=== PATIENT | female | born 1970 | race Caucasian/White ===

== ENCOUNTER 2020-01-02 16:35 | Emergency (ER) | payer BC, SELFPAY ==
--- NOTE | ~2020-01-02 | XR_ITS ---
EXAMINATION: XR chest 2V DATE: 01/02/2020 17:24 INDICATION: Chest pain, history of right breast cancer TECHNIQUE: AP and lateral views of the chest are obtained. COMPARISON: 10/02/2006 FINDINGS: The lungs are free of acute opacities. There is no pleural effusion or pneumothorax. The ca rdiomediastinal silhouette is normal. There is mild thoracic spondylosis. There are surgical clips in the right axilla. IMPRESSION: 1. No acute cardiopulmonary abnormality. Reviewed, dictated and finalized at location A.
[2020-01-02 16:48] VITALS: PULSE 83
--- NOTE | 2020-01-02 16:48 | ECG_ITS ---
Measurements Intervals [place] Rate: 81 P: -7 VA: 151 QRS: 79 QRSD: 100 T: 25 QT: 370 QTc: 430 Interpretive Statements SINUS RHYTHM DELAYED PRECORDIAL R/S TRANSITION BASELINE WANDER- III BORDERLINE ECG Electronically Signed On 01-03-2020 8:44:52 CDT by Jonnathan Casper D.O.
[2020-01-02 16:49] VITALS: BP 140/77; PULSE 83; RESP 29; TEMP 36.6; O2SAT 97
[2020-01-02 16:58] LABS: Basophils Absolute Auto 0.1 K/mm3 (0.0-0.1); Basophils Percent Auto 0.5 % (0.2-1.2); Eosinophils Absolute Auto 0.2 K/mm3 (0-0.3); Eosinophils Percent Auto 1.5 % (0-4.4); Hematocrit 38.7 % (37.0-47.0); Hemoglobin 12.6 g/dL (12.0-15.0); Immature Granulocyte Absolute 0.07 K/mm3 (0.00-0.031); Immature Granulocyte Percent A 0.6 % (0-0.5); Lymphocytes Absolute Auto 2.27 K/mm3 (0.9-3.2); Lymphocytes Percent Auto 19.6 % (18.3-44.2); Mean Corpuscular HGB Conc 32.6 g/dl (32-36); Mean Corpuscular Hemoglobin 29.1 pg (26-34); Mean Corpuscular Volume 89.4 fl (80-100); Mean Platelet Volume 10.3 fl (7.4-10.4); Monocytes Absolute Auto 0.7 K/mm3 (0.1-0.6); Monocytes Percent Auto 6.4 % (2.6-8.5); Neutrophils Absolute Auto 8.3 K/mm3 (1.3-6.7); Neutrophils Percent Auto 71.4 % (45.5-73.1); Platelet Count Result 184 k/mm3 (150-375); Red Blood Count 4.33 M/mm3 (4.2-5.4); Red Cell Distribution Width 13.2 % (11.5-14.5); White Blood Count 11.6 K/mm3 (4.5-10.0)
[2020-01-02] MEDS: ASPIRIN 81 MG CHEWABLE TABLET 324 MG PO (16:58)
--- NOTE | 2020-01-02 17:22 | ED.GENADULT ---
HPI - General Adult General Chief complaint: Chest Pain <ETTA Moore Last Filed: 01/02/20 19:37> Stated complaint: chest pain <ETTA Moore Last Filed: 01/02/20 19:37> Time Seen by Provider: 01/02/20 16:48 <ETTA Moore Last Filed: 01/02/20 19:37> Source: patient and family <ETTA Moore Last Filed: 01/02/20 19:37> Mode of arrival: ambulatory <ETTA Moore Last Filed: 01/02/20 19:37> Limitations: no limitations <ETTA Moore Last Filed: 01/02/20 19:37> History of Present Illness HPI narrative: Patient is a 49-year-old female who presents to emergency department for evaluation of dyspnea and chest comfort over the midsternum and left chest wall patient notes burning pain worse with deep breathing patient notes she recently just got over an upper respiratory infection and has history of COPD on arrival to emergency department patient has mild discomfort of the chest as noted worse with deep breathing denies cough has not taken anything for her symptoms <ETTA Moore Last Filed: 01/02/20 19:37> Related Data Home medications: Home Medications Medication Instructions Recorded Confirmed anastrozole [Arimidex] 1 mg PO DAILY 12/18/19 12/18/19 albuterol sulfate 2 puff INHALATION 01/02/20 amitriptyline 50 mg PO DAILY 01/02/20 anastrozole 1 mg PO DAILY 01/02/20 budesonide-formoterol INHALATION 01/02/20 cyclobenzaprine 10 mg 01/02/20 escitalopram oxalate mg 01/02/20 fluticasone propionate INTRANASAL 01/02/20 gabapentin 01/02/20 lisinopril-hydrochlorothiazide tablet 01/02/20 meloxicam 01/02/20 prazosin 01/02/20 tramadol mg 01/02/20 trazodone 01/02/20 umeclidinium [Incruse Ellipta] INHALATION 01/02/20 <ETTA Moore Last Filed: 01/02/20 19:37> Allergies/adverse reactions: Allergies Allergy/AdvReac Type Severity Reaction Status Date / Time atorvastatin [From Lipitor] Allergy Unknown Verified 01/02/20 16:53 ciprofloxacin [From Cipro] Allergy Unknown Verified 01/02/20 16:53 doxycycline Allergy Unknown Verified 01/02/20 16:53 Influenza Virus Vaccines Allergy Unknown Verified 01/02/20 19:03 morphine Allergy Hyperactive Verified 01/02/20 19:03 pneumococcal vaccine Allergy Unknown Verified 01/02/20 19:03 Kfyxjxd-Ylu-Wdz Reductase Allergy Unknown Verified 01/02/20 16:54 Inhibitor verapamil Allergy Unknown Verified 01/02/20 16:53 <Oswaldo Bennett PA-C - Last Filed: 01/02/20 19:37> Review of Systems Review of Systems: All systems reviewed & are unremarkable except as noted in HPI and below <Oswaldo Bennett PA-C - Last Filed: 01/02/20 19:37> PMFSH Past Medical History Medical History: Medical History Asthma Bipolar 1 disorder Bursitis Chronic back pain COPD (chronic obstructive pulmonary disease) CVA (cerebral vascular accident) Migraine Neuropathy Normal colonoscopy Obesity LUISA (obstructive sleep apnea) RLS (restless legs syndrome) <Oswaldo Bennett PA-C - Last Filed: 01/02/20 19:37> Surgical History Surgical History: Surgical History H/O elbow surgery Hx of cholecystectomy <Oswaldo Bennett PA-C - Last Filed: 01/02/20 19:37> Family History Family History: Family History (Updated 07/17/19 @ 13:45 by Trini Rockwell MD) Other No history of cancer <Oswaldo Bennett PA-C - Last Filed: 01/02/20 19:37> Social History Social History: Social History Smoking packs per day: 1 Smoking cigarettes per day: 20.0 Years smoked: 10 Smoking pack-years: 10.00 Smoking status: Former smoker Tobacco type: cigarettes Second hand tobacco smoke exposure: No Gender identity (if verbalized by the patient): Female Spiritual care concerns: No
[2020-01-02] MEDS: KETOROLAC 30 MG/ML VIAL (*BKC) IV PUSH (17:25)
[2020-01-02 17:26] LABS: INR 0.9; Partial Thromboplastin Time 25.6 SECONDS (22.3-36.8); Prothrombin Time 12.3 Seconds (11.1-14.7)
[2020-01-02 17:27] VITALS: BP 117/67; PULSE 78; RESP 19; O2SAT 97
[2020-01-02 17:27] LABS: Blood Urea Nitrogen 16 mg/dL (7-17); Calcium 9.5 mg/dL (8.4-10.2); Carbon Dioxide 27 mmol/L (22-30); Chloride 100 mmol/L (98-107); Estimated CRCL calculation 127 ml/min; Estimated Glomerular Filt Rate > 60; Glucose 100 mg/dL (65-105); Potassium 4.2 mmol/L (3.4-5.0); Sodium 137 mmol/L (137-145)
[2020-01-02 17:38] LABS: Troponin I < 0.012 ng/mL (0.000-0.034)
[2020-01-02 17:40] LABS: D Dimer 0.27 ug/mL (<0.48)
[2020-01-02 17:55] VITALS: TEMP 36.6
[2020-01-02 18:24] VITALS: BP 129/66; PULSE 79; RESP 19; O2SAT 96
[2020-01-02 20:23] LABS: Troponin I < 0.012 ng/mL (0.000-0.034)
== END 2020-01-02 20:59 | disposition home or self-care (01) ==
PROVIDERS: Emergency Medicine Emergency Medical Services; Emergency Provider Emergency Medicine; PCP Family Medicine
DX: R07.89 Other chest pain (principal); J44.9 Chronic obstructive pulmonary disease, unspecified; Z86.73 Personal history of transient ischemic attack (TIA), and cerebral infarction without residual deficits; G62.9 Polyneuropathy, unspecified; E66.9 Obesity, unspecified; Z68.43 Body mass index [BMI] 50.0-59.9, adult; G47.33 Obstructive sleep apnea (adult) (pediatric); G25.81 Restless legs syndrome; F31.9 Bipolar disorder, unspecified; Z87.891 Personal history of nicotine dependence; R94.31 Abnormal electrocardiogram [ECG] [EKG]
CPT/HCPCS: 36415; 71046; 80048; 84484; 85025; 85055; 85380; 85610; 85730; 93005; 96374; 99284; A9270; J1885

== ENCOUNTER 2020-06-26 08:04 | Outpatient (CLI) | payer BC, SELFPAY ==
--- NOTE | ~2020-06-26 | MR_ITS ---
EXAMINATION: MR knee RT wo con DATE: 06/26/2020 09:01 INDICATION: Right knee pain. TECHNIQUE: Magnetic resonance imaging (MRI) of the right knee was performed without intravenous contr ast. Sequences included axial PD-weighted FS FSE, coronal PD-weighted FSE and PD-weighted FS FSE, sag ittal PD-weighted FSE, and sagittal T2-weighted FS FSE. COMPARISON: None. FINDINGS: Medial compartment: Medial meniscus is intact. There is deep partial thickness cartilage loss of femoral condyle involvin g the central and medial articular surface. There is deep partial thickness cartilage loss of tibial condyle involving the central and medial articular surface. Marginal osteophytes are noted. Lateral compartment: There is an upper surface horizontal tear of anterior horn of lateral meniscus with 11 mm paramenisca l cyst. There is shallow partial-thickness cartilage loss of tibial condyle anteromedially with mild subchondral edema-like marrow signal intensity. The femoral cartilage is normal. Marginal osteophytes are noted. Patellofemoral compartment: There is deep partial thickness cartilage loss of patellar lateral facet and shallow partial-thicknes s cartilage loss of patellar median ridge and medial facet with mild subchondral edema-like marrow si gnal intensity. There is shallow partial-thickness cartilage loss of trochlea. Marginal osteophytes a re noted. Ligaments and tendons: The anterior and posterior cruciate ligaments are normal. Medial collateral ligament and lateral kosta ateral ligament complex are intact. There is mild patellar tendinopathy. Fluid: There is a small knee joint effusion. There is mild prepatellar and superficial infrapatellar bursiti s. IMPRESSION: 1. 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 2. Tear of lateral meniscus. 3. Small knee joint effusion. Reviewed, dictated and finalized at location A. IMPRESSION: 1. Moderate chondrosis of patellofemoral and medial compartments and mild chond rosis of lateral compartment. 2. Tear of lateral meniscus. 3. Small knee joint effusion.
== END 2020-06-26 08:05 | disposition home or self-care (01) ==
PROVIDERS: PCP Family Medicine; Visit Provider Orthopaedic Surgery
DX: M25.461 Effusion, right knee (principal); S83.281A Other tear of lateral meniscus, current injury, right knee, initial encounter; X58.XXXA Exposure to other specified factors, initial encounter
CPT/HCPCS: 73721

== ENCOUNTER 2020-09-16 06:54 | Outpatient (NON) | payer BC, SELFPAY ==
[2020-09-16 23:32] LABS: SARS-CoV-2 RNA PCR Negative
== END 2020-09-16 06:55 ==
LOC: ANHCOVIDDT 07:09
PROVIDERS: PCP Family Medicine; Visit Provider Nurse Practitioner Family
DX: R06.00 Dyspnea, unspecified (principal); Z20.822 Contact with and (suspected) exposure to COVID-19
CPT/HCPCS: C9803; U0003

== ENCOUNTER 2021-05-28 08:15 | Outpatient (CLI) | payer BC, SELFPAY ==
--- NOTE | ~2021-05-28 | MM_ITS ---
EXAMINATION: MM screening tho BI w héctor HISTORY: Screening mammogram TECHNIQUE: Craniocaudal and mediolateral oblique 3-D tomosynthesis images were obtained and synthetic 2-D images were generated. CAD analysis was submitted and interpreted. COMPARISON: 05/30/2019 post biopsy mammogram 05/30/2019 right ultrasound-guided breast biopsy 05/26/2019 diagnostic right mammogram and limited right breast ultrasound 05/19/2019 bilateral digital screening mammogram BREAST PARENCHYMAL COMPOSITION: There are scattered areas of fibroglandular density. FINDINGS: Asymmetric outer mid right breast asymmetric density, spiculation and overlying retraction, possibly postoperative change from right partial mastectomy and right axillary node dissection for b reast malignancy. Recurrent malignancy is considered less likely. Continued mammographic short term follow up is recommended, with MRI as clinically appropriate Scattered bilateral benign calcifications. There is no evidence of suspicious mass, calcification, or architectural distortion to suggest malignancy in either breast. There has been no suspicious interv al change. IMPRESSION: 1. Probable postoperative scarring in the outer mid right breast following partial mastectomy for markel ast malignancy 2. 6 month diagnostic right mammogram follow-up is recommended, with MR breast examination as clinica lly appropriate BI-RADS Category 0: Incomplete: Needs additional imaging evaluation. Reviewed, dictated and finalized at location A. IMPRESSION: 1. Probable postoperative scarring in the outer mid right breast following part ial mastectomy for breast malignancy 2. 6 month diagnostic right mammogram follow-up is recommended, with MR breast examination as clinically appropriate BI-RADS Category 0: Incomplete: Needs additional imaging evaluation.
== END 2021-05-28 08:16 | disposition home or self-care (01) ==
LOC: ANHIMG 08:17
PROVIDERS: PCP Family Medicine; Visit Provider Internal Medicine
DX: Z12.31 Encounter for screening mammogram for malignant neoplasm of breast (principal); R92.8 Other abnormal and inconclusive findings on diagnostic imaging of breast
CPT/HCPCS: 77063; 77067

== ENCOUNTER 2022-01-13 10:43 | Outpatient (CLI) | payer BC, SELFPAY ==
--- NOTE | ~2022-01-13 | MMUS_ITS ---
EXAMINATION: MM diagnostic tho RT w héctor, US breast RT limited HISTORY: History of right breast cancer and seminal status post right partial mastectomy TECHNIQUE: Full field and spot ML, MLO and CC 3-D tomosynthesis images of the right breast were perfo rmed and synthetic 2-D images were generated. CAD analysis was submitted and interpreted. High resolu tion subareolar and mid to upper outer right breast ultrasound was performed. COMPARISON: 05/19/2019 bilateral screening mammogram 05/26/2019 diagnostic right mammogram and limited right breast ultrasound BREAST PARENCHYMAL COMPOSITION: There are scattered areas of fibroglandular density. FINDINGS: MAMMOGRAPHIC FINDINGS: Stable scarring and retraction is noted in the outer mid right breast consistent with history of part ial mastectomy for right breast cancer; status post right axillary node dissection.. No interval mass or new architectural distortion or significant new or developing density of the righ t breast is evident. Occasional benign calcifications. ULTRASOUND: There is shadowing from scarring at the right o'clock area. There is some focal shadowing from a prom inent calcified microhematomas. No suspicious new mass or shadowing is detected. IMPRESSION: 1. Status post right partial mastectomy and axillary node dissection for breast cancer 2. No significant change since 05/28/2021 3. At a minimum, routine annual mammographic screening is recommended. BI-RADS Category 2: Benign finding(s). Reviewed, dictated and finalized at location A. IMPRESSION: 1. Status post right partial mastectomy and axillary node dissection for breast cancer 2. No significant change since 05/28/2021 3. At a minimum, routine annual mammographic screening is recommended. BI-RADS Category 2: Benign finding(s).
== END 2022-01-13 10:44 | disposition home or self-care (01) ==
PROVIDERS: PCP Family Medicine; Visit Provider Internal Medicine
DX: C50.011 Malignant neoplasm of nipple and areola, right female breast (principal); Z17.0 Estrogen receptor positive status [ER+]
CPT/HCPCS: 76642; 77061; 77065; G0279

== ENCOUNTER 2024-06-04 08:12 | Outpatient (CLI) | payer OTHER, SELFPAY ==
--- NOTE | ~2024-06-04 | CT_ITS ---
CT scan of the Neck Technique: 2.5 mm axial scans were obtained through the neck after intravenous administration of 75 c c Omnipaque 350. Coronal and sagittal reconstructions of the neck were obtained. Dose reduction techn ique was used on this scan by utilizing automated exposure control and iterative reconstruction techn ique. The dose-length product (DLP) was 726.38 mGy-cm. Clinical History: Dizziness Findings: There is no evidence of any significant cervical lymphadenopathy. Several small, nonenlarged jugulo- digastric and posterior cervical lymph nodes are noted bilaterally. Parapharyngeal spaces appear norm al bilaterally. The parotid and submandibular glands appear normal. The pharyngeal mucosal spaces appear normal. No soft tissue masses are seen in the neck. Vascular str uctures enhance normally. The thyroid gland appears normal. Images of the lung apices reveal no abnormalities. Impression: No significant abnormalities noted. Reviewed, dictated and finalized at [facility]. Impression: No significant abnormalities noted.
[2024-06-04 09:10] LABS: Estimated Glomerular Filt Rate > 60
== END 2024-06-04 08:13 | disposition home or self-care (01) ==
PROVIDERS: PCP Nurse Practitioner Family; Visit Provider Otolaryngology
DX: R42 Dizziness and giddiness (principal)
CPT/HCPCS: 70491; Q9967

== ENCOUNTER 2024-11-06 09:46 | Outpatient (CLI) | payer OTHER, SELFPAY ==
[2024-11-06 11:59] LABS: Basophils Absolute Auto 0.1 K/mm3 (0.0-0.1); Eosinophils Absolute Auto 0.2 K/mm3 (0-0.3); Eosinophils Percent Auto 1.6 % (0-4.4); Hematocrit 36.2 % (37.0-47.0); Hemoglobin 11.9 g/dL (12.0-15.0); Immature Granulocyte Absolute 0.03 K/mm3 (0.00-0.031); Immature Granulocyte Percent A 0.3 % (0-0.5); Lymphocytes Absolute Auto 3.85 K/mm3 (0.9-3.2); Lymphocytes Percent Auto 36.7 % (18.3-44.2); Mean Corpuscular HGB Conc 32.9 g/dl (32-36); Mean Corpuscular Hemoglobin 31.2 pg (26-34); Mean Corpuscular Volume 94.8 fl (80-100); Mean Platelet Volume 9.3 fl (7.4-10.4); Monocytes Absolute Auto 0.9 K/mm3 (0.1-0.6); Neutrophils Absolute Auto 5.4 K/mm3 (1.3-6.7); Neutrophils Percent Auto 51.4 % (45.5-73.1); Platelet Count Result 390 k/mm3 (150-375); Red Blood Count 3.82 M/mm3 (4.2-5.4); Red Cell Distribution Width 13.6 % (11.5-14.5); White Blood Count 10.5 K/mm3 (4.5-10.0)
[2024-11-06 12:26] LABS: Albumin Level 4.1 g/dL (3.5-5.1); Anion Gap 11 mmol/L (4-12); Blood Urea Nitrogen 25 mg/dL (7-17); Calcium 9.8 mg/dL (8.4-10.2); Carbon Dioxide 25 mmol/L (22-30); Chloride 103 mmol/L (98-107); Estimated Glomerular Filt Rate > 60; Glucose 82 mg/dL (65-110); Potassium 3.8 mmol/L (3.4-5.0); Sodium 139 mmol/L (137-145)
[2024-11-06 12:28] LABS: Urine Cotinine NEGATIVE
[2024-11-06 12:45] LABS: Digoxin 2.8 ng/mL (0.8-2.0)
[2024-11-06 15:49] LABS: Hemoglobin A1C 4.6 % (<5.7)
[2024-11-06 19:16] LABS: Prealbumin 29.5 mg/dL (17.6-36.0)
== END 2024-11-06 09:47 | disposition home or self-care (01) ==
LOC: ANHSURGERY 09:53
PROVIDERS: Anesthesiology; PCP Family Medicine; Visit Provider Orthopaedic Surgery
DX: Z01.818 Encounter for other preprocedural examination (principal); M17.0 Bilateral primary osteoarthritis of knee; I49.9 Cardiac arrhythmia, unspecified; R63.4 Abnormal weight loss
CPT/HCPCS: 36415; 80048; 80162; 80307; 82040; 83036; 84134; 85025; 87081

== ENCOUNTER 2024-11-06 15:58 | Emergency (ER) | payer OTHER, SELFPAY ==
[2024-11-06 16:15] VITALS: BP 140/87; PULSE 77; RESP 18; TEMP 36.6; O2SAT 100
--- NOTE | 2024-11-06 17:29 | ED.RECABL ---
HPI - Recheck/Abnormal Lab/Rx General Chief Complaint: Recheck/Abnormal Lab/Rx Stated Complaint: abnormal pre-op labs Time Seen by Provider: 11/06/24 17:29 Focused HPI: This is a 54 year old female that presents to the ER for elevated digoxin levels. Reports she was called and told to come to the ER. Does report losing weight recently after gastric bypass surgery. She was getting pre-op tests for her knee replacement which showed elevated digoxin levels. She does not have any symptoms currently. GENERAL: Well-appearing, well-nourished, and in no acute distress. HEAD: Normocephalic, atraumatic. CHEST: Clear to auscultation. ?No respiratory distress. HEART: Regular rate and rhythm.? NEURO: ?Alert and oriented x3. Patient screened in triage and initial orders placed.? ?Additional care and disposition to be based upon?diagnostic testing and treatment. Related Data Home Medications ?Medication ?Instructions ?Recorded ?Confirmed ?Last Taken ?Type albuterol sulfate 90 mcg/actuation 2 puff inhalation PRN SOB 01/02/20 11/06/24 Unknown History aerosol inhaler amitriptyline 50 mg tablet 50 mg PO TID 01/02/20 11/06/24 Unknown History anastrozole 1 mg tablet 1 mg PO DAILY 01/02/20 11/06/24 Unknown History cyclobenzaprine 10 mg tablet 10 mg PO PRN MUSCLE SPASM 01/02/20 11/06/24 Unknown History escitalopram oxalate 20 mg tablet 30 mg PO HS 01/02/20 11/06/24 Unknown History fluticasone propionate 50 2 spray intranasal DAILY 01/02/20 11/06/24 Unknown History mcg/actuation nasal spray,suspension gabapentin 400 mg capsule 800 mg PO TID 01/02/20 11/06/24 Unknown History lisinopril 20 tablet 01/02/20 01/23/24 Unknown History mg-hydrochlorothiazide 25 mg tablet meloxicam 15 mg tablet 15 mg PO HS 01/02/20 11/06/24 Unknown History trazodone 150 mg tablet 150 mg PO HS 01/02/20 11/06/24 Unknown History albuterol sulfate 0.63 mg/3 mL 0.63 mg inhalation Q6H 01/23/24 11/06/24 Unknown History solution for nebulization azelastine 137 mcg (0.1 %) nasal 1 spray intranasal Q12H 01/23/24 11/06/24 Unknown History spray budesonide-formoterol HFA 160 2 puff inhalation Q12H 01/23/24 11/06/24 Unknown History mcg-4.5 mcg/actuation aerosol inhaler (Symbicort) calcium 600mg plus vitamin d3 600 mg PO 1XD 01/23/24 11/06/24 Unknown History diphenhydramine HCl 25 mg tablet 50 mg PO BID PRN allergy symptoms 01/23/24 11/06/24 Unknown History (Benadryl Allergy) montelukast 10 mg tablet 10 mg PO DAILY 01/23/24 11/06/24 Unknown History sumatriptan succinate 100 mg tablet See Rx Instructions PO .COMPLEX 01/23/24 11/06/24 Unknown History umeclidinium 62.5 mcg/actuation 1 inh inhalation DAILY 01/23/24 11/06/24 Unknown History blister powder for inhalation (Incruse Ellipta) vitamin b 12 2500mg PO 01/23/24 07/23/24 Unknown History vitamin c PO 2XD 01/23/24 10/01/24 Unknown History linaclotide 72 mcg capsule 72 mcg PO DAILY 04/23/24 11/06/24 Unknown History (Linzess) meclizine 25 mg tablet 25 mg PO TID 04/23/24 11/06/24 Unknown History famotidine 20 mg tablet 20 mg PO BID 07/23/24 11/06/24 Unknown History hyoscyamine sulfate 0.125 mg 0.125 mg sublingual QID PRN 07/23/24 11/06/24 Unknown History sublingual tablet (Oscimin SL) dyspepsia linaclotide 145 mcg capsule 145 mcg PO DAILY 07/23/24 11/06/24 Unknown History (Linzess) ondansetron 4 mg disintegrating 4 mg PO Q6H 07/23/24 11/06/24 Unknown History tablet atogepant 60 mg tablet (Qulipta) 60 mg PO DAILY 10/01/24 11/06/24 Unknown History budesonide-formoterol HFA 160 2 puff inhalation Q12H 10/01/24 11/06/24 Unknown History mcg-4.5 mcg/actuation aerosol inhaler (Symbicort) buspirone 30 mg tablet 30 mg PO BID 10/01/24 11/06/24 Unknown History cetirizine 10 mg tablet (Zyrtec) 10 mg PO DAILY PRN ALLERGIE 10/01/24 11/06/24 Unknown History SYMPTOMS digoxin 125 mcg (0.125 mg) tablet 125 mcg PO .5XWK 10/01/24 11/06/24 Unknown History doxepin 25 mg capsule 25 mg PO QHS 10/01/24 11/06/24 Unknown History fenofibrate nanocrystallized 48 mg 48 mg PO DAILY 10/01/24 11/06/24 Unknown History tablet hydroxyzine HCl 25 mg tablet 50 mg PO TID PRN anxiety 10/01/24 11/06/24 Unknown History omega-3 acid ethyl esters 1 gram 1 cap PO DAILY 10/01/24 11/06/24 Unknown History capsule (Lovaza) prazosin 2 mg capsule 2 mg PO QHS 10/01/24 11/06/24 Unknown History propranolol 20 mg tablet 20 mg PO Q12H 10/01/24 11/06/24 Unknown History ascorbic acid (vitamin C) 1,000 mg 1,000 mg PO DAILY 11/06/24 11/06/24 Unknown History tablet,extended release (C Complex) biotin 10,000 mcg capsule 10,000 mcg PO DAILY 11/06/24 11/06/24 Unknown History cholecalciferol (vitamin D3) 50 50 mcg PO DAILY 11/06/24 11/06/24 Unknown History mcg (2,000 unit) capsule cyanocobalamin (vitamin B-12) 1,000 mcg PO DAILY 11/06/24 11/06/24 Unknown History 1,000 mcg capsule lorazepam 0.5 mg tablet 0.5 mg PO PRN 11/06/24 11/06/24 Unknown History Allergies Allergy/AdvReac Type Severity Reaction Status Date / Time atorvastatin (From Lipitor) Allergy Severe PAIN Verified 11/06/24 15:59 ciprofloxacin (From Cipro) Allergy SOB AND Verified 11/06/24 15:59 RASH doxycycline Allergy SOB AND Verified 11/06/24 15:59 RASH Influenza Virus Vaccines Allergy Unknown Verified 11/06/24 15:59 morphine Allergy Fatigued/LE Verified 11/06/24 15:59 THARGIC pneumococcal vaccine Allergy Unknown Verified 11/06/24 15:59 Doygibw-STQ-VlH Reductase Allergy Rash Verified 11/06/24 15:59 Inhibitor (Cxvzsdw-Noi-Awk Reductase Inhibitor) verapamil Allergy Unknown Verified 11/06/24 15:59 [facility] Past Medical History Medical History (Updated 11/07/24 @ 09:31 by Reva Villegas PA-C) Breast cancer 2020 Anxiety PTSD (post-traumatic stress disorder) Tachycardia High cholesterol Normal colonoscopy LUISA (obstructive sleep apnea) RLS (restless legs syndrome) Obesity Neuropathy Migraine COPD (chronic obstructive pulmonary disease) Chronic back pain Bursitis Bipolar 1 disorder Asthma CVA (cerebral vascular accident) Surgical History Surgical History History of back surgery History of lumpectomy of right breast H/O elbow surgery Hx of cholecystectomy Family History Family History (Updated 10/01/24 @ 07:29 by Codie Marie CMA) Father Brain bleed Other Heart disease No history of cancer Social History Social History Smoking packs per day: 1 Smoking cigarettes per day: 20.0 Years smoked: 10 Smoking pack-years: 10.00 Smoking status: Former smoker Tobacco type: cigarettes Second hand tobacco smoke exposure: No Smoking end date: 09/10/04 Additional smoking assessment comments: DENIES ANY FORM OF TOBACCO USE Alcohol intake: never Substance use type: does not use Do You Feel Safe in your Home?: Yes Lack of Transportation: No Lack of Food: Never True Current Housing: I Have Housing Concerned About Future Housing: No Difficulty Paying Gas/Electric Bills: No Difficulty Paying for Meds: No Currently Unemployed: No Education: High School Diploma/GED Difficulty w/ Childcare or Family Care: No Living arrangements: alone Occupation/Education: unemployed Gender identity (if verbalized by the patient): Female Spiritual care concerns: No Course Vital Signs Vital signs: Vital Signs Temperature 97.9 F 11/06/24 16:15 Pulse Rate 77 11/06/24 16:15 Respiratory Rate 18 11/06/24 16:15 Blood Pressure 140/87 11/06/24 16:15 Pulse Oximetry 100 11/06/24 16:15 Oxygen Delivery Room Air 11/06/24 16:15 Temperature 98.0 F 11/06/24 18:19 Pulse Rate 78 11/06/24 18:19 Respiratory Rate 18 11/06/24 18:19 Blood Pressure 127/77 11/06/24 18:19 Pulse Oximetry 97 11/06/24 18:19 Oxygen Delivery Room Air 11/06/24 16:15 MDM - Recheck/Abnormal Lab/Rx MDM Narrative Medical decision making narrative: Patient left after medical screening exam and initial workup and before any further evaluation or management Lab Data Labs: Lab Results 11/06/24 Range/Units 18:30 Magnesium 1.9 (1.6-2.3) mg/dL Total Bilirubin 0.4 (0.2-1.3) mg/dL Direct Bilirubin 0.0 (0-0.3) mg/dL AST 18 (14-36) U/L ALT 19 (6-35) U/L Alkaline Phosphatase 69 (38-126) U/L Total Protein 7.0 (6.3-8.2) g/dL Albumin 4.3 (3.5-5.1) g/dL Discharge Plan Discharge Clinical Impression: Elevated digoxin level Patient Disposition: Elopement After Seen by Prov Condition: Guarded Prognosis Patient Language: Finnish Prescriptions: No Action vitamin c PO 2XD montelukast 10 mg tablet 10 mg PO DAILY Incruse Ellipta 62.5 mcg/actuation blister with device 1 inh inhalation DAILY budesonide-formoterol [Symbicort] 160-4.5 mcg/actuation HFA aerosol inhaler 2 puff inhalation Q12H vitamin b 12 2500mg PO diphenhydramine HCl [Benadryl Allergy] 25 mg tablet 50 mg PO BID PRN (Reason: allergy symptoms) calcium 600mg plus vitamin d3 tablet 600 mg PO 1XD azelastine 137 mcg (0.1 %) aerosol,spray 1 spray intranasal Q12H Rx Instructions: administer into each nostril albuterol sulfate 0.63 mg/3 mL solution for nebulization 0.63 mg inhalation Q6H sumatriptan succinate 100 mg tablet See Rx Instructions PO .COMPLEX Rx Instructions: take 1 tab at onset of headache; if no relief, may repeat 1 tab after at least 2 hrs; max = 2 tabs/24 hrs PO meclizine 25 mg tablet 25 mg PO TID Linzess 72 mcg capsule 72 mcg PO DAILY buspirone 30 mg tablet 30 mg PO BID hydroxyzine HCl 25 mg tablet 50 mg PO TID PRN (Reason: anxiety) prazosin 2 mg capsule 2 mg PO QHS budesonide-formoterol [Symbicort] 160-4.5 mcg/actuation HFA aerosol inhaler 2 puff inhalation Q12H omega-3 acid ethyl esters [Lovaza] 1 gram capsule 1 cap PO DAILY digoxin 125 mcg (0.125 mg) tablet 125 mcg PO .5XWK Patient Comments: TAKES SUN-SUNDAY fenofibrate nanocrystallized 48 mg tablet 48 mg PO DAILY cetirizine [Zyrtec] 10 mg tablet 10 mg PO DAILY PRN (Reason: ALLERGIE SYMPTOMS) Qulipta 60 mg tablet 60 mg PO DAILY doxepin 25 mg capsule 25 mg PO QHS propranolol 20 mg tablet 20 mg PO Q12H famotidine 20 mg tablet 20 mg PO BID Linzess 145 mcg capsule 145 mcg PO DAILY ondansetron 4 mg tablet,disintegrating 4 mg PO Q6H hyoscyamine sulfate [Oscimin SL] 0.125 mg tablet, sublingual 0.125 mg sublingual QID PRN (Reason: dyspepsia) cyclobenzaprine 10 mg tablet 10 mg PO PRN anastrozole 1 mg tablet 1 mg PO DAILY meloxicam 15 mg tablet 15 mg PO HS gabapentin 400 mg capsule 800 mg PO TID amitriptyline 50 mg tablet 50 mg PO TID trazodone 150 mg tablet 150 mg PO HS lisinopril-hydrochlorothiazide 20-25 mg tablet albuterol sulfate 90 mcg/actuation HFA aerosol inhaler 2 puff INHALATION PRN fluticasone propionate 50 mcg/actuation spray,suspension 2 spray INTRANASAL DAILY escitalopram oxalate 20 mg tablet 30 mg PO HS C Complex 1,000 mg tablet extended release 1,000 mg PO DAILY cyanocobalamin (vitamin B-12) 1,000 mcg capsule 1,000 mcg PO DAILY biotin 10,000 mcg capsule 10,000 mcg PO DAILY cholecalciferol (vitamin D3) 50 mcg (2,000 unit) capsule 50 mcg PO DAILY lorazepam 0.5 mg tablet 0.5 mg PO PRN Follow-up/Referrals: Donal,MD Kris [Primary Care Provider] -
[2024-11-06 18:19] VITALS: BP 127/77; PULSE 78; RESP 18; TEMP 36.7; O2SAT 97
[2024-11-06 18:49] LABS: Alanine Aminotransferase 19 U/L (6-35); Albumin Level 4.3 g/dL (3.5-5.1); Alkaline Phosphatase 69 U/L (38-126); Aspartate Amino Transferase 18 U/L (14-36); Bilirubin,Total 0.4 mg/dL (0.2-1.3); Magnesium 1.9 mg/dL (1.6-2.3)
--- NOTE | 2024-11-06 20:37 | PC.NURSE ---
no answer at triage for vital signs
== END 2024-11-06 20:37 | disposition left against medical advice (07) ==
LOC: ANHED 21:53
PROVIDERS: Emergency Provider Physician Assistant; PCP Family Medicine
DX: R89.2 Abnormal level of other drugs, medicaments and biological substances in specimens from other organs, systems and tissues (principal); J44.9 Chronic obstructive pulmonary disease, unspecified; E78.00 Pure hypercholesterolemia, unspecified; E66.9 Obesity, unspecified; G47.33 Obstructive sleep apnea (adult) (pediatric); G25.81 Restless legs syndrome; G62.9 Polyneuropathy, unspecified; F41.9 Anxiety disorder, unspecified; F31.9 Bipolar disorder, unspecified; F43.10 Post-traumatic stress disorder, unspecified; Z90.49 Acquired absence of other specified parts of digestive tract; Z85.3 Personal history of malignant neoplasm of breast; Z86.73 Personal history of transient ischemic attack (TIA), and cerebral infarction without residual deficits; Z87.891 Personal history of nicotine dependence; Z79.899 Other long term (current) drug therapy; R94.31 Abnormal electrocardiogram [ECG] [EKG]
CPT/HCPCS: 36415; 80076; 83735; 93005; 99199; 99284

== ENCOUNTER 2024-11-25 00:23 | Day surgery (SDC) | payer OTHER, SELFPAY ==
--- NOTE | 2024-11-06 09:52 | PC.NURSE ---
Report to the Outpatient Waiting Room, entrance under the green pavilion located off [facility], at time __6 AM on date __11/25/24 . Planned Procedure Time: __7:30 AM .? Time changes happen often and if your time is changed the preop area will call you the afternoon before. - You and your visitor will be asked to self-screen and do not enter if you have any COVID symptoms. Please call surgeon if you need to reschedule. - A mask is optional within the hospital at this time. Patients may have clear liquids (water, carbonated beverages, clear teas, apple juice) until 3 hours prior to surgery ( 4:30 AM) with a maximum of 20 ounces. - No food from midnight until time of surgery and no smoking, or chewing tobacco (or any form of nicotine). No chewing gum, candy or mints. - Take only the following medications with a SIP of water on the morning of surgery: __INHALERS,AMITRIPTYLINE,BUSPIRONE,DIGOXIN,GABAPENTIN,LORAZEPAM DO NOT STOP ANY OF YOUR OTHER PRESCRIPTION MEDICATIONS PRIOR TO SURGERY EXCEPT THE FOLLOWING Hold all vitamins and supplements for 3 days per anesthesiologist.LAST DOSE 11/21/24 Medications to discontinue per physician _PT STATES LAST DOSE MELOXICAM 11/01/24 Date to take last dose Please no make-up, nail south korean, hairspray, perfume, deodorant, or body powder the day of surgery.? No jewelry (including any body piercings) or valuables the day of surgery, leave them at home.? Please take a shower or bath the night before, or the morning of, surgery with an antibacterial soap.? Wear comfortable, loose fitting clothing.? Children are encouraged to wear pajamas. - Jewelry must be removed prior to entering the operating room.? Rings and piercings that are not removed may be cut off. - The hospital will not accept responsibility for valuables.? - Please leave all valuables, including medications, at home the day of surgery. If you are going home after surgery, a licensed water taxi driver must drive you home.? - NO public transportation without another adult if you receive anesthesia. - We recommend that an adult stay with you for 24 hours following discharge. - We also recommend that you do not drive, make important decision, drink alcoholic beverages, or take any drugs that were not prescribed by your health care provider for at least 24 hours after your discharge time. Follow any additional instructions given to you from your surgeon. VERBAL AND WRITTEN instructions given to _PATIENT_AND SISTER ANGELINETY and asked if any additional questions and then verbalized understanding. Patient advised to call surgeon office or pre surgery nurse liaison [phone] if any additional questions.
[2024-11-06 09:59] VITALS: BMI 28.8
[2024-11-06 11:08] VITALS: BP 140/82; PULSE 70; RESP 18; TEMP 36.7; O2SAT 98
--- NOTE | 2024-11-24 16:21 | P.HP_ITS ---
H&P: HPI History of Present Illness Date/Time: 11/24/24 16:21 Chief Complaint: Bilateral knee DJD Narrative: 54-year-old female who presents today for a left total knee arthroplasty with cortisone injection into the right knee. Patient has been having symptoms in both of her knees for years. She has been treating this nonsurgically with cortisone injections every 3 months. Patient has had extreme super obesity in the past. She underwent gastric sleeve procedure in June of last year. At this point patient has lost almost 300 lb from her highest weight of 465 lb. Patient has also been taking meloxicam 15 mg daily. She has severe medial compartment osteoarthritis in both knees. Her left bothers her more than the right. Patient feels this point she would like to proceed with total knee arthroplasty rather than continue nonsurgical treatment. Review of Systems Review of Systems: All systems reviewed & are unremarkable except as noted in HPI and below PMFSH Past Medical History Medical History (Updated 11/08/24 @ 00:00 by Chava Valenzuela) Breast cancer 2020 Anxiety PTSD (post-traumatic stress disorder) Tachycardia High cholesterol Normal colonoscopy LUISA (obstructive sleep apnea) RLS (restless legs syndrome) Obesity Neuropathy Migraine COPD (chronic obstructive pulmonary disease) Chronic back pain Bursitis Bipolar 1 disorder Asthma CVA (cerebral vascular accident) Surgical History Surgical History History of back surgery History of lumpectomy of right breast H/O elbow surgery Hx of cholecystectomy Family History Family History (Updated 10/01/24 @ 07:29 by Codie Marie CMA) Father Brain bleed Other Heart disease No history of cancer Social History Social History Smoking packs per day: 1 Smoking cigarettes per day: 20.0 Years smoked: 10 Smoking pack-years: 10.00 Smoking status: Former smoker Tobacco type: cigarettes Second hand tobacco smoke exposure: No Smoking end date: 09/10/04 Additional smoking assessment comments: DENIES ANY FORM OF TOBACCO USE Alcohol intake: never Substance use type: does not use Do You Feel Safe in your Home?: Yes Lack of Transportation: No Lack of Food: Never True Current Housing: I Have Housing Concerned About Future Housing: No Difficulty Paying Gas/Electric Bills: No Difficulty Paying for Meds: No Currently Unemployed: No Education: High School Diploma/GED Difficulty w/ Childcare or Family Care: No Living arrangements: alone Occupation/Education: unemployed Gender identity (if verbalized by the patient): Female Spiritual care concerns: No Meds Home Medications and Allergies Home Medications ?Medication ?Instructions ?Recorded ?Confirmed ?Type albuterol sulfate 90 mcg/actuation 2 puff inhalation PRN SOB 01/02/20 11/06/24 History aerosol inhaler amitriptyline 50 mg tablet 50 mg PO TID 01/02/20 11/06/24 History anastrozole 1 mg tablet 1 mg PO DAILY 01/02/20 11/06/24 History cyclobenzaprine 10 mg tablet 10 mg PO PRN MUSCLE SPASM 01/02/20 11/06/24 History escitalopram oxalate 20 mg tablet 30 mg PO HS 01/02/20 11/06/24 History fluticasone propionate 50 2 spray intranasal DAILY 01/02/20 11/06/24 History mcg/actuation nasal spray,suspension gabapentin 400 mg capsule 800 mg PO TID 01/02/20 11/06/24 History lisinopril 20 tablet 01/02/20 01/23/24 History mg-hydrochlorothiazide 25 mg tablet meloxicam 15 mg tablet 15 mg PO HS 01/02/20 11/06/24 History trazodone 150 mg tablet 150 mg PO HS 01/02/20 11/06/24 History albuterol sulfate 0.63 mg/3 mL 0.63 mg inhalation Q6H 01/23/24 11/06/24 History solution for nebulization azelastine 137 mcg (0.1 %) nasal 1 spray intranasal Q12H 01/23/24 11/06/24 History spray budesonide-formoterol HFA 160 2 puff inhalation Q12H 01/23/24 11/06/24 History mcg-4.5 mcg/actuation aerosol inhaler (Symbicort) calcium 600mg plus vitamin d3 600 mg PO 1XD 01/23/24 11/06/24 History diphenhydramine HCl 25 mg tablet 50 mg PO BID PRN allergy symptoms 01/23/24 11/06/24 History (Benadryl Allergy) montelukast 10 mg tablet 10 mg PO DAILY 01/23/24 11/06/24 History sumatriptan succinate 100 mg tablet See Rx Instructions PO .COMPLEX 01/23/24 11/06/24 History umeclidinium 62.5 mcg/actuation 1 inh inhalation DAILY 01/23/24 11/06/24 History blister powder for inhalation (Incruse Ellipta) vitamin b 12 2500mg PO 01/23/24 07/23/24 History vitamin c PO 2XD 01/23/24 10/01/24 History linaclotide 72 mcg capsule 72 mcg PO DAILY 04/23/24 11/06/24 History (Chavez) meclizine 25 mg tablet 25 mg PO TID 04/23/24 11/06/24 History famotidine 20 mg tablet 20 mg PO BID 07/23/24 11/06/24 History hyoscyamine sulfate 0.125 mg 0.125 mg sublingual QID PRN 07/23/24 11/06/24 History sublingual tablet (Oscimin SL) dyspepsia linaclotide 145 mcg capsule 145 mcg PO DAILY 07/23/24 11/06/24 History (Chavez) ondansetron 4 mg disintegrating 4 mg PO Q6H 07/23/24 11/06/24 History tablet atogepant 60 mg tablet (Qulipta) 60 mg PO DAILY 10/01/24 11/06/24 History budesonide-formoterol HFA 160 2 puff inhalation Q12H 10/01/24 11/06/24 History mcg-4.5 mcg/actuation aerosol inhaler (Symbicort) buspirone 30 mg tablet 30 mg PO BID 10/01/24 11/06/24 History cetirizine 10 mg tablet (Zyrtec) 10 mg PO DAILY PRN ALLERGIE 10/01/24 11/06/24 History SYMPTOMS digoxin 125 mcg (0.125 mg) tablet 125 mcg PO .5XWK 10/01/24 11/06/24 History doxepin 25 mg capsule 25 mg PO QHS 10/01/24 11/06/24 History fenofibrate nanocrystallized 48 mg 48 mg PO DAILY 10/01/24 11/06/24 History tablet hydroxyzine HCl 25 mg tablet 50 mg PO TID PRN anxiety 10/01/24 11/06/24 History omega-3 acid ethyl esters 1 gram 1 cap PO DAILY 10/01/24 11/06/24 History capsule (Lovaza) prazosin 2 mg capsule 2 mg PO QHS 10/01/24 11/06/24 History propranolol 20 mg tablet 20 mg PO Q12H 10/01/24 11/06/24 History ascorbic acid (vitamin C) 1,000 mg 1,000 mg PO DAILY 11/06/24 11/06/24 History tablet,extended release (C Complex) biotin 10,000 mcg capsule 10,000 mcg PO DAILY 11/06/24 11/06/24 History cholecalciferol (vitamin D3) 50 50 mcg PO DAILY 11/06/24 11/06/24 History mcg (2,000 unit) capsule cyanocobalamin (vitamin B-12) 1,000 mcg PO DAILY 11/06/24 11/06/24 History 1,000 mcg capsule lorazepam 0.5 mg tablet 0.5 mg PO PRN 11/06/24 11/06/24 History Allergies Allergy/AdvReac Type Severity Reaction Status Date / Time atorvastatin (From Lipitor) Allergy Severe PAIN Verified 11/06/24 15:59 ciprofloxacin (From Cipro) Allergy SOB AND Verified 11/06/24 15:59 RASH doxycycline Allergy SOB AND Verified 11/06/24 15:59 RASH Influenza Virus Vaccines Allergy Unknown Verified 11/06/24 15:59 morphine Allergy Fatigued/LE Verified 11/06/24 15:59 THARGIC pneumococcal vaccine Allergy Unknown Verified 11/06/24 15:59 Sqgsaje-LMC-BvS Reductase Allergy Rash Verified 11/06/24 15:59 Inhibitor (Lwxqsrm-Ogj-Gny Reductase Inhibitor) verapamil Allergy Unknown Verified 11/06/24 15:59 Exam Narrative: 54-year-old female alert pleasant. She is 5 ft tall and 165 lb BMI is 28.9. She walks with a bilateral Trendelenburg lurch. She has positive Trendelenburg test bilaterally. 2+ dorsalis pedis and posterior tibial artery pulse palpable on the left. Left knee range of motion is from 5-140 degrees. She has no edema in lower extremities. Skin is all normal in both lower extremities. She has normal quad strength. Left hip range of motion is full without discomfort. She is severe tenderness over the medial joint line as well as the pes bursa. Normal stability in the knee. Trace effusion. Normal sensation left lower extremity Resp: Auscultation: clear to auscultation bilaterally Cardio: Rate: regular rate Rhythm: regular rhythm Assessment and Plan Assessment and plan (1) Primary localized osteoarthritis of both knees: Code(s): M17.0 - Bilateral primary osteoarthritis of knee Status: Acute Plan 54-year-old female who has severe medial compartment osteoarthritis in both knees. At this point she feels she is ready proceed with total knee arthroplasty. Surgical procedures well as the risks and complications were discussed in detail all questions were answered and we will proceed. Patient will see her primary care doctor for pre-surgical clearance. She has seen Dr. Resendez the robotic machine operator, and has been cleared without additional testing. Patient will stop her meloxicam 1 week prior to surgery. Her nasal swab was negative. Hemoglobin 11.9 and platelets were 390. Creatinine 0.51. Albumin and pre-albumin were both within normal range as well as her protein.
[2024-11-25] VITALS (22 sets, daily range): BP systolic 112–152; BP diastolic 61–98; PULSE 67–104; RESP 16–26; TEMP 36.2–38; O2SAT 90–100; BMI 29.8
--- NOTE | ~2024-11-25 | XR_ITS ---
Left Knee Technique: Portable AP and crosstable lateral views Clinical History: Status post TKR Findings: Patient is status post total knee replacement. Orthopedic hardware alignment appears anatom ic. No hardware complication is evident. Subcutaneous emphysema and swelling is likely postoperative in nature. No acute osseous fracture is seen. Impression: Status post total knee replacement, without evidence of hardware complication. Reviewed, dictated and finalized at location . Impression: Status post total knee replacement, without evidence of hardware complication.
--- OUTSIDE RECORDS SUMMARY | 2024-11-25 00:27 | XMS_ITS | Referral Summary ---
Author Organization [facility] Address [address] [place] [address] Care Team Providers Care Board Design Engineer Name Role Phone Latesha Lewis MD Primary Care Provider [phone] Source Comments [facility],non-owned Affiliates and Associated Physician Practices is amultiple site organization consisting of ambulatory clinics and hospital sitesin [place], [place], [place] and [place]. This disclosure is being madepursuant to the Care Everywhere program and may not contain all information available regarding this patient. Last updated 18.[facility] Allergies Active Allergy Reactions Criticality Noted Date Comments Ciprofloxacin Rash Medium 06/16/2019 SOB Doxycycline Urticaria,Shortness of Breath High 06/16/2019 Flu Virus Vaccine Unknown 06/16/2019 Morphine SOCIAL MEDIA EDITOR Dysfunction 06/16/2019 Pneumococcal Polysaccharides Unknown 019 Quinolones Rash Medium 06/16/2019 Hmg-Coa-R Inhibitors Other 06/16/2019 Verapamil Rash Medium 06/16/2019 Medications * Be aware that medications may not be up to date on this document. Alwaysverify current medications with the patient. Medication Sig Dispensed Refills Start Date End Date Status Budesonide-Formote rol Fumarate (SYMBICORT IN) Symbicort 160 mcg-4.5 mcg/actuation HFA aerosol inhaler Active albuterol HFA (PROAIR HFA) 108 (90 Base) MCG/ACT inhaler every 4 hours Active amitriptyline (ELAVIL) 50 MG tablet amitriptyline 50 mg tablet 1 po tid Active cyclobenzaprine (FLEXERIL) 10 MG tablet Take 10 mg by mouth nightly as needed Active escitalopram (LEXAPRO) 20 MG tablet escitalopram 20 mg tablet Active gabapentin (NEURONTIN) 400 MG capsule gabapentin 400 mg capsule Take 2 capsules 3 times a day by oral route for 90 days. Active lisinopril-hydroCH LOROthiazide (PRINZIDE; ZESTORETIC) 20-25 MG tablet lisinopril 20 mg-hydrochlorothiazi de 25 mg tablet TAKE 1 TABLET BY MOUTH ONCE DAILY FOR HIGH BLOOD PRESSURE EDEMA Active meloxicam (MOBIC) 15 MG tablet meloxicam 15 mg tablet TAKE 1 TABLET BY MOUTH ONCE DAILY FOR KNEE PAIN LEG PAIN Active traZODone (DESYREL) 150 MG tablet TAKE 1 TABLET BY MOUTH EVERY DAY AT BEDTIME NEEDED FOR INSOMNIA 4 06/10/2019 Active Acetaminophen (TYLENOL PO) Take 650 mg by mouth 3 times daily Active Ergocalciferol (VITAMIN D2) 2000 units Take 1 tablet by mouth once daily Active fluticasone propionate (FLONASE) 50 MCG/ACT nasal spray [place] 2 sprays into each nostril once daily Active diphenhydrAMINE (BENADRYL) 25 MG tablet Take 25 mg by mouth 2 times daily Active fluticasone-vilant josé luis (BREO ELLIPTA) 100-25 MCG/INH inhaler every 24 hours Activ e prochlorperazine (COMPAZINE) 10 MG tabletIndications: Nausea and Vomiting Take 1 tablet by mouth every 6 hours as needed for Nausea/Vomiting Reasons: Nausea and Vomiting 50 tablet 07/10/2019 Active anastrozole (ARIMIDEX) 1 MG tablet Take 1 mg by mouth once daily 01/26/2020 Active hydrOXYzine hcl (ATARAX) 25 MG tablet TAKE 1 TO 2 TABLETS BY MOUTH AT BEDTIME NEEDED 04/26/2020 Active prazosin (MINIPRESS) 2 MG capsule prazosin 2 mg capsule TAKE 1 CAPSULE BY MOUTH AT BEDTIME Active traMADol (ULTRAM) 50 MG tablet Take 50 mg by mouth every 8 hours as needed 03/24/2020 Active INCRUSE ELLIPTA 62.5 MCG/INH inhaler INHALE 1 PUFF BY MOUTH ONCE DAILY 04/25/2020 Active Calcium Carbonate-Vit D-Min (CALTRATE 600+D PLUS MINERALS) 600-800 MG-UNIT TABS Take 1 tablet by mouth once daily 04/14/2020 Active Active Problems Problem Noted Date Diagnosed Date [employer] current use of aromatase inhibitor 10/2019 Malignant neoplasm of upper- outer quadrant of right breast in female, estrogen receptor positive 06/03/2019 Cancer Staging:Clinical stage from 05/12/2020:Stage IA(cT1b, cN0, cM0, G1, ER+, WV+, HER2-) - Signed by Natalya Borden MD on 08/15/2020 Pathologic stage from 05/12/2020:Stage IA(pT1b, pN0(sn), cM0, G1, ER+, WV+, HER2-) - Signed by Natalya Borden MD on 08/15/2020 Overview (08/15/2020): Right, 10:00. Grade 1/3 IDC. T1bN0(i-)M0, stage IA. ER pos 90% (strong), WV pos 30% (weak), Her-2 neg (1+ on IHC), ki-67 20% Core bx talat luo [place] S/p 06/24/2019 partial mastectomy/SLN bx (JANNY mackey): 7 mm grade 1/3 IDC (2,2,1). No LVI. Margin neg. 8 neg nodes. Social History Tobacco Use Types Packs/Day Years Used Date Smoking Tobacco: Former Smokeless Tobacco: Never Alcohol Use Standard Drinks/Week Comments Not Currently 0 (1 standard drink = 0.6 oz pur e alcohol) Sex and Gender Information Value Date Recorded Sex Assigned at Not on file Gender Identity Not on file Sexual Orientation Not on file Last Filed Vital Signs Vital Sign Reading Time Taken Comments Blood Pressure 121/69 05/13/2020 10:46 AM CDT Pulse 82 05/13/2020 10:46 AM CDT Temperature 36.3 C (97.4 F) 05/13/2020 10:46 AM CDT Respiratory Rate 21 06/24/2019 3:50 PM CDT Oxygen Saturation 98% 05/13/2020 10:46 AM CDT Inhaled Oxygen Concentration - - Weight 136.1 kg (300 lb) 05/13/2020 10:46 AM CDT Height 154.9 cm (5' 1 ) 05/13/2020 10:46 AM CDT Body Mass Index 56.68 05/13/2020 10:46 AM CDT Functional Status Functional Status Response Date of Assess ment Is person deaf or have serious hearing difficult y? No 06/24/2019 Is person blind or have serious difficulty seein g? No 06/24/2019 Does person have serious dif ficulty walking/climbing stairs? Yes 06/24/2019 Does person have difficulty dressing/bathing? Ye s 06/24/2019 Does person have difficulty doing errands alone? No 06/24/2019 Cognitive Status Response Date of Assessm ent Does person have difficulty concentrating/remembering/making decisions? No 06/24/2019 Plan of Treatment Not on file Procedures Procedure Name Priority Date/Time Associated Diagnosis Comments MAMMO BILAT DIAGNOSTIC Routine 05/13/2020 10:38 AM CDT Malignant neoplasm of upper-outer quadrant of right breast in female, estrogen receptor positive (HCC) from Last 3 Months or Most Recently Relevant to Health Maintenance Results * MAMMO BILAT DIAGNOSTIC (05/13/2020 10:38 AM CDT) Anatomical Region Laterality Modality Breast Bilateral Mammography 05/13/2020 10:2 6 AM CDT Impressions 05/13/2020 10:32 AM CDT IMPRESSION: No evidence of malignancy in either breast. ASSESSMENT: BI-RADS Category 2: Benign finding(s). RECOMMENDATION: Annual bilateral diagnostic mammography. Findings discussed with the patient by Dr. Ramirez. Result letter not given to the patient due to COVID contact precautions. This report was electronically signed by AMANDA RAMIREZ M.D. on 05/13/2020 10:32 AM . Narrative 05/13/2020 10:32 AM CDT BILATERAL DIAGNOSTIC MAMMOGRAM TECHNIQUE: Images were performed using 3D tomosynthesis images with reconstructed/synthetic 2D images. CAD analysis was performed. DATE: 05/13/2020. HISTORY: 50-year-old with a history of right breast invasive ductal carcinoma status post breast conservation therapy in 2019 referred for annual mammography. She has no new breast complaints. She had a right axilla posttreatment seroma. It was aspirated 07/10/2019. COMPARISON: 06/24/2019 and priors dating back to 05/19/2019. BREAST COMPOSITION: There are scattered areas of fibroglandular density. FINDINGS: There are now posttreatment changes in the right breast. No suspicious mass, architectural distortion, or calcifications in either breast. Khushbu Mackey MD MAMMO ORDERABLES from Last 3 Months or Most Recently Relevant to Health Maintenance Care Teams Board Design Engineer Relationship Specialty Start Date End Date Latesha Lewis MD [address] [place] [id number] PCP - General 06/16/19
--- OUTSIDE RECORDS SUMMARY | 2024-11-25 00:27 | XMS_ITS | CONTINUITY OF CARE DOCUMENT ---
Author Name riya ritter Address Unknown Organization [facility] Address [address] [place] [address] Phone [phone] Care Team Providers Care Embedded Linux Developer Name Role Phone Vicente Resendez MD Unavailable [phone] GIACOMO GRIGGS MD Unavailable SENAIT GOMES Unavailable PROBLEMS Condition Status Date Provider Notes Hypertriglyceridemia active Patria García PA Specialist MIGRAINE HEADACHE active Em Stahlschmid t HTN-11/16 ECHO EF 65 LVH active ? Mya Madison MD HYPERCHOLESTEROLEMIA-LABS PE R DR. 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 Mya Madison MD ANEMIA NEEDS FE TRANSFUSIONS active Mya Madison MD CHEST PAIN-11/16 CATH NORMAL active ? Mya farr MD Shortness of breath active Eileen Ventimigl ia GOVERNMENT GAUGER COPD active Eileen Ventimiglia GOVERNMENT GAUGER Palpitations active Eileen Ventimiglia GOVERNMENT GAUGER LUISA, adult active Eileen Ventimiglia GOVERNMENT GAUGER SVT, paroxysmal active Vicente Resendez MD Syncope active Vicente Resendez MD ENCOUNTERS Date Type Provider Location Encounter Diag nosis - In-person encounter Office Visit Vicente Resendez MD [place] [facility] HYPERCHOLESTEROLEMIA -LABS PER DR. TITUS s/p gastric sleeve surgery 06/2024Syncope - In-person encounter Office Visit Vicente Resendez MD [place] [facility] - In-person encounter Office Visit Vicente Resendez MD [place] [facility] SVT, paroxysmal - In-person encounter Office Visit Vicente Resendez MD [place] [facility] - In-person encounter Office Visit Vicente Resendez MD [place] [facility] Shortness of breathCOPDPalpitatio nsOSA, adult - In-person encounter Office Visit Mya Madison MD [place] [facility] HTN-11/16 ECHO EF 65 LVHCVA-11/16 CAROTID NEGCHEST PAIN-11/16 CATH NORMAL - In-person encounter Office Visit Mya Madison MD [place] [facility] ANEMIA NEEDS FE TRANSFUSIONS VITAL SIGNS Date Observation Value Provider Body Mass Index (Ratio) 36.13 kg/m2 Christian Resendez MD blood pressure, diastolic 74 mm[Hg] Benedict clemente [place] blood pressure, systolic 122 mm[Hg] Natalie cosby [place] oxygen saturation, oximetry 97 % [facility] pulse rate 87 /min [facility] blood pressure, cuff size regular Benedict clemente [place] weight E&M 185.0 [lb_av] [facility] height E&M 60 [in_i] [facility] Body Mass Index (Ratio) 49.99 kg/m2 Grah am Juan Jose blood pressure, diastolic 81 mm[Hg] Li nkLogic blood pressure, systolic 117 mm[Hg] Carolynn kLogic pulse rate 99 /min [facility] blood pressure, cuff size regular [facility] blood pressure, diastolic 81 mm[Hg] Fa [facility] blood pressure, systolic 117 mm[Hg] [facility] oxygen saturation, oximetry 96 % [facility] respiratory rate E&M 16 /min Brigette Dez [facility] weight E&M 256 [lb_av] [facility] height E&M 60 [in_i] [facility] Body Mass Index (Ratio) 52.73 kg/m2 Christian Resendez MD blood pressure, diastolic 76 mm[Hg] Saloni Log blood pressure, systolic 134 mm[Hg] Carolynn pulse rate 90 /min Terrell y blood pressure, cuff size large Ja et blood pressure, diastolic 76 mm[Hg] Ja rret blood pressure, systolic 134 mm[Hg] [facility] ret oxygen saturation, oximetry 97 % [place] respiratory rate E&M 16 /min [place] weight E&M 270 [lb_av] Terrell y height E&M 60 [in_i] Terrell y Body Mass Index (Ratio) 51.75 kg/m2 Christian Resendez MD blood pressure, diastolic 77 mm[Hg] Saloni nkLogic blood pressure, systolic 158 mm[Hg] Carolynn blood pressure, cuff size regular Ja rret blood pressure, diastolic 77 mm[Hg] Ja rret blood pressure, systolic 158 mm[Hg] Jar ret pulse rate 81 /min Terrell y oxygen saturation, oximetry 96 % [place] respiratory rate E&M 16 /min weight E&M 265 [lb_av] [place]rell height E&M 60 [in_i] [place] Body Mass Index (Ratio) 50.97 kg/m2 Christian Resendez MD blood pressure, diastolic 83 mm[Hg] Saloni nkLogic blood pressure, systolic 152 mm[Hg] Carolynn kLogic blood pressure, cuff size large Damian blood pressure, diastolic 83 mm[Hg] Damian blood pressure, systolic 152 mm[Hg] Joanna crane pulse rate 83 /min Terrell respiratory rate E&M 12 /min [place] oxygen saturation, oximetry 95 % [place] height E&M 60 [in_i] [place] weight E&M 261 [lb_av] Terrell y blood pressure, diastolic 74 mm[Hg] Damian Ying RN blood pressure, systolic 118 mm[Hg] Mayur Ying RN pulse rate 84 /min Mayur Ying RN oxygen saturation, oximetry 98 % Mayur Ying RN respiratory rate E&M 20 /min Mayur dorantes RN weight E&M 329 [lb_av] Mayur Ying RN blood pressure, diastolic 82 mm[Hg] Damian Ying RN blood pressure, systolic 132 mm[Hg] Mayur Ying RN pulse rate 86 /min Mayur Ying RN oxygen saturation, oximetry 97 % Mayur Ying RN respiratory rate E&M 24 /min Mayur dorantes RN weight E&M 330 [lb_av] Mayur Ying RN ALLERGIES Allergy Name Onset Date Reaction Criticality Status DOXACYCLINE High Criticality active RESULTS Date Observation Value Provider Reference Range Interpretation Location platelet count 384 THOUSAND/UL [facility] 140-400 Normal red blood cell distribution width 14.5 % [facility] 11.0-15.0 Normal mean corpuscular hemoglobin concentration, RBC 33.0 G/DL [facility] 32.0-36.0 Normal mean corpuscular hemoglobin, RBC 28.5 pg [facility] 27.0-33.0 Normal mean corpuscular volume, RBC 86.5 fL [facility] 80.0-100.0 Normal hematocrit, blood 44.0 % [facility] 35.0-45.0 Normal hemoglobin electrophoresis, blood 14.5 [facility] 11.7-15.5 Normal erythrocyte (RBC) count 5.08 MILLION/UL [facility] 3.80-5.10 Normal leukocyte (white blood cells) count, blood 13.5 THOUSAND/UL [facility] 3.8-10.8 High alanine aminotransferase (SGPT), serum 31 1/L [facility] 6-40 Normal aspartate aminotransferase (SGOT), serum 24 1/L [facility] 10-30 Normal alkaline phosphatase, serum 80 1/L [facility] 33-115 Normal bilirubin, serum, total 0.2 mg/dL [facility] 0.2-1.2 Normal albumin/globulin ratio, serum 1.4 (calc) [facility] 1.0-2.1 Normal globulins, serum, total 2.9 G/DL (CALC) [facility] 2.2-3.9 Normal albumin, serum 4.2 g/dL [facility] 3.6-5.1 Normal protein, total, serum 7.1 g/dL [facility] 6.2-8.3 Normal calcium, serum 9.5 mg/dL [facility] 8.6-10.2 Normal carbon dioxide, venous blood 27 mmol/L [facility] 21-33 Normal chloride, serum 102 mmol/L [facility] 98-110 Normal potassium, serum 4.4 mmol/L [facility] 3.5-5.3 Normal sodium, serum 139 mmol/L [facility] 135-146 Normal urea nitrogen/creatinine ratio, serum NOT APPLICABLE (calc) [facility] 6-22 Estimated Glomerular Filtration Rate (calc) >60 mL/min/1.73m2 [facility] > OR = 60 Normal creatinine, serum 0.75 mg/dL [facility] 0.50-1.20 Normal urea nitrogen, blood 14 mg/dL [facility] 7-25 Normal blood glucose, random 49 mg/dL [facility] 65-99 Low thyroid stimulating hormone, serum 2.62 u[IU]/mL [facility] Normal free thyroxine index 2.5 [facility] 1.4-3.8 Normal thyroxine, serum, total 9.3 ug/dL [facility] 4.5-12.5 Normal triiodothyronine resin uptake 27 % [facility] 22-35 Normal cholesterol/HDL ratio, serum, percent 6.4 (calc) [facility] < OR = 5.0 High LDL cholesterol, serum 87 MG/DL (CALC) [facility] <130 Normal HDL cholesterol, serum 23 mg/dL [facility] > OR = 46 Low cholesterol, serum 148 mg/dL [facility] 125-200 Normal triglyceride, serum, fasting 189 mg/dL [facility] <150 High international normalized ratio (INR) 0.9 Candelario Hess prothrombin time (patient) 8.8 s Candelario Hess HISTORY OF MEDICATION USE Medication Status Instructions Dates Provider Indications Com ments Qulipta 60 mg tablet active Alicja Rocha meclizine 25 mg tablet active TAKE ONE TABLET BY MOUTH ONCE A DAY Alicja Rocha famotidine 20 mg tablet active TAKE ONE TABLET BY MOUTH TWICE A DAY Alicja Rocha Linzess 145 mcg capsule active TAKE ONE TABLET BY MOUTH ONCE A DAY Alicja Rocha Calcium 600 + D active lAicja Rocha cetirizine 10 mg tablet active TAKE ONE TABLET BY MOUTH ONCE A DAY Alicja Rocha fenofibrate nanocrystallized 48 mg tablet active Take 1 tablet by mouth once daily [facility] Specialist Tricor 48 mg tablet completed Take 1 table t by mouth once a day - [facility] Specialist PER VERBAL MT TO [place] fenofibrate 40 mg tablet completed TAKE 1 TABLET BY MOUTH ONCE A DAY - [facility] Special[facility] digoxin 125 mcg (0.125 mg) tablet active Take 1 tablet by mouth as directed take 1 tablet by mouth sunday-sunday Vicente Resendez MD Lovaza 1 gram capsule active Take 1 capsule by mouth twice a day Vicente Resendez MD Vascepa 1 gram capsule completed 2 capsule by mouth twice a day - Vicente Resendez MD Incruse Ellipta 62.5 mcg/actuation blister with device active Eileen Ventimiglia GOVERNMENT GAUGER Symbicort 160-4.5 mcg/actuation HFA aerosol inhaler active Eileen Ventimiglia GOVERNMENT GAUGER escitalopram oxalate 20 mg tablet active Eileen Ventimiglia GOVERNMENT GAUGER lisinopril-hydrochl orothiazide 20-25 mg tablet completed - Vicente Resendez MD amitriptyline 50 mg tablet active Eileen Ventimiglia GOVERNMENT GAUGER gabapentin 400 mg capsule active Eileen Ventimiglia GOVERNMENT GAUGER meloxicam 15 mg tablet active Eileen Ventimiglia GOVERNMENT GAUGER anastrozole 1 mg tablet active Eileen Ventimiglia GOVERNMENT GAUGER cyclobenzaprine 10 mg tablet active Eileen Ventimiglia GOVERNMENT GAUGER prazosin 2 mg capsule active Eileen Ventimiglia GOVERNMENT GAUGER hydroxyzine HCl 25 mg tablet active Eileen Ventimiglia GOVERNMENT GAUGER buspirone 30 mg tablet active Eileen Ventimiglia GOVERNMENT GAUGER anastrozole 1 mg tablet completed - Eileen Ventimiglia GOVERNMENT GAUGER cyclobenzaprine 10 mg tablet completed - Eileen Ventimiglia GOVERNMENT GAUGER fluticasone propionate 50 mcg/actuation spray,suspension active prazosin 2 mg capsule completed - Eileen Ventimiglia GOVERNMENT GAUGER albuterol sulfate 90 mcg/actuation HFA aerosol inhaler active azelastine 137 mcg (0.1 %) aerosol,spray completed - Eileen Ventimiglia GOVERNMENT GAUGER buspirone 30 mg tablet completed - Eileen Ventimiglia GOVERNMENT GAUGER hydroxyzine HCl 25 mg tablet completed - [place] Ventimiglia GOVERNMENT GAUGER VERAMYST 27.5 MCG/SPRAY NASAL SUSPENSION completed - [place] Ventimiglia GOVERNMENT GAUGER PROVENTIL HFA AEROSOL SOLUTION active as needed Mayur Ying RN LOFIBRA 134 MG ORAL CAPSULE completed - [facility]ERN[facility]AU[facility] Abilify 30 mg tablet completed - [facility] GOVERNMENT GAUGER metoclopramide HCl 5 mg tablet completed - [place] Ventimiglia GOVERNMENT GAUGER RANITIDINE HCL 150 MG ORAL TABLET completed 1 tablet twice a day - [place] Ventimiglia GOVERNMENT GAUGER BUDEPRION SR 150 MG ORAL TABLET EXTENDED RELEASE 12 HOUR completed - [facility] GOVERNMENT GAUGER Phenergan 25 mg/mL solution completed as needed - [facility] Maxalt 10 mg tablet completed - [place] Ventimiglia GOVERNMENT GAUGER TRAZODONE HCL TABLET active 300 mg as directed TAKE ONE TABLET BY MOUTH ONCE A DAY Alicja Rocha PROPOXYPHENE-APAP 65-650 MG TABS completed as needed - [facility] clonazepam 2 mg tablet completed - [place] Ventimiglia GOVERNMENT GAUGER ZETIA TABS (EZETIMIBE) completed - Mayur Ying RN NORVASC TABS (AMLODIPINE BESYLATE) completed - Mayur Ying RN SOCIAL HISTORY Date Observation Value Provider drug use no Vicente Resendez MD alcohol use no Vicente Reesndez MD smoking status Former smoker Vicente moran MD number of grandchildren Vicente Resendez MD drug use no Vicente Resendez MD alcohol use no Vicente Resendez MD smoking status Former smoker Vicente moran MD drug use no Vicente Resendez MD alcohol use no Vicente Resendez MD smoking status Former smoker Vicente moran MD social history reviewed E&M revi ewed - no changes required Vicente Resendez MD social history E&M Marital Statu s: L jordana with family/friends E thnicity: Smoking History: Judith mishra is a former smoker. Vicente Resendez MD drug use no Eileen Ventimig emily [facility] alcohol use no Eileen Ventimig emily [facility] smoking status Former smoker Eileen Venti miglia [facility] social history reviewed E&M revi ewed - no changes required Vicente Resendez MD drug use no Eileen Ventimig emily [facility] alcohol use no Eileen Ventimig emily [facility] smoking status Former smoker Eileen Venti miglia [facility] social history reviewed E&M reviewed Mayur Ying RN drug use none Mya Madison MD social history E&M Marital Statu s: L jordana with family/friends E thnicity: Mayur Ying RN social history reviewed E&M reviewed Mayur Ying RN physical exercise, frequency, days per week no [facility] caffeine use, averag e drinks per day no [facility] alcohol use, average drinks per day none [facility] number of years as a smoker less than 10 years [facility] smoking status Quit [facility] MENTAL STATUS Date Observation Value Provider assessment of judgme nt and insight E&M Flat affect- depressed affect. Mayur Ying RN assessment of judgme nt and insight E&M Alert and oriented to time, place and person. Mood and affect are normal. Flat affect- depressed? Mayur Ying RN INSURANCE PROVIDERS Payer name Policy type / Coverage type Heidi red democrat [place] [employer] MEDICAID (2) Medicaid [id number] ADVANCE DIRECTIVES Name Date DISCUSSED - NO DECISION MADE TREATMENT PLAN Date Name Performer [id number],C, H er updated medication list for this problem includes: Incruse Ellipta 62.5 Mcg/actuation Blister With Device (Umeclidinium) Symbicort 160-4.5 Mcg/actuation Hfa Aerosol Inhaler (Budesonide-formoterol) Montelukast 10 Mg Tablet (Montelukast) Albuterol Sulfate 90 Mcg/actuation Hfa Aerosol Inhaler (Albuterol sulfate) [facility] [id number],C,c hronic in setting of COPD, obesity and LUISA e cho done showed EF of 60% with diastolic dysfunction n o significant valvular abnormaliteis e ncouraged weight loss and continued use of inhalers H er updated medication list for this problem includes: Lisinopril-hydrochlorothiazide 20-25 Mg Tablet (Lisinopril-hydrochlorothiazide) [facility] [id number],C,p atient is preparing for gastric sleeve w ould be considered an acceptable risk for planned procedure [facility] [id number],C,T he patient is using CPAP on a regular basis. The patient has been benefiting from therapy and should continue use. [facility] [id number],C,B P 158/77 in office B rought in home log and BP 120-130 systolic and 60-70 diastolic w ill continue to monitor at home c ontinue present medication regimen H er updated medication list for this problem includes: Lisinopril-hydrochlorothiazide 20-25 Mg Tablet (Lisinopril-hydrochlorothiazide) Prazosin 2 Mg Capsule (Prazosin) Eileennelson Carlsonmiglia [facility] [id number],C,L abs showed Triglycerides of 490 H er HgbA1C was 5.5% S he will be started on vascepa W ill have f/u lipid panel in 8 weeks and return post Eileennelson Carlsonmiglia [facility] [id number],C,T he patient is using CPAP on a regular basis. The patient has been benefiting from therapy and should continue use. Vicente Resendez MD [id number],C,B lood pressure 152/83 in office today W ell controlled per home log W ill continue to trend at home Vicente Resendez MD [id number],C,will update l ipid panel Vicente Resendez MD [id number],C,e pisodes can come daily or go months without occuring h ave been more frequently c an get updated labs w ill plan tele monitor Vicente Resendez MD [id number],C,M ost likely multifactorial in nature in setting COPD, asthma, and obesity W ill do echo to r/o any LV dysfunction or WMA Vicente Resendez MD [id number],C,plannd for ga stric bypass [place] Aldomiglia [facility] [id number],C,n o residual effects n ot on statin therapy d/t intolerance [facility] Cardiology Vicente Ortez Cardiology: N o recurrence. Vicente Resendez MD Cardiology: O ff lisinopril-HCTZ due to hypotensive episodes. Home BPs very well controlled. Vicente Resendez MD Cardiology: s /p gastric sleeve surgery. Vicente Resendez MD Cardiology: Jenelle woodward related to hypotensive episodes after gastric sleeve surgery. Lisinopril-HCTZ was held, and she hasn't had further syncopal spells. Home BPs remain very well controlled per home log. Vicente Resendez MD Cardiology:She has c ontinued to lose weight. Down to 256 B eing evaluated for gastric sleeve surgery Eric Rogelinari Cardiology: O n Digoxin N o further symptoms Vicente Resendez MD Cardiology:Continues medication and diet modification H er updated medication list for this problem includes: Tricor 48 Mg Tablet (Fenofibrate nanocrystallized) ..... Take 1 tablet by mouth once a day Lovaza 1 Gram Capsule (Monroe-3 acid ethyl esters) ..... Take 1 capsule by mouth twice a day Vicente Resendez MD Cardiology: T he patient is using CPAP on a regular basis. The patient has been benefiting from therapy and should continue use. Vicente Resendez MD Cardiology:BP well c ontrolled B P today: 117/81 P rior BP: 134/76 (09/06/2023) Labs Reviewed: C reat: 0.75 (11/03/2008) C hol: 148 (11/03/2008) HDL: 23 (11/03/2008) LDL: 87 MG/DL (CALC) (11/03/2008) T (11/03/2008) Her updated medication list for this problem includes: Lisinopril-hydrochlorothiazide 20-25 Mg Tablet (Lisinopril-hydrochlorothiazide) Prazosin 2 Mg Capsule (Prazosin) Vicente Resendez MD Cardiology:No recurrence Annabella Resendez MD Cardiology: T he patient is using CPAP on a regular basis. The patient has been benefiting from therapy and should continue use. Vicente Resendez MD Cardiology:Weight loss advised M carlyle Resendez MD Cardiology:Last labs showed TRIG 490. The insurance denied Lovasa. Will start her on Fenofibrate. Vicente Resendez MD Cardiology:On Digoxin Vicente rivera MD Cardiology:She has b een monitoring at home and has been in range. Advised to continue monitoring BP today: 134/76 P rior BP: 158/77 (07/25/2023) Her updated medication list for this problem includes: Lisinopril-hydrochlorothiazide 20-25 Mg Tablet (Lisinopril-hydrochlorothiazide) Prazosin 2 Mg Capsule (Prazosin) Vicente Resendez MD Cardiology: H er updated medication list for this problem includes: Incruse Ellipta 62.5 Mcg/actuation Blister With Device (Umeclidinium) Symbicort 160-4.5 Mcg/actuation Hfa Aerosol Inhaler (Budesonide-formoterol) Montelukast 10 Mg Tablet (Montelukast) Albuterol Sulfate 90 Mcg/actuation Hfa Aerosol Inhaler (Albuterol sulfate) [place] Ludivina [facility] Cardiology:chronic i n setting of COPD, obesity and LUISA e cho done showed EF of 60% with diastolic dysfunction n o significant valvular abnormaliteis e ncouraged weight loss and continued use of inhalers H er updated medication list for this problem includes: Lisinopril-hydrochlorothiazide 20-25 Mg Tablet (Lisinopril-hydrochlorothiazide) [place] Ludivina [facility] Cardiology:patient i s preparing for gastric sleeve w ould be considered an acceptable risk for planned [facility] Cardiology:The patie nt is using CPAP on a regular basis. The patient has been benefiting from therapy and should continue use. [facility] Cardiology:BP 158/77 in office B rought in home log and BP 120-130 systolic and 60-70 diastolic w ill continue to monitor at home c ontinue present medication regimen H er updated medication list for this problem includes: Lisinopril-hydrochlorothiazide 20-25 Mg Tablet (Lisinopril-hydrochlorothiazide) Prazosin 2 Mg Capsule (Prazosin) [facility] Cardiology:Labs show ed Triglycerides of 490 H er HgbA1C was 5.5% S he will be started on vascepa W ill have f/u lipid panel in 8 weeks and return post Eileen Ventimiglia [facility] Cardiology:The patie nt is using CPAP on a regular basis. The patient has been benefiting from therapy and should continue use. Vicente Resendez MD Cardiology:Blood pre ssure 152/83 in office today W ell controlled per home log W ill continue to trend at home Vicente Resendez MD Cardiology:will update lipid spann el Vicente Resendez MD Cardiology:episodes can come daily or go months without occuring h ave been more frequently c an get updated labs w ill plan tele monitor Vicente Resendez MD Cardiology:Most like ly multifactorial in nature in setting COPD, asthma, and obesity W ill do echo to r/o any LV dysfunction or WMA Vicente Resendez MD Cardiology:plannd for gastric by pass [place] Ventimiglia [facility] Cardiology:no residu al effects n ot on statin therapy d/t intolerance [place] Ventimiglia [facility] chest pain: O rders: C ardiac Cath - GC (*) Mya Madison MD chest pain: B P today: 132/82 Prior BP: / () N uclear Stress Findings: No EKG changes diagnostic for ischemia. Normal myocardial perfusion without infarct or ischemia. EF 45% on gated study. S LHV (10/08/2006) E chocardiogram: Normal LV systolic function with an EF of 60-65%. Borderline LVH. SL (10/08/2006) Orders: E KG ([id number]) C ardiac Cath - GC (*) Mya Madison MD chest pain: B P today: 132/82 Orders: C ardiac Cath - GC (*) Mya Madison MD chest pain: H er updated medication list for this problem includes: Lofibra 134 Mg Caps (Fenofibrate micronized) BP today: 132/82 Prior BP: / () Orders: C ardiac Cath - GC (*) Mya Madison MD chest pain: E chocardiogram: N ormal LV systolic function with an EF of 60-65%. Borderline LVH. SLHV (10/08/2006) Orders: C ardiac Cath - GC (*) Mya Madison MD chest pain: H er updated medication list for this problem includes: Propoxyphene-apap 65-650 Mg Tabs (Propoxyphene-apap) ..... As needed Maxalt 10 Mg Tabs (Rizatriptan benzoate) H eadache diary reviewed. Mya Madison MD Date Name LIPID PANEL BASIC METABOLIC PANE L W/EGFR CBC (INCLUDES DIFF/P LT) HEMOGLOBIN A1c TSH, free T4, total T3 LIPID PANEL B TYPE NATRIURETIC P EPTIDE (BNP) Complete Echo Sleep Study COMPREHENSIVE METABO LIC PANEL W/EGFR CBC (H/H, RBC, INDIC ES, WBC, PLT) THYROID PANEL WITH T SH, 3RD GENERATION LIPID PANEL Cardiac Cath - GC HISTORY OF PROCEDURES Procedure Date Procedure Name Provider Procedure Notes S tatus Complex e/m visit add on Vicente Resendez MD completed EKG Vicente Resendez MD complet ed EKG Vicente Resendez MD complet ed EKG Vicente Resendez MD complet ed EKG Mya Madison MD completed
--- OUTSIDE RECORDS SUMMARY | 2024-11-25 00:27 | XMS_ITS | Encounter Summary ---
Author Organization [facility] Address [address] [place] [address] Phone Care Team Providers Care Construction Scheduler Name Role Phone Trini Rockwell MD Unavailable [phone] Latesha Lewis MD Primary Care Provider + Michael Benz MD Unavailable [phone] Reason for Visit * Reason Comments Medication Refill Encounter Details Date Type Department Care Team (Late st Contact Info) Description 11/22/2024 Refill [facility] [address] [place] [address] Priya Shukla, [place], TRAINING DESIGNER [address] [place] [phone] Medication Refill Social History Tobacco Use Types Packs/Day Years Used Date Smoking Tobacco: Former Cigarettes Q uit: 2005 Smokeless Tobacco: Never Alcohol Use Standard Drinks/Week Comments Never 0 (1 standard drink = 0.6 oz pur e alcohol) AUDIT-C Answer Date Recorded Q1: How often do you have a drink containing alc ohol? Never 11/05/2019 Average Number of Drinks Not on file 020 Frequency of Binge Drinking Not on file 10/12 PHQ-2 Answer Date Recorded Total Score - Questions 1-9 0 06/0 09/2021 Education Answer Date Recorded What is the highest level of school you have completed or the highest degree you have received? 9th grade 11/05/2019 Comments No Sex and Gender Information Value Date Recorded Sex Assigned at Not on file Legal Sex Female 10:08 PM CDT Gender Identity Not on file Sexual Orientation Not on file Occupation Industry Job Start Date Job End Date disabled Not on file Not on file Not on file documented as of this encounter Miscellaneous Notes * Telephone Encounter - Gerda Husain RN - 11/24/2024 8:27 AM CDT Refill request from pharmacy Please fill if appropriate documented in this encounter Plan of Treatment Upcoming Encounters Date Type Department Care Team (Late st Contact Info) Description 01/26/2025 9:30 AM CDT Lab [facility] [address] [phone] Lab, [facility] 01/26/2025 9:45 AM CDT Office Visit [facility] [address] [phone] Michael Benz MD [address] [place] [phone] documented as of this encounter Visit Diagnoses Diagnosis Malignant neoplasm of nipple of right breast in female, estrogen receptor positive (HCC) Anemia, unspecified type documented in this encounter Additional Health Concerns Assessment Noted Time PHQ-9 Depression Total Score: 1 04/04/20 21 2:23 PM CDT documented as of this encounter Care Teams Construction Scheduler Relationship Specialty Start Date End Date Latesha Lewis MD [address] [place] [phone] PCP - General Family Medicine 11/05/19 Trini Rockwell MD [address] [place] [phone] Radiation Oncologist Radiology 10/16/19 Michael Benz MD [address] [place] [phone] Consulting Physician Oncology 01/17/23 documented as of this encounter
--- OUTSIDE RECORDS SUMMARY | 2024-11-25 00:27 | XMS_ITS | Encounter Summary ---
Author Organization [facility] Address [address] [place] [address] Phone Care Team Providers Care Barrel Cutter Name Role Phone Trini Rockwell MD Unavailable [phone] Latesha Lewis MD Primary Care Provider + Michael Benz MD Unavailable [phone] Encounter Details Date Type Department Care Team (Late st Contact Info) Description 06/13/2021 Telephone [facility] [address] [place] [address] Michael Benz MD [address] [place] [address] Social History Tobacco Use Types Packs/Day Years [...] Date Recorded Total Score - Questions 1-9 1 03/11 Education Answer Date Recorded What is the [...] encounter Miscellaneous Notes * Telephone Encounter - Eloy Evelin C - 06/13/2021 8:04 AM CDT Patient called about the mammogram she had done at [place], report is in media and if you wanted her to come in or what you recommend for her to do. Please advise. documented in this encounter Plan of Treatment Upcoming Encounters Date Type Department Care Team (Late st Contact Info) Description 01/26/2025 9:30 AM CDT Lab [facility] [address] [phone] Lab, [facility] 01/26/2025 9:45 AM CDT Office Visit [facility] [address] [phone] Michael Benz MD [address] [place] [phone] documented as of this encounter Visit Diagnoses Not on filedocumented in this encounter Additional Health Concerns Assessment Noted Time PHQ-9 Depression Total Score: 1 04/04/20 21 2:23 PM CDT documented as of this encounter Care Teams Barrel Cutter Relationship Specialty Start Date End Date Latesha Lewis MD [address] [place] [phone] PCP - General Family Medicine 11/05/19 Trini Rockwell MD [address] [place] [phone] Radiation Oncologist Radiology 10/16/19 Michael Benz MD [address] [place] [phone] Consulting Physician Oncology 01/17/23 documented as of this encounter
--- OUTSIDE RECORDS SUMMARY | 2024-11-25 00:27 | XMS_ITS | Referral Summary ---
Author Organization [facility] Medical Office Building B Address [address] [place] [address] Care Team Providers Care Service Advisor Name Role Phone Ke Frederick NP Primary Care Provider [phone] Encounters Date Type Department Care Team Description 11/19/2024 Orders Only [address] [phone] Cailin Obrien NP 11/19/[address] [place] [phone] Jeanie Velasco 11/19/2024 9:45 AM CDT Office Visit [facility] Medical Group Pulmonary at [address] [place] [address] Salvatore Walker DO Moderate persistent asthma without complication (Primary Dx); Chronic rhinosinusitis; Preoperative clearance; LUISA (obstructive sleep apnea) 11/07/2024 12:09 PM CHEMISTRY LABORATORY TECHNICIAN - 11/07/2024 5:31 PM [facility] Emergency [facility] Emergency Department [address] [place] [address] Dov Prasad MD Encounter for monitoring digoxin therapy (Primary Dx) Discharge Disposition: Discharge to home or self care 10/29/[address] [place] [phone] Vicenta Seth RN 10/29/[address] [place] [address] Mary Silva MA 10/29/[address] [place] [address] Cailin Obrien NP bedside commode 10/28/2024 8:50 AM CHEMISTRY LABORATORY TECHNICIAN Office Visit [address] [place] [address] Cailin Obrien NP S/P gastric sleeve procedure (Primary Dx); Abdominal pannus 10/16/2024 8:27 AM CHEMISTRY LABORATORY TECHNICIAN - 10/16/2024 11:59 PM CHEMISTRY LABORATORY TECHNICIAN Hospital Encounter [facility] Nutrition and Diabetic Education 1 [facility] [address] [place] [address] Rene, Zoie Johnson, CHARLES Discharge Disposition: Discharge to home or self care 10/10/2024 Telephone [facility] Neurology [address] [place] [phone] Ann Matthews NP Med Management (MEDICATION MANAGEMENT ) 10/01/[address] [place] [address] Jennifer Roca MA 09/26/2024 Telephone [facility] Neurology [address] [place] [phone] Ann Matthews NP MRI Denial 09/08/2024 Telephone [facility] Neurology [address] [place] [phone] Ann Matthews NP Prior Auth (Ubrelvy 100mg) 09/04/2024 1:00 PM CHEMISTRY LABORATORY TECHNICIAN Office Visit [facility] Neurology [address] [place] [phone] Ann Matthews NP Neck pain (Primary Dx); Gait disorder from Last 3 Months Allergies Active Allergy Reactions Criticality Noted Date Comments Ciprofloxacin Shortness of breath High 03/03/2024 With a rash Clindamycin Itching Low 10/04/2020 Doxycycline Hives,Rash,Shortness of breath,Urticaria High 06/16/2019 Haemophilus Influenzae Type B Anaphylaxis High 06/16/2019 Influenza Virus Vaccines Anaphylaxis High 06/14/2005 Morphine Other (See comments),Hives,Unknow n High 06/16/2019 Pneumococcal 23-Valent Polysaccharide Vaccine Anaphylaxis High 06/16/2019 Quinolones Other (See comments),Rash Medium 06/16/2019 SOB Ajucbcf-Xbo-Ynv Reductase Inhibitors Other (See comments),Muscle pain,Shortness of breath High 06/16/2019 Tetracycline Other (See comments) Low 03/03/2024 Verapamil Rash Medium 06/16/2019 Medications calcium carb/vit D3/minerals (CALTRATE 600+D PLUS MINERALS ORAL) Take 1 tablet by mouth daily 2019 Active busPIRone (BUSPAR) 30 mg tablet Take 1 tablet (30 mg total) by mouth 2 (two) times a day 2022 Active albuterol 2.5 mg /3 mL (0.083 %) nebulizer solution USE 1 VIAL IN NEBULIZER EVERY 4 TO 6 HOURS NEEDED 2022 Active multivitamin tablet Take by mouth Active amitriptyline (ELAVIL) 50 mg tablet Take 1 tablet (50 mg total) by mouth 3 (three) times a day Active anastrozole (ARIMIDEX) 1 mg tablet Take 1 tablet (1 mg total) by mouth daily 2019 Active ascorbic acid (VITAMIN C) 1,000 mg tablet Take by mouth Active cyclobenzaprine (FLEXERIL) 10 mg tablet cyclobenzaprine 10 mg tablet TAKE 1 TABLET BY MOUTH AT BEDTIME NEEDED FOR MUSCLE SPASM Active cyanocobalamin (Vitamin B-12) 100 mcg tablet Take 1 tablet (100 mcg total) by mouth daily Active digoxin (LANOXIN) 125 mcg (0.125 mg) tablet TAKE 1 TABLET BY MOUTH DIRECTED SUNDAY - SUNDAY Active diphenhydrAMINE 25 mg capsule every 4 (four) hours as needed 2022 Active ergocalciferol, vitamin D2, 50 mcg (2,000 unit) tablet Take 1 tablet by mouth daily Active escitalopram (LEXAPRO) 20 mg tablet Take 1 tablet (20 mg total) by mouth daily Active fenofibrate nanocrystallized (TRICOR) 48 mg tablet Take 1 tablet (48 mg total) by mouth daily Active gabapentin (NEURONTIN) 400 mg capsule Take 2 capsules (800 mg total) by mouth 3 (three) times a day Active hydrOXYzine (ATARAX) 25 mg tablet TAKE 1 TABLET BY MOUTH NEEDED AND AT BEDTIME FOR ANXIETY 2019 Active prazosin (MINIPRESS) 2 mg capsule Take 2 capsules (4 mg total) by mouth nightly Active ROPivacaine (NAROPIN) 5 mg/mL (0.5 %) injection every 3 (three) months 2023 Active meclizine (ANTIVERT) 25 mg tablet Take 1 tablet (25 mg total) by mouth 3 (three) times a day as needed for dizziness Active Qulipta 60 mg tablet Take 60 mg by mouth daily 2023 Active budesonide-formote roL (SYMBICORT) 160-4.5 mcg/actuation inhaler Inhale 2 puffs 2 (two) times a day Rinse mouth with water after use. Do not swallow. 1 each 2023 Active azelastine (ASTELIN) 137 mcg (0.1 %) nasal spray Administer 1 spray into each nostril 2 (two) times a day Use in each nostril as directed 30 mL 2023 Active albuterol HFA (PROVENTIL HFA,VENTOLIN HFA,PROAIR HFA) 90 mcg/actuation inhaler Inhale 2 puffs every 6 (six) hours as needed for wheezing 1 each 2023 Active cetirizine 10 mg capsule Take 1 tablet by mouth daily 30 capsule 06/02 Active fluticasone propionate (FLONASE) 50 mcg/actuation nasal spray Administer 2 sprays into each nostril daily 15.8 mL 2023 Active famotidine (PEPCID) 20 mg tablet Take 1 tablet (20 mg total) by mouth 2 (two) times a day 60 tablet 06/26 Active ondansetron (ZOFRAN) 4 mg tablet 2023 Active meloxicam (MOBIC) 15 mg tablet 2023 Active ubrogepant (Ubrelvy) 100 mg tablet Take 1 tablet (100 mg total) by mouth once as needed for migraine May repeat dose once in 2 hours if no relief. Do not exceed 2 doses in 24 hours. 10 tablet 11 09/04 Active LORazepam (ATIVAN) 0.5 mg tablet Take 1 tablet (0.5 mg total) by mouth 2 (two) times a day Active doxepin (SINEquan) 25 mg capsule Take 1 capsule (25 mg total) by mouth nightly Active Linzess 145 mcg capsuleIndications :Chronic idiopathic constipation Take 1 capsule by mouth once daily 30 capsule 2024 Active miconazole 2 % cream Apply topically 2 (two) times a day 28.35 g 2024 Active lisinopril-hydroCH LOROthiazide (ZESTORETIC) 20-25 mg per tablet TAKE 1 TABLET BY MOUTH ONCE DAILY FOR HIGH BLOOD PRESSURE 10/28 Discontinued( Therapy completed) traZODone (DESYREL) 150 mg tablet TAKE 1 TABLET BY MOUTH EVERY DAY AT BEDTIME NEEDED FOR INSOMNIA 10/28 Discontinued( Therapy completed) umeclidinium (INCRUSE ELLIPTA) 62.5 mcg/actuation blister with device Inhale 1 puff (62.5 mcg total) daily 30 each 11 11/19 Discontinued( Therapy completed) docusate sodium (COLACE) 100 mg capsuleIndications :constipation Take 1 capsule (100 mg total) by mouth 2 (two) times a day for 14 days 28 capsule 10/28 Discontinued( Therapy completed) hyoscyamine (OSCIMIN) 0.125 mgIndications:Urin raina Incontinence Take 1 tablet (125 mcg total) by mouth every 4 (four) hours as needed (hiccups. stomach spasm) for up to 7 days 42 tablet 10/28 Discontinued( Therapy completed) nystatin powder Apply topically 4 (four) times a day 15 g 10/28 Discontinued( Therapy completed) Linzess 145 mcg capsuleIndications :Chronic idiopathic constipation Take 1 capsule by mouth once daily 30 capsule 11/17 Discontinued Active Problems Problem Noted Date Diagnosed Date Chronic rhinosinusitis 11/20/2024 Preoperative clearance 11/20/2024 S/P gastric sleeve procedure 07/30/2024 Morbid obesity 06/16/2024 Moderate persistent asthma without complication 05/22/2024 Chronic idiopathic constipation 02/26/2024 Abdominal pannus 01/31/2024 Morbid obesity with BMI of 45.0-49.9, adult /11/2023 Assessment & Plan (07/01/2024 11:27 AM CDT): Continue to advance diet as laid out in post bariatric handout. Continue light duty. No submerging incisions for another week. Multivitamin, calcium and vitamin-D. Encourage protein intake. We will see her back in 1 month. She will call sooner if anything changes Assessment & Plan (06/03/2024 8:30 AM CDT): The patient has done excellent in her preparation leading up to surgery. She has shown nice consistent weight loss along this entire time. We will now get ready to submit everything for insurance pre-approval. She was recently seen pulmonology who was happy with her progress. She will continue to attend the monthly support group meetings as well as work with the dietitian. Continue small frequent meals. She was even now seeing physical therapy to start working with exercises. We have discussed hospital length of stay as well as the preoperative 2 week diet she will need to help shrink down the size of the liver. All questions have been answered. We will call her with the date once we have everything returned from insurance approval. Assessment & Plan (01/01/2024 9:44 AM CDT): Given their past success the patient would be a good candidate for weight loss surgery. We have gone over options such as the bypass and sleeve gastrectomy. We have also discussed risks and benefits such as blood clots, staple line leak as well as new or worsening reflux symptoms. They are in understanding. We have cautioned the patient with reflux disease a bypass would be a better option potentially however she does not want to pursue this at this time. During this time will have them seen by the dietitian and psych. As we get closer to the time of surgery we will set them up for an EGD to look for hiatal hernia, H pylori or other gastric pathology. We will see them back in 4 weeks. They are in understanding of the plan. Social History Tobacco Use Types Packs/Day Years Used Date Smoking Tobacco: Former Cigarettes 0.5 20.2 2 - 1985 Smokeless Tobacco: Never Tobacco Cessation:Counseling Given: Not Answered Comments:06/02/2024 Stress smoker, patient says that she would smoke between a couple to a whole pack per day. [employer]IPPING/RECEIVING MANAGER AUDIT-C Answer Date Recorded Q1: How often do you have a drink containing alcohol? Never 10/28/2024 Q2: How many drinks containi ng alcohol do you have on a typical day when you are drinking? Patient does not drink Q3: How often do you have si x or more drinks on one occasion? Never 10/28/2024 PHQ-2 Answer Date Recorded PHQ-2 Total Score (If total score is 3 or more points, staff should administer the PHQ-9) 0 06/25/2024 Personal Safety Answer Date Recorded Have you ever been in or are you currently in a harmful physical or emotional relationship or is someone making you feel afraid or unsafe? Denies 11/07/2024 Comments No Sex and Gender Information Value Date Recorded Sex Assigned at Not on file Legal Sex Female 12:43 AM CHEMISTRY LABORATORY TECHNICIAN Gender Identity Not on file Sexual Orientation Not on file Last Filed Vital Signs Vital Sign Reading Time Taken Comments Blood Pressure 114/68 11/19/2024 9:17 AM CDT Pulse 75 11/19/2024 9:17 AM CDT Temperature 36.4 C (97.5 F) 11/19/2024 9:17 AM CDT Respiratory Rate 27 11/07/2024 4:50 PM CHEMISTRY LABORATORY TECHNICIAN Oxygen Saturation 99% 11/19/2024 9:17 AM CDT Inhaled Oxygen Concentration - - Weight 72.5 kg (159 lb 14.4 oz) 11/19/2024 9:17 AM CDT Height 157.5 cm (5' 2 ) 11/19/2024 9:17 AM CDT Body Mass Index 29.25 11/19/2024 9:17 AM CDT Plan of Treatment Not on file Procedures Procedure Name Priority Date/Time Associated Diagnosis Comments EGFR STAT 11/07/2024 12:24 PM CHEMISTRY LABORATORY TECHNICIAN DIFFERENTIAL AUTO STAT 11/07/2024 12: 24 PM CHEMISTRY LABORATORY TECHNICIAN DIGOXIN LEVEL STAT 11/07/2024 12:24 PM CHEMISTRY LABORATORY TECHNICIAN MAGNESIUM Routine 11/07/2024 12:24 PM CHEMISTRY LABORATORY TECHNICIAN COMPREHENSIVE METABOLIC PANEL STAT 11/07/2024 12:24 PM CHEMISTRY LABORATORY TECHNICIAN CBC WITH AUTO DIFFERENTIAL STAT 11/07/2024 12:24 PM CHEMISTRY LABORATORY TECHNICIAN ECG 12-LEAD STAT 11/07/2024 12:17 PM CHEMISTRY LABORATORY TECHNICIAN from Last 3 Months Results * eGFR (11/07/2024 12:24 PM CHEMISTRY LABORATORY TECHNICIAN) eGFR >90 >=60 mL/min/1. 73 m2 Comment: Interpretive Data Reference Interval Normal >/= 90 mL/min/1.73m2 Mildly decreased* 60 - 89 mL/min/1.73m2 Mildly to moderately decreased 45 - 59 mL/min/1.73m2 Moderately to severely decreased 30 - 44 mL/min/1.73m2 Severely decreased 15 - 29 mL/min/1.73m2 Kidney Failure < 15 mL/min/1.73m2 *Relative to young adult level Estimated glomerular filtration rate is determined by the 2020 CKD-EPI equation recommended by the National Kidney Foundation (A Unifying Approach to GFR Estimation: Recommendations of the NKF-ASK Task Force on Reassessing the Inclusion of Race in Diagnosing Kidney Disease, JASN 2020). The CKD-EPI equation should not be used for patients with unstable renal function and has not been validated in children and those over 70. Current interpretive data was last reviewed 2021. Blood 11/07/2024 12:2 4 PM CHEMISTRY LABORATORY TECHNICIAN 11/07/2024 12:42 PM CHEMISTRY LABORATORY TECHNICIAN us Dov Prasad MD LAB BLOOD ORDERABLES Final Resul t [facility] [address] [place] [address] * (ABNORMAL) Differential, auto (11/07/2024 12:24 PM CHEMISTRY LABORATORY TECHNICIAN) Neutrophil abs 6.8(H) 1.5 - 6.5 K/cumm Imm gran abs 0.1 0.0 - 0.1 K/cumm [facility] Lymphocyte abs 3.4(H) 0.8 - 3.3 K/cumm [facility] Monocyte abs 1.0(H) 0.2 - 0.8 K/cumm [facility] Eosinophil abs 0.2 0.0 - 0.5 K/cumm [facility] Basophil abs 0.1 0.0 - 0.1 K/cumm [facility] Neutrophil pct 58.7 % [facility] Comment: Interpretive Data Percent cell count reference ranges are not reported, since discordance with absolute values may lead to misinterpretation of CBC data. Current Interpretive Data was last revised on 2017. Imm gran pct 0.5 % [facility] Comment: Interpretive Data Percent cell count reference ranges are not reported, since discordance with absolute values may lead to misinterpretation of CBC data. Current Interpretive Data was last revised on 2017. Lymphocyte pct 29.4 % [facility] Comment: Interpretive Data Percent cell count reference ranges are not reported, since discordance with absolute values may lead to misinterpretation of CBC data. Current Interpretive Data was last revised on 2017. Monocyte pct 8.8 % [facility] Comment: Interpretive Data Percent cell count reference ranges are not reported, since discordance with absolute values may lead to misinterpretation of CBC data. Current Interpretive Data was last revised on 2017. Eosinophil pct 1.6 % [facility] Comment: Interpretive Data Percent cell count reference ranges are not reported, since discordance with absolute values may lead to misinterpretation of CBC data. Current Interpretive Data was last revised on 2017. Basophil pct 1.0 % [facility] Comment: Interpretive Data Percent cell count reference ranges are not reported, since discordance with absolute values may lead to misinterpretation of CBC data. Current Interpretive Data was last revised on 2017. Blood 11/07/2024 12:2 4 PM CHEMISTRY LABORATORY TECHNICIAN 11/07/2024 12:42 PM CHEMISTRY LABORATORY TECHNICIAN Dov Prasad MD LAB BLOOD ORDERABLES Final Resul t Performing Organization Address City/[facility]/ZIP Co de Phone Number [facility] [place] [address] [place] [address] * (ABNORMAL) CBC with auto differential (11/07/2024 12:24 PM CHEMISTRY LABORATORY TECHNICIAN) WBC 11.5(H) 3.8 - 9.9 K/cumm Hgb 12.6 11.9 - 15.5 g/dL [facility] Hct 37.4 35.6 - 45.5 % [facility] Plt 430(H) 150 - 400 K/cumm [facility] MPV 9.4 9.1 - 12.3 fL [facility] RBC 3.96 3.90 - 5.20 M/cumm [facility] MCV 94.4 81.3 - 96.4 fL [facility] MCH 31.8 27.1 - 33.3 pg [facility] MCHC 33.7 32.3 - 35.7 g/dL [facility] RDW CV 13.6 11.1 - 14.9 % [facility] CH RDW SD 47.2 35.7 - 48.[address] [facility] NRBC abs 0.00 0.00 - 0.01 K/cumm [facility] Blood 11/07/2024 12:2 4 PM CHEMISTRY LABORATORY TECHNICIAN 11/07/2024 12:42 PM CHEMISTRY LABORATORY TECHNICIAN Dov Prasad MD LAB BLOOD ORDERABLES Final Resul t [place] [address] [place] [address] * Magnesium (11/07/2024 12:24 PM CHEMISTRY LABORATORY TECHNICIAN) Magnesium 1.9 1.4 - 2.5 mg/dL Blood 11/07/2024 12:2 4 PM CHEMISTRY LABORATORY TECHNICIAN 11/07/2024 12:42 PM CHEMISTRY LABORATORY TECHNICIAN Dov Prasad MD LAB BLOOD ORDERABLES Final Resul t Performing Organization Address [facility] de Phone Number [facility] [place] [employer] [place] [address] * Digoxin level (11/07/2024 12:24 PM CHEMISTRY LABORATORY TECHNICIAN) Digoxin 0.7 0.5 - 1.2 ng/mL Comment: Interpretive data The therapeutic range for digoxin varies by indication: Heart failure: 0.5 to 0.8 ng/mL Atrial fibrillation: less than 1.2 ng/mL Toxicity: >2.4. Normal or low digoxin does not rule out toxicity. Current interpretive data was last revised on 2024. Blood 11/07/2024 12:2 4 PM CHEMISTRY LABORATORY TECHNICIAN 11/07/2024 12:42 PM CHEMISTRY LABORATORY TECHNICIAN Dov Prasad MD LAB BLOOD ORDERABLES Final Resul t Performing Organization Address [facility] de Phone Number [facility] [place] [address] [employer] [place] [place] [address] * (ABNORMAL) Comprehensive metabolic panel (11/07/2024 12:24 PM CHEMISTRY LABORATORY TECHNICIAN) Sodium 141 135 - 145 mmol/L Potassium, pl 3.5 3.3 - 4.9 mmol/L [facility] Chloride 105 97 - 110 mmol/L [facility] CO2 23 22 - 32 mmol/L [facility] Anion gap 13 2 - 15 mmol/L [facility] BUN 25 6 - 25 mg/dL [facility] Creatinine 0.59(L) 0.60 - 1.10 mg/dL [facility] Glucose 98 70 - 199 mg/dL [facility] Comment: Interpretive Data Fasting glucose >/= 126 mg/dl is diagnostic for diabetes. Fasting is defined as no caloric intake for at least 8 hours. Fasting glucose between 100 mg/dl to 125 mg/dl is diagnostic of prediabetes. In a patient with classic symptoms of hyperglycemia or hyperglycemic crisis, a random glucose >/= 200 mg/dl is diagnostic for diabetes. In the absence of unequivocal hyperglycemia, results should be confirmed by repeat testing. The classification and Diagnosis of Diabetes Diabetes Care 2022; 46: S19-S40. Current interpretive data was last revised 2022. Calcium 9.9 8.5 - 10.3 mg/dL [facility] Bilirubin, total 0.2 0.1 - 1.2 mg/dL [facility] Protein, pl 6.6 6.5 - 8.5 g/dL [facility] Albumin 4.3 3.5 - 5.0 g/dL [facility] Alk phos 73 40 - 130 Units/L [facility] ALT 15 7 - 45 Units/L [facility] AST 9(L) 10 - 45 Units/L [facility] Blood 11/07/2024 12:2 4 PM CHEMISTRY LABORATORY TECHNICIAN 11/07/2024 12:42 PM CHEMISTRY LABORATORY TECHNICIAN Result [facility] Dov Prasad MD LAB BLOOD ORDERABLES Final Resul t [facility] [address] Department [place] [address] * ECG 12 lead (11/07/2024 12:17 PM CHEMISTRY LABORATORY TECHNICIAN) 11/07/2024 12:1 7 PM CHEMISTRY LABORATORY TECHNICIAN Narrative [facility] - 11/07/2024 1:07 PM CHEMISTRY LABORATORY TECHNICIAN Vent Rate: 63 bpm RR Interval: 945 msec VA Interval: 177 msec QRS Duration: 105 msec QT Interval: 408 msec QTC Interval: 415 msec P-R-T [place]: 33 - 46 - 6 degrees IMPRESSION: SINUS RHYTHM NORMAL ECG INTERPRETATION BASED ON A DEFAULT AGE OF 40 YEARS Electronically Signed By: Dr. Jason Garcia [facility] Dov Prasad MD ECG ORDERABLES Final Result [facility] [employer] from Last 3 Months Insurance [facility] Advance Directives For more information, please contact: [phone] * Full Code (Latest Code Status on File) Date Activated Date Inactivated Comments 06/25/2024 4:01 PM 06/26/2024 7:29 PM Care Teams Service Advisor Relationship Specialty Start Date End Date Ke Frederick NP [address] [place] [address] PCP - General Family Medicine 01/31/24
--- OUTSIDE RECORDS SUMMARY | 2024-11-25 00:27 | XMS_ITS | Patient Health Summary ---
Author Organization [facility] Address [address] [place] [address] Care Team Providers Care Diabetes Clinical Manager Name Role Phone Latesha Lewis MD Primary Care Provider [phone] Note [address] [facility],non-owned Affiliates and Associated Physician Practices is amultiple site organization consisting of ambulatory clinics and hospital sitesin [place], [place], [place] and [place]. This disclosure is being madepursuant to the Care Everywhere program and may not contain all information available regarding this patient. Last updated 18.[facility] Allergies * Ciprofloxacin(Rash) -Medium Criticality * Doxycycline(Urticaria,Shortness of Breath) -High Criticality * Flu Virus Vaccine(Unknown) * Morphine(SILVERSMITH APPRENTICE Dysfunction) * Pneumococcal Polysaccharides(Unknown) * Quinolones(Rash) -Medium Criticality * Hmg-Coa-R Inhibitors(Other) * Verapamil(Rash) -Medium Criticality Medications * Be aware that medications may not be up to date on this document. Alwaysverify current medications with the patient. * Budesonide-Formoterol Fumarate (SYMBICORT IN) Symbicort 160 mcg-4.5 mcg/actuation HFA aerosol inhaler * albuterol HFA (PROAIR HFA) 108 (90 Base) MCG/ACT inhaler every 4 hours * amitriptyline (ELAVIL) 50 MG tablet amitriptyline 50 mg tablet 1 po tid * cyclobenzaprine (FLEXERIL) 10 MG tablet Take 10 mg by mouth nightly as needed * escitalopram (LEXAPRO) 20 MG tablet escitalopram 20 mg tablet * gabapentin (NEURONTIN) 400 MG capsule gabapentin 400 mg capsule Take 2 capsules 3 times a day by oral route for 90 days. * lisinopril-hydroCHLOROthiazide (PRINZIDE; ZESTORETIC) 20-25 MG tablet lisinopril 20 mg-hydrochlorothiazide 25 mg tablet TAKE 1 TABLET BY MOUTH ONCE DAILY FOR HIGH BLOOD PRESSURE EDEMA * meloxicam (MOBIC) 15 MG tablet meloxicam 15 mg tablet TAKE 1 TABLET BY MOUTH ONCE DAILY FOR KNEE PAIN LEG PAIN * traZODone (DESYREL) 150 MG tablet(Started 06/10/2019) TAKE 1 TABLET BY MOUTH EVERY DAY AT BEDTIME NEEDED FOR INSOMNIA 4 refills left * Acetaminophen (TYLENOL PO) Take 650 mg by mouth 3 times daily * Ergocalciferol (VITAMIN D2) 2000 units Take 1 tablet by mouth once daily * fluticasone propionate (FLONASE) 50 MCG/ACT nasal spray [place] 2 sprays into each nostril once daily * diphenhydrAMINE (BENADRYL) 25 MG tablet Take 25 mg by mouth 2 times daily * fluticasone-vilanterol (BREO ELLIPTA) 100-25 MCG/INH inhaler every 24 hours * prochlorperazine (COMPAZINE) 10 MG tablet(Started 07/10/2019) Take 1 tablet by mouth every 6 hours as needed for Nausea/Vomiting Reasons: Nausea and Vomiting * anastrozole (ARIMIDEX) 1 MG tablet(Started 01/26/2020) Take 1 mg by mouth once daily * hydrOXYzine hcl (ATARAX) 25 MG tablet(Started 04/26/2020) TAKE 1 TO 2 TABLETS BY MOUTH AT BEDTIME NEEDED * prazosin (MINIPRESS) 2 MG capsule prazosin 2 mg capsule TAKE 1 CAPSULE BY MOUTH AT BEDTIME * traMADol (ULTRAM) 50 MG tablet(Started 03/24/2020) Take 50 mg by mouth every 8 hours as needed * INCRUSE ELLIPTA 62.5 MCG/INH inhaler(Started 04/25/2020) INHALE 1 PUFF BY MOUTH ONCE DAILY * Calcium Carbonate-Vit D-Min (CALTRATE 600+D PLUS MINERALS) 600-800 MG-UNIT TABS(Started 04/14/2020) Take 1 tablet by mouth once daily Active 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 10/2019 Malignant neoplasm of upper- outer quadrant of right breast in female, estrogen receptor positive 06/03/2019 Cancer Staging:Clinical stage from 05/12/2020:Stage IA(cT1b, cN0, cM0, G1, ER+, VT+, HER2-) - Signed by Natalya Borden MD on 08/15/2020 Pathologic stage from 05/12/2020:Stage IA(pT1b, pN0(sn), cM0, G1, ER+, VT+, HER2-) - Signed by Natalya Broden MD on 08/15/2020 Social History Tobacco Use Types Packs/Day Years [...] Mass Index 56.68 05/13/2020 10:46 AM CDT Procedures * MAMMO BILAT DIAGNOSTIC(Performed 05/13/2020) Performed for Malignant neoplasm of upper-outer quadrant of right breast in female, estrogen receptor positive (HCC) * CARDIAC EKG ORDER(Performed 08/04/2019) * PATHOLOGY TISSUE(Performed 06/24/2019) Performed for Malignant neoplasm of upper-outer quadrant of right breast in female, estrogen receptor positive (HCC) * LARYNGEAL MASK AIRWAY(Performed 06/24/2019) * VT SENTINEL LYMPH NODE BX PROC PERFORM(Performed 06/24/2019) Performed for Malignant neoplasm of upper-outer quadrant of right breast in female, estrogen receptor positive (HCC) * BIOPSY BREAST(Performed 06/24/2019) Performed for Malignant neoplasm of upper-outer quadrant of right breast in female, estrogen receptor positive (HCC) * NM SENTINEL NODE INJECTION(Performed 06/24/2019) Performed for Malignant neoplasm of upper-outer quadrant of right breast in female, estrogen receptor positive (HCC) * MAMMO BREAST RIGHT SPECIMEN(Performed 06/24/2019) Performed for Malignant neoplasm of upper-outer quadrant of right breast in female, estrogen receptor positive (HCC) * MAMMO RIGHT NEEDLE LOCALIZATION(Performed 06/16/2019) Performed for Malignant neoplasm of upper-outer quadrant of right breast in female, estrogen receptor positive (HCC) * XR CHEST 2VW(Performed 06/16/2019) Performed for Malignant neoplasm of upper-outer quadrant of right breast in female, estrogen receptor positive (HCC) * EKG 12-LEAD(Performed 06/16/2019) Performed for Malignant neoplasm of upper-outer quadrant of right breast in female, estrogen receptor positive (HCC) * MM OUTSIDE MAMMOGRAM(Performed 06/12/2019) Performed for Malignant neoplasm of right breast in female, estrogen receptor positive, unspecifiedsite of breast (HCC) * PATHOLOGY TISSUE(Performed 06/03/2019) Performed for Malignant neoplasm of upper-outer quadrant of right breast in female, estrogen receptor positive (HCC) Results * MAMMO BILAT DIAGNOSTIC (05/13/2020 10:38 [...] distortion, or calcifications in either breast. Khushbu Gómez MD MAMMO ORDERABLES * CARDIAC EKG ORDER (08/04/2019 12:07 PM GLOBAL CLIMATE CHANGE ANALYST) Narrative 08/04/2019 12:07 PM GLOBAL CLIMATE CHANGE ANALYST Ordered by an unspecified provider. Scanned Document CARDIAC SERVICES ORD ERABLES * PATHOLOGY TISSUE (06/24/2019 2:05 PM CDT) Only the most recent of2 resultswithin the time period is included. Case Report Surgical Pathology Report Case: [id number] Authorizing Provider: Khushbu Gómez MD Collected: 06/24/2019 02:05 PM Ordering Location: [facility] OR SURAJ/AMB SURGERY Received: 06/24/2019 02:56 PM Pathologist: Anders Johnson MD Specimens: A) - Breast, Right, right breast lumpectomy, short stitch superior, long stitch lateral, double stitch deep B) - [place] Lymph Node, right axillary sentinel lymph node 06/27/2019 10:25 AM CDT [facility] Final Diagnosis Breast, right, lumpectomy (A): - Invasive ductal carcinoma (in block A12), histologic grade 1 (tub 2, nuc 2, [place] 1) - Sclerosing adenosis - Intraductal papilloma - Usual ductal hyperplasia, microscopic cysts with apocrine metaplasia, focal columnar cell change and fibrosis - Microcalcifications in benign breast parenchyma - See synoptic report for further details [place] lymph nodes, right axillary, excision (B): - Lymph nodes negative for metastasis (0/8) 06/27/2019 10:25 AM CDT [facility] Microscopic Description and Comment Microscopic examination substantiates the final diagnosis. The greatest diameter of invasive ductal carcinoma in block A12 is 6 mm. In this same block a prominent biopsy site is found. The greatest diameter of the tumor is listed in the synoptic is 7 mm because there was the dimension described in the original biopsy (see [id number]; OSC: AS19-01/12/08). Given available tissue this cancer is best assigned an AJCC stage group I (pT1b/pN0). 06/27/2019 10:25 AM [facility] Clinical History The patient is a 49-year-old woman with malignant neoplasm of upper outer quadrant of right breast, who underwent right breast lumpectomy and sentinel lymph node biopsy. Per chart review, right breast diagnostic mammogram and ultrasound on 05/26/2019 showed at 10 o'clock position, 11 cm from nipple areolar complex is a 0.6 irregular and hypoechoic mass suspicious for malignancy with calcification shadowing at the 11 o'clock position 10 cm from nipple areolar complex. 06/27/2019 10:25 AM [facility] Gross Description The requisition and specimen label(s) are identified with the patient name, Socorro Ibarra Received fresh, specimen A, right breast lumpectomy, is a 92.7 g lumpectomy measuring 6.5 cm superior to inferior, 6.4 cm medial to lateral and 5.0 cm anterior to deep. The specimen is oriented short stitch superior, long stitch lateral and double stitch deep. The specimen is inked as follows: blue - superior; green - inferior; yellow - anterior; black - deep; red - medial; orange - lateral. The specimen is serially sectioned from medial to lateral. There is a 2.1 x 1.1 x 1.4 cm lesion with poorly defined borders that is 0.4 cm from medial, 0.3 cm from superior, 0.7 from anterior, 0.8 cm from inferior, 1.2 cm from deep and >2 cm from lateral margin. There is a 0.3 x 0.1 x 0.1 cm metallic clip approximately 0.8 cm deep to the aforementioned lesion (corresponding with previous imaging notes). There is an area of hemorrhage and fibrosis in the central portion of the lesion corresponding to biopsy site. The uninvolved portion of the breast contains yellow-conley adipose tissue and white-conley fibrotic tissue. Gas Scrubber Operator sections are submitted as follows: A1 - lateral margin; shave; A2-A3 - medial margin shave bisected; A4-A7 - medial portion of lesion quadrisected (A4 - deep inferior; A5 - anterior inferior; A6 - deep superior; A7 - anterior superior); A8-A11 - subsequent section with lesion quadrisected as previously; A12-A15 - subsequent section with tumor and biopsy site quadrisected as previously; A16-A17 - uninvolved portion of lumpectomy. Received fresh, specimen B, right axillary sentinel lymph node, is a 5.6 x 5.4 x 2.7 cm soft, yellow-conley tissue fragment. The specimen is bluntly dissected. Gas Scrubber Operator sections are submitted as follows: B1 - one potential lymph node; B2 - one potential lymph node; B3 - three potential lymph nodes; B4-B5 - random sections of fat. Specimen processing times on 06/24/2019 are as follows: Time of excision: 14:05 Time received by pathology: unknown Time specimen is cut and placed in formalin: 15:00 Total formalin fixation time: 28 hours, 20 minutes Total cold ischemia time: 55 minutes LAURA/alex 06/27/2019 10:25 AM [facility] Disclaimer The performance characteristics of all immunohistochemical and indirect immunofluorescence stains (if any) cited in this report were determined by the Histopathology Laboratory of [facility]. Some of these tests were developed by our own laboratory and have not been cleared or approved by the US Food and Drug Administration. The FDA does not require this test to go through premarket FDA review. These tests are used for clinical purposes. They should not be regarded as investigational or for research. This laboratory is certified under the Clinical Laboratory Improvement Amendments (CLIA) as qualified to perform high complexity clinical laboratory testing. This case has been personally reviewed and interpreted by the attending (teaching) pathologist. 06/27/2019 10:25 AM [facility] Synoptic Report INVASIVE CARCINOMA OF THE BREAST (Breast Invasive - A) CLINICAL Radiologic Finding: Mass or architectural distortion SPECIMEN Procedure: Excision (less than total mastectomy) Specimen Laterality: Right TUMOR Tumor Site: Invasive Carcinoma: Upper outer quadrant Clock Position of Tumor Site: 10 o'clock Histologic Type: Invasive carcinoma of no special type (ductal, not otherwise specified) Glandular (Acinar) / Tubular Differentiation: Score 2 Nuclear Pleomorphism: Score 2 Mitotic Rate: Score 1 (<=3 mitoses per mm2) Overall Grade: Grade 1 (scores of 3, 4 or 5) Tumor Size: Greatest dimension of largest invasive focus in Millimeters (mm): 7 Millimeters (mm) Tumor Focality: Single focus of invasive carcinoma Ductal Carcinoma In Situ (DCIS): Not identified Tumor Extent: Accessory Findings: Lymphovascular Invasion: Not identified Dermal Lymphovascular Invasion: No skin present Microcalcifications: Present in non-neoplastic tissue Treatment Effect: No known presurgical therapy MARGINS Invasive Carcinoma Margins: Uninvolved by invasive carcinoma Distance from Posterior Margin in Millimeters (mm): 7.5 Millimeters (mm) Distance from Closest Margin in Millimeters (mm): 7.5 Millimeters (mm) Closest Margin: Posterior LYMPH NODES Regional Lymph Nodes: Uninvolved by tumor cells Number of Lymph Nodes Examined: 8 Number of [place] Nodes Examined: 8 PATHOLOGIC STAGE CLASSIFICATION (pTNM, AJCC 8th Edition) TNM Descriptors: Not applicable Primary Tumor (Invasive Carcinoma) (pT): pT1b Regional Lymph Nodes (pN): Category (pN): pN0 ADDITIONAL FINDINGS Additional Pathologic Findings: Sclerosing adenosis, intraductal papilloma, usual ductal hyperplasia, microscopic cysts with apocrine metaplasia, focal columnar cell change and fibrosis. 06/27/2019 10:25 AM CDT [facility] Embedded Images 06/27/2019 10:25 AM CDT [facility] Biopsy, Needle (Breast, Right) 06/24/2019 2:05 PM CDT 06/24/2019 2:56 PM CDT Comment:Pre-op diagnosis: Malignant neoplasm of upper outer quadrant of right breast in female, estrogen receptor positive Lymph Node Dissection SPECIMEN FROM SENTINEL LYMPH NODE / Unknown 06/24/2019 2:32 PM CDT 06/24/2019 2:56 PM CDT Comment:Pre-op diagnosis: Malignant neoplasm of upper outer quadrant of right breast in female, estrogen receptor positive Khushbu Gómez MD LAB - PATHOLOGY/CATHY DUNCAN ORDERABLES [facility] [address] [phone] * LARYNGEAL MASK AIRWAY (06/24/2019 1:32 PM CDT) Narrative Marianela Schneider APRN-STUDIO MUSICIAN - 06/24/2019 1:32 PM CDT Marianela Schneider APRN-CRNA 06/24/2019 3:20 PM LMA Placement Procedure/LDA Note: Patient Location: OR. LMA Insertion Date/Time: 06/24/2019 1:13 PM Procedure: LMA. Pretreatment: 100% O2 Induction: standard IV Patient position: sniffing. Mask Ventilation: easy Type: LMA Size: 3 Number of Attempts: 1. Cuff volume (mL): 8 Placement verified by: direct visualization, bilateral breath sounds and CO2 monitor Procedure Start Time: 06/24/2019 1:13 PM. Procedure End Time: 06/24/2019 2:58 PM. Procedure Total Time: 105 minutes. Staff Section Anesthesia Provider: Marianela Schneider APRN-CRNA, Performed the procedure Provider #1: Gina Gamez MD, Performed the procedure. Gina Gamez MD GENERAL ANESTHESIA ORDERABLES * NM SENTINEL NODE INJECTION (06/24/2019 9:23 AM CDT) Anatomical Region Laterality Modality Nuclear Medicine 06/24/2019 9:27 AM CDT Impressions 06/24/2019 4:45 PM CDT IMPRESSION: Successful placement of 4 periareolar injections in the right breast. Dictated by Lavelle Wong MD (Nuclear Medicine resident). This report was approved by Lavelle Wong on 06/24/2019 12:05 PM . I, Dr. RASHMI SANTOS M.D. have personally reviewed and interpreted this examination/study. This report was electronically signed by RASHMI SANTOS M.D. on 06/24/2019 4:45 PM . Narrative 06/24/2019 4:45 PM CDT PROCEDURE: Lymphoscintigraphy - [place] lymph node detection HISTORY: 49 year-old female with newly-diagnosed right breast cancer proven by biopsy dated 06/03/19. She is opting for a lumpectomy and sentinel node dissection. Patient's height 160 cm; weight 297 lb. TECHNIQUE: 518 uCi of Tc-99m Tilmanocept (Lymphoseek) injected intradermally in the right breast. FINDINGS: The right breast was cleaned and a total dose of 518 uCi Tc 99-m Tilmanocept (Lymphoseek) was given by 4 separate intradermal injections in the periareolar region of the right breast by Dr. Wong. The patient tolerated the procedure well without complication. Procedure Note Rashmi Santos MD - 06/24/2019 PROCEDURE: Lymphoscintigraphy - [place] lymph node detection HISTORY: 49 year-old female with newly-diagnosed right breast cancer proven by biopsy dated 06/03/19. She is opting for a lumpectomy and sentinel node dissection. Patient's height 160 cm; weight 297 lb. TECHNIQUE: 518 uCi of Tc-99m Tilmanocept (Lymphoseek) injected intradermally in the right breast. FINDINGS: The right breast was cleaned and a total dose of 518 uCi Tc 99-m Tilmanocept (Lymphoseek) was given by 4 separate intradermal injectionsin the periareolar region of the right breast by Dr. Wnog. The patient tolerated the procedure well without complication. IMPRESSION: Successful placement of 4 periareolar injections in the right breast. Dictated by Lavelle Wong MD (Nuclear Medicine resident). This report was approved by Lavelle Wong on 06/24/2019 12:[address] RASHMI Ku M.D. have personally reviewed and interpreted this examination/study. This report was electronically signed by RASHMI SANTOS M.D. on06/24/2019 4:45 PM . Khushbu Gómez MD NM ORDERABLES * MAMMO BREAST RIGHT SPECIMEN (06/24/2019 9:10 AM CDT) Anatomical Region Laterality Modality Right Mammography 06/26/2019 1:24 PM CDT Impressions 06/24/2019 9:10 AM CDT IMPRESSION: Successful surgical resection of right breast mass. Dr. KATELYNN Ku M.D. have personally reviewed and interpreted this examination/study. This report was electronically signed by KATELYNN KONG M.D. on 06/26/2019 2:14 PM . Narrative 06/24/2019 9:10 AM CDT SPECIMEN RADIOGRAPH - RIGHT DATE: 06/26/2019 COMPARISON: Comparison is made with multiple prior mammograms, most recently 06/16/2019 and dating back to 05/19/2019. HISTORY / INDICATION: 49-year-old female with biopsy-proven invasive ductal carcinoma of the right breast status post surgical resection FINDINGS: Specimen radiography confirms the presence of the mass , clip and magseed within the specimen. Procedure Note Maricel Kong MD - 06/26/2019 SPECIMEN RADIOGRAPH - RIGHT DATE: 06/26/2019 COMPARISON: Comparison is made with multiple prior mammograms, most recently 06/16/2019 and dating back to 05/19/2019. HISTORY / INDICATION: 49-year-old female with biopsy-proven invasive ductal carcinoma of the right breast status post surgical resection FINDINGS: Specimen radiography confirms the presence of the mass , clip andmagseed within the specimen. IMPRESSION: Successful surgical resection of right breast mass. Dr. KATELYNN uK M.D. have personally reviewed and interpretedthis examination/study. This report was electronically signed by KATELYNN KONG M.D. on 06/26/2019 2:14 PM . Khushbu Gómez MD MAMMO ORDERABLES * MAMMO RIGHT NEEDLE LOCALIZATION (06/16/2019 2:02 PM CDT) Anatomical Region Laterality Modality Right Mammography 06/16/2019 2:05 PM CDT Impressions 06/16/2019 2:24 PM CDT IMPRESSION: Successful Magseed placement of right breast for surgical localization. Dictated by Marlin Clark M.D.( residential property consultant) Dr. MARY Ku M.D. have personally reviewed and interpreted this examination/study. This report was electronically signed by MARY CORBETT M.D. on 06/16/2019 2:24 PM . Narrative 06/16/2019 2:24 PM CDT BREAST NEEDLE LOCALIZATION WITH MAGSEED PLACEMENT DATE: 06/16/2019 COMPARISON: Comparison is made with prior diagnostic right mammogram from 06/03/2019. HISTORY / INDICATION: 49-year-old female with biopsy-proven invasive ductal carcinoma of the right breast. TECHNIQUE AND FINDINGS: Preprocedure images were reviewed. The procedure and its risks and benefits, including, but not limited to, bleeding and infection were discussed with the patient. Informed consent was obtained. Time out was performed. Using mammographic imaging guidance, the spiculated mass in the outer quadrant of the right breast was targeted for localization. The skin was prepped in sterile fashion. 5 cc of 1% lidocaine buffered with bicarbonate was given for local anesthesia of the skin surface. 5 cc of 1% lidocaine buffered with bicarbonate was given for deeper anesthesia. An 18G needle was used to place the magnetic seed adjacent to the biopsy-proven invasive ductal carcinoma in the lower outer quadrant of the right breast. Note the seed lies approximately 8 mm posterior to the clip/mass. The patient tolerated the procedure well and was discharged in stable condition for her surgical operation planned a later date. Procedure was performed by Dr. Corbett. Procedure Note Mary Corbett MD - 06/16/2019 BREAST NEEDLE LOCALIZATION WITH MAGSEED PLACEMENT DATE: 06/16/2019 COMPARISON: Comparison is made with prior diagnostic right mammogramfrom 06/03/2019. HISTORY / INDICATION: 49-year-old female with biopsy-proven invasive ductal carcinoma of the right breast. TECHNIQUE AND FINDINGS: Preprocedure images were reviewed. The procedure and its risks and benefits, including, but not limited to, bleeding and infection were discussed with the patient. Informed consent was obtained. Time out was performed. Using mammographic imaging guidance, the spiculated mass in the outer quadrant of the right breast was targeted for localization. The skin was prepped in sterile fashion. 5 cc of 1% lidocaine buffered withbicarbonate was given for local anesthesia of the skin surface. 5 cc of 1%lidocaine buffered with bicarbonate was given for deeper anesthesia. An 18Gneedle was used to place the magnetic seed adjacent to the biopsy-proveninvasive ductal carcinoma in the lower outer quadrant of the right breast. Note the seed lies approximately 8 mm posterior to the clip/mass. The patient tolerated the procedure well and was discharged in stable condition for her surgical operation planned a later date. Procedure was performed by Dr. Corbett. IMPRESSION: Successful Magseed placement of right breast for surgical localization. Dictated by Marlin Clark M.D.( residential property consultant) I, Dr. MARY CORBETT M.D. have personally reviewed and interpreted this examination/study. This report was electronically signed by MARY CORBETT M.D. on 06/16/2019 2:24 PM . Khushbu Gómez MD MAMMO ORDERABLES * XR CHEST 2VW (06/16/2019 12:37 PM CDT) Anatomical Region Laterality Modality Chest Radiographic Em ging 06/16/2019 1:42 PM CDT Impressions 06/17/2019 7:40 AM CDT Impression: No acute pulmonary process. Minimal left basilar atelectasis. Dictated by Em Hart M.D. (residential property consultant). Dr. FRANNY Ku have personally reviewed and interpreted this examination/study. This report was electronically signed by FRANNY VILLALTA on 06/17/2019 7:40 AM . Narrative 06/17/2019 7:40 AM CDT Exam: XR CHEST 2VW Date: 06/16/2019 12:37 PM History: h/o SOB, COPD Findings: Minimal left basilar atelectasis. There is no consolidation, pleural effusion, or pneumothorax. The cardiomediastinal silhouette is normal. The visible bony thorax is intact. Procedure Note Franny Villalta DO - 06/17/2019 Exam: XR CHEST 2VW Date: 06/16/2019 12:37 PM History: h/o SOB, COPD Findings: Minimal left basilar atelectasis. There is no consolidation, pleural effusion, or pneumothorax. The cardiomediastinal silhouette is normal. The visible bony thorax is intact. Impression: No acute pulmonary process. Minimal left basilar atelectasis. Dictated by Em Hart M.D. (residential property consultant). Dr. FRANNY Ku have personally reviewed and interpreted this examination/study. This report was electronically signed by FRANNY VILLALTA on 06/17/2019 7:40 AM . Bethany Gaston DO DIAGNOSTIC IMAGIN G ORDERABLES * EKG 12-LEAD (06/16/2019 12:03 PM CDT) Ventricular Rate 88 BPM [facility] MUSE Atrial Rate 88 BPM [facility] MUSE P-R Interval 158 ms [facility] MUSE QRS Duration ms 86 ms [facility]USE Q-T Interval ms 376 ms [facility]USE QTC Calculation (Bezet) 454 ms [facility] MUSE Calculated P [place] -3 degrees [facility] MUSE Calculated R [place] 81 degrees [facility] MUSE Calculated T [place] 51 degrees [facility] MUSE Interpretation EKG NORMAL SINUS RHYTHM NORMAL ECG NO PREVIOUS ECGS AVAILABLE Confirmed by Walter Morales ([id number]), content editor TORSTEN GALLARDO ([id number]) on 07/08/2019 7:32:10 AM [facility] MUSE 06/16/2019 12:0 3 PM CDT 07/08/2019 7:32 AM CDT Bethany Gaston DO ECG ORDERABLES [facility] MUSE * MM OUTSIDE MAMMO FILM READ (06/12/2019 8:35 AM CDT) Anatomical Region Laterality Modality Other 06/16/2019 12:3 5 PM CDT Impressions 06/16/2019 12:43 PM CDT IMPRESSION: Clip at site of biopsy-proven malignancy in the right breast is amenable to magseed placement under mammographic guidance BIRADS Category 6: Known biopsy - proven malignancy - appropriate action should be taken This report was electronically signed by MARY CORBETT M.D. on 06/16/2019 12:43 PM . Narrative 06/16/2019 12:43 PM CDT OUTSIDE INTERPRETATION STUDIES PROVIDED FOR INTERPRETATION: 05/19/2019 screening baseline mammogram, 05/26/2019 right breast diagnostic mammogram and and ultrasound and postclip placement right breast mammogram 06/03/2019 [facility] The above studies were provided for interpretation on 06/16/2019. HISTORY: 49-year-old female presents for magseed placement at site of biopsy proven invasive ductal carcinoma the right breast FINDINGS: There are scattered fibroglandular densities. Tissue marker is identified in the outer slightly right breast mid depth corresponding to the biopsy-proven malignancy. No additional suspicious masses, areas of distortion or calcifications are identified in either breast. Procedure Note Mary Corbett MD - 06/16/2019 OUTSIDE INTERPRETATION STUDIES PROVIDED FOR INTERPRETATION: 05/19/2019 screening baseline mammogram, 05/26/2019 right breast diagnostic mammogram and and ultrasound and postclip placement right breastmammogram 06/03/2019 [facility] The above studies were provided for interpretation on 06/16/2019. HISTORY: 49-year-old female presents for magseed placement at site of biopsyproven invasive ductal carcinoma the right breast FINDINGS: There are scattered fibroglandular densities. Tissue marker isidentified in the outer slightly right breast mid depth corresponding to the biopsy-proven malignancy. No additional suspicious masses, areas of distortion or calcifications are identified in either breast. IMPRESSION: Clip at site of biopsy-proven malignancy in the right breast is amenable to magseed placement under mammographic guidance BIRADS Category 6: Known biopsy - proven malignancy - appropriate action should be taken This report was electronically signed by MARY CORBETT M.D. on 06/16/2019 12:43 PM . Khushbu Gómez MD IMAGING Care Teams Diabetes Clinical Manager Relationship Specialty Start Date End Date Latesha Lewis MD [address] [place] [address] [place] [address] PCP - General 06/16/19
--- OUTSIDE RECORDS SUMMARY | 2024-11-25 00:27 | XMS_ITS | Data Portability ---
Author Organization [facility] IP Address [address] [place] [address] Assessment No assessment recorded. Plan of Treatment Reminders Order Date Submit Date Provider Last Modified By Organization Details Last Modified Time Details Appointments None recorded. Lab None recorded. Referral None recorded. Procedures colonoscopy procedure (PROC) - Is patient on blood thinners?: NPacemaker or defibrillat or?: NPrep (Colonoscop y Procedure): PEG 3350, Go Lytely, Colyte or Gavalyte G, depending on insurance coverageIf patient has had coronary / vascular stent, provide date: NoIf patient has had heart attack or stroke, provide date: NoHas patient ever had problems with anesthesia or sedation?: NoHas patient had problems with opening mouth or breathing tubes?: NoDoes patient use a wheelchair? : N 20[address] [facility] (Surgery Sched), [address] [place] [address], [address], 4 11:23:12 Surgeries None recorded. Imaging None recorded. Medication Orders Dulcolax (bisacodyl) 5 mg tablet,daniella yed release [address] [facility] [place], [address], 3 09:49:22 Miralax 17 gram/dose oral powder [address] [facility] [place], [address], 3 09:49:23 Patient TargetsNo targets recorded. Patient Instructions Encounter Date Encounter Id Patient Instructions Last Modified By Organization Details Last Modified Time 07/09/2023 [id number] RL About Your Colonoscopy 1 Day Prep [id number] Not available 07/09/2023 09:49:15 Reason for Referral None Reported. Results Created Date Observation Date Name Description Value Unit Range Abnormal Flag Note LastModifiedBy Organization Detail LastModifiedTime Result Notes None recorded. Medical Equipment None Reported. Allergies Allergen ID Allergen Name Allergen Category Reaction Reaction Severity Criticality Documentation Date Start Date Code Code System Note Provider Name and Address Organization Details Recorded Time 878824 doxycycli ne Not available respirato ry distress severe Not available 07/09/2023 3640 RxNorm Not Available Not Available Not Available 470754 Cipro medicatio n rash Not available Not available 07/09/2023 22251 3 RxNorm Not Available Not Available Not Available 150302 Product containin g 3-hydroxy -3-methyl glutaryl- coenzyme A reductase inhibitor (product) medicatio n myalgias (muscle pain) Not available Not available 07/09/2023 26428 009 SNOMED Not Available Not Available Not Available 655349 verapamil medicatio n respirato ry distress Not available Not available 07/09/2023 02374 RxNorm Not Available Not Available Not Available 863426 Lipitor medicatio n respirato ry distress Not available Not available 07/09/2023 85020 5 RxNorm Not Available Not Available Not Available 711657 morphine medicatio n respirato ry distress Not available Not available 07/09/2023 7052 RxNorm Not Available Not Available Not Available 191609 tetracycl ine medicatio n respirato ry distress Not available Not available 07/09/2023 63992 RxNorm Not Available Not Available Not Available Medications Name Sig Start Date Stop Date Status Note LastModified by Organization Details LastModified Time binaxnow cov kit home jesus manuel 07/09 completed Not Available Not Available Not Available cyclobenzap rine 10 mg tablet TAKE 1 TABLET BY MOUTH THREE TIMES DAILY NEEDED active Not Available Not Available No t Available amoxicillin 500 mg capsule TAKE 1 CAPSULE BY MOUTH THREE TIMES DAILY FOR 10 DAYS 07/09 completed Not Available Not Available Not Available Miralax 17 gram/dose oral powder In a pitcher, mix entire bottle of Miralax in one 64 ounce bottle of yellow or green Gatorade. Beginning at 5:00 PM the evening before the colonosco py, drink 1 8-ounce glass every 15 minutes until completed . Drink 4 glasses of water after finishing this mixture 2022 active Not Available Not Available Not Avai lable anastrozole 1 mg tablet TAKE 1 TABLET BY MOUTH ONCE DAILY active Not Available Not Available No t Available nystatin 100,000 unit/mL oral suspension 07/09 completed Not Available Not Available Not Available albuterol sulfate 2.5 mg/3 mL (0.083 %) solution for nebulizatio n USE 1 VIAL IN NEBULIZER EVERY 4 TO 6 HOURS NEEDED active Not Available Not Available No t Available azithromyci n 250 mg tablet TAKE 2 TABLETS BY MOUTH ON DAY 1, AND THEN TAKE 1 TABLET BY MOUTH ONCE A DAY ON DAY 2 THROUGH DAY 5 07/09 completed Not Available Not Available Not Available ibuprofen 800 mg tablet TAKE 1 TABLET BY MOUTH TWICE DAILY FOR 10 DAYS active Not Available Not Available No t Available benzonatate 200 mg capsule TAKE 1 CAPSULE BY MOUTH THREE TIMES DAILY NEEDED 07/09 completed Not Available Not Available Not Available meloxicam 15 mg tablet TAKE 1 TABLET BY MOUTH ONCE DAILY NEEDED FOR PAIN active Not Available Not Available No t Available prednisone 20 mg tablet TAKE 3 TABLETS BY MOUTH EVERYDAY FOR 3 DAYS, THEN 2 TABLETS BY MOUTH EVERYDAY FOR 3 DAYS, THEN 1 TABLET BY MOUTH EVERYDAY FOR 3 DAYS AND THEN 1/2 TABLET BY MOUTH EVERYDAY FOR 3 DAYS THEN STOP. active Not Available Not Available No t Available gabapentin 400 mg capsule TAKE 2 CAPSULES BY MOUTH THREE TIMES DAILY active Not Available Not Available No t Available amitriptyli ne 50 mg tablet TAKE 1 TABLET BY MOUTH THREE TIMES DAILY active Not Available Not Available No t Available amoxicillin 875 mg tablet TAKE 1 TABLET BY MOUTH EVERY 12 HOURS FOR 7 DAYS active Not Available Not Available No t Available benzonatate 100 mg capsule TAKE 1 CAPSULE BY MOUTH EVERY 8 HOURS NEEDED FOR COUGH AND CONGESTIO N 07/09 completed Not Available Not Available Not Available hydrocodone 7.5 mg-acetamin ophen 325 mg tablet TAKE 1 TABLET BY MOUTH EVERY 4 HOURS NEEDED FOR PAIN active Not Available Not Available No t Available trazodone 150 mg tablet TAKE 1 TABLET BY MOUTH EVERY DAY AT BEDTIME NEEDED FOR INSOMNIA active Not Available Not Available No t Available oseltamivir 75 mg capsule TAKE 1 CAPSULE BY MOUTH EVERY 12 HOURS FOR 5 DAYS active Not Available Not Available No t Available buspirone 30 mg tablet TAKE 1 TABLET BY MOUTH TWICE DAILY active Not Available Not Available No t Available buspirone 10 mg tablet TAKE 2 TABLETS BY MOUTH TWICE DAILY active Not Available Not Available No t Available lisinopril 20 mg-hydrochl orothiazide 25 mg tablet TAKE 1 TABLET BY MOUTH ONCE DAILY FOR HIGH BLOOD PRESSURE active Not Available Not Available No t Available montelukast 10 mg tablet TAKE 1 TABLET BY MOUTH ONCE DAILY active Not Available Not Available No t Available hydroxyzine HCl 25 mg tablet TAKE 1 TO 2 TABLETS BY MOUTH AT BEDTIME NEEDED active Not Available Not Available No t Available digoxin 125 mcg (0.125 mg) tablet TAKE 1 TABLET BY MOUTH DIRECTED SUNDAY - SUNDAY active Not Available Not Available No t Available azelastine 137 mcg (0.1 %) nasal spray USE 2 SPRAY(S) IN EACH NOSTRIL TWICE DAILY active Not Available Not Available No t Available albuterol sulfate HFA 90 mcg/actuati on aerosol inhaler INHALE 2 PUFFS BY MOUTH EVERY 4 HOURS active Not Available Not Available No t Available fluticasone propionate 50 mcg/actuati on nasal spray,suspe nsion USE 2 SPRAY(S) IN EACH NOSTRIL ONCE DAILY active Not Available Not Available No t Available prazosin 2 mg capsule TAKE 2 CAPSULES BY MOUTH AT BEDTIME active Not Available Not Available No t Available amoxicillin 875 mg-potassiu m clavulanate 125 mg tablet TAKE 1 TABLET BY MOUTH TWICE DAILY active Not Available Not Available No t Available Dulcolax (bisacodyl) 5 mg tablet,daniella yed release At 2:00 PM the day before the colonosco py, take all 4 tablets of Dulcolax by mouth at one time with 8 ounces of water 2022 active Not Available Not Available Not Avai lable neomycin-po lymyxin-hyd rocort 3.5 mg-10,000 unit/mL-1 % ear drops,susp INSTILL 2 DROPS INTO EACH EAR 4 TIMES DAILY active Not Available Not Available No t Available escitalopra m 20 mg tablet TAKE 1 TABLET BY MOUTH ONCE DAILY active Not Available Not Available No t Available fenofibrate nanocrystal lized 48 mg tablet TAKE 1 TABLET BY MOUTH ONCE DAILY active Not Available Not Available No t Available Symbicort 160 mcg-4.5 mcg/actuati on HFA aerosol inhaler INHALE 2 PUFFS BY MOUTH TWICE DAILY active Not Available Not Available No t Available Incruse Ellipta 62.5 mcg/actuati on powder for inhalation INHALE 1 PUFF BY MOUTH ONCE DAILY active Not Available Not Available No t Available Ubrelvy 100 mg tablet TAKE 1 TABLET BY MOUTH ONCE NEEDED FOR MIGRAINE A SINGLE DOSE. MAY REPEAT 1 TABLET ONCE IN 2 OR MORE HOURS AFTER FIRST DOSE IF NEEDED. active Not Available Not Available No t Available BinaxNOW COVID-19 Ag Self Test kit Use as Directed on the Package 07/09 completed Not Available Not Available Not Available Paxlovid 300 mg (150 mg x 2)-100 mg tablets in a dose pack 07/09 completed Not Available Not Available Not Available Vitals Date Recorded Body weight Body mass index (BMI) Body height Heart rate Body temperature Pain severity - 0-10 verbal numeric rating [Score] - Reported Oxygen saturation Oxygen saturation in Arterial blood by Pulse oximetry Systolic blood pressure Diastolic blood pressure Provider Name and Address Organization Details Last Updated DateTime 3 026804. 76 g 52.3 kg/m2 152.4 cm 97 /min 97.8 [degF] 1 98 % 98 % 137 mm[Hg] 67 mm[Hg] Mary Barker LPN [place] - [facility] 09:39:58 Social History Question Answer Notes LastModified by Organizat ion Details LastModified Time Tobacco Smoking Status Former Smoker stopped in 2004 Mary Barker LPN [place], [place] - [facility] 07/09/2023 09:47:39 What Was The Date Of Your Most Recent Tobacco Screening? 07/09/2023 Information not available 07/09/2023 Do You Use Any Illicit Or Recreational Drugs? No Information not available 07/09/2023 Has Tobacco Cessation Counseling Been Provided? No Information not available 07/09/2023 Sex: Unknown Functional Status None recorded. Mental Status None recorded. Family History Nothing Reported. Medical History No medical history recorded. Gynecological HistoryNo gynecological history recorded. Obstetrics History GPAL:G 0 P 0 0 0 0 Past Encounters Encounter ID Performer Location Encounter Start Date Encounter Closed Date Diagnosis/Indication Diagnosis SNOMED-CT Code Diagnosis ICD10 Code Diagnosis Note [id number] KRISTIN DESAI [facility] [address] [place] [address] 07/09/2023 09:25:43 07/09/2023 14:15:10 Screening for malignant neoplasm of colon 274548131 Z12.11 Previous colonoscop y > 10 years ago. FH of polyps and anal cancer.CBC and CMP via oncology MD 01/18/23. Health Concerns Section Related Observation LastModified by Organization Detai ls LastModified Time None Recorded Concern Status LastModified by Organization Details LastModified Time None Recorded Advance Directives Directive None Recorded Payers Encounter Date Sequence Insurance Name Policy Number Policy Main Covered Member ID Main Member ID Guarantor Name 07/09/2023 1 [facility] (MEDICAID REPLACEMENT - HMO) [id number] Socorro Ibarra [id number] Socorro Ibarra Notes Date Note Type Note Provider Name and Address Organization Details Recorded Time 07/09/2023 text/html Patient with PMHx of breast cancer presents today for screening colonoscopy. Prior colonoscopy> 10 years ago at OSH. FH of anal cancer (sister) diagnosed at age 57, in remission x 3 years. FH of leukemia. Patient does not smoke; stopped in 2004. Patient does not drink alcohol. Past surgical history includes cholecystectomy, left elbow fixation, back surgery, right breast lumpectomy. Of note, patient is planning to proceed with gastric sleeve. KRISTIN DESAI [address] [place], [address], [facility] - [facility] 07/09/2023 10:05:44 OBGyn Episode No OBEpisode recorded.
--- OUTSIDE RECORDS SUMMARY | 2024-11-25 00:27 | XMS_ITS | Clinical Summary ---
Author Organization [facility] Julien guan [facility] Address [address] [place] [address] Care Team Providers Care Die Assembler Name Role Phone Latesha Lewis MD Primary Care Provider + Allergies Active Allergy Reactions Criticality Noted Date Comments Doxycycline Hives,Shortness of Breath/Wheezing High 06/16/2019 Haemophilus Influenzae Type B Unknown 2018 Morphine Hives High 06/16/2019 Pneumococcal 23-Valent Polysaccharide Vaccine Unknown 06/16/2019 Quinolones Rash Medium 06/16/2019 SOB Twnkdwz-Vrk-Pue Reductase Inhibitors Other (See Comments) 06/16/2019 Verapamil Rash Medium 06/16/2019 Medications acetaminophen (OFIRMEV) 10 mg/mL Solution Take 650 mg by mouth. Active cyclobenzaprin e (FLEXERIL) 10 mg tablet cyclobenzaprine 10 mg tablet Active meloxicam (MOBIC) 15 mg tablet meloxicam 15 mg tablet Active albuterol HFA 90 mcg inhaler albuterol sulfate HFA 90 mcg/actuation aerosol inhaler INHALE 2 PUFFS BY MOUTH EVERY 4 HOURS Activ e amitriptyline (ELAVIL) 50 mg tablet amitriptyline 50 mg tablet Active diphenhydrAMIN E (BENADRYL) 25 mg tablet Take 25 mg by mouth. Active ergocalciferol (VITAMIN D2) 2,000 unit Tablet tablet Take 1 Tablet by mouth. Active escitalopram oxalate (LEXAPRO) 10 mg tablet TAKE 1 TABLET BY MOUTH ONCE DAILY 0 04/17/20 19 Active gabapentin (NEURONTIN) 400 mg capsule gabapentin 400 mg capsule Active prochlorperazi ne maleate (COMPAZINE) 10 mg tablet prochlorperazine maleate 10 mg tablet 07/10/20 19 Active traZODone (DESYREL) 100 mg tablet TAKE 1 TABLET BY MOUTH EVERY DAY AT BEDTIME NEEDED FOR INSOMNIA 0 04/16/20 19 Active umeclidinium (INCRUSE ELLIPTA) 62.5 mcg/actuation Disk with Device Incruse Ellipta 62.5 mcg/actuation powder for inhalation Active Active Problems Problem Noted Date Diagnosed Date Malignant neoplasm of upper- outer quadrant of right breast in female, estrogen receptor positive 07/22/2019 Family History Medical History Relation Name Comments Breast Cancer Other SELF Relation Name Status Comments Other SELF Alive Social History Tobacco Use Types Packs/Day Years Used Date Smoking Tobacco: Former Cigarettes Q uit: 07/22/2005 Smokeless Tobacco: Never Comments No Sex and Gender Information Value Date Recorded Sex Assigned at Not on file Legal Sex Female 4:23 PM COMPLIANCE VICE PRESIDENT Gender Identity Not on file Sexual Orientation Not on file Last Filed Vital Signs Vital Sign Reading Time Taken Comments Blood Pressure 131/77 08/13/2019 2:26 PM COMPLIANCE VICE PRESIDENT Pulse 82 08/13/2019 2:26 PM COMPLIANCE VICE PRESIDENT Temperature 36.9 C (98.5 F) 08/13/2019 2:26 PM COMPLIANCE VICE PRESIDENT Respiratory Rate - - Oxygen Saturation 95% 08/13/2019 2:26 PM COMPLIANCE VICE PRESIDENT Inhaled Oxygen Concentration - - Weight 137.3 kg (302 lb 9.6 oz) 08/13/2019 2:26 PM COMPLIANCE VICE PRESIDENT Height 154.9 cm (5' 1 ) 08/13/2019 2:26 PM COMPLIANCE VICE PRESIDENT Body Mass Index 57.18 08/13/2019 2:26 PM COMPLIANCE VICE PRESIDENT Plan of Treatment Health Maintenance Due Date Last Done Comments DIABETES ANNUAL FOOT EXAM 1988 DIABETES ANNUAL RETINAL EXAM 1988 DIABETES MICROALBUMIN ANNUAL SCREEN 1988 LDL CHOLESTEROL ANNUAL 1988 DTAP/TDAP/TD VACCINES (1 - Tdap) 1989 HEPATITIS B VACCINES (1 of 3 - 19+ 3-dose series) 02/09 CERVICAL CANCER SCREENING 2000 COLORECTAL SCREENING 2015 Colorectal Cancer Screening 2015 FIT-DNA Q 3 years 2015 FIT/FOBT Q 1 year 2015 Flex Sig/CT Colonography Q 5 years 2015 DIABETES HBA1C Q 6 MONTHS 11/28/2019 05/30/2019 ZOSTER VACCINE (1 of 2) 2020 BREAST CANCER SCREENING 05/13/2021 05/13/2020 INFLUENZA VACCINE (#1) 2024 Care Teams Die Assembler Relationship Specialty Start Date End Date Latesha Lewis MD [address] [place] [address] [place] [id number] PCP - General Family Practice 07/22/19
--- OUTSIDE RECORDS SUMMARY | 2024-11-25 00:27 | XMS_ITS | Clinical Summary ---
Author Organization [facility] Address [address] [place] [address] Care Team Providers Care Freight Receiver Name Role Phone Ke Frederick NP Primary Care Provider [phone] Allergies Active Allergy Reactions Criticality Noted Date Comments Ciprofloxacin Shortness of breath High 03/03/2024 With a rash Clindamycin Itching Low 10/04/2020 Doxycycline Hives,Rash,Shortness of breath,Urticaria High 06/16/2019 Haemophilus Influenzae Type B Anaphylaxis High 06/16/2019 Influenza Virus Vaccines Anaphylaxis High 06/14/2005 Morphine Other (See comments),Hives,Unknow n High 06/16/2019 Pneumococcal 23-Valent Polysaccharide Vaccine Anaphylaxis High 06/16/2019 Quinolones Other (See comments),Rash Medium 06/16/2019 SOB Yqoihsq-Key-Bnj Reductase Inhibitors Other (See comments),Muscle pain,Shortness of [...] after use. Do not swallow. 1 each 11 2023 Active azelastine (ASTELIN) 137 mcg (0.1 %) nasal spray Administer 1 spray into each nostril 2 (two) times a day Use in each nostril as directed 30 mL 11 2023 Active albuterol HFA (PROVENTIL HFA,VENTOLIN HFA,PROAIR HFA) 90 mcg/actuation inhaler Inhale 2 puffs every 6 (six) hours as needed for wheezing 1 each 11 2023 Active cetirizine 10 mg capsule Take 1 tablet by mouth daily 30 capsule 11 06/02 Active fluticasone propionate (FLONASE) 50 mcg/actuation nasal spray Administer 2 sprays into each nostril daily 15.8 mL 11 2023 Active famotidine (PEPCID) 20 mg tablet Take 1 tablet (20 mg total) by mouth 2 (two) times a day 60 tablet 11 06/26 Active ondansetron (ZOFRAN) 4 mg tablet [...] Morbid obesity with BMI of 45.0-49.9, adult 12/10 Assessment & Plan (07/01/2024 11:27 AM CDT): [...] They are in understanding of the plan. Encounters Date Type Department Care Team Description 11/19/2024 9:45 AM CDT Office Visit [facility] Pulmonary at [address] [place] [address] Salvatore Walker DO Moderate persistent asthma without complication (Primary Dx); Chronic rhinosinusitis; Preoperative clearance; LUISA (obstructive sleep apnea) 11/19/2024 Orders Only [address] [place] [address] Cailin Obrien NP 11/19/[address] [place] [address] Jeanie Velasco 11/07/2024 12:09 PM CASE MANAGEMENT ASSISTANT - 11/07/2024 5:31 PM [facility] Emergency [facility] [address] [place] [address] Dov Prasad MD Encounter for monitoring digoxin therapy (Primary Dx) Discharge Disposition: Discharge to home or self care 10/29/2024 Telephone [facility] [address] [facility] [address] [place] [address] Vicenta Seth RN 10/29/2024 Telephone [facility] [address] [facility] [address] [place] [address] Mary Silva MA 10/29/[address] [place] [address] Cailin Obrien NP bedside commode 10/28/2024 8:50 AM CASE MANAGEMENT ASSISTANT Office Visit [address] [place] [phone] Cailin Obrien NP S/P gastric sleeve procedure (Primary Dx); Abdominal pannus 10/16/2024 8:27 AM CASE MANAGEMENT ASSISTANT - 10/16/2024 11:59 PM CASE MANAGEMENT ASSISTANT Hospital Encounter [facility] Nutrition and Diabetic Education [address] [facility] [place] [address] [place] [address] Rene, Zoie Johnson, CHARLES Discharge Disposition: Discharge to home or self care 10/10/2024 Telephone [facility] Neurology [address] [place] [phone] Ann Matthews NP Med Management (MEDICATION MANAGEMENT ) 10/01/[address] [place] [phone] Jennifer Roca MA 09/26/2024 Telephone [facility] Neurology [address] [place] [phone] Ann Matthews NP MRI Denial 09/08/2024 Telephone [facility] Neurology [address] [place] [phone] Ann Matthews NP Prior Auth (Ubrelvy 100mg) 09/04/2024 1:00 PM CASE MANAGEMENT ASSISTANT Office Visit [facility] Neurology [address] [place] [phone] Ann Matthews NP Neck pain (Primary Dx); Gait disorder from Last 3 Months Surgical History Surgery Date Site/Laterality Comments CHOLECYSTECTOMY 09/10/1994 - 09/09/1995 ELBOW SURGERY 09/10/1992 - 09/09/1993 Left Pin placed BREAST LUMPECTOMY 09/10/2018 - 09/09/2019 Right HAND SURGERY Left carpal tunnel NOSE SURGERY SLEEVE GASTROPLASTY 06/25/2024 Medical History Medical History Date Comments Anxiety PTSD (post-traumatic stress disorder) Breast cancer (HCC) right breast cancer Stroke (HCC) 2000 slight left side 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 High cholesterol Diabetes mellitus (HCC) Hypertension Arthritis Asthma Sleep apnea Palpitation Family History Medical History Relation Name Comments Heart defect Brother Brain Aneurysm Father Alcohol abuse Mother Heart failure Mother Atrial fibrillation Sister Relation Name Status Comments Brother Father Mother Alive Sister Alive Social History Tobacco Use Types Packs/Day Years Used Date Smoking Tobacco: Former Cigarettes 0.5 20.2 2 005 - 1985 Smokeless Tobacco: Never Tobacco Cessation:Counseling Given: Not Answered Comments:06/02/2024 Stress smoker, patient says that she would smoke between a couple to a whole pack per day. 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 Answer Date Recorded Q1: How often [...] on file Legal Sex Female 12:43 AM CASE MANAGEMENT ASSISTANT Gender Identity Not on file Sexual Orientation Not on file Obstetrics History Last Filed Vital Signs Vital Sign Reading Time Taken Comments Blood Pressure 114/68 11/19/2024 9:17 AM CDT Pulse 75 11/19/2024 9:17 AM CDT Temperature 36.4 C (97.5 F) 11/19/2024 9:17 AM CDT Respiratory Rate 27 11/07/2024 4:50 PM CASE MANAGEMENT ASSISTANT Oxygen Saturation 99% 11/19/2024 9:17 AM CDT Inhaled Oxygen Concentration - - Weight 72.5 kg (159 lb 14.4 oz) 11/19/2024 9:17 AM CDT Height 157.5 cm (5' 2 ) 11/19/2024 9:17 AM CDT Body Mass Index 29.25 11/19/2024 9:17 AM CDT Plan of Treatment Health Maintenance Due Date Last Done Comments Cervical Cancer Screening 1970 Colon Cancer Screening-Colonoscopy 1970 Hepatitis C Screening 1970 DTaP/Tdap/Td Vaccine (1 - Tdap) 1981 Hepatitis B Screening 1988 Regular Well Visit/Exam 18-64 1988 Pneumococcal vaccine <65 (1 of 2 - PCV) 1989 Covid-19 Vaccine (4 - 2023-2 5 season) 2024 11/15/2022, 01/13/2022, 07/07/2021, Additional history exists Influenza Vaccine (#1) 2024 Breast Cancer Screening-Mammogram 09/27/2024 09/27/2023, 09/27/2023, 09/06/2022, Additional history exists Depression Screening 06/16/2025 06/16/2024 Zoster Vaccine Completed 05/05/2023, 11/29/2022 Procedures Procedure Name Priority Date/Time Associated Diagnosis Comments EGFR STAT 11/07/2024 12:24 PM CASE MANAGEMENT ASSISTANT DIFFERENTIAL AUTO STAT 11/07/2024 12: 24 PM CASE MANAGEMENT ASSISTANT DIGOXIN LEVEL STAT 11/07/2024 12:24 PM CASE MANAGEMENT ASSISTANT MAGNESIUM Routine 11/07/2024 12:24 PM CASE MANAGEMENT ASSISTANT COMPREHENSIVE METABOLIC PANEL STAT 11/07/2024 12:24 PM CASE MANAGEMENT ASSISTANT CBC WITH AUTO DIFFERENTIAL STAT 11/07/2024 12:24 PM CASE MANAGEMENT ASSISTANT ECG 12-LEAD STAT 11/07/2024 12:17 PM CASE MANAGEMENT ASSISTANT from Last 3 Months Results * eGFR (11/07/2024 12:24 PM CASE MANAGEMENT ASSISTANT) eGFR >90 >=60 mL/min/1. 73 m2 Comment: [...] reviewed 2021. Blood 11/07/2024 12:2 4 PM CASE MANAGEMENT ASSISTANT 11/07/2024 12:42 PM CASE MANAGEMENT ASSISTANT us Dov Prasad MD LAB BLOOD ORDERABLES Final Resul t [facility] [address] Department [place] [address] * (ABNORMAL) Differential, auto (11/07/2024 12:24 PM CASE MANAGEMENT ASSISTANT) Neutrophil abs 6.8(H) 1.5 - 6.5 K/cumm Imm gran abs 0.1 0.0 - 0.1 K/cumm [facility] Lymphocyte abs 3.4(H) 0.8 - 3.3 K/cumm [facility] Monocyte abs 1.0(H) 0.2 - 0.8 K/cumm [facility] Eosinophil abs 0.2 0.0 - 0.5 K/cumm [facility] Basophil abs 0.1 0.0 - 0.1 K/cumm [facility] Neutrophil pct 58.7 % [facility] Comment: Interpretive Data Percent cell count reference ranges are not reported, since discordance with absolute values may lead to misinterpretation of CBC data. Current Interpretive Data was last revised on 2017. Imm gran pct 0.5 % [facility] Comment: Interpretive Data Percent cell count reference ranges are not reported, since discordance with absolute values may lead to misinterpretation of CBC data. Current Interpretive Data was last revised on 2017. Lymphocyte pct 29.4 % [facility] Comment: Interpretive Data Percent cell count reference ranges are not reported, since discordance with absolute values may lead to misinterpretation of CBC data. Current Interpretive Data was last revised on 2017. Monocyte pct 8.8 % [facility] Comment: Interpretive Data Percent cell count reference ranges are not reported, since discordance with absolute values may lead to misinterpretation of CBC data. Current Interpretive Data was last revised on 2017. Eosinophil pct 1.6 % [facility] Comment: Interpretive Data Percent cell count reference ranges are not reported, since discordance with absolute values may lead to misinterpretation of CBC data. Current Interpretive Data was last revised on 2017. Basophil pct 1.0 % [facility] Comment: Interpretive Data Percent cell count reference ranges are not reported, since discordance with absolute values may lead to misinterpretation of CBC data. Current Interpretive Data was last revised on 2017. Blood 11/07/2024 12:2 4 PM CASE MANAGEMENT ASSISTANT 11/07/2024 12:42 PM CASE MANAGEMENT ASSISTANT us Dov Prasad MD LAB BLOOD ORDERABLES Final Resul t [facility] [address] Department [place] [address] * (ABNORMAL) CBC with auto differential (11/07/2024 12:24 PM CASE MANAGEMENT ASSISTANT) WBC 11.5(H) 3.8 - 9.9 K/cumm Hgb 12.6 11.9 - 15.5 g/dL [facility] Hct 37.4 35.6 - 45.5 % [facility] Plt 430(H) 150 - 400 K/cumm [facility] MPV 9.4 9.1 - 12.3 fL [facility] RBC 3.96 3.90 - 5.20 M/cumm [facility] MCV 94.4 81.3 - 96.4 fL [facility] MCH 31.8 27.1 - 33.3 pg [facility] MCHC 33.7 32.3 - 35.7 g/dL [facility] RDW CV 13.6 11.1 - 14.9 % [facility] RDW SD 47.2 35.7 - 48.1 fL [facility] NRBC abs 0.00 0.00 - 0.01 K/cumm [facility] Blood 11/07/2024 12:2 4 PM CASE MANAGEMENT ASSISTANT 11/07/2024 12:42 PM CASE MANAGEMENT ASSISTANT Dov Prasad MD LAB BLOOD ORDERABLES Final Resul t Performing Organization Address [facility] de Phone Number [facility] [address] [employer] [place], [place] [phone] * Magnesium (11/07/2024 12:24 PM CASE MANAGEMENT ASSISTANT) Pathologist [facility] Magnesium 1.9 1.4 - 2.5 mg/dL Blood 11/07/2024 12:2 4 PM CASE MANAGEMENT ASSISTANT 11/07/2024 12:42 PM CASE MANAGEMENT ASSISTANT Dov Prasad MD LAB BLOOD ORDERABLES Final Resul t Performing Organization Address [facility] de Phone Number [facility] [address] Department of [employer] [place], [place] [phone] * Digoxin level (11/07/2024 12:24 PM CASE MANAGEMENT ASSISTANT) Digoxin 0.7 0.5 - 1.2 ng/mL Comment: Interpretive data The therapeutic range for digoxin varies by indication: Heart failure: 0.5 to 0.8 ng/mL Atrial fibrillation: less than 1.2 ng/mL Toxicity: >2.4. Normal or low digoxin does not rule out toxicity. Current interpretive data was last revised on 2024. Blood 11/07/2024 12:2 4 PM CASE MANAGEMENT ASSISTANT 11/07/2024 12:42 PM CASE MANAGEMENT ASSISTANT us Dov Prasad MD LAB BLOOD ORDERABLES Final Resul t [facility] [address] Department [place] [address] * (ABNORMAL) Comprehensive metabolic panel (11/07/2024 12:24 PM CASE MANAGEMENT ASSISTANT) Sodium 141 135 - 145 mmol/L Potassium, pl 3.5 3.3 - 4.9 mmol/L [facility] Chloride 105 97 - 110 mmol/L [facility] CO2 23 22 - 32 mmol/L [facility] Anion gap 13 2 - 15 mmol/L [facility] BUN 25 6 - 25 mg/dL [facility] Creatinine 0.59(L) 0.60 - 1.10 mg/dL [facility] Glucose 98 70 - 199 mg/dL [facility] Comment: Interpretive Data Fasting glucose >/= 126 [...] classification and Diagnosis of Diabetes Diabetes Care 2021; 46: S19-S40. Current interpretive data was last [...] [facility] Blood 11/07/2024 12:2 4 PM CASE MANAGEMENT ASSISTANT 11/07/2024 12:42 PM CASE MANAGEMENT ASSISTANT Dov Prasad MD LAB BLOOD ORDERABLES Final Resul t [facility] [address] Department [place] [address] * ECG 12 lead (11/07/2024 12:17 PM CASE MANAGEMENT ASSISTANT) 11/07/2024 12:1 7 PM CASE MANAGEMENT ASSISTANT Narrative [facility] - 11/07/2024 1:07 PM CASE MANAGEMENT ASSISTANT Vent Rate: 63 bpm RR Interval: 945 msec SC Interval: 177 msec QRS Duration: 105 msec QT Interval: 408 msec QTC Interval: 415 msec P-R-T [place]: 33 - 46 - 6 degrees IMPRESSION: SINUS RHYTHM NORMAL ECG INTERPRETATION BASED ON A DEFAULT AGE OF 40 YEARS Electronically Signed By: Dr. Jason Garcia [facility] Dov Prasad MD ECG ORDERABLES Final Result [facility] [employer] [facility] from Last 3 Months Insurance [facility] Advance Directives For more information, please contact: [phone] * Full Code (Latest Code Status on File) Date Activated Date Inactivated Comments 06/25/2024 4:01 PM 06/26/2024 7:29 PM Care Teams Freight Receiver Relationship Specialty Start Date End Date Ke Frederick, FINAL EXPENSE AGENT [address] [place] [address] PCP - General Family Medicine 01/31/24
--- OUTSIDE RECORDS SUMMARY | 2024-11-25 00:27 | XMS_ITS | Clinical Summary ---
Author Organization [facility] Address [address] [place] [address] Care Team Providers Care Nuclear Physics Teacher Name Role Phone Latesha Lewis MD Primary Care Provider [phone] Source Comments [facility],non-owned Affiliates and Associated Physician Practices is amultiple site organization consisting of ambulatory clinics and hospital sitesin [place], [place], [place] and [place]. This disclosure is being madepursuant to the Care Everywhere program and may not contain all information available regarding this patient. 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 Grade 1/3 IDC. T1bN0(i-)M0, stage IA. ER pos 90% (strong), MI pos 30% (weak), Her-2 neg (1+ on IHC), ki-67 20% Core bx talat [place] S/p 06/24/2019 partial mastectomy/SLN bx (JANNY mackey): 7 mm grade 1/3 IDC (2,2,1). No LVI. Margin neg. 8 neg nodes. Family History Medical History Relation Name Comments Hyperlipidemia Brother Hypertension Brother Alcohol abuse Father Hypertension Father Leukemia Maternal Aunt Hypertension Maternal Grandfather Hypertension Maternal Grandmother Alcohol abuse Mother Asthma Mother CAD (Coronary Artery Disease) Mother Drug Abuse Mother Hypertension Mother Hypertension Paternal Grandfather Hypertension Paternal Grandmother Asthma Sister CAD (Coronary Artery Disease) Sister Diabetes - Type 2 Sister Hyperlipidemia Sister Hypertension Sister Relation Name Status Comments Brother Father Maternal Aunt Maternal Grandfather Maternal Grandmother Mother Paternal Grandfather Paternal Grandmother Sister Social History Tobacco Use Types Packs/Day Years [...] Mass Index 56.68 05/13/2020 10:46 AM CDT Plan of Treatment Health Maintenance Due Date Last Done Comments COLOGUARD (AGES 45-75) - COLON CA SCREENING 1970 COLON MONITORING 1970 COLONOSCOPY - COLON CA SCREENING 1970 CT COLONOGRAPHY - COLON CA SCREENING 1970 Colorectal Cancer Screening 1970 FIT - COLON CA SCREENING 1970 FLEX SIG - COLON CA SCREENING 1970 LIPID TESTING 1970 PAP SMEAR 1970 HIV SCREENING 1985 HEPATITIS C SCREENING 03/02/1988 DTAP/TDAP/TD VACCINES (1 - Tdap) 1989 HEPATITIS B VACCINE (1 of 3 - 19+ 3-dose series) 1989 SCREENING FOR DIABETES 06/16/2019 ZOSTER VACCINE (1 of 2) 2020 COVID-19 VACCINE ( season) 2024 11/15/2022, 01/13/2022, 07/07/2021, Additional history exists DEPRESSION SCREENING 09/10/2024 MAMMOGRAM 09/27/2025 09/27/2023, 1204/2022, 05/28/2021, Additional history exists HIB VACCINE Aged Out No longer eligi ble based on patient's age to complete this topic HPV VACCINE Aged Out No longer eligi ble based on patient's age to complete this topic MENINGOCOCCAL (Group B) VACCINE SHARED DECISION-MAKING Aged Out No longer eligible based on patient's age to complete this topic MENINGOCOCCAL GROUPS A/C/Y/W VACCINE Aged Out No longer eligible based on patient's age to complete this topic Procedures Procedure Name Priority Date/Time Associated Diagnosis [...] Recently Relevant to Health Maintenance Care Teams Nuclear Physics Teacher Relationship Specialty Start Date End Date Latesha Lewis MD [address] [phone] PCP - General 06/16/19
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
--- OUTSIDE RECORDS SUMMARY | 2024-11-25 00:28 | XMS_ITS | Encounter Summary ---
Author Organization [facility] Address [address] [place] [address] Phone Care Team Providers Care Gas Generator Operator Name Role Phone Trini Rockwell MD Unavailable [phone] Latesha Lewis MD Primary Care Provider + Michael Benz MD Unavailable [phone] Reason for Visit * Reason Comments Medication Refill Encounter Details Date Type Department Care Team (Late st Contact Info) Description 09/24/2022 Refill [facility] [address] [address] Michael Benz MD [address] [place] [phone] Medication Refill Social History Tobacco Use Types [...] encounter Miscellaneous Notes * Telephone Encounter - Natalia Mata, RN - 09/25/2022 8:07 AM PROTEOMICS SCIENTIST Refill request from pharmacy. Please fill if appropriate. EOMICS SCIENTIST documented in this encounter Plan of Treatment Upcoming Encounters Date Type Department Care Team (Late st Contact Info) Description 01/26/2025 9:30 AM CDT Lab [facility] [address] [phone] Lab, [facility] 01/26/2025 9:45 AM CDT Office Visit [facility] [address] [phone] Michael Benz MD [address] [place] [phone] documented as of this encounter Visit Diagnoses Diagnosis Malignant neoplasm of nipple of right breast in female, estrogen receptor positive (HCC) documented in this encounter Additional Health Concerns Assessment Noted Time PHQ-9 Depression Total Score: 1 04/04/20 21 2:23 PM CDT documented as of this encounter Care Teams Gas Generator Operator Relationship Specialty Start Date End Date Latesha Lewis MD [address] [place] [phone] PCP - General Family Medicine 11/05/19 Trini Rockwell MD [address] [place] [phone] Radiation Oncologist Radiology 10/16/19 Michael Benz MD [address] [place] [phone] Consulting Physician Oncology 01/17/23 documented as of this encounter
--- OUTSIDE RECORDS SUMMARY | 2024-11-25 00:28 | XMS_ITS | Continuity of Care Document ---
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 Name Role Phone Roosevelt Mary HERNANDEZ Unavailable Unavailable Allergies, Adverse Reactions, Alerts Substance Reaction Status Criticality ATORVASTATIN CALCIUM Active No Info rmation verapamil Active No Information doxycycline Active No Information CIPROFLOXACIN HCL Active No Informa tion ciprofloxacin Active No Information Medications Medication Instructions Dosage Effective Dates (start - stop) Status Comments amitriptyline 50 mg tablet take 1 tablet by oral route 3 times every day for diabetic nerve pain 50 MG - Active cyclobenzaprine 10 mg tablet take 1 tablet by oral route every bedtime as needed for Muscle spasms 10 MG - Active lisinopril 20 mg-hydrochlorothiazid e 25 mg tablet take 1 tablet by oral route every day for high blood pressure, edema 1.00 tablet - Active meloxicam 15 mg tablet take 1 tablet by oral route every day for knee pain/leg pain 15 MG - Active gabapentin 400 mg capsule take 2 capsule by oral route 3 times every day for neuropathic pain 800 MG - Active Hand written script provided ProAir HFA 90 mcg/actuation aerosol inhaler inhale 2 puff by inhalation route every 4 - 6 hours as needed for shortness of breath - Active Symbicort 160 mcg-4.5 mcg/actuation HFA aerosol inhaler inhale 2 puff by inhalation route 2 times every day in the morning and evening 2.00 puff - Active Procedures Procedure Date LIPID PANEL Inhouse A1C COMPREHEN METABOLIC PANEL ROUTINE VENIPUNCTURE OFFICE/OUTPATIENT VISIT, EST LIPID PANEL COMPREHEN METABOLIC PANEL ROUTINE VENIPUNCTURE Inhouse A1C OFFICE/OUTPATIENT VISIT, EST LIPID PANEL Inhouse A1C COMPREHEN METABOLIC PANEL ROUTINE VENIPUNCTURE OFFICE/OUTPATIENT VISIT, EST COMPREHEN METABOLIC PANEL ROUTINE VENIPUNCTURE LIPID PANEL Inhouse A1C OFFICE/OUTPATIENT VISIT, EST OFFICE/OUTPATIENT VISIT, EST CYTOPATH C/V AUTO FLUID REDO URINALYSIS, AUTO, W/O SCOPE LIPID PANEL Inhouse A1C COMPREHEN METABOLIC PANEL ROUTINE VENIPUNCTURE MICROALBUMIN, SEMIQUANT OFFICE/OUTPATIENT VISIT, EST Inhouse A1C COMPREHEN METABOLIC PANEL ROUTINE VENIPUNCTURE OFFICE/OUTPATIENT VISIT, EST Inhouse A1C URINALYSIS, AUTO, W/O SCOPE LIPID PANEL ROUTINE VENIPUNCTURE COMPREHEN METABOLIC PANEL MICROALBUMIN, SEMIQUANT OFFICE/OUTPATIENT VISIT, EST OFFICE/OUTPATIENT VISIT, EST ELECTROCARDIOGRAM, COMPLETE Inhouse A1C MICROALBUMIN, SEMIQUANT ASSAY THYROID STIM HORMONE COMPREHEN METABOLIC PANEL URINALYSIS, AUTO, W/O SCOPE LIPID PANEL OFFICE/OUTPATIENT VISIT, EST ROUTINE VENIPUNCTURE OFFICE/OUTPATIENT VISIT, EST Inhouse A1C LIPID PANEL ROUTINE VENIPUNCTURE OFFICE/OUTPATIENT VISIT, EST Inhouse A1C COMPREHEN METABOLIC PANEL ROUTINE VENIPUNCTURE OFFICE/OUTPATIENT VISIT, EST OFFICE/OUTPATIENT VISIT, EST COMPREHEN METABOLIC PANEL LIPID PANEL ROUTINE VENIPUNCTURE OFFICE/OUTPATIENT VISIT, EST COMPLETE CBC W/AUTO DIFF WBC ROUTINE VENIPUNCTURE COMPREHEN METABOLIC PANEL ASSAY THYROID STIM HORMONE LIPID PANEL Inhouse A1C OFFICE/OUTPATIENT VISIT, NEW Advance Directives Directive Yes / No Effective Date File Name No Information Encounters Encounter Description Practice Location Reason(s) For Visit Diagnoses Date Provider Providers Copied on Encounter [facility], [address] [place] [address], [id number] , tel:[phone] [facility] No Information 9 Roosevelt Mary. [address] [place] [address], [id number] [place] [address], [id number]. OFFICE/OUTPA TIENT VISIT, EST [facility] [employer] [facility] on, [address] [place] [address], [id number] , tel: [phone] [facility] Follow Up of Diabetes (chief complaint)Foll ow Up of Hypertension (chief complaint)Foll ow Up of back pain (chief complaint)Foll ow Up of COPD (chief complaint) Benign HTNMixed hyperlipidemia Type 2 diabetes mellitus with diabetic polyneuropathy COPDLow back painBody mass index (BMI) 50-59.9 , adult 9 Roosevelt Mary. [address] [place] [address], [id number] [place] [address], [address]. Referring Provider: Camacho Wiley, [address] [place] [id number] [place] [address], [address] . tel:[phone] [facility] on, [address] [place] [address], [id number] , tel: [phone] [facility] No Information 9 Roosevelt Mary. [address] [facility], [id number] [place], [place], [address]. [facility] on, [address] [place] [address], [id number] , tel:+ [phone] [facility] No Information 9 Roosevelt Mary. [address], [id number] [place], [place], [address]. OFFICE/OUTPA TIENT VISIT, EST [facility] on, [address] [place] [address], [id number] , tel:[phone] [facility] Follow Up of Hypertension (chief complaint)Foll ow Up of Diabetes (chief complaint)Foll ow Up of Hyperlipidemia (chief complaint)Foll ow Up of back pain (chief complaint)Foll ow Up of COPD (chief complaint) Benign HTNMixed hyperlipidemia Type 2 diabetes mellitus with diabetic polyneuropathy Low back painCOPDBody mass index (BMI) 50-59.9 , adult 8 Roosevelt Mary. [address] [place] [address], [id number] [place], [address]. Referring Provider: Camacho Wiley[address], [address] . tel:[phone] OFFICE/OUTPA TIENT VISIT, EST [facility] on, [address] [place] [address], [id number] , tel: [phone] [facility] Follow Up of Hypertension (chief complaint)labs (chief complaint)Foll ow Up of Hyperlipidemia (chief complaint)Foll ow Up of diabetes (chief complaint)back pain (chief complaint)COPD (chief complaint) Benign HTNMixed hyperlipidemia Type 2 diabetes mellitus with diabetic neuropathy, unspBody mass index (BMI) 60.0-69.9, adultLow back painCOPD 8 Roosevelt Mary. [address] [facility], [id number] [place], [place], [address]. Referring Provider: Camacho Wiley, [address] [place], [place] [address], [address] . tel:[phone] OFFICE/OUTPA TIENT VISIT, [facility], [address] [place] [address], [id number] , tel:[phone] [facility] ER Follow Up: Cough (chief complaint)Coug h (chief complaint)Foll ow Up of hypertension (chief complaint)Foll ow Up of hyperlipidemia (chief complaint)Foll ow Up of diabetes (chief complaint)low back pain (chief complaint) CoughAcute maxillary sinusitisType 2 diabetes mellitus with diabetic neuropathy, unspMuscle spasm of backMixed hyperlipidemia Benign HTNPain in leg 8 [facility] [address] [place] [address], [address] [place] [address], [place], [address]. Referring Provider: Camacho Wiley, [address] [place] [address], [address] . tel:[phone] OFFICE/OUTPA TIENT VISIT, [facility] on, [address] [place] [address], [id number] , [phone] [facility] PAP test (chief complaint) Screening for cervical cancerEncounte r for screening mammogram for cancer of breastEncntr for sales order processor exam (general) (routine) w/o abn findings 7 Roosevelt Mary. [address] [place] [address], [address] [place] [address], [place], [address]. Referring Provider: Camacho Wiley, [address] [place], [place] [address] [id number], [address] . tel:[phone] OFFICE/OUTPA TIENT VISIT, [facility] on, [address] [place] [address], [id number] , tel:[phone] [facility] Follow Up of Hypertension (chief complaint)bloo d work (chief complaint)sick (chief complaint)Foll ow Up of hyperlipidemia (chief complaint)Foll ow Up of diabetes (chief complaint)natalie rgies (chief complaint) Body mass index (BMI) 50-59.9 , adultEssential (primary) hypertensionMi xed hyperlipidemia Type 2 diabetes mellitus with diabetic neuropathy, unspPain in legMuscle spasm of backAllergic rhinitis due to pollen 7 Roosevelt Mary. [address] [facility], [id number], [address]. Ref[facility]: [facility] , [address] [place], [place] [address] [id number], [address] . tel:[phone] OFFICE/OUTPA TIENT VISIT, [facility] on, [address] [place] [address], [id number] , [place] tel:[phone] [facility] Follow Up of Diabetes (chief complaint)Foll ow Up of hyperlipidemia (chief complaint)Foll ow Up of hypertension (chief complaint) Essential (primary) hypertensionTy pe 2 diabetes mellitus with diabetic neuropathy, unspMixed hyperlipidemia Body mass index (BMI) 50-59.9 , adult 7 Roosevelt Mary. [address] [facility], [id number], [address]. Referring Provider: [facility] , [address] [place], [place] [address] [id number], [address] . tel:[phone] [facility] on, [address] [place] [address], [id number] , [place] tel:[phone] [facility] Benign HTNMixed hyperlipidemia Type II diabetes w/ diabetic neuropathy 7 Roosevelt Mary. [address] [facility], [address] [place] [address], [address]. Referring Provider: [facility] , [facility] [place] [id number], [address] . tel:[phone] OFFICE/OUTPA TIENT VISIT, [facility] on, [address] [place] [address], [id number] , [place] tel:[phone] [facility] Follow Up of Hypertension (chief complaint)ER Follow Up: Sinus Infection (chief complaint)Foll ow Up of diabetes (chief complaint)Foll ow Up of hyperlipidemia (chief complaint)Sinu s symptoms (acute) (chief complaint) Benign HTNType II diabetes w/ diabetic neuropathyMixe d hyperlipidemia Body mass index (BMI) 50-59.9 , adultAcute maxillary sinusitis 7 Roosevelt Hernandez. [address] [place] [address], [id number] [place], [address]. Referring Provider: Camacho Wiley, [address] [place], [place] [address] [id number], [address] . tel:[phone] OFFICE/OUTPA TIENT VISIT, [facility] [employer] on, [address] [place] [address], [id number] , tel:[phone] [facility] Earache (chief complaint)Nasa l congestion (chief complaint) Acute pansinusitisBe nign HTN 6 No Information Referring Provider: Camacho Wiley, [address] [place] [address] [id number], [address] . tel:[phone] OFFICE/OUTPA TIENT VISIT, [facility], [address] [place] [address], [id number] , tel:[phone] [facility] Follow Up of Hypertension (chief complaint)Foll ow Up of diabetes (chief complaint)Foll ow Up of hyperlipidemia (chief complaint) Benign hypertensionTy pe II diabetes w/ diabetic neuropathyMixe d hyperlipidemia Body mass index (BMI) 50-59.9 , adult 6 No Information Referring Provider: Bewes Wiley, [address] [place], [place] [address] [id number], [address] . tel:[phone] OFFICE/OUTPA TIENT VISIT, [facility] [employer] on, [address] [place] [address], [id number] , tel:[phone] [facility] Cold symptoms (chief complaint) Acute pansinusitisOt her acute nonsuppurative otitis media, left ear 5 No Information Referring Provider: Manyoni Wiley, [address] [place] [address], [address] . tel:[phone] OFFICE/OUTPA TIENT VISIT, [facility] on, [address] [place] [address], [id number] , tel:[phone] [facility] Cough (chief complaint)Sore throat (chief complaint)foll owup er (chief complaint)Foll ow Up of Diabetes (chief complaint)Foll ow Up of Hypertension (chief complaint) Acute bronchitisAcut e pansinusitisBe nign hypertensionTy pe II diabetes w/ diabetic neuropathy 5 No Information Referring Provider: Holbrookyoni Wiley, [address] [place] [address], [id number] . tel:[phone] OFFICE/OUTPA TIENT VISIT, [facility] on, [address] [place] [address], [id number] , tel:[phone] [facility] Cough (chief complaint)Sore throat (chief complaint)Foll ow Up of Hypertension (chief complaint)Foll ow Up of Diabetes (chief complaint)Foll ow Up of Hyperlipidemia (chief complaint) Hypertension, BenignAcute bronchitisDiab etesHypertrigl yceridemiaLumb agoObesity, Morbid 5 No Information Referring Provider: [facility], [address] [place] [address], [address] . tel:[phone] [facility] on, [address] [place] [address], [id number] , tel:[phone] [facility] Breast Ca screening 5 No Information OFFICE/OUTPA TIENT VISIT, [facility] on, [address] [place] [address], [id number] , tel:[phone] [facility] Med Refill (chief complaint)Sinu s symptoms (acute) (chief complaint) Hypertension, BenignEdemaLeg painAcute maxillary sinusitis 5 No Information Referring Provider: [facility], [address] [place] [id number], [address] . tel:[phone] OFFICE/OUTPA TIENT VISIT, [facility] on, [address] [place] [address], [id number] , tel:[phone] [facility] Sinus symptoms (acute) (chief complaint)diab etes (chief complaint) Hypertension, BenignUncontro lled DM w/ neurological complicationsM igraineAcute, but ill-defined, cerebrovascula r diseaseLumbago Obesity, Morbid 3- 4 No Information Referring Provider: [facility], [address] [place] [address], [address] . tel:[phone] OFFICE/OUTPA TIENT VISIT, [facility] on, [address] [place] [address], [id number] , tel:[phone] [facility] hypertension (chief complaint) Hypertension, BenignObesity, MorbidArthropa thyMigraineAcu te, but ill-defined, cerebrovascula r disease 4 No Information Referring Provider: [facility], [address] [place] [id number], [address] . tel:[phone] Family History Family Member Type Diagnosis Age At Onset Sister Problem (finding) Obesity Brother Problem (finding) Maternal history of han betes mellitus Sister Problem (finding) raised blood lipids Brother Problem (finding) alcoholism Sister Problem (finding) hypertension Brother Problem (finding) raised blood lipids Sister Problem (finding) malignant neoplasm of u terus Sister Problem (finding) osteoarthritis Brother Problem (finding) osteoarthritis Brother Problem (finding) asthma Brother Problem (finding) Allergies Sister Problem (finding) migraine Brother Problem (finding) hypertension Payers Payer name Insurance type Covered alliance party ID Authoriza tion(s) No Information Social History Type Description Quantity Date Captured Comments Sex Female Smoking Status No Information Sexual Orientation Straight or heterosexual Gender Identity Female Chief Complaint And Reason For Visit No Information Reason For Referral Reason For Referral No Information Plan Of Treatment Date Type Action Status Goal Foot exam. Due on 9 due Goal Hemoglobin A1C. Due on due Goal ECG due Goal Depression screening. Due on due Goal Pap/HPV testing. Due on due Goal Lipid panel. Due on due Goal CMP. Due on due Goal Urinalysis due Goal Lifestyle education regardin g diet completed Goal Foot exam. Due on 9 due Goal Hemoglobin A1C. Due on due Goal ECG due Goal Depression screening. Due on due Goal Pap/HPV testing. Due on due Goal Lipid panel. Due on due Goal Urinalysis due Goal CMP. Due on due Goal Lifestyle education regardin g diet completed Goal Depression screening. Due on due Goal MICROALBUMIN, SEMIQUANT. Due on due Goal Pap/HPV testing. Due on due Goal Lipid panel. Due on due Goal ECG due Goal CMP. Due on due Goal Urinalysis due Goal Urine microalbumin. Due on due Goal Foot exam. Due on 9 due Goal Dilated eye exam. Due on Mar due Goal Hemoglobin A1C. Due on due Goal Lifestyle education regardin g diet completed Goal Hemoglobin A1C. Due on due Goal Foot exam. Due on 8 due Goal Urine microalbumin. Due on due Goal GFR. Due on due Goal Hgb A1c. Due on due Goal Pap/HPV testing. Due on due Goal MICROALBUMIN, SEMIQUANT. Due on due Goal Depression screening. Due on due Goal Lipid panel. Due on 016 due Goal CMP. Due on due Goal Pap/HPV testing. Due on due Goal Lifestyle education regardin g diet completed Goal ECG due Goal Diabetes screening due Goal Urinalysis due Goal Lipid panel. Due on 015 due Goal Urine microalbumin. Due on due Goal GFR. Due on due Goal Pap/HPV testing. Due on due Goal Lifestyle education regardin g diet completed Goal Tdap. Due on due Goal Td vaccine. Due on 17 due Goal Pap/HPV testing. Due on due Goal Td vaccine. Due on 17 due Goal Pap/HPV testing. Due on due Goal Tdap. Due on due Goal MICROALBUMIN, SEMIQUANT. Due on due Goal Dietary management education , guidance, and counseling completed Goal Tdap. Due on due Goal Pap/HPV testing. Due on due Goal MICROALBUMIN, SEMIQUANT. Due on due Goal Td vaccine. Due on 16 due Goal Td vaccine. Due on due Goal Pap/HPV testing. Due on due Goal Tdap. Due on due Goal Dietary management education , guidance, and counseling completed Goal Td vaccine. Due on 15 due Goal Tdap. Due on due Goal Pap/HPV testing. Due on due Goal MICROALBUMIN, SEMIQUANT. Due on due Goal MICROALBUMIN, SEMIQUANT. Due on due Goal Td vaccine. Due on due Goal Pap/HPV testing. Due on due Goal Tdap. Due on due Goal Tdap. Due on due Goal Pap/HPV testing. Due on due Goal Td vaccine. Due on due Goal MICROALBUMIN, SEMIQUANT. Due on due Goal Dietary management education , guidance, and counseling completed History Of Present Illness Encounter Date Complaint History Of Prese nt Illness Follow Up of COPD She states the symptoms are chronic and are stable. States COPD is stable. Denies any signs of exacerbation. denies any side effects from inhalers. Follow Up of back pain The probl em is stable. Location of pain is lower back. Pain is radiated to the left thigh and right thigh.The patient describes the pain as an ache, burning, shooting and throbbing. Context: no injury. Symptoms are aggravated by lifting and twisting. Symptoms are relieved by meloxicam and muscle relaxer. Associated symptoms include numbness in the foot and tingling in the legs. Pertinent negatives include abdominal pain, bladder dysfunction not spinal related, bladder incontinence, bladder retention, bowel dysfunction not spinal related, bowel incontinence, bowel retention, decreased mobility, diarrhea, joint pain, limping, loss of balance, rash, spasms, tenderness, tingling in the arms, weakness and weight loss. Additional information: Denies any side effects from medication. States low back pain is well controlled with current medication. Follow Up of Hypertension Comorb id conditions include diabetes mellitus. It is currently stable. Risk factors include family history HTN, gout or CAD, inactive lifestyle and obesity. Pertinent negatives include chest pain, confusion, diaphoresis, dyspnea, fatigue, headache, hematuria, irregular heartbeat/palpitations, nausea, transient weakness, tremor, visual disturbances and vomiting. Additional information: Denies any side effects from medication. Follow Up of Diabetes The proble m is stable. Risk factors include: family history diabetes mellitus, obesity, over age 4545 years old and sedentary lifestyle. She Has been managed with diet. Comorbidity: Hypertension. Associated symptoms include: burning of extremities. Pertinent negatives include blurred vision, chest pain, constant hunger, diarrhea, dyspnea, foot ulcers, frequent infections, urinary frequency, heartburn, hypoglycemic episodes, increased fatigue, nocturia, polydipsia, slow healing wounds / sores, weight gain and weight loss. Additional information: States diabetic neuropathy is well controlled with amitriptyline and gabapentin. denies any side effects. Diabetes currently controlled without medication. Has not been checking blood sugar at home.. Follow Up of Diabetes The proble m is stable. Risk factors include: family history diabetes mellitus, obesity, over age [age] years old and sedentary lifestyle. She Has been managed with diet. Comorbidity: Hypertension. Associated symptoms include: burning of extremities. Pertinent negatives include blurred vision, chest pain, constant hunger, dental disease, diarrhea, dysesthesias, dyspnea, foot ulcers, frequent infections, urinary frequency, heartburn, hypoglycemic episodes, increased fatigue, nocturia, polydipsia, slow healing wounds / sores, weight gain and weight loss. Additional information: On gabapentin & amitriptyline for diabetic neuropathy. Denies any side effects from medication. Diabetes currently controlled with diet and exercise. Does not check blood sugar at home. . Follow Up of Hyperlipidemia Risk factors include obesity, poor diet and sedentary life style. Hyperlipidemia management includes improved diet and increased exercise. Pertinent negatives include chest pain, diaphoresis, diarrhea, dizziness, dysesthesias, dyspnea, foot ulcer, frequent infections, heartburn, hematuria, hypoglycemic episodes, increased fatigue, joint pain, myalgia, nausea, nocturia, polydipsia, rash, slow healing, transient weakness, vision loss, vomiting, weight gain and weight loss. Follow Up of back pain The probl em is stable. It occurs intermittently. Location of pain is lower back. Pain is radiated to the left thigh and right thigh.The patient describes the pain as an ache, dull and sharp. Context: no injury. Symptoms are aggravated by lifting, twisting and walking. Symptoms are relieved by rest, meloxicam and cyclobenzaprine. Associated symptoms include numbness in the foot and tingling in the legs. Pertinent negatives include abdominal pain, bladder dysfunction not spinal related, bladder incontinence, bladder retention, bowel dysfunction not spinal related, bowel incontinence, bowel retention, decreased mobility, diarrhea, joint pain, limping, rash, spasms, tenderness, tingling in the arms, weakness and weight loss. Additional information: Denies any side effects from muscle relaxer or meloxicam. States it works well on back pain. Follow Up of Hypertension Comorb id conditions include diabetes mellitus. It is currently stable. Risk factors include family history HTN, gout or CAD, inactive lifestyle and obesity. The hypertension is exacerbated by nothing. Pertinent negatives include chest pain, diaphoresis, dyspnea, fatigue, headache, hematuria, irregular heartbeat/palpitations, nausea, tinnitus, transient weakness, tremor, visual disturbances and vomiting. Additional information: Controlled with diet and exercise. Follow Up of COPD She states the symptoms are chronic and are stable. States COPD is stable on inhalers. Denies any current symptoms of exacerbation. States symptoms are well controlled. Denies needing anything completed for patient assistance today. back pain The problem is w orsening. It occurs intermittently. Location of pain is lower back. Additional information: States she fell backwards while getting stuff out of the fridge on Sunday night. States she feels overall pain. Follow Up of diabetes Risk facto rs include: family history diabetes mellitus, obesity, over age [age] years old and sedentary lifestyle. She Has been managed with diet. Comorbidity: Hypertension. Associated symptoms include: burning of extremities and dyspnea. Pertinent negatives include blurred vision, chest pain, constant hunger, dental disease, diarrhea, dysesthesias, foot ulcers, frequent infections, urinary frequency, heartburn, hypoglycemic episodes, increased fatigue, nocturia, polydipsia, slow healing wounds / sores, weight gain and weight loss. Additional information: Does not check blood sugar at home. Denies any side effects from gabapentin.. labs The patient need s fasting labs today. Follow Up of Hypertension Comorb id conditions include diabetes mellitus. It is currently stable. Risk factors include family history HTN, gout or CAD, inactive lifestyle and obesity. The hypertension is exacerbated by nothing. Associated symptoms include dyspnea. Pertinent negatives include chest pain, claudication, confusion, diaphoresis, epistaxis, fatigue, headache, hematuria, irregular heartbeat/palpitations, nausea, tinnitus, transient weakness, tremor, visual disturbances and vomiting. Additional information: Denies any side effects from lisinopril/HCTZ Follow Up of Hyperlipidemia Risk factors include obesity, poor diet and sedentary life style. Hyperlipidemia management includes improved diet and increased exercise. Associated symptoms include dyspnea. Pertinent negatives include chest pain, claudication, constipation, diaphoresis, diarrhea, dizziness, dysesthesias, foot ulcer, frequent infections, heartburn, hematuria, hypoglycemic episodes, increased fatigue, joint pain, myalgia, nausea, nocturia, palpitations, polydipsia, rash, slow healing, transient weakness and vomiting. COPD She states the s ymptoms are chronic. States she was diagnosed with COPD in 2004. She has not used inhalers as often as she should have to. She also has sleep apnea that she uses CPAP machine. She was on rescue inhaler and Symbicort. She states she has still been using Symbicort inhaler daily. She still has albuterol inhaler to use as needed for shortness of breath. States shortness of breath mainly occurs with exertion. She needs to see about patient assistance for Symbicort so she can use it twice daily as directed. Follow Up of hypertension Comorb id conditions include diabetes mellitus. It is currently stable. Risk factors include family history HTN, gout or CAD, inactive lifestyle and obesity. The hypertension is exacerbated by nothing. Pertinent negatives include chest pain, claudication, confusion, diaphoresis, dyspnea, epistaxis, fatigue, headache, hematuria, irregular heartbeat/palpitations, nausea, tinnitus, transient weakness, tremor, visual disturbances and vomiting. Follow Up of hyperlipidemia Risk factors include obesity, poor diet and sedentary life style. Hyperlipidemia management includes improved diet and increased exercise. Pertinent negatives include chest pain, claudication, diaphoresis, dyspnea, heartburn, hematuria, nausea, palpitations, transient weakness and vomiting. Follow Up of diabetes The andrey m is stable. Risk factors include: family history diabetes mellitus, obesity, over age [age] years old and sedentary lifestyle. She Has been managed with diet. Comorbidity: Hypertension. Associated symptoms include: burning of extremities. Pertinent negatives include blurred vision, chest pain, constant hunger, dental disease, diarrhea, dysesthesias, dyspnea, foot ulcers, frequent infections, urinary frequency, heartburn, hypoglycemic episodes, increased fatigue, nocturia, polydipsia, slow healing wounds / sores, weight gain and weight loss. Additional information: States neuropathy is well controlled with gabapentin.. low back pain Location of pain is lower back. Pain is radiated to the left thigh and right thigh. Context: no injury. Symptoms are aggravated by lifting and twisting. Symptoms are relieved by pain meds/drugs. Associated symptoms include spasms. Pertinent negatives include abdominal pain, bladder dysfunction not spinal related, bladder incontinence, bladder retention, bowel dysfunction not spinal related, bowel incontinence, bowel retention, decreased mobility, diarrhea, joint pain, limping, loss of balance, numbness, rash, tenderness, tingling in the arms, tingling in the legs, weakness and weight loss. ER Follow Up: Cough The symptoms began 1 month ago. The patient was seen in the ER at [facility] and diagnosed with acute bronchitis. She was given azithromycin in the ER on 08-19-18 with improvement for about 1 week then symptoms returned. See HPI below. Cough Onset: 1 month a go. Severity: mild. The patient describes the cough as productive (of yellow sputum). It occurs occasionally. The problem has become gradually worse. Symptoms are aggravated by lying down. Relieving factors include OTC cough syrup. Associated symptoms include chills, cough, dyspnea on exertion, fever, nasal congestion, post-nasal drainage, rhinorrhea, sinus pressure and wheezing. Pertinent negatives include dyspnea, epistaxis, fatigue, heartburn, hemoptysis, hoarseness, night sweats, pleuritic pain, rhinitis, sore throat and weight loss. Additional information: States fever improved then came back. PAP test Negative for: br east discharge, breast lump(s) and breast pain.Postmenopausal: Age: 46, Type: natural.The patient states her exercise level is moderate and frequency is daily. She has not been exposed to passive smoke. She does not drink alcohol. Additional information: The patient presents for promotional PAP test and for referral for mammogram. She declines breast exam today. Last period was over a year ago. Last PAP test was from [id number]. She has not had a mammogram in a long time. She denies any current issues. Follow Up of hyperlipidemia Risk factors include obesity, poor diet and sedentary life style. Hyperlipidemia management includes improved diet and increased exercise. Associated symptoms include diarrhea and joint pain. Pertinent negatives include chest pain, claudication, constant hunger, constipation, diaphoresis, dizziness, dysesthesias, dyspnea, excessive thirst, foot ulcer, frequent infections, heartburn, hematuria, hypoglycemic episodes, increased fatigue, myalgia, nausea, nocturia, palpitations, polydipsia, polyuria, rash, slow healing, transient weakness, vision loss,'+ vomiting, weight gain and weight loss. Follow Up of diabetes The proble m is stable. Risk factors include: family history diabetes mellitus, obesity, over age [age] years old and sedentary lifestyle. She Has been managed with diet. Comorbidity: Hypertension. Associated symptoms include: burning of extremities and diarrhea. Pertinent negatives include blurred vision, chest pain, constant hunger, dental disease, dysesthesias, dyspnea, foot ulcers, frequent infections, frequent urination, heartburn, hypoglycemic episodes, increased fatigue, nocturia, polydipsia, slow healing wounds / sores, weight gain and weight loss. Additional information: Gapabentin keeps neuropathy well controlled.. sick She is having is sues with nasal congestion and allergies. She states she forgot to take OTC antihistamine for about 1 week and symptoms got worse. See HPI below for allergies. Follow Up of Hypertension Comorb id conditions include diabetes mellitus. It is currently stable. Risk factors include family history HTN, gout or CAD, inactive lifestyle and obesity. The hypertension is exacerbated by nothing. Pertinent negatives include chest pain, claudication, confusion, diaphoresis, dyspnea, epistaxis, fatigue, headache, hematuria, irregular heartbeat/palpitations, nausea, tinnitus, transient weakness, tremor, visual disturbances and vomiting. Additional information: She denies any side effects from medication. allergies The patient pres ents with itchy eyes, post nasal drainage, sneezing and watery eyes that began 2 weeks ago. Symptoms are intermittent, mild and unchanged. The allergic symptoms are worsened by allergens, season change and weather. Symptoms are improved with allergy meds. The patient is also experiencing nasal congestion, nasal drainage, post nasal drainage, sneezing and tearing. The patient denies chest tightness, coryza, cough, dizziness, ear pain, globus sensation, headache, hoarseness, nausea, pharyngitis, reddened eyes, reflux, sinus infections, sinus pain and urticaria. Additional information: She takes OTC antihistamine. She is unsure which one it is. blood work The patient need s to have fasting labs done this morning. She also needs refills of muscle relaxer and meloxicam. She states she takes musle relaxer for back spasms that have occurred since she had a epidural during labor. She states muscle relaxer Follow Up of hyperlipidemia Risk factors include obesity, poor diet and sedentary life style. Hyperlipidemia management includes improved diet and increased exercise. Associated symptoms include joint pain. Pertinent negatives include chest pain, claudication, constipation, diaphoresis, diarrhea, dizziness, dysesthesias, dyspnea, foot ulcer, frequent infections, heartburn, hematuria, hypoglycemic episodes, increased fatigue, myalgia, nausea, nocturia, palpitations, polydipsia, polyuria, rash, slow healing, transient weakness, vision loss,'+ vomiting, weight gain and weight loss. Additional information: She states she can not tolerate cholestserol medication. Follow Up of Diabetes The proble m is stable. Risk factors include: family history diabetes mellitus, obesity, over age [age] years old and sedentary lifestyle. She Has been managed with diet. Comorbidity: Hypertension. Associated symptoms include: burning of extremities. Pertinent negatives include blurred vision, chest pain, constant hunger, dental disease, diarrhea, dysesthesias, dyspnea, foot ulcers, frequent infections, frequent urination, heartburn, hypoglycemic episodes, increased fatigue, nocturia, polydipsia, slow healing wounds / sores, weight gain and weight loss. Additional information: She denies any side effects from her medications for neuropathy.. Follow Up of hypertension Comorb id conditions include diabetes mellitus. It is currently stable. Risk factors include family history HTN, gout or CAD, inactive lifestyle and obesity. Pertinent negatives include chest pain, claudication, confusion, diaphoresis, dyspnea, epistaxis, fatigue, headache, hematuria, irregular heartbeat/palpitations, nausea, tinnitus, transient weakness, tremor, visual disturbances and vomiting. Additional information: She denies any side effects from HTN medication: lisinopril/HCTZ Sinus symptoms (acute) Onset: 10 Days. The severity of the problem is mild. Pain Scale: 0/10. The problem has worsened. The symptoms are constant. Both sides are affected. Pertinent/initial symptoms include facial pain, facial pressure, purulent sinus drainage, sinus congestion, sinus pain, sinus pressure and throbbing pain. Symptoms are associated with environmental allergies and recurrent sinus infections. Symptoms are not associated with asthma, dental infection, recent air travel, recent URI, smoke exposure or trauma. Aggravating factors include leaning forward. Denies relieving factors. Associated symptoms include cough, nasal drainage, postnasal drainage, rhinorrhea and sinus pressure. Pertinent negatives include anosmia, dental disease, deviated septum, fever, halitosis, headache, immunosuppression, nasal obstruction, orbital swelling, otalgia, sore throat, tooth pain or tooth sensitivity. Follow Up of Hypertension Comorb id conditions include diabetes mellitus. It is currently stable. Risk factors include family history HTN, gout or CAD, inactive lifestyle and obesity. The hypertension is exacerbated by nothing. Pertinent negatives include chest pain, claudication, confusion, diaphoresis, dyspnea, epistaxis, fatigue, headache, hematuria, irregular heartbeat/palpitations, nausea, tinnitus, transient weakness, tremor, visual disturbances and vomiting. Additional information: Well controlled with medication. She denies any side effects from the medication. Follow Up of diabetes The proble m is stable. Risk factors include: family history diabetes mellitus, obesity, over age [age] years old and sedentary lifestyle. She Has been managed with diet. Comorbidity: Hypertension. Pertinent negatives include blurred vision, burning of extremities, chest pain, constant hunger, dental disease, diarrhea, dysesthesias, dyspnea, foot ulcers, frequent infections, frequent urination, heartburn, hypoglycemic episodes, increased fatigue, nocturia, polydipsia, slow healing wounds / sores, weight gain and weight loss. Additional information: States neuropathy is well controlled with Gabapentin. She denies any side effects from the medication.. Follow Up of hyperlipidemia Risk factors include obesity, poor diet and sedentary life style. Hyperlipidemia management includes improved diet and increased exercise. Pertinent negatives include chest pain, claudication, constant hunger, constipation, diaphoresis, diarrhea, dizziness, dysesthesias, dyspnea, excessive thirst, foot ulcer, frequent infections, heartburn, hematuria, hypoglycemic episodes, impotence/erectile dysfunction, increased fatigue, joint pain, myalgia, nausea, nocturia, palpitations, polydipsia, polyuria, rash, slow healing, transient weakness, vision loss,'+ vomiting, weight gain and weight loss. ER Follow Up: Sinus Infection Th e symptoms began 7 days ago. She states the symptoms are acute. The patient went to the ER on 09-12-15 ER for sinus infection. She states she was given a Rocephin shot and steroid shot and prescription for amoxicllin. She states she does not feel any better. See sinus symptom HPI. ER records were reviewed. Nasal congestion The obstruction occurs in both nostrils.The patient describes thick nasal drainage. It occurs continuously. The problem is worsening. Context: seasonal, with allergies, with colds and history of sinus infections. Relieving factors include antihistamines and nasal decongestants. Associated symptoms include facial pain, headache, nasal drainage (purulent), seasonal allergies and sinus pressure/congestion. Pertinent negatives include deviated septum, food allergies, foreign body, nasal drainage (anterior), nasal drainage (clear), nasal drainage (posterior), snoring (mild), snoring (severe) and tearing. Earache Onset: 2 weeks a go. The states the earache is in both ears. It occurs constantly. The problem is worse. Context: recent airplane trip, recent antibiotic eardrops use and recent outdoor camping. Associated symptoms include congestion (nasal), cough, dizziness, ear popping, ear pressure and chest pain upper chest. Pertinent negatives include bleeding from ear(s), decreased appetite, drainage (clear), drainage (purulent), fever, fullness in ears, hearing deficit, irritability, loss of balance, mastoid bone tenderness, nausea, redness/swelling outer ear, ringing in ears, tooth pain and vomiting. Follow Up of Hypertension Comorb id conditions include diabetes mellitus. It is currently improving. Risk factors include family history HTN, gout or CAD, inactive lifestyle and obesity. The hypertension is exacerbated by stress and weight gain. Pertinent negatives include chest pain, claudication, confusion, diaphoresis, dyspnea, epistaxis, fatigue, headache, hematuria, irregular heartbeat/palpitations, nausea, tinnitus, transient weakness, tremor, visual disturbances and vomiting. Follow Up of diabetes The proble m is stable. Risk factors include: family history diabetes mellitus, obesity, over age [age] years old and sedentary lifestyle. Patient is compliant with follow-up. Patient did not use education materials. Other compliance information: Gaining weight. Pt encouraged to lose weight through diabetic diet and exercise. She Has been managed with diet. Comorbidity: Hypertension. Associated symptoms include: burning of extremities, dysesthesias, frequent infections and weight gain. Pertinent negatives include blurred vision, chest pain, constant hunger, dental disease, diarrhea, dyspnea, foot ulcers, frequent urination, heartburn, hypoglycemic episodes, increased fatigue, nocturia, polydipsia, slow healing wounds / sores and weight loss. Additional information: Leg pain/paresthesias controlled with amitriptyline and gabapentin. Follow Up of Hypertension Follow Up of hyperlipidemia The hyperlipidemia is stable. Risk factors include obesity, poor diet and sedentary life style. The patient is adhering to follow-up for their hyperlipidemia. The patient is not adhering to diet and exercise for their hyperlipidemia. Hyperlipidemia management includes improved diet. Associated symptoms include dysesthesias and frequent infections. Pertinent negatives include chest pain, claudication, constant hunger, constipation, diaphoresis, diarrhea, dizziness, dyspnea, foot ulcer, heartburn, hematuria, hypoglycemic episodes, increased fatigue, joint pain, myalgia, nausea, nocturia, palpitations, polydipsia, slow healing, transient weakness and'+ vomiting. Cold symptoms Onset: 1 week ag o. The patient describes the cough as dry and non-productive. It occurs persistently. The problem has become gradually worse. Context: allergies. There are no relieving factors. Associated symptoms include chills, cough, dyspnea on exertion, fever, nasal congestion, pleuritic pain, rhinitis, rhinorrhea, sinus pressure, sore throat and back pain; otalgia. Pertinent negatives include dyspnea, post-nasal drainage and weight loss. The patient has a history of allergies. Additional information: T Max 100. Follow Up of Diabetes The proble m is stable. Risk factors include: family history diabetes mellitus, obesity, over age [age] years old and sedentary lifestyle. Patient is compliant with follow-up, and using education materials. She Has been managed with diet. Comorbidity: Hypertension. Associated symptoms include: burning of extremities, dysesthesias - burning and weight loss. Pertinent negatives include blurred vision, chest pain, constant hunger, dental disease, diarrhea, dyspnea, foot ulcers, frequent infections, frequent urination, heartburn, hypoglycemic episodes, increased fatigue, nocturia, polydipsia, slow healing wounds / sores and weight gain. Sore throat Follow Up of Hypertension Comorb id conditions include diabetes mellitus. It is currently stable. Risk factors include family history HTN, gout or CAD, inactive lifestyle and obesity. Associated symptoms include fatigue and headache. Pertinent negatives include chest pain, claudication, confusion, diaphoresis, dyspnea, epistaxis, hematuria, irregular heartbeat/palpitations, nausea, tinnitus, transient weakness, tremor, visual disturbances and vomiting. followup er Cough Onset: 1 month a go. The patient describes the cough as hacking, moist and productive (of green sputum). It occurs persistently. The problem has not changed. There are no relieving factors. Associated symptoms include cough, fatigue, hoarseness, nasal congestion, post-nasal drainage, rhinitis, rhinorrhea, sinus pressure, sore throat and weight loss. Pertinent negatives include chills, dyspnea, dyspnea on exertion, epistaxis, fever, heartburn, hemoptysis, night sweats, pleuritic pain and wheezing. The patient has a history of allergies. The patient does not have a history of asthma. Additional information: Went to the ER 07/02/15 and was given Keflex and Robitussin AC. She states she is not any better. The cough medicine does help. Follow Up of Hypertension Comorb id conditions include diabetes mellitus. Risk factors include family history HTN, gout or CAD, inactive lifestyle and obesity. Associated symptoms include dyspnea, fatigue and nausea. Pertinent negatives include chest pain, claudication, confusion, diaphoresis, epistaxis, headache, hematuria, irregular heartbeat/palpitations, tinnitus, transient weakness, tremor, visual disturbances and vomiting. Sore throat Cough Onset: 1 week ag o. The patient describes the cough as moist and productive. It occurs persistently. The problem has become gradually worse. Context: allergies, known asthmatic and Recent sinusitis the past 2 weeks. Symptoms are aggravated by allergens and lying down. There are no relieving factors. Associated symptoms include chills, cough, dyspnea, fatigue, nasal congestion, pleuritic pain, rhinitis, rhinorrhea, sinus pressure and sore throat. Pertinent negatives include dyspnea on exertion, epistaxis, fever, heartburn, hemoptysis, hoarseness, night sweats, post-nasal drainage, weight loss and wheezing. The patient has a history of allergies and asthma. Follow Up of Diabetes The proble m is stable. Risk factors include: family history diabetes mellitus, obesity and sedentary lifestyle. Patient is compliant with using medication, follow-up, and using education materials. Other compliance information: Continues to use Coconut Oil for diabetes control. She Has been managed with diet. Comorbidity: Hypertension. Associated symptoms include: burning of extremities, dyspnea, frequent infections and weight gain. Pertinent negatives include blurred vision, chest pain, constant hunger, dental disease, diarrhea, dysesthesias, foot ulcers, frequent urination, heartburn, hypoglycemic episodes, increased fatigue, nocturia, polydipsia, slow healing wounds / sores and weight loss. Follow Up of Hyperlipidemia Risk factors include obesity, poor diet and sedentary life style. The patient is adhering to follow-up and diet for their hyperlipidemia. The patient is not adhering to exercise for their hyperlipidemia. Hyperlipidemia management includes fibrates. Associated symptoms include dyspnea, frequent infections, joint pain, nausea and weight gain. Pertinent negatives include chest pain, claudication, constant hunger, constipation, diaphoresis, diarrhea, dizziness, dysesthesias, excessive thirst, foot ulcer, heartburn, hematuria, hypoglycemic episodes, increased fatigue, myalgia, nocturia, palpitations, polydipsia, polyuria, rash, slow healing, transient weakness, vision loss,'+ vomiting and weight loss. Sinus symptoms (acute) Onset: 2 Weeks. The severity of the problem is moderate. The problem has worsened. The symptoms are intermittent. Both sides are affected. Pertinent/initial symptoms include facial pain, facial pressure, sinus pain and sinus pressure. Associated symptoms include headache, otalgia, rhinorrhea, sinus pressure and sore throat. Pertinent negatives include anosmia, cough, dental disease, deviated septum, fever, immunosuppression, nasal drainage, nasal obstruction, postnasal drainage, tooth pain or tooth sensitivity. Med Refill diabetes The problem is i mproving. Risk factors include: family history diabetes mellitus, obesity and sedentary lifestyle. Patient is compliant with using medication, and follow-up. Other compliance information: Taking coconut oil. She Has been managed with diet. Comorbidity: Hypertension. Associated symptoms include: burning of extremities, frequent infections, nocturia and weight loss. Pertinent negatives include blurred vision, chest pain, constant hunger, dental disease, diarrhea, dyspnea, foot ulcers, frequent urination, heartburn, hypoglycemic episodes, polydipsia and slow healing wounds / sores. Additional information: Last mammo 2008. Last pap 2004 or 2005.. Sinus symptoms (acute) Onset: 2 Weeks. The severity of the problem is moderate. The problem has worsened. The right side is affected. Pertinent/initial symptoms include facial pain, facial pressure, sinus pain and sinus pressure. Symptoms are associated with recurrent sinus infections. Symptoms are not associated with recent URI. Aggravating factors include allergens. Associated symptoms include cough, headache, immunosuppression, otalgia, postnasal drainage, rhinorrhea, sinus pressure, sore throat, tooth pain and tooth sensitivity. Pertinent negatives include anosmia, dental disease, deviated septum, fever, halitosis, nasal drainage, nasal obstruction or orbital swelling. Additional information: Hot flashes. LMP 2 months ago. Migraines secondary to stroke. Functional Status Date Functional Assessmen t No Information Instructions Date Instruction Additional Infor conner The patient presents with chronic hypertension that is currently well controlled. BP is at goal. Will continue medications. Educated on DASH diet, exercise as tolerated, and checking BP daily with goal of less than 130/80. Encouraged yearly dilated eye exam. The patient will follow up in 5 months or sooner if needed. Related to Benign HTN The patient presents with chronic Type 2 diabetes mellitus that is currently well controlled with diet. Educated on ADA diet, exercise as tolerated, daily foot care, and annual dilated eye exam. Hand written script provided for gabapentin. CSMD is as expected. Instructed that gabapentin is a controlled substance, Schedule V, and to not share or sell medication and to take as prescribed. Instructed to get prescription at one pharmacy and only use one provider for prescription. Instructed if CSMD is not as expected or gabapentin is not taken as prescribed then we reserve the right to discontinue gabapentin script. Patient states understanding. 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 We will check fasting lipid panel today. Encouraged low fat, low cholesterol diet and exercise as tolerated. Patient will follow up in 5 months or sooner if needed. Related to Mixed hyperlipidemia Stable. Will continu e inhalers. She is on patient assistance for inhalers. She will f/u in 5 months or sooner if any signs of exacerbation occurs. Related to COPD Stable. Well control led with meloxicam and as needed muscle relaxer. Instructed to continue medication. Encouraged weight loss and daily back stretches. Instructed to f/u in 5 months. Related to Low back pain BMI discussed. Encou raged healthy diet and exercise. Encouraged weight loss to a healthy weight. Patient will follow up within 6 months for recheck of weight and BMI. Related to Body mass index (BMI) 50-59.9 , adult Giving encouragement to exercise Related to Body mass index (BMI) 50-59.9 , adult Lifestyle education regarding di et Related to Body mass index (BMI) 50-59.9 , adult The patient presents with chronic Type 2 diabetes mellitus that is currently well controlled with diet and exercise. She has chronic neuropathy. Will continue amitriptyline and gabapentin. Discussed gabapentin is now a controlled substance, schedule V. Instructed to not share/sell medication and take as prescribed. CSMD as expected. Hand written script provided of gabapentin. Educated on ADA diet, exercise as tolerated, daily foot care, and annual dilated eye exam. They will follow up in 4 months or sooner if needed. 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 We will check fasting lipid panel today. Will start statin if indicated. Encouraged low fat, low cholesterol diet and exercise as tolerated. Patient will follow up in 4 months or sooner if needed. Related to Mixed hyperlipidemia The patient presents with chronic hypertension that is currently well controlled. BP is at goal. Will continue lisinopril/HCTZ. Educated on DASH diet, exercise as tolerated, and checking BP daily with goal of less than 130/80. Encouraged yearly dilated eye exam. The patient will follow up in 4 months or sooner if needed. Related to Benign HTN Stable. Well control led with cyclobenzaprine and meloxicam. Will continue. She will f/u in 6 months or sooner if needed. Related to Low back pain Stable. Well control led on current inhalers. Will continue. She will f/u in 4 months or sooner if needed. Related to COPD Patient has lost 5 l bs. BMI discussed. Encouraged healthy diet and exercise. Encouraged weight loss to a healthy weight. Patient will follow up within 6 months for recheck of weight and BMI. Related to Body mass index (BMI) 50-59.9 , adult Lifestyle education regarding di et Related to Body mass index (BMI) 50-59.9 , adult Giving encouragement to exercise Related to Body mass index (BMI) 50-59.9 , adult The patient presents with chronic hypertension that is currently well controlled. BP is at goal. Will continue current medications. Educated on DASH diet, exercise as tolerated, and checking BP daily with goal of less than 130/80. Encouraged yearly dilated eye exam. The patient will follow up in 5 months or sooner if needed. 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 Controlled with diet and exercise. We will check fasting lipid panel today. Encouraged low fat, low cholesterol diet and exercise as tolerated. Patient will follow up in 5 months or sooner if needed. Related to Mixed hyperlipidemia The patient presents with chronic Type 2 diabetes mellitus that is currently well controlled with diet and exercise. She does not check blood sugar at home despite recommendations. Will continue gabapentin for neuropathy. Educated on proper fitting shoes. Educated on ADA diet, exercise as tolerated, daily foot care, and annual dilated eye exam. They will follow up in 5 months or sooner if needed. 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 She denies any injuries from fall and declines any x-rays. She is already on muscle relaxer and meloxicam. Instructed to continue those medications, use Tylenol for breakthrough pain, heat max of 15 minutes, daily stretching, and rest. Instructed to follow up if not improved within 1 week. Related to Low back pain The patient reports having COPD for several years and being on Symbicort and Pro-air inhaler. She needs to complete patient assistance for Symbicort inhaler. She is unsure of strength but will call us with strength so we can update medication list. Instructed to complete patient assistance and return to office for us to complete and fax. No signs of COPD exacerbation today. Instructed to follow up in 5 months or sooner if needed. Related to COPD BMI discussed. Encou raged healthy diet and exercise. Encouraged weight loss to a healthy weight. Patient will follow up as needed. Related to Body mass index (BMI) 60.0-69.9, adult Lifestyle education regarding di et Related to Body mass index (BMI) 60.0-69.9, adult Giving encouragement to exercise Related to Body mass index (BMI) 60.0-69.9, adult The patient was seen in ER for cough and diagnosed with acute bronchitis over a month ago. She was treated with azithromycin which helped for about 1 week then cough returned. She refuses chest x-ray due to cost. We will treat for sinus infection and encouraged to increase fluid intake. Will also treat with steroid dose pack. Coupon provided. Instructed to continue OTC cough medication as needed. Instructed if not improved within 1 week to return for chest x-ray. Related to Cough Will continue meloxi cam per medication module. She will follow up in 4 months. Related to Pain in leg Will treat with Augm entin BID for 7 days. Will also treat with steroid dose pack. She has taken in the past with no issues. Encouraged to use sinus rinse if needed. Instructed to follow up if not improved within 3 days. Related to Acute maxillary sinusitis The patient presents with chronic Type 2 diabetes mellitus that is currently well controlled with diet and exercise. Educated on ADA diet, exercise as tolerated, daily foot care, and annual dilated eye exam. Will start medication if indicated based on labs. Will continue gabapentin for neuropathy. They will follow up in 4 months or sooner if needed. Related to Type 2 diabetes mellitus with diabetic neuropathy, unsp Stable. Will continu e muscle relaxer per module. She will follow up in 4 months. 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 Controlled with diet and exercise. We will check fasting lipid panel today. Encouraged low fat, low cholesterol diet and exercise as tolerated. Patient will follow up in 4 months or sooner if needed. Related to Mixed hyperlipidemia The patient presents with chronic hypertension that is currently well controlled. BP is at goal. Will continue medication per module. Educated on DASH diet, exercise as tolerated, and checking BP daily with goal of less than 130/80. Encouraged yearly dilated eye exam. They will follow up in 4 months or sooner if needed. Related to Benign HTN The patient would li ke to have screening mammogram done. We will refer for screening mammogram. Related to Encounter for screening mammogram for cancer of breast We will send PAP jesus manuel t to outside lab for further testing. She will follow up as directed by lab results. Related to Screening for cervical cancer The patient presents for promotional PAP tests today. She is menopausal. No abnormal findings on exam. Cervix does point posteriorly and she is obese. It was hard to get a good sample from cervix. She will follow up as directed based on results. 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 She has issu es with lower back spasm. Well controlled with muscle relaxer. Will continue per medication module. Patient denies any side effects. She will follow up in 4 months. Related to Muscle spasm of back Encouraged healthy d iet and exercise as tolerated. She will follow up in 4 months. Related to Body mass index (BMI) 50-59.9 , adult Stable. Joint pain a nd leg pains well controlled with meloxicam. Will continue per medication module. Encouraged weight loss. She will follow up in 4 months. Related to Pain in leg Stable. Will check H gbA1C today. Will start treatment back if indicated. Right now she is well controlled with diet and exercise. Encouraged ADA diet, annual eye exam, daily foot care, and exercise as tolerated. Will continue gabapentin for neurpoathy. Instructed to follow up in 4 months. Related to Type 2 diabetes mellitus with diabetic neuropathy, unsp Will check fasting l ipid panel today. She is currently controlled with diet and exercise. We will start treatment if indicated. Encouraged low fat, low cholesterol diet. She will follow up in 4 months. Related to Mixed hyperlipidemia Stable. BP is at goa l. We will check labs today. We will continue lisinopril/HCTZ per medication module. Encouraged DASH diet, exercise as tolerated, and to continue checking BP daily. Instructed to return in 4 months. Related to Essential (primary) hypertension The patient states s he has chronic seasonal allergies. She forgot her OTC antihistamine for 1 week and allergies worsened. She has restarted OTC antihistamine. Will add Rhinocort nasal spray to use daily. Sample provided. Educated on how to use. Coupon provided to use if it helps. Encouraged increased water intake. Instructed to return if not improved within 1 week. Related to Allergic rhinitis due to pollen Giving encouragement to exercise Related to Body mass index (BMI) 50-59.9 , adult Lifestyle education regarding di et Related to Body mass index (BMI) 50-59.9 , adult Stable. BP is at goa l today. EKG is up to date. Continue lisinopril/HCTZ per medication module. She denies any side effects from medication. Educated on DASH diet, exercise, and checking BP at home. She will follow up in 4 months or sooner if needed. Related to Essential (primary) hypertension Stable. Last HgbA1C was 6.0 in . Patient is managed on diet and exercise. Will check HgbA1C today. Will start treatment if indicated. She declines dilated eye exam and dental exams due to financial reasons. Educated on daily foot care, ADA diet, exercise, weight loss, and proper footwear. Foot exam performed today. She denies any side effects from amitriptyline or gabapentin that she takes for diabetic neuropathy. She will continue those medications per medication module. She will follow up in 4 months or sooner if needed. Related to Type 2 diabetes mellitus with diabetic neuropathy, unsp Stable. Lipids done in . Pateint states she can not afford to have lipids rechecked today. Will plan on checking lipids at next office visit. Encouraged to exercise and eat a low fat, low cholestserol diet. She will follow up in 4 months or sooner if needed. Related to Mixed hyperlipidemia Encouraged healthy d iet and exercise. Encouraged weight loss to a healthy weight. Patient will follow up in 6 months for recheck of BMI. Related to Body mass index (BMI) 50-59.9 , adult Giving encouragement to exercise Related to Body mass index (BMI) 50-59.9 , adult Lifestyle education regarding di et Related to Body mass index (BMI) 50-59.9 , adult Encouraged weight loss. Related to Body mass index (BMI) 50-59.9 , adult Stable. Patient has refused statin in the past. She states she takes coconut oil for her cholesterol and diabetes. Educated on low fat, low cholesterol diet. She can not afford labs today. She will follow up within 2 weeks for fasting lipid panel and then in 3 months. Related to Mixed hyperlipidemia Stable. Controlled w ith diet and exercise. She can not afford labs today. She will return within 2 weeks for Hgb A1C. Instructed to continue to do ADA diet and exercise. Educated on daily foot care and annual eye exams. She will follow up in 3 months after she has fasting lab. Related to Type II diabetes w/ diabetic neuropathy Stable. BP is at goa l. Continue current medication per medication module. Patient can not afford labs or EKG today. Will plan on EKG at next office visit. Patient will return for fasting labs within 2 weeks. She was given pricing of labs. 30 day supply of medication given. Instructed she had to have labs before refill. Educated on DASH diet, exercise, annual eye exam, and checking BP daily. She will follow up within 2 weeks for fasting labs and then 3 months. Related to Benign HTN Was seen at [facility] on 09-12-16 for sinus infection and given Rocephin 1 gram IM, prednisone 20mg IM, and oral prescription for Amoxicillin 500mg TID for 7 days. Patient continues to have sinus pressure and symptoms. Can not afford labs today. She can not afford Augmentin prescriptions. Due to allergies she can not take doxcycline. She states she has taken Bactrim in the past with no issues. Educated that Bactrim is not the best antibiotic to treat sinus infections. She verbalizes understanding but states she can only afford what is on the $4 list. Treat with Bactrim BID for 7 days. Will check CMP within 2 weeks to monitor K. Educated on warning signs and to go to ER if they occur. Instructed to return to the clinic if not improved within 1 week. Related to Acute maxillary sinusitis Giving encouragement to exercise Related to Body mass index (BMI) 50-59.9 , adult Dietary management e ducation, guidance, and counseling Related to Body mass index (BMI) 50-59.9 , adult Giving encouragement to exercise Related to Body mass index (BMI) 50-59.9 , adult Dietary management e ducation, guidance, and counseling Related to Body mass index (BMI) 50-59.9 , adult Giving encouragement to exercise Related to Morbid obesity Dietary management e ducation, guidance, and counseling Related to Morbid obesity Decrease caloric intake Related to Morbid obesity, BMI 40 or more Assessments Type Assessment Date No Information Patient Care Teams Name Effective Dates (start - stop) Status Members No Information
--- OUTSIDE RECORDS SUMMARY | 2024-11-25 00:28 | XMS_ITS | Clinical Summary ---
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 Name Role Phone Trini Rockwell MD Unavailable [phone] Latesha Lewis MD Primary Care Provider + Michael Benz MD Unavailable [phone] Allergies Active Allergy Reactions Criticality Noted Date Comments Ciprofloxacin Rash 11/05/2019 Clindamycin Itching 10/04/2020 Doxycycline Hives,Shortness of Breath,Rash High 06/16/2019 Influenza Virus Vaccine Unknown 06/16/2019 Lisinopril Other (see Comments) High 04/04/2021 Morphine Other (see Comments),Hives 06/16/2019 Pneumococcal Polysaccharide Vaccine Unknown 06/16/2019 Statins Other (see Comments) 06/16/2019 Verapamil Rash Medium 06/16/2019 Medications amitriptyline (ELAVIL) 50 MG Tablet amitriptyline 50 mg tablet TAKE 1 TABLET BY MOUTH THREE TIMES DAILY Active traZODone (DESYREL) 150 MG Tablet TAKE 1 TABLET BY MOUTH EVERY DAY AT BEDTIME NEEDED FOR INSOMNIA Active lisinopril-hyd roCHLOROthiazi de (PRINZIDE, ZESTORETIC) 20-25 MG Tablet TAKE 1 TABLET BY MOUTH ONCE DAILY FOR HIGH BLOOD PRESSURE EDEMA Active gabapentin (NEURONTIN) 400 MG Capsule gabapentin 400 mg capsule TAKE 2 CAPSULES BY MOUTH THREE TIMES DAILY FOR 90 DAYS Active escitalopram (LEXAPRO) 20 MG Tablet escitalopram 20 mg tablet TAKE 1 TABLET BY MOUTH ONCE DAILY Active albuterol 108 (90 Base) MCG/ACT Aerosol Solution albuterol sulfate HFA 90 mcg/actuation aerosol inhaler INHALE 2 PUFFS BY MOUTH EVERY 4 HOURS Activ e budesonide-for moterol fumarate (SYMBICORT) 160-4.5 MCG/ACT Aerosol budesonide-formoter ol HFA 160 mcg-4.5 mcg/actuation aerosol inhaler INHALE 2 PUFFS BY MOUTH TWICE DAILY Active cyclobenzaprin e (FLEXERIL) 10 MG Tablet cyclobenzaprine 10 mg tablet TAKE 1 TABLET BY MOUTH AT BEDTIME NEEDED FOR MUSCLE SPASM Active fluticasone (FLONASE) 50 MCG/ACT Suspension fluticasone propionate 50 mcg/actuation nasal spray,suspension USE 1 SPRAY(S) IN EACH NOSTRIL ONCE DAILY Active prazosin (MINIPRESS) 2 MG Capsule prazosin 2 mg capsule TAKE 1 CAPSULE BY MOUTH AT BEDTIME Active meloxicam (MOBIC) 15 MG Tablet meloxicam 15 mg tablet TAKE 1 TABLET BY MOUTH ONCE DAILY NEEDED FOR PAIN Active umeclidinium (INCRUSE ELLIPTA) 62.5 MCG/INH AEROSOL POWDER, BREATH ACTIVATED Incruse Ellipta 62.5 mcg/actuation powder for inhalation INHALE 1 PUFF BY MOUTH ONCE DAILY Active Calcium Carbonate-Vit D-Min (CALTRATE 600+D PLUS MINERALS) 600-800 MG-UNIT Tablet Take 1 Tab by mouth daily. 90 Tab 3 020 Active Cetirizine HCl 10 MG Capsule Take by mouth. A ctive Multiple Vitamin (MULTIVITAMIN PO) Take by mouth. Activ e Ascorbic Acid (Vitamin C) 1000 MG Tablet Take by mouth. Active hydrOXYzine (ATARAX) 25 MG Tablet TAKE 1 TO 2 TABLETS BY MOUTH AT BEDTIME NEEDED 021 Active busPIRone HCl (BUSPAR) 30 MG Tablet Take 30 mg by mouth 2 times daily. 023 Active albuterol (PROVENTIL, VENTOLIN) (2.5 MG/3ML) 0.083% Nebulizer Soln USE 1 VIAL IN NEBULIZER EVERY 4 TO 6 HOURS NEEDED 023 Active vitamin b-12 (CYANOCOBALAMI N) 100 MCG Tablet Take 100 mcg by mouth daily. Active Atogepant (Qulipta) 30 MG Tablet Take 60 mg by mouth daily. Active meclizine (ANTIVERT) 25 MG Tablet Take 25 mg by mouth. Active famotidine (PEPCID) 20 MG Tablet Take 20 mg by mouth. 2024 Active Linzess 145 MCG Capsule Take 1 Capsule by mouth daily. Active ondansetron (ZOFRAN) 4 MG Tablet Active Oscimin 0.125 MG SL Tablet Active digoxin (LANOXIN) 125 MCG Tablet Active fenofibrate (TRICOR) 48 MG Tablet fenofibrate nanocrystallized 48 mg tablet Active VITAMIN D PO Take by mouth. Ac tive magnesium oxide (MAG-OX) 400 MG TabletIndicati ons:Hypomagnes emia Take 1 Tablet by mouth daily. 7 Tablet 024 Active anastrozole (ARIMIDEX) 1 MG TabletIndicati ons:Malignant neoplasm of nipple of right breast in female, estrogen receptor positive (HCC),Anemia, unspecified type Take 1 tablet by mouth once daily 90 Tablet 025 Active anastrozole (ARIMIDEX) 1 MG TabletIndicati ons:Malignant neoplasm of nipple of right breast in female, estrogen receptor positive (HCC),Anemia, unspecified type Take 1 Tablet by mouth daily 90 Tablet 2 024 2024 Discontinued Active Problems Problem Noted Date Diagnosed Date HTN (hypertension) 07/28/2024 Malignant neoplasm of nipple of right breast in female, estrogen receptor positive 01/17/2023 Osteopenia 01/17/2023 Vitamin D deficiency 01/17/2023 Anemia 01/17/2023 Encounter for screening colonoscopy 01/17/2023 Encounters Date Type Department Care Team Description 11/22/2024 Refill [facility] [address] [address] Priya Shukla, PLUCK SEPARATOR, FELT WASHING MACHINE TENDER Medication Refill 11/12/2024 Telephone [facility] [address] [phone] Michael Benz MD Canopy call / GERMÁN results from Last 3 Months Immunizations Immunization Administration Dates Next Due COVID-19, MRNA, LNP-S, BIVAL ENT , PFIZER, 30 MCG/0.3 ML (12+ Y/O) 11/15/2022 Covid-19, Mrna, Lnp-s, Pf, 1 00 Mcg Or 50 Mcg Dose (MODERNA) 07/07/2021,06/13/2021 Covid-19, Mrna, Lnp-s, Pf, 30 Mcg/0.3 Ml Dose (P fizer) 01/13/2022,07/07/2021 Zoster Vaccine Recombinant 11/29/2022 Family History Medical History Relation Name Comments Hypertension Brother Aneurysm Father Relation Name Status Comments Brother Alive Father Mother Alive Sister Alive Social History Tobacco Use Types Packs/Day Years Used Date Smoking Tobacco: Former Cigarettes Q uit: 2004 Smokeless Tobacco: Never Tobacco Cessation:Counseling Given: No Alcohol Use Standard Drinks/Week Comments Never 0 (1 standard drink = 0.6 oz pur e alcohol) AUDIT-C Answer Date Recorded Q1: How often do you have a drink containing alc ohol? Never 11/05/2019 Average Number of Drinks Not on file 020 Frequency of Binge Drinking Not on file 10/12 PHQ-2 Answer Date Recorded Total Score - Questions 1-9 0 09/2021 Education Answer Date Recorded What is [...] file Not on file Not on file Last Filed Vital Signs Vital Sign Reading Time Taken Comments Blood Pressure 134/82 07/28/2024 12:41 PM GOGGLES ASSEMBLER Pulse 96 07/28/2024 12:41 PM GOGGLES ASSEMBLER Temperature 36.6 C (97.8 F) 07/28/2024 12:41 PM GOGGLES ASSEMBLER Respiratory Rate 18 07/28/2024 12:41 PM GOGGLES ASSEMBLER Oxygen Saturation 97% 07/28/2024 12:41 PM GOGGLES ASSEMBLER Inhaled Oxygen Concentration - - Weight 83.7 kg (184 lb 8 oz) 07/28/2024 12:41 PM GOGGLES ASSEMBLER Height 157.5 cm (5' 2 ) 07/28/2024 12:41 PM GOGGLES ASSEMBLER Body Mass Index 33.75 07/28/2024 12:41 PM GOGGLES ASSEMBLER Plan of Treatment Upcoming Encounters Date Type Department Care Team (Late st Contact Info) Description 01/26/2025 9:30 AM CDT Lab [facility] [address] [phone] Lab, [facility] 01/26/2025 9:45 AM CDT Office Visit [facility] [address] [phone] Michael Benz MD [address] [place] [phone] Health Maintenance Due Date Last Done Comments Hepatitis C Virus (HCV) Screening 1970 TdaP Immunization 1970 Hepatitis B Immunization (1 of 3 - 19+ 3-dose series) 1989 Pneumococcal Immunization (50+ years) (1 of 2 - PCV) 1989 Pap Smear 1991 Cervical Cancer Screening (CCS) 2000 HPV/Cotest 2000 Colonoscopy 2015 Colorectal Cancer Screening 2015 Cologuard 2020 Immunochemical Fecal Occult Blood 2020 Influenza Immunization (#1) 2024 SARS-COV-2 Immunization ( season) 2024 11/15/2022, 01/13/2022, 07/07/2021, Additional history exists Mammogram 09/27/2024 09/27/2023, 09/10, 09/06/2022, Additional history exists Respiratory Syncytial Virus (RSV) Immunization (Adult) (1 - 1-dose 75+ series) 2045 Zoster Immunization Completed 05/05/2023, 3 Meningococcal Immunization (ACWY) Aged Out No longer eligible based on patient's age to complete this topic Rotavirus Immunization Aged Out No lo nger eligible based on patient's age to complete this topic Procedures Procedure Name Priority Date/Time Associated Diagnosis Comments GERMÁN SCREENING BILATERAL DIGI CELESTE W CAD W GRACE Routine 05/28/2021 from Last 3 Months or Most Recently Relevant to Health Maintenance Results * GERMÁN SCREENING BILATERAL DIGITAL W CAD W GRACE (05/28/2021) Anatomical Region Laterality Modality breast Bilateral Mammography us Not On File Provider IMG MAMMO ORDERABLES Final Result from Last 3 Months or Most Recently Relevant to Health Maintenance Insurance [employer]ICAID [employer] Care Teams Vacuum Furnace Operator Relationship Specialty Start Date End Date Latesha Lewis MD [address] [place] [id number] PCP - General Family Medicine 11/05/19 Trini Rockwell MD [address] [address] Radiation Oncologist Radiology 10/16/19 Michael Benz MD [address] [place] [phone] Consulting Physician Oncology 01/17/23
[2024-11-25] MEDS: LACTATED RINGERS 1,000 ML 30 ML IV CONT ×2 (06:30→10:37)
[2024-11-25] MEDS: ACETAMINOPHEN 500 MG TABLET 1000 MG PO (06:30)
[2024-11-25] MEDS: TRANEXAMIC ACID 1,000MG/ISO100 1,000 MG/100 ML BAG 200 MG IVPB (06:30)
[2024-11-25] MEDS: VANCOMYCIN 1,000 MG/NS 250 ML BAG 250 MG IVPB (06:30)
--- NOTE | 2024-11-25 06:48 | WPDANESEPPF ---
Anes - Initial Pre Proc Eval Procedure: Operation Date: 11/25/24 07:30 Proposed Procedures p Left Total Knee Arthroplasty, Right Knee Cortisone Injection - Byron Rosenbaum MD Date/Time: 11/25/24 06:48 Surgeon: Byron Rosenbaum MD Pre Op Diagnosis: oa bilateral knees Patient Data Age: 54 Gender: F Height: 1.57 m Weight: 71.6 kg Last Vital Signs Temp 36.7 C 11/06/24 11:08 Pulse 70 11/06/24 11:08 Resp 18 11/06/24 11:08 BP 140/82 11/06/24 11:08 Pulse Ox 98 11/06/24 11:08 O2 Del Method Room Air 11/06/24 11:08 Allergies Allergy/AdvReac Type Severity Reaction Status Date / Time atorvastatin (From Lipitor) Allergy Severe PAIN Verified 11/06/24 15:59 ciprofloxacin (From Cipro) Allergy SOB AND Verified 11/06/24 15:59 RASH doxycycline Allergy SOB AND Verified 11/06/24 15:59 RASH Influenza Virus Vaccines Allergy Unknown Verified 11/06/24 15:59 morphine Allergy Fatigued/LE Verified 11/06/24 15:59 THARGIC pneumococcal vaccine Allergy Unknown Verified 11/06/24 15:59 Vkkgymp-STZ-VrV Reductase Allergy Rash Verified 11/06/24 15:59 Inhibitor (Rqkzyjk-Cma-Bek Reductase Inhibitor) verapamil Allergy Unknown Verified 11/06/24 15:59 Home Medications ?Medication ?Instructions ?Recorded ?Confirmed ?Type albuterol sulfate 90 mcg/actuation 2 puff inhalation PRN SOB 01/02/20 11/06/24 History aerosol inhaler amitriptyline 50 mg tablet 50 mg PO TID 01/02/20 11/06/24 History anastrozole 1 mg tablet 1 mg PO DAILY 01/02/20 11/06/24 History cyclobenzaprine 10 mg tablet 10 mg PO PRN MUSCLE SPASM 01/02/20 11/06/24 History escitalopram oxalate 20 mg tablet 30 mg PO HS 01/02/20 11/06/24 History fluticasone propionate 50 2 spray intranasal DAILY 01/02/20 11/06/24 History mcg/actuation nasal spray,suspension gabapentin 400 mg capsule 800 mg PO TID 01/02/20 11/06/24 History lisinopril 20 tablet 01/02/20 01/23/24 History mg-hydrochlorothiazide 25 mg tablet meloxicam 15 mg tablet 15 mg PO HS 01/02/20 11/06/24 History trazodone 150 mg tablet 150 mg PO HS 01/02/20 11/06/24 History albuterol sulfate 0.63 mg/3 mL 0.63 mg inhalation Q6H 01/23/24 11/06/24 History solution for nebulization azelastine 137 mcg (0.1 %) nasal 1 spray intranasal Q12H 01/23/24 11/06/24 History spray budesonide-formoterol HFA 160 2 puff inhalation Q12H 01/23/24 11/06/24 History mcg-4.5 mcg/actuation aerosol inhaler (Symbicort) calcium 600mg plus vitamin d3 600 mg PO 1XD 01/23/24 11/06/24 History diphenhydramine HCl 25 mg tablet 50 mg PO BID PRN allergy symptoms 01/23/24 11/06/24 History (Benadryl Allergy) montelukast 10 mg tablet 10 mg PO DAILY 01/23/24 11/06/24 History sumatriptan succinate 100 mg tablet See Rx Instructions PO .COMPLEX 01/23/24 11/06/24 History umeclidinium 62.5 mcg/actuation 1 inh inhalation DAILY 01/23/24 11/06/24 History blister powder for inhalation (Incruse Ellipta) vitamin b 12 2500mg PO 01/23/24 07/23/24 History vitamin c PO 2XD 01/23/24 10/01/24 History linaclotide 72 mcg capsule 72 mcg PO DAILY 04/23/24 11/06/24 History (Linzess) meclizine 25 mg tablet 25 mg PO TID 04/23/24 11/06/24 History famotidine 20 mg tablet 20 mg PO BID 07/23/24 11/06/24 History hyoscyamine sulfate 0.125 mg 0.125 mg sublingual QID PRN 07/23/24 11/06/24 History sublingual tablet (Oscimin SL) dyspepsia linaclotide 145 mcg capsule 145 mcg PO DAILY 07/23/24 11/06/24 History (Linzess) ondansetron 4 mg disintegrating 4 mg PO Q6H 07/23/24 11/06/24 History tablet atogepant 60 mg tablet (Qulipta) 60 mg PO DAILY 10/01/24 11/06/24 History budesonide-formoterol HFA 160 2 puff inhalation Q12H 10/01/24 11/06/24 History mcg-4.5 mcg/actuation aerosol inhaler (Symbicort) buspirone 30 mg tablet 30 mg PO BID 10/01/24 11/06/24 History cetirizine 10 mg tablet (Zyrtec) 10 mg PO DAILY PRN ALLERGIE 10/01/24 11/06/24 History SYMPTOMS digoxin 125 mcg (0.125 mg) tablet 125 mcg PO .5XWK 10/01/24 11/06/24 History doxepin 25 mg capsule 25 mg PO QHS 10/01/24 11/06/24 History fenofibrate nanocrystallized 48 mg 48 mg PO DAILY 10/01/24 11/06/24 History tablet hydroxyzine HCl 25 mg tablet 50 mg PO TID PRN anxiety 10/01/24 11/06/24 History omega-3 acid ethyl esters 1 gram 1 cap PO DAILY 10/01/24 11/06/24 History capsule (Lovaza) prazosin 2 mg capsule 2 mg PO QHS 10/01/24 11/06/24 History propranolol 20 mg tablet 20 mg PO Q12H 10/01/24 11/06/24 History ascorbic acid (vitamin C) 1,000 mg 1,000 mg PO DAILY 11/06/24 11/06/24 History tablet,extended release (C Complex) biotin 10,000 mcg capsule 10,000 mcg PO DAILY 11/06/24 11/06/24 History cholecalciferol (vitamin D3) 50 50 mcg PO DAILY 11/06/24 11/06/24 History mcg (2,000 unit) capsule cyanocobalamin (vitamin B-12) 1,000 mcg PO DAILY 11/06/24 11/06/24 History 1,000 mcg capsule lorazepam 0.5 mg tablet 0.5 mg PO PRN 11/06/24 11/06/24 History Patient hx anesthesia problems: none Family hx anesthesia problems: none Results Review: All pre-operative results and documents have been reviewed as part of the pre-operative evaluation. [facility] Past Medical History Medical History Breast cancer 2020 Anxiety PTSD (post-traumatic stress disorder) Tachycardia High cholesterol Normal colonoscopy LUISA (obstructive sleep apnea) RLS (restless legs syndrome) Obesity Neuropathy Migraine COPD (chronic obstructive pulmonary disease) Chronic back pain Bursitis Bipolar 1 disorder Asthma CVA (cerebral vascular accident) Surgical History Surgical History History of back surgery History of lumpectomy of right breast H/O elbow surgery Hx of cholecystectomy Family History Family History (Updated 10/01/24 @ 07:29 by Codie Marie [facility]) Father Brain bleed Other Heart disease No history of cancer Social History Social History Smoking packs per day: 1 Smoking cigarettes per day: 20.0 Years smoked: 10 Smoking pack-years: 10.00 Smoking status: Former smoker Tobacco type: cigarettes Second hand tobacco smoke exposure: No Smoking end date: 09/10/04 Additional smoking assessment comments: DENIES ANY FORM OF TOBACCO USE Alcohol intake: never Substance use type: does not use Do You Feel Safe in your Home?: Yes Lack of Transportation: No Lack of Food: Never True Current Housing: I Have Housing Concerned About Future Housing: No Difficulty Paying Gas/Electric Bills: No Difficulty Paying for Meds: No Currently Unemployed: No Education: High School Diploma/GED Difficulty w/ Childcare or Family Care: No Living arrangements: alone Occupation/Education: unemployed Gender identity (if verbalized by the patient): Female Spiritual care concerns: No Anes - Eval Final PreProcedure Day of Procedure 11/25/24 06:48 Patient weight: obese Heart: regular rate and rhythm Lungs: clear to auscultation Airway: Mallampati scale class II Neurological: alert and oriented Last oral intake: >/= 8 hours ASA classification: IV Emergent: no Anesthetic plan: proceed Anesthesia type and monitoring: general ETT and standard monitoring Results Review: All pre-operative results and documents have been reviewed as part of the pre-operative evaluation. Informed Consent: The patient's anesthetic plan and its attendant risks and benefits were discussed with the patient/family/POA. Questions were solicited and answers provided to the satisfaction of the patient/family/POA.
--- NOTE | 2024-11-25 06:58 | WPDHPUPDATE1 ---
History and Physical Update Update Date/Time: 11/25/24 06:58 History and Physical has been reviewed, including an updated exam of the patient. There are NO changes in the patient's condition. Risks, benefits, and alternatives have been discussed and questions answered. Patient agrees to proceed with procedure.
--- NOTE | 2024-11-25 07:10 | WPDHPUPDATE1 ---
History and Physical Update Update Date/Time: 11/25/24 07:10 History and Physical has been reviewed, including an updated exam of the patient. There are NO changes in the patient's condition. Risks, benefits, and alternatives have been discussed and questions answered. Patient agrees to proceed with procedure. She stopped digoxin and anastrozole 3 weeks ago. IV pepcid will be used this am as pt did not take orally this am
[2024-11-25] MEDS: FAMOTIDINE 20 MG/2 ML VIAL IV PUSH (07:15)
[2024-11-25] MEDS: ceFAZolin 2 GM/D5W 50 ML 2 GM/50 ML BAG IVPB ×3 (07:27→22:41)
[2024-11-25] MEDS: methylPREDNISolone ACETATE 80 MG/ML VIAL IM (07:42)
[2024-11-25] MEDS: LIDOCAINE 1% LOCAL INJ 10 ML VIAL 4 ML INFILTRATE (07:42)
[2024-11-25] MEDS: SODIUM CHLORIDE 0.9% IV 38.7 ML, ROPivacaine HCL 1% 200 MG, KETOROLAC INJ (*BKC) 15 MG,... INFILTRATE (08:11)
[2024-11-25] MEDS: ceFAZolin SODIUM 1 GM VIAL 3 GM (08:11)
[2024-11-25] MEDS: KETOROLAC 15 MG/ML VIAL (*BKC) IV PUSH ×3 (09:55→22:40)
[2024-11-25] MEDS: ceFAZolin SODIUM 1 GM VIAL 2 GM IV PUSH (09:55)
[2024-11-25] MEDS: TRANEXAMIC ACID 1,000 MG/10 ML AMPUL 1000 MG IV PUSH (09:55)
--- NOTE | 2024-11-25 10:38 | W.PM.PROC2 ---
Procedure Note - Detailed Date of Procedure 11/25/24 Pre-op Diagnosis oa bilateral knees Post-op Diagnosis Same Procedure Performed Cortisone injection right knee, left total knee arthroplasty Surgeon Byron Rosenbaum MD Drug Inspector Ryan Anesthesia General Description of Procedure Patient brought to the operative room and general anesthesia was administered. She received 2 g of Ancef weight based vancomycin 1 g of TXA preoperatively. The right knee was prepped with ChloraPrep and 80 mg of Depo-Medrol and 4 cc 1% lidocaine were injected into the right knee without difficulty. The left knee was prepped draped usual fashion. Under anesthesia as she seemed to come out to full extension with a negative bounce. She had moderate medial pseudolaxity. Limb was exsanguinated tourniquet elevated to 250 mmHg. A 7 in longitudinal midline incision was used and a vastus medialis splitting approach utilized splitting the vastus medialis at the level of the superior pole patella. Quadriceps synovectomy and partial excision of infrapatellar fat pad was performed. Suprapatellar fat pad excised. The patella had diffuse chondromalacia but no eburnation or deformity. Tiny osteophytes were trimmed. A limited lateral facetectomy was performed. I felt it was most appropriate for non resurfacing as her bone appeared to be quite soft. The a guide latoya was inserted on femoral canal after aspiration of canal contents using the 5 degree valgus cutting bushing 8 mm of bone removed the distal femur. Next the tibial plateau was cut making a skim cut about 1 mm under the low point of the where area of the medial tibial plateau. Meniscal remnants were excised PCL recessed from the femur. Flexion gap measured 8 mm medially and 11 mm laterally. It was notable that she had significant osteoporosis Boeing the central lateral tibial plateau and the medial aspect of medial femoral condyle. The femoral sizing guide was applied the distal femur set at 4? of external rotation which matched Whitesides line. Posterior referencing pinholes were placed. The size vanguard 60 cutting block was applied AP and chamfer cuts were made. This gave a flush cut with the anterior cortex with no notching. This overhung about a mm laterally which I felt was acceptable rather than downsizing and potentially notching. The tibia was sized to a 63. The 67 fit line to line but would not allow proper rotation without overhang. A 63 was placed at proper rotation and punched we trialed. There was a mm of medial opening with the 10 insert medially and laterally at 90?. There was a positive bounce with no play medially or laterally in extension. An additional mm of bone was removed the distal femur chamfer cuts revisited. Residual posterior femoral bone was removed medially where there was osteophyte. On read trialing the knee came out to full extension with no bounce but no play medially or laterally and with the arthrotomy towel clipped there was a positive bounce. Therefore an additional mm bone was removed the distal femur and on read trialing the knee came out to full extension with a mm of medial opening and 1/2 mm of lateral opening. With the arthrotomy towel clip there was negative bounce. There is central patellar tracking throughout range of motion appropriate 2-3 mm anterior drawer at 90? and gravity flexion was to 140. There is central patellar tracking throughout range of motion. Lug holes were drilled for the femoral component and the bony surfaces thoroughly irrigated and dried. Step drill was used to make perforations in the sclerotic portion of the medial tibial plateau. We had removed anteromedial osteophyte during the exposure. There was remaining medial osteophyte posteromedially but I did not feel that this should be resected given the excellent balance we had at this time and given the fact that she did not have a varus deformity preoperatively. Two batches of methylmethacrylate were mixed 1 the gentamicin powder. Cement applied the 63 vanguard tibial tray than the size 60 femoral component cement applied to the tibia and pressurized tibial component fully seated and the cement applied the femur the femoral component fully see the knee brought into extension with 11 mm 5 in 1 insert for cement pressurization the tourniquet was least 101 minutes. After cement hardening excess cement was sought for and removed. We trialed with the 10 insert and had the same range of motion stability findings as mentioned above. The 10 was placed without difficulty locked with a locking pin range of motion stability patellar tracking reconfirmed. Local anesthetic cocktail injected in the periarticular soft tissues. Arthrotomy was closed with 2. Vicryl and 1. Unidirectional barbed Stratafix suture in the split with 1. Vicryl. Skin was closed with 2 subcutaneous Vicryl 3-0 subcuticular Monocryl and glue. EBL was 150 cc. There were no complications he was transferred postop recovery room in stable condition. [facility] Billing Surgery - Charge Forward: Surgery Billing (Cortisone shot right knee, left total knee arthroplasty)
--- NOTE | 2024-11-25 10:49 | PM.OP ---
Procedure Note - Brief Procedure Note - Brief Date of procedure: 11/25/24 oa bilateral knees Procedure performed: Left total knee arthroplasty with cortisone injection in the right knee. Surgeon: LLOYD Caraballo Findings: 54-year-old female underwent left total knee arthroplasty on 11/25. I was involved in the procedure including positioning the patient on the OR table and 1st assisting through the time surgery. Total time spent was 3 hours
[2024-11-25] MEDS: fentaNYL CITRATE INJ (*CRX) 100 MCG/2 ML VIAL 25 MCG IV PUSH ×4 (11:06→12:56)
--- NOTE | 2024-11-25 14:04 | P.CONIM_ITS ---
Assessment and Plan Assessment and plan (1) S/P total knee arthroplasty: Code(s): Z96.659 - Presence of unspecified artificial knee joint Status: Acute Assessment and Plan: * postop day 0 from left total knee arthroplasty with * continue pain control * continue incentive spirometry while awake * continue to ice and elevate * PT and OT ordered * full weight-bearing status (2) Bipolar 1 disorder: Code(s): F31.9 - Bipolar disorder, unspecified Status: Acute Assessment and Plan: * Continue Doxepin, Buspar, and Lexapro (3) Anxiety: Code(s): F41.9 - Anxiety disorder, unspecified Status: Acute Assessment and Plan: see above plan of care (4) COPD (chronic obstructive pulmonary disease): Code(s): J44.9 - Chronic obstructive pulmonary disease, unspecified Status: Acute Assessment and Plan: * continue Incruse Ellipta, Advair, and Albuterol inhaler * Duoneb PRN * Continue flonase, claritin, and singular (5) High cholesterol: Code(s): E78.00 - Pure hypercholesterolemia, unspecified Status: Acute Assessment and Plan: * continue Tricor HPI Date of Consult Consult date: 11/25/24 Requesting Physician: Byron Rosenbaum MD Primary Care Provider: Kris Mansfield, Consult Narrative Narrative: Socorro Ibarra is a 54 year old female with a significant past medical history of breast cancer status post lumpectomy, anxiety, posttraumatic stress disorder, hyperlipidemia, LUISA, restless leg syndrome, neuropathy, migraine, COPD, bipolar 1 disorder, asthma, CVA, obesity, chronic back pain status post back surgery, former smoker who presented to the hospital for elective left total knee replacement with . We were consulted for medical management while inpatient. Patient denies any fever, chills, nausea, vomiting, diarrhea, abdomin al pain, chest pain, or shortness of breath. She reports her pain 10/10 however she is in the middle of working with physical therapy. Review of Systems Review of Systems: All systems reviewed & are unremarkable except as noted in HPI and below PMFSH Past Medical History Medical History (Updated 11/25/24 @ 14:11 by Brissa Macias, [place]) Breast cancer 2020 Anxiety PTSD (post-traumatic stress disorder) Tachycardia High cholesterol Normal colonoscopy LUISA (obstructive sleep apnea) RLS (restless legs syndrome) Obesity Neuropathy Migraine COPD (chronic obstructive pulmonary disease) Chronic back pain Bursitis Bipolar 1 disorder Asthma CVA (cerebral vascular accident) Surgical History Surgical History (Updated 11/25/24 @ 14:11 by Brissa Macias APRN) S/P total knee arthroplasty History of back surgery History of lumpectomy of right breast H/O elbow surgery Hx of cholecystectomy Family History Family History Father Brain bleed Other Heart disease No history of cancer Social History Social History Smoking packs per day: 1 Smoking cigarettes per day: 20.0 Years smoked: 10 Smoking pack-years: 10.00 Smoking status: Former smoker Tobacco type: cigarettes Second hand tobacco smoke exposure: No Smoking end date: 09/10/04 Additional smoking assessment comments: DENIES ANY FORM OF TOBACCO USE Alcohol intake: never Substance use type: does not use Do You Feel Safe in your Home?: Yes Lack of Transportation: No Lack of Food: Never True Current Housing: I Have Housing Concerned About Future Housing: No Difficulty Paying Gas/Electric Bills: No Difficulty Paying for Meds: No Currently Unemployed: No Education: High School Diploma/GED Difficulty w/ Childcare or Family Care: No Living arrangements: alone Occupation/Education: unemployed Gender identity (if verbalized by the patient): Female Spiritual care concerns: No Meds Home Medications and Allergies Home Medications ?Medication ?Instructions ?Recorded ?Confirmed ?Type albuterol sulfate 90 mcg/actuation 2 puff inhalation PRN SOB 01/02/20 11/06/24 History aerosol inhaler amitriptyline 50 mg tablet 50 mg PO TID 01/02/20 11/25/24 History anastrozole 1 mg tablet 1 mg PO DAILY 01/02/20 11/06/24 History cyclobenzaprine 10 mg tablet 10 mg PO PRN MUSCLE SPASM 01/02/20 11/06/24 History escitalopram oxalate 20 mg tablet 30 mg PO HS 01/02/20 11/25/24 History fluticasone propionate 50 2 spray intranasal DAILY 01/02/20 11/06/24 History mcg/actuation nasal spray,suspension gabapentin 400 mg capsule 800 mg PO TID 01/02/20 11/25/24 History lisinopril 20 tablet 01/02/20 01/23/24 History mg-hydrochlorothiazide 25 mg tablet meloxicam 15 mg tablet 15 mg PO HS 01/02/20 11/25/24 History trazodone 150 mg tablet 150 mg PO HS 01/02/20 11/06/24 History albuterol sulfate 0.63 mg/3 mL 0.63 mg inhalation Q6H 01/23/24 11/06/24 History solution for nebulization azelastine 137 mcg (0.1 %) nasal 1 spray intranasal Q12H 01/23/24 11/06/24 History spray budesonide-formoterol HFA 160 2 puff inhalation Q12H 01/23/24 11/06/24 History mcg-4.5 mcg/actuation aerosol inhaler (Symbicort) calcium 600mg plus vitamin d3 600 mg PO 1XD 01/23/24 11/06/24 History diphenhydramine HCl 25 mg tablet 50 mg PO BID PRN allergy symptoms 01/23/24 11/06/24 History (Benadryl Allergy) montelukast 10 mg tablet 10 mg PO DAILY 01/23/24 11/06/24 History sumatriptan succinate 100 mg tablet See Rx Instructions PO .COMPLEX 01/23/24 11/06/24 History umeclidinium 62.5 mcg/actuation 1 inh inhalation DAILY 01/23/24 11/06/24 History blister powder for inhalation (Incruse Ellipta) vitamin b 12 2500mg PO 01/23/24 07/23/24 History vitamin c PO 2XD 01/23/24 10/01/24 History linaclotide 72 mcg capsule 72 mcg PO DAILY 04/23/24 11/06/24 History (Linzess) meclizine 25 mg tablet 25 mg PO TID 04/23/24 11/06/24 History famotidine 20 mg tablet 20 mg PO BID 07/23/24 11/06/24 History hyoscyamine sulfate 0.125 mg 0.125 mg sublingual QID PRN 07/23/24 11/06/24 History sublingual tablet (Oscimin SL) dyspepsia linaclotide 145 mcg capsule 145 mcg PO DAILY 07/23/24 11/06/24 History (Linzess) ondansetron 4 mg disintegrating 4 mg PO Q6H 07/23/24 11/06/24 History tablet atogepant 60 mg tablet (Qulipta) 60 mg PO DAILY 10/01/24 11/06/24 History budesonide-formoterol HFA 160 2 puff inhalation Q12H 10/01/24 11/06/24 History mcg-4.5 mcg/actuation aerosol inhaler (Symbicort) buspirone 30 mg tablet 30 mg PO BID 10/01/24 11/25/24 History cetirizine 10 mg tablet (Zyrtec) 10 mg PO DAILY PRN ALLERGIE 10/01/24 11/06/24 History SYMPTOMS digoxin 125 mcg (0.125 mg) tablet 125 mcg PO .5XWK 10/01/24 11/25/24 History doxepin 25 mg capsule 25 mg PO QHS 10/01/24 11/06/24 History fenofibrate nanocrystallized 48 mg 48 mg PO DAILY 10/01/24 11/06/24 History tablet hydroxyzine HCl 25 mg tablet 50 mg PO TID PRN anxiety 10/01/24 11/06/24 History omega-3 acid ethyl esters 1 gram 1 cap PO DAILY 10/01/24 11/06/24 History capsule (Lovaza) prazosin 2 mg capsule 2 mg PO QHS 10/01/24 11/06/24 History propranolol 20 mg tablet 20 mg PO Q12H 10/01/24 11/06/24 History ascorbic acid (vitamin C) 1,000 mg 1,000 mg PO DAILY 11/06/24 11/06/24 History tablet,extended release (C Complex) biotin 10,000 mcg capsule 10,000 mcg PO DAILY 11/06/24 11/06/24 History cholecalciferol (vitamin D3) 50 50 mcg PO DAILY 11/06/24 11/06/24 History mcg (2,000 unit) capsule cyanocobalamin (vitamin B-12) 1,000 mcg PO DAILY 11/06/24 11/06/24 History 1,000 mcg capsule lorazepam 0.5 mg tablet 0.5 mg PO PRN 11/06/24 11/25/24 History Allergies Allergy/AdvReac Type Severity Reaction Status Date / Time atorvastatin (From Lipitor) Allergy Severe PAIN Verified 11/06/24 15:59 ciprofloxacin (From Cipro) Allergy SOB AND Verified 11/06/24 15:59 RASH doxycycline Allergy SOB AND Verified 11/06/24 15:59 RASH Influenza Virus Vaccines Allergy Unknown Verified 11/06/24 15:59 morphine Allergy Fatigued/LE Verified 11/06/24 15:59 THARGIC pneumococcal vaccine Allergy Unknown Verified 11/06/24 15:59 Yuefcxq-CTG-XqK Reductase Allergy Rash Verified 11/06/24 15:59 Inhibitor (Ufghzzl-Jnn-Dfs Reductase Inhibitor) verapamil Allergy Unknown Verified 11/06/24 15:59 Vital Signs Vital Signs - 24 hr 11/25/24 07:08 11/25/24 10:37 11/25/24 10:42 Temperature 98.2 F 97.2 F L Pulse Rate 67 89 Respiratory Rate 18 20 Blood Pressure 135/80 150/77 H Pulse Oximetry 100 97 97 Oxygen Delivery Room Air Simple Face Mask Simple Face Mask Oxygen Flow Rate 8 8 11/25/24 10:50 11/25/24 11:05 11/25/24 11:20 Temperature Pulse Rate 90 89 90 Respiratory Rate 20 24 H 24 H Blood Pressure 148/77 H 152/76 H 148/82 H Pulse Oximetry 98 98 98 Oxygen Delivery Simple Face Mask Simple Face Mask Simple Face Mask Oxygen Flow Rate 8 8 8 11/25/24 11:35 11/25/24 11:50 11/25/24 12:05 Temperature Pulse Rate 90 94 88 Respiratory Rate 18 26 H 22 H Blood Pressure 148/79 H 149/81 H 142/75 H Pulse Oximetry 98 94 93 Oxygen Delivery Simple Face Mask Room Air Room Air Oxygen Flow Rate 8 11/25/24 12:20 11/25/24 12:35 11/25/24 12:45 Temperature Pulse Rate 90 92 94 Respiratory Rate 18 20 22 H Blood Pressure 134/79 136/79 147/82 H Pulse Oximetry 93 93 94 Oxygen Delivery Room Air Room Air Room Air Oxygen Flow Rate 11/25/24 13:00 Temperature 97.5 F L Pulse Rate 93 Respiratory Rate 20 Blood Pressure 151/82 H Pulse Oximetry 94 Oxygen Delivery Room Air Oxygen Flow Rate Exam Narrative: General: In no acute distress, well nourished Head: atraumatic, no encephalopathy Eyes: PERRLA, sclera clear ENT: moist mucous membranes, nasal passages clear Neck: supple, no JVD, no adenopathy, trachea midline Cardiac: Normal S1 and S2. No murmur, gallops or friction rubs, peripheral pulses intact. Respiratory: Lungs clear to auscultation, no adventitious lung sounds, currently on room air Gastrointestinal: soft, non-distended, non-tender, normoactive bowel sounds. : voiding without difficulty. Extremities: moves all extremities well, no edema Skin: OR dressing to left knee Neuro: Alert and oriented x4, cranial nerves intact, no neuro deficits. Psych: normal mood, normal affect, interactive Results Imaging Radiologist's impression: Left Knee Technique: Portable AP and crosstable lateral views Clinical History: Status post TKR Findings: Patient is status post total knee replacement. Orthopedic hardware alignment appears anatomic. No hardware complication is evident. Subcutaneous emphysema and swelling is likely postoperative in nature. No acute osseous fracture is seen. Impression: Status post total knee replacement, without evidence of hardware complication. Reviewed, dictated and finalized at location M. Quality VTE Prophylaxis VTE prophylaxis: mechanical ordered Hospitalist [facility] Advance Care Plan I have confirmed that the patient's Advanced Care Plan is present, code status is documented, or surrogate decision maker is listed in patient medical record.: Yes Medication Reconciliation I have utilized all available resources to obtain, update and review the patients current medications (includes all prescriptions, OTC, herbals, ca nnabis, and nutritional supplements).: Yes
[2024-11-25] MEDS: GABAPENTIN 400 MG CAPSULE 800 MG PO ×2 (14:14→17:57)
[2024-11-25] MEDS: oxyCODONE HCL (*CRX) 5 MG TAB IR PO ×3 (14:14→20:25)
[2024-11-25] MEDS: MECLIZINE HCL 25 MG TABLET PO ×2 (14:14→17:58)
[2024-11-25] MEDS: ACETAMINOPHEN 325 MG TABLET 650 MG PO ×3 (14:14→20:24)
[2024-11-25] MEDS: CALCIUM/VITAMIN D 500 MG/5 MCG (200 I.U.) TABLET PO (14:15)
[2024-11-25] MEDS: FAMOTIDINE 20 MG TABLET PO (17:56)
[2024-11-25] MEDS: SENNA/DOCUSATE SODIUM TABLET 2 TAB PO (17:56)
[2024-11-25] MEDS: busPIRone HCL 10 MG TABLET 30 MG PO (17:56)
[2024-11-25] MEDS: AMITRIPTYLINE HCL 25 MG TABLET 50 MG PO (17:57)
[2024-11-25] MEDS: VANCOMYCIN 1,000 MG/NS 250 ML 1,000 MG/250 ML BAG 250 MG IVPB (17:58)
--- NOTE | 2024-11-25 18:22 | ADMGEN ---
This patient, Socorro Ibarra, was admitted to [facility] Surg Room 317-02. Patient/family oriented to hospital policies and general routines including ID bracelet, bed and alarms, visiting hours, pain management, procedures, bathroom and other care routines, personal items, smoking policy, room service/diet, and visiting hours. Information on how to activate the Rapid Response Team has been discussed. Patient/Family are encouraged to report perceived risks to care and to ask questions if they do not understand what they are told or what they should do.
[2024-11-25] MEDS: PRAZOSIN HCL 1 MG CAPSULE 2 MG PO (20:24)
[2024-11-25] MEDS: DOXEPIN HCL 25 MG CAPSULE PO (20:24)
[2024-11-25] MEDS: ESCITALOPRAM OXALATE 10 MG TABLET 30 MG PO (20:25)
[2024-11-25] MEDS: ALBUTEROL SULFATE NEB 2.5 MG/3 ML INH 0.63 MG INHALATION (20:28)
[2024-11-25] MEDS: FLUTICASONE/SALMETEROL 115-21 MCG INHALER 1 PUFF 2 PUFF INHALATION (20:29)
[2024-11-25] MEDS: AZELASTINE HCL NASAL 0.1% 137 MCG/SPR 30 ML BTL 1 SPRAY NASAL (20:32)
[2024-11-25] MEDS: ONDANSETRON INJ 4 MG/2 ML VIAL IV PUSH (21:43)
[2024-11-26] VITALS (8 sets, daily range): BP systolic 92–164; BP diastolic 66–94; PULSE 94–111; RESP 18; TEMP 37–37.4; O2SAT 94–98
[2024-11-26] MEDS: oxyCODONE HCL (*CRX) 5 MG TAB IR PO ×3 (00:12→09:11)
[2024-11-26] MEDS: ACETAMINOPHEN 325 MG TABLET 650 MG PO ×3 (00:12→09:14)
[2024-11-26] MEDS: ALBUTEROL SULFATE NEB 2.5 MG/3 ML INH 0.63 MG INHALATION ×2 (02:18→09:06)
[2024-11-26] MEDS: LINACLOTIDE 145 MCG CAPSULE PO (05:27)
[2024-11-26] MEDS: VANCOMYCIN 1,000 MG/NS 250 ML 1,000 MG/250 ML BAG 250 MG IVPB (05:29)
[2024-11-26 06:48] LABS: Basophils Percent Auto 0.3 % (0.2-1.2); Eosinophils Percent Auto 0.1 % (0-4.4); Hematocrit 30.5 % (37.0-47.0); Immature Granulocyte Absolute 0.06 K/mm3 (0.00-0.031); Immature Granulocyte Percent A 0.4 % (0-0.5); Lymphocytes Absolute Auto 1.81 K/mm3 (0.9-3.2); Lymphocytes Percent Auto 12.4 % (18.3-44.2); Mean Corpuscular HGB Conc 32.8 g/dl (32-36); Mean Corpuscular Hemoglobin 31.4 pg (26-34); Mean Corpuscular Volume 95.9 fl (80-100); Mean Platelet Volume 9.7 fl (7.4-10.4); Monocytes Absolute Auto 1.7 K/mm3 (0.1-0.6); Monocytes Percent Auto 11.6 % (2.6-8.5); Neutrophils Percent Auto 75.2 % (45.5-73.1); Platelet Count Result 270 k/mm3 (150-375); Red Blood Count 3.18 M/mm3 (4.2-5.4); Red Cell Distribution Width 13.2 % (11.5-14.5); White Blood Count 14.6 K/mm3 (4.5-10.0)
[2024-11-26] MEDS: ceFAZolin 2 GM/D5W 50 ML 2 GM/50 ML BAG IVPB (06:54)
[2024-11-26 07:02] LABS: Anion Gap 7 mmol/L (4-12); Blood Urea Nitrogen 22 mg/dL (7-17); Calcium 9.2 mg/dL (8.4-10.2); Carbon Dioxide 23 mmol/L (22-30); Chloride 105 mmol/L (98-107); Estimated CRCL calculation 94 ml/min; Estimated Glomerular Filt Rate > 60; Glucose 123 mg/dL (65-110); Potassium 3.6 mmol/L (3.4-5.0); Sodium 135 mmol/L (137-145)
--- NOTE | 2024-11-26 07:25 | P.PNOP_ITS ---
Subjective Subjective Date/Time Seen: 11/26/24 07:25 Interval history: Postop day 1 patient is alert. She has been afebrile vital signs are stable overnight. Pain is well controlled. Dressing is dry and intact. Patient was up walking yesterday with therapy and did very well. She also did well with her range of motion exercises. Morning labs are noted. Neurovascularly she is intact. Patient is anxious to go home. We will have the patient work with monae again this morning and once IV antibiotics are done and she is continuing to do well she will be discharged home later this morning Objective Data Vital Signs Vital Signs: Vital Signs - 24 hr 11/25/24 10:37 11/25/24 10:42 11/25/24 10:50 Temperature 97.2 F L Pulse Rate 89 90 Respiratory Rate 20 20 Blood Pressure 150/77 H 148/77 H Pulse Oximetry 97 97 98 Oxygen Delivery Simple Face Mask Simple Face Mask Simple Face Mask Oxygen Flow Rate 8 8 8 11/25/24 11:05 11/25/24 11:20 11/25/24 11:35 Temperature Pulse Rate 89 90 90 Respiratory Rate 24 H 24 H 18 Blood Pressure 152/76 H 148/82 H 148/79 H Pulse Oximetry 98 98 98 Oxygen Delivery Simple Face Mask Simple Face Mask Simple Face Mask Oxygen Flow Rate 8 8 8 11/25/24 11:50 11/25/24 12:05 11/25/24 12:20 Temperature Pulse Rate 94 88 90 Respiratory Rate 26 H 22 H 18 Blood Pressure 149/81 H 142/75 H 134/79 Pulse Oximetry 94 93 93 Oxygen Delivery Room Air Room Air Room Air Oxygen Flow Rate 11/25/24 12:35 11/25/24 12:45 11/25/24 13:00 Temperature 97.5 F L Pulse Rate 92 94 93 Respiratory Rate 20 22 H 20 Blood Pressure 136/79 147/82 H 151/82 H Pulse Oximetry 93 94 94 Oxygen Delivery Room Air Room Air Room Air Oxygen Flow Rate 11/25/24 13:21 11/25/24 13:35 11/25/24 14:05 Temperature 98.2 F 97.7 F 98.2 F Pulse Rate 96 91 96 Respiratory Rate 16 16 16 Blood Pressure 137/74 135/81 143/84 H Pulse Oximetry 96 94 95 Oxygen Delivery Oxygen Flow Rate 11/25/24 15:05 11/25/24 15:19 11/25/24 17:20 Temperature 98.5 F Pulse Rate 90 Respiratory Rate 16 Blood Pressure 143/85 H Pulse Oximetry 96 96 Oxygen Delivery Room Air Room Air Oxygen Flow Rate 11/25/24 20:00 11/25/24 20:00 11/25/24 20:00 Temperature 100.4 F H Pulse Rate 98 100 Respiratory Rate 18 Blood Pressure 126/98 H Pulse Oximetry 97 Oxygen Delivery Room Air Oxygen Flow Rate 11/25/24 20:30 11/25/24 20:30 11/25/24 20:43 Temperature Pulse Rate 103 H 101 H Respiratory Rate 18 18 Blood Pressure Pulse Oximetry 97 Oxygen Delivery Room Air Oxygen Flow Rate 11/25/24 23:56 11/26/24 00:00 11/26/24 02:18 Temperature 99.3 F Pulse Rate 104 H 104 H 107 H Respiratory Rate 18 18 Blood Pressure 112/61 Pulse Oximetry 90 Oxygen Delivery Oxygen Flow Rate 11/26/24 02:24 11/26/24 04:00 11/26/24 04:00 Temperature 98.6 F Pulse Rate 111 H 94 100 Respiratory Rate 18 18 Blood Pressure 92/66 L Pulse Oximetry 98 Oxygen Delivery Oxygen Flow Rate Intake/Output Intake/Output: Intake & Output 11/23/24 11/24/24 11/25/24 11/26/24 23:59 23:59 23:59 23:59 Intake Total 1270 250 Balance 1270 250 Meds/Results Medications: Active Medications Generic Name Dose Route Start Last Admin Trade Name Freq PRN Reason Stop Dose Admin Acetaminophen 650 mg 11/25/24 13:00 11/26/24 05:27 Acetaminophen 325 Mg Tablet PO 650 mg Q4H OMAR Administration Albuterol 0.63 mg 11/25/24 13:06 11/26/24 02:18 Albuterol Sulfate Neb 2.5 Mg/3 Ml Inh INHALATION 0.63 mg Q6HRT OMAR Administration Amitriptyline HCl 50 mg 11/25/24 13:00 11/25/24 17:57 Amitriptyline Hcl 25 Mg Tablet PO 50 mg TID OMAR Administration Apixaban 2.5 mg 11/26/24 09:00 Apixaban 2.5 Mg Tablet PO 12/07/24 21:01 Q12HR OMAR Azelastine HCl 1 spray 11/25/24 13:06 11/25/24 20:32 Azelastine Hcl Nasal 0.1% 137 Mcg/Spr 30 Ml Btl NASAL 1 spray Q12HR OMAR Administration Buspirone HCl 30 mg 11/25/24 17:00 11/25/24 17:56 Buspirone Hcl 10 Mg Tablet PO 30 mg BID OMAR Administration Calcium Carbonate 500 mg 11/25/24 13:06 11/25/24 14:15 Calcium/Vitamin D 500 Mg/5 Mcg (200 I.U.) Tablet PO 500 mg QAM OMAR Administration Cefdinir 300 mg 11/26/24 09:00 Cefdinir 300 Mg Capsule PO Q12HR OMAR Cyanocobalamin 1,000 mcg 11/26/24 09:00 Cyanocobalamin 1,000 Mcg Tablet PO DAILY [facility] Diphenhydramine HCl 25 mg 11/25/24 13:06 Diphenhydramine Hcl Inj 50 Mg/Ml Vial IV PUSH Q6H PRN Itching Doxepin HCl 25 mg 11/25/24 21:00 11/25/24 20:24 Doxepin Hcl 25 Mg Capsule PO 25 mg QHS OMAR Administration Escitalopram Oxalate 30 mg 11/25/24 21:00 11/25/24 20:25 Escitalopram Oxalate 10 Mg Tablet PO 30 mg HS OMAR Administration Famotidine 20 mg 11/25/24 17:00 11/25/24 17:56 Famotidine 20 Mg Tablet PO 20 mg BID OMAR Administration Fenofibrate 48 mg 11/26/24 09:00 Fenofibrate,Micronized 48 Mg Tablet PO DAILY [facility] Fluticasone Propionate 2 spray 11/26/24 09:00 Fluticasone Propionate 0.05% Na Spr 16 Gm Btl (*Bkc) NASAL DAILY OMAR Gabapentin 800 mg 11/25/24 13:06 11/25/24 17:57 Gabapentin 400 Mg Capsule PO 800 mg TID OMAR Administration Cefazolin Sodium 2 gm in 50 mls @ 100 mls/hr 11/25/24 15:00 11/26/24 06:54 Ancef 2 Gm/D5w 50 Ml IVPB 11/26/24 07:29 100 mls/hr Q8H OMAR Administration Vancomycin HCl 1,000 mg in 250 mls @ 250 mls/hr 11/25/24 18:30 11/26/24 06:29 Vancomycin 1,000 Mg/Ns 250 Ml IVPB 11/26/24 07:29 Infused Q12H [facility] Infusion Linaclotide 145 mcg 11/26/24 06:30 11/26/24 05:27 Linaclotide 145 Mcg Capsule PO 145 mcg DAILY@0630 OMAR Administration Loratadine 10 mg 11/25/24 13:06 Loratadine 10 Mg Tablet PO DAILY PRN ALLERGIE SYMPTOMS Meclizine HCl 25 mg 11/25/24 13:06 11/25/24 17:58 Meclizine Hcl 25 Mg Tablet PO 25 mg TID OMAR Administration Miscellaneous Information 0 each 11/25/24 00:01 Atogepant [Qulipta] 60 Mg Tablet = Non Formulary, Can Patient Use Home Med? XX 12/25/24 00:00 CLARIFY OMAR Montelukast Sodium 10 mg 11/26/24 09:00 Montelukast Sodium 10 Mg Tablet PO DAILY [facility] Morphine Sulfate 2 mg 11/25/24 13:06 Morphine Sulfate (*Crx) 2 Mg/Ml Inj IV PUSH Q2H PRN Breakthrough Pain Rated 4-6 or NPO Naloxone HCl 0.1 mg 11/25/24 13:06 Naloxone Hcl 0.4 Mg/Ml Vial IV PUSH Q2M PRN Opiate Reversal Non-Formulary Medication 60 mg 11/26/24 09:00 Atogepant [Qulipta] PO 12/26/24 08:59 DAILY [facility] Non-Formulary Medication 1 each 11/25/24 13:15 Nonformulary Nutritional Supplement XX 11/26/24 13:14 PRN PRN PROTOCOL Ondansetron HCl 4 mg 11/25/24 13:06 11/25/24 21:43 Ondansetron Inj 4 Mg/2 Ml Vial IV PUSH 4 mg Q4H PRN Administration Nausea And Vomiting Oxycodone HCl 5 mg 11/25/24 13:00 11/26/24 05:27 Oxycodone Hcl (*Crx) 5 Mg Tab Ir PO 5 mg Q4H OMAR Administration Oxycodone HCl 5 mg 11/25/24 13:06 Oxycodone Hcl (*Crx) 5 Mg Tab Ir PO Q4H PRN Pain Rated 7-10 Polyethylene Glycol 17 gm 11/26/24 09:00 Polyethylene Glycol 3350 17 Gm Powd.Pack PO QAM [facility] Prazosin HCl 2 mg 11/25/24 21:00 11/25/24 20:24 Prazosin Hcl 1 Mg Capsule PO 12/25/24 20:59 2 mg QHS OMAR Administration Propranolol HCl 20 mg 11/25/24 13:06 11/25/24 14:37 Propranolol Hcl 20 Mg Tablet PO Not Given Q12HR OMAR Fluticasone/Salmeterol 2 puff 11/25/24 13:06 11/25/24 20:29 Fluticasone/Salmeterol 115-21 Mcg Inhaler 1 Puff INHALATION 2 puff Q12HRT OMAR Administration Senna/Docusate Sodium 2 tab 11/25/24 17:00 11/25/24 17:56 Senna/Docusate Sodium Tablet PO 2 tab BID OMAR Administration Umeclidinium [place] 1 puff 11/26/24 08:00 Umeclidinium [place] 62.5 Mcg Ellipta INHALATION DAILYRT [facility] Vitamin D 2,000 units 11/26/24 09:00 Cholecalciferol 1,000 Units Tablet PO DAILY [facility] Radiology Results: ITS Impressions Knee X-Ray 11/25/24 10:42 Impression: Status post total knee replacement, without evidence of hardware complication. Labs Labs: Laboratory Results - last 24 hr 11/25/24 11/26/24 06:49 06:30 WBC 14.6 H RBC 3.18 L Hgb 10.0 L Hct 30.5 L MCV 95.9 MCH 31.4 MCHC 32.8 RDW 13.2 Plt Count 270 MPV 9.7 Immature Gran % (Auto) 0.4 Neut % (Auto) 75.2 H Lymph % (Auto) 12.4 L [place] % (Auto) 11.6 H Eos % (Auto) 0.1 Baso % (Auto) 0.3 Lymph # (Auto) 1.81 [place] # (Auto) 1.7 H Eos # (Auto) 0.0 Baso # (Auto) 0.0 Abs Immat Gran (auto) 0.06 H Absolute Neuts (auto) 11.0 H Absolute Nucleated RBC 0.000 Nucleated RBC % 0.0 Sodium 135 L Potassium 3.6 Chloride 105 Carbon Dioxide 23 Anion Gap 7 BUN 22 H Creatinine 0.54 L Estim Creat Clear Calc 94 Estimated GFR > 60 Glucose 123 H Calcium 9.2 Blood Type O Positive Antibody Screen Positive Antibody Identification Anti-c Antigen Identification c Antigen - NEGATIVE MONET, IgG Interpret Not Performed MONET, Poly Interpret Negative MONET, Complement Interp Not Performed
[2024-11-26] MEDS: UMECLIDINIUM BROMIDE 62.5 MCG ELLIPTA 1 PUFF INHALATION (09:06)
[2024-11-26] MEDS: FLUTICASONE/SALMETEROL 115-21 MCG INHALER 1 PUFF 2 PUFF INHALATION (09:07)
[2024-11-26] MEDS: MECLIZINE HCL 25 MG TABLET PO (09:11)
[2024-11-26] MEDS: CEFDINIR 300 MG CAPSULE PO (09:11)
[2024-11-26] MEDS: CHOLECALCIFEROL 1,000 UNITS TABLET 2000 UNITS PO (09:11)
[2024-11-26] MEDS: CALCIUM/VITAMIN D 500 MG/5 MCG (200 I.U.) TABLET PO (09:11)
[2024-11-26] MEDS: FAMOTIDINE 20 MG TABLET PO (09:11)
[2024-11-26] MEDS: AMITRIPTYLINE HCL 25 MG TABLET 50 MG PO (09:11)
[2024-11-26] MEDS: busPIRone HCL 10 MG TABLET 30 MG PO (09:11)
[2024-11-26] MEDS: SENNA/DOCUSATE SODIUM TABLET 2 TAB PO (09:11)
[2024-11-26] MEDS: FENOFIBRATE,MICRONIZED 48 MG TABLET PO (09:11)
[2024-11-26] MEDS: CYANOCOBALAMIN 1,000 MCG TABLET 1000 MCG PO (09:12)
[2024-11-26] MEDS: MONTELUKAST SODIUM 10 MG TABLET PO (09:12)
[2024-11-26] MEDS: GABAPENTIN 400 MG CAPSULE 800 MG PO (09:12)
[2024-11-26] MEDS: polyethylene glycoL 3350 17 GM POWD.PACK PO (09:12)
[2024-11-26] MEDS: APIXABAN 2.5 MG TABLET PO (09:12)
[2024-11-26] MEDS: AZELASTINE HCL NASAL 0.1% 137 MCG/SPR 30 ML BTL 1 SPRAY NASAL (09:18)
[2024-11-26] MEDS: FLUTICASONE PROPIONATE 0.05% NA SPR 16 GM BTL (*BKC) 2 SPRAY NASAL (09:18)
== END 2024-11-26 11:20 | disposition home or self-care (01) ==
LOC: ANHSURGERY 05:53 → ANH3MEDSUR 13:27
PROVIDERS: Physician Assistant Surgical; PCP Family Medicine; Visit Provider Orthopaedic Surgery
PROC: (CPT 27447; principal; 2024-11-25 07:30)
DX: M17.0 Bilateral primary osteoarthritis of knee (principal); F31.9 Bipolar disorder, unspecified; F41.9 Anxiety disorder, unspecified; J44.9 Chronic obstructive pulmonary disease, unspecified; E78.00 Pure hypercholesterolemia, unspecified; Z87.891 Personal history of nicotine dependence; E66.9 Obesity, unspecified; Z68.29 Body mass index [BMI] 29.0-29.9, adult
CPT/HCPCS: 27447; 20610; 36415; 73560; 80048; 85025; 86850; 86880; 86900; 86901; 86902; 86922; 94640; 97110; 97116; 97161; 97165; 97530; 97535; A9270; C1713; C1776; J0171; J0690; J1010; J1596; J1885; J2003; J2250; J2405; J2704; J2710; J2795; J3010; J3370; J7120

== ENCOUNTER 2025-02-04 08:54 | Outpatient (CLI) | payer OTHER, SELFPAY ==
--- NOTE | ~2025-02-04 | CT_ITS ---
EXAMINATION: CT sinus wo con DATE: 02/04/2025 09:07 INDICATION: Chronic sinusitis TECHNIQUE: Computed tomography (CT) of the paranasal sinuses was performed without intravenous contra st. The dose-length product was 329.94 mGy-cm. Automated exposure control and iterative reconstructio n technique were employed. COMPARISON: None FINDINGS: There is no significant mucosal thickening. Ostiomeatal units are patent. Rightward nasal s eptal deviation. No air-fluid levels. No mucoperiosteal reaction. Mastoids are pneumatized. IMPRESSION: 1. No significant sinus disease. Reviewed, dictated and finalized at location A.
--- OUTSIDE RECORDS SUMMARY | 2025-02-04 08:59 | XMS_ITS | Encounter Summary ---
Author Organization [facility] Address [address] [place] [address] Phone Care Team Providers Care Oyster Cultivator Name Role Phone Trini Rockwell MD Unavailable [phone] Latesha Lewis MD Primary Care Provider + Michael Benz MD Unavailable [phone] Encounter Details Date Type Department Care Team (Late st Contact Info) Description 06/13/2021 Telephone [facility] [address] [place] [address] Michael Benz MD [address] [place] [address] Social History Tobacco Use Types [...] encounter Miscellaneous Notes * Telephone Encounter - Evelin Lyons - 06/13/2021 8:04 AM CDT Patient called about the mammogram she had done at [facility], report is in media and if you wanted her to come in or what you recommend for her to do. Please advise. documented in this encounter Plan of Treatment Upcoming Encounters Date Type Department Care Team (Late st Contact Info) Description 02/11/2025 9:45 AM CDT Lab [facility] [address] [phone] Lab, [facility] 02/11/2025 10:00 AM CDT Office Visit [facility] [address] [phone] Michael Benz MD [address] [place] [phone] documented as of this encounter Visit Diagnoses Not on filedocumented in this encounter Additional Health Concerns Assessment Noted Time PHQ-9 Depression Total Score: 1 04/04/20 21 2:23 PM CDT documented as of this encounter Care Teams Oyster Cultivator Relationship Specialty Start Date End Date Latesha Lewis MD [address] [place] [phone] PCP - General Family Medicine 11/05/19 Trini Rockwell MD [address] [place] [id number] Radiation Oncologist Radiology 10/16/19 Michael Benz MD [address] [place] [phone] Consulting Physician Oncology 01/17/23 documented as of this encounter
--- OUTSIDE RECORDS SUMMARY | 2025-02-04 08:59 | XMS_ITS | Referral Summary ---
Author Organization [facility] Building B Address [address] [place] [address] Care Team Providers Care Food Equipment Service Technician Name Role Phone Ke Frederick NP Primary Care Provider [phone] Encounters Date Type Department Care Team Description 02/03/2025 Orders Only [facility] Pulmonary at [address] [place] [phone] Es Vu LPN 01/27/2025 8:00 AM CDT - 01/27/2025 11:59 PM CDT Hospital Encounter [facility] [address] [place] [address] Obstructive sleep apnea Discharge Disposition: Discharge to home or self care 01/23/2025 7:30 AM CDT - 01/23/2025 11:59 PM CDT Hospital Encounter [facility] 1 [facility] [address] [place] [address] Discharge Disposition: Discharge to home or self care 01/22/2025 Results Follow-Up [facility] Neurology [address] [place] [address] [place] [phone] Ann Matthews NP MRI Cervical Spine W WO Contrast 01/22/2025 Results Follow-Up [facility] [address] [place] [address] [address] [place] [phone] Ann Matthews NP MRI Lumbar Spine W WO Contrast 01/19/2025 7:59 AM CDT - 01/19/2025 11:59 PM CDT Hospital Encounter [address] [address] Migraine without aura and without status migrainosus, not intractable; Neurofibromatosis, type 1 (HCC) Discharge Disposition: Discharge to home or self care 01/19/2025 7:59 AM CDT - 01/19/2025 11:59 PM CDT Hospital Encounter [address] [address] Neck pain; Neurofibromatosis, type 1 (HCC) Discharge Disposition: Discharge to home or self care 01/14/2025 8:30 AM CDT Office Visit [facility] Sleep Medicine at [address] [place] [phone] Mi Lerma MD LUISA (obstructive sleep apnea) (Primary Dx); Obstructive sleep apnea; Hypersomnia; Overweight; Insomnia, unspecified type 01/13/2025 7:40 AM CDT - 01/13/2025 11:59 PM CDT Hospital Encounter [address] [address] Gait disorder; Neurofibromatosis, type 1 (HCC) Discharge Disposition: Discharge to home or self care 12/29/2024 1:00 PM CDT Office Visit [facility] Neurology [address] [phone] Ann Matthews NP Neck pain (Primary Dx); Gait disorder; Migraine without aura and without status migrainosus, not intractable; Neurofibromatosis, type 1 (HCC) 12/12/2024 Telephone [facility] [address] [place] [address] [address] [place] [address] Jeanie Velasco 11/19/2024 Orders Only [address] [place] [address] Cailin Obrien NP 11/19/[address] [place] [address] Jeanie Velasco 11/19/2024 9:45 AM CDT Office Visit [facility] Pulmonary at [address] [place] [address] Salvatore Walker DO Moderate persistent asthma without complication (Primary Dx); Chronic rhinosinusitis; Preoperative clearance; LUISA (obstructive sleep apnea) 11/07/2024 12:09 PM PORTAINER OPERATOR - 11/07/2024 5:31 PM PORTAINER OPERATOR Emergency [facility] Emergency Department [id number] [place] [address] Dov Prasad MD Encounter for monitoring digoxin therapy (Primary Dx) Discharge Disposition: Discharge to home or self care from Last 3 Months Allergies Active Allergy [...] Quinolones Other (See comments),Rash Medium 06/16/2019 SOB Wygpwdm-Qnl-Pgw Reductase Inhibitors Other (See comments),Muscle pain,Shortness of [...] a day as needed for dizziness Active budesonide-formote roL (SYMBICORT) 160-4.5 mcg/actuation inhaler Inhale 2 puffs 2 (two) times a day Rinse mouth with water after use. Do not swallow. 1 each 2023 Active albuterol HFA (PROVENTIL HFA,VENTOLIN HFA,PROAIR [...] (25 mg total) by mouth nightly Active miconazole 2 % cream Apply topically 2 (two) times a day 28.35 g 2024 Active biotin 2,500 mcg capsule Take by mouth Active oxyCODONE 5 mg tablet, oral only Take by mouth Active magnesium oxide 400 mg magnesium capsule Take 400 mg by mouth daily 90 capsule 1 06/27 Active riboflavin, vitamin B2, 400 mg tablet Take 400 mg by mouth daily 90 tablet 1 06/27 Active Qulipta 60 mg tablet Take 60 mg by mouth daily 90 tablet 3 12/29 Active Linzess 145 mcg capsuleIndications :Chronic idiopathic constipation Take 1 capsule by mouth once daily 30 capsule 2024 Active azelastine (ASTELIN) 137 mcg (0.1 %) nasal spray Administer 1 spray into each nostril 2 (two) times a day Use in each nostril as directed 30 mL 11 2024 Active azelastine (ASTELIN) 137 mcg (0.1 %) nasal spray Administer 1 spray into each nostril 2 (two) times a day Use in each nostril as directed 30 mL 11 02/03 Discontinued( Reorder) Linzess 145 mcg capsuleIndications :Chronic idiopathic constipation Take 1 capsule by mouth once daily 30 capsule 01/19 Discontinued Active Problems Problem Noted Date Diagnosed Date Obstructive sleep apnea 01/29/2025 Chronic rhinosinusitis 11/20/2024 Preoperative clearance 11/20/2024 S/P [...] Used Date Smoking Tobacco: Former Cigarettes 0.5 20.4 2 005 - 1985 Smokeless Tobacco: Never Comments:06/02/2024 Stress roge black, patient says that she would smoke between a couple to a whole pack per day. [facility] AUDIT-C Answer Date Recorded Q1: How often [...] on file Legal Sex Female 12:43 AM PORTAINER OPERATOR Gender Identity Not on file Sexual Orientation Not on file Last Filed Vital Signs Vital Sign Reading Time Taken Comments Blood Pressure 137/85 01/14/2025 7:47 AM CDT Pulse 84 01/14/2025 7:47 AM CDT Temperature 36.4 C (97.5 F) 11/19/2024 9:17 AM CDT Respiratory Rate 24 12/29/2024 12:43 PM CDT Oxygen Saturation 100% 01/14/2025 7:47 AM CDT Inhaled Oxygen Concentration - - Weight 70.9 kg (156 lb 3.2 oz) 01/14/2025 7:47 A M CDT Height 160 cm (5' 3) 01/23/2025 12:36 PM CDT Body Mass Index 28.56 01/14/2025 7:47 AM CDT Plan of Treatment Not on file Procedures Procedure Name Priority Date/Time Associated Diagnosis Comments PORTABLE/HOME SLEEP STUDY Routine 01/29/2025 Obstructive sleep apnea MRI CERVICAL SPINE W WO CONTRAST Schedule Routine, Read Routine (OP Routine) 01/19/2025 9:29 AM CDT Neck pain Neurofibromatosis , type 1 (HCC) MRI BRAIN W WO CONTRAST Schedule Routine, Read Routine (OP Routine) 01/19/2025 9:28 AM CDT Migraine without aura and without status migrainosus, not intractable Neurofibromatosis , type 1 (HCC) MRI LUMBAR SPINE W WO CONTRAST Schedule Routine, Read Routine (OP Routine) 01/13/2025 8:24 AM CDT Gait disorder Neurofibromatosis , type 1 (HCC) EGFR STAT 11/07/2024 12:24 PM PORTAINER OPERATOR DIFFERENTIAL AUTO STAT 11/07/2024 12: 24 PM PORTAINER OPERATOR DIGOXIN LEVEL STAT 11/07/2024 12:24 PM PORTAINER OPERATOR MAGNESIUM Routine 11/07/2024 12:24 PM PORTAINER OPERATOR COMPREHENSIVE METABOLIC PANEL STAT 11/07/2024 12:24 PM PORTAINER OPERATOR CBC WITH AUTO DIFFERENTIAL STAT 11/07/2024 12:24 PM PORTAINER OPERATOR ECG 12-LEAD STAT 11/07/2024 12:17 PM PORTAINER OPERATOR from Last 3 Months Results * Portable/Home Sleep Study (01/29/2025) Impressions Mi Lerma MD - 01/29/2025 HOME SLEEP APNEA TEST HISTORY: Socorro Ibarra is a 54 y.o. female who presents for Home sleep apnea test. (HSAT). Reason for sleep study: Obstructive sleep apnea, status post weight loss Timnath Sleepiness Score: 7 Weight: 156 lbs BMI: 27.67 PROCEDURE: This is a single night diagnostic study. This Home Sleep apnea Test (HSAT) utilized an unattended FDA approved [employer]Med apnea link home air portable monitoring device investigating for obstructive sleep apnea. The patient was provided instructions of the device and application by the registered space technologist at the [facility]. This test was performed without a mechanical technologist in attendance. In this study, the following parameters were monitored: Hamlet-nasal airflow, snoring, chest respiratory effort, abdominal respiratory effort, body position, movement, oxygen saturation, and heart rate. Respiratory events are scored according to the criteria from The [place] [employer] (AASM) Manual for the scoring of sleep and associated events - version 2.6. FINDINGS: The recorded bed time starts at 8:10 pm. The total recording duration is 7:50 hours. The respiratory events (RE) included 2 apneas and 22 hypopneas. The total Respiratory event index (DEBBIE) was 3.1 per hour. Obstructive apnea index was 0.1, central apnea index was 0.0, mixed apnea index was 0.1. Lowest SpO2 was 87 % and time spent < 88% was 0:00 hours. Oxygen desaturation index was 3.1. Patient spent 7:10 hours in supine and 0:02 hours in non-supine position. Average heart rate was 82/min, minimum heart rate was 72/min, and maximum heart rate was 96/min. INTERPRETATION: This is an adequate quality Home Sleep apnea Test. (HSAT) 1. This home sleep apnea study (HSAT) is negative for obstructive sleep apnea. RECOMMENDATIONS: 1. If there is strong clinical suspicion of sleep apnea, a repeat home sleep apnea test or in-lab attended sleep study should be considered. Limitations of the study: 1. A sleep EEG was not recorded; therefore, the actual amount of time spent in sleep, stages of sleep and respiratory events associated with arousals cannot be determined by this study. 2. All indexes are computed against monitoring time, not total sleep time. For this reason, the degree of severity may be underestimated * Please note: The severity of the sleep apnea may vary from night to night depending on body position during sleep, REM sleep and sleep efficiency. These factors should be taken into consideration. Mi Lerma MD [facility] Sleep Medicine Narrative Mi Lerma MD - 01/29/2025 Ocst is ready for review us Mi Lerma MD SLEEP CENTER ORDERABLES Final Re sult * MRI Cervical Spine W WO Contrast (01/19/2025 9:29 AM CDT) Anatomical Region Laterality Modality Spine N/A Magnetic Resonan ce 01/19/2025 12:3 6 PM CDT Narrative 01/19/2025 12:51 PM CDT EXAM DESCRIPTION: MRI BRAIN WITHOUT AND WITH CONTRAST; MRI CERVICAL SPINE WITHOUT AND WITH CONTRAST REASON FOR STUDY: Basilar neck pain radiating upwards to the head with resultant migraine headaches that patient reports can last for days occurring over unspecified duration. No provided focal neurologic deficits. No provided history of trauma or inciting and/or aggravating events. History of neural fibromatosis type 1. No provided surgical history. TECHNIQUE: MRI BRAIN: Multiplanar imaging includes noncontrast T1, T2, FLAIR, diffusion with ADC map and post contrast T1 sequences. Additional sequence(s) sensitive to blood products. MRI CERVICAL SPINE: Sagittal and axial imaging of the cervical spine includes T1, T2, STIR and gradient echo sequences. Post contrast T1-weighted images. Images saved to PACS. CONTRAST TYPE/DOSE: 14 mL Dotarem injected via peripheral IV site without reported incident. COMPARISON: MRI brain without and with contrast (IAC protocol) 04/25/2024; MRI brain without and with contrast (pituitary protocol) 08/20/2009 FINDINGS: MRI BRAIN: CEREBRUM: No acute intra-axial hemorrhage. No edema, mass effect, midline shift, or herniation. No abnormal enhancement. WHITE MATTER: Within the limitations of motion artifact on axial FLAIR sequences, no new suspicious focal white matter lesions with preservation of the bach-white junction common noting stable appearance of previously discussed right subcortical white matter lesions. POSTERIOR FOSSA: Brainstem and cerebellum are unremarkable. No abnormal enhancement. DIFFUSION IMAGING: No restricted diffusion to suggest acute/subacute ischemia or infarct. EXTRAAXIAL SPACES: No extra-axial fluid collection. No extra-axial mass. No abnormal enhancement. BRAIN VOLUME: Within normal limits for age. PITUITARY: Unremarkable. VASCULATURE: No flow disturbance evident. CALVARIUM: Unremarkable. ORBITS: While evaluation of the orbital contents not optimized on MRI of the brain, no acute abnormality evident with ocular lenses and globes normal in conformation and position. PARANASAL SINUSES AND MASTOIDS: Paranasal sinuses clear. Mastoid air cells well-developed and well aerated. OTHER: No other significant finding. MRI CERVICAL SPINE: ALIGNMENT: Straightening of the cervical lordosis. VERTEBRAE: No MR evidence of acute-subacute fracture. Vertebral body heights maintained. Spondylosis. Marrow signal within normal limits. DISCS: Multilevel variable intervertebral disc desiccation and predominantly slight loss of intervertebral disc height. HARDWARE: None in the cervical spine. CORD: Normal in size and signal intensity. No abnormal enhancement. INDIVIDUAL DISC LEVELS: C1-C2: No spinal canal stenosis. C2-C3: No significant diffuse disc bulge or focal herniation. No spinal canal stenosis. No neural foraminal stenosis. C3-C4: Diffuse disc bulge or focal herniation. Yffi-iznbowf-thrv-right hypertrophic facet arthropathy. No spinal canal stenosis. No neural foraminal stenosis. C4-C5: Mild posterior disc osteophyte complex with tiny central disc protrusion indenting the ventral thecal sac. Bilateral, alpzi-crsysse-wngh-left, hypertrophic facet arthropathy. Bilateral uncovertebral joint disease. Mild spinal canal stenosis. No significant neural foraminal stenosis. C5-C6: No diffuse disc bulge or focal herniation. Bilateral hypertrophic facet arthropathy. Bilateral uncovertebral joint disease. No spinal canal stenosis. No neural foraminal stenosis. C6-C7: Minimal annular disc bulge slightly indenting the ventral thecal sac. Bilateral facet arthropathy. Bilateral uncovertebral joint disease. No spinal canal stenosis no neural foraminal stenosis. C7-T1: Diffuse disc bulge or focal herniation. No spinal canal stenosis. No neural foraminal stenosis. Tiny left perineural sleeve cyst. UPPER THORACIC: Incompletely imaged. No significant spinal stenosis or foraminal stenosis. OTHER: No other significant finding. IMPRESSION: 1. No acute intracranial process. 2. Constellation of straightening of the cervical lordosis, spondylosis, and degenerative disc disease of the cervical spine as detailed level by level above. THIS IS AN ELECTRONICALLY VERIFIED FINAL REPORT 01/19/2025 12:51 PM - Electronically signed by Benito Redidng M.D. VIVIAN: VIVIAN Report ID: [id number] Reading Location: [id number] Procedure Note Benito Redding MD - 01/19/2025 EXAM DESCRIPTION: MRI BRAIN WITHOUT AND WITH CONTRAST; MRI CERVICALSPINE WITHOUT AND WITH CONTRAST REASON FOR STUDY: Basilar neck pain radiating upwards to the head with resultant migraine headaches that patient reports can last for daysoccurring over unspecified duration. No provided focal neurologic deficits. No provided history of trauma or inciting and/or aggravating events. Historyof neural fibromatosis type 1. No provided surgical history. TECHNIQUE: MRI BRAIN: Multiplanar imaging includes noncontrast T1, T2,FLAIR, diffusion with ADC map and post contrast T1 sequences. Additionalsequence(s) sensitive to blood products. MRI CERVICAL SPINE: Sagittal and axial imaging of the cervical spineincludes T1, T2, STIR and gradient echo sequences. Post contrast T1-weightedimages. Images saved to PACS. CONTRAST TYPE/DOSE: 14 mL Dotarem injected via peripheral IV sitewithout reported incident. COMPARISON: MRI brain without and with contrast (IAC protocol)04/25/2024; MRI brain without and with contrast (pituitary protocol) 08/20/2009 FINDINGS: MRI BRAIN: CEREBRUM: No acute intra-axial hemorrhage. No edema, mass effect,midline shift, or herniation. No abnormal enhancement. WHITE MATTER: Within the limitations of motion artifact on axial FLAIR sequences, no new suspicious focal white matter lesions with preservationof the bach-white junction common noting stable appearance of previously discussed right subcortical white matter lesions. POSTERIOR FOSSA: Brainstem and cerebellum are unremarkable. No abnormal enhancement. DIFFUSION IMAGING: No restricted diffusion to suggest acute/subacute ischemia or infarct. EXTRAAXIAL SPACES: No extra-axial fluid collection. No extra-axial mass.No abnormal enhancement. BRAIN VOLUME: Within normal limits for age. PITUITARY: Unremarkable. VASCULATURE: No flow disturbance evident. CALVARIUM: Unremarkable. ORBITS: While evaluation of the orbital contents not optimized on MRI ofthe brain, no acute abnormality evident with ocular lenses and globes normalin conformation and position. PARANASAL SINUSES AND MASTOIDS: Paranasal sinuses clear. Mastoid aircells well-developed and well aerated. OTHER: No other significant finding. MRI CERVICAL SPINE: ALIGNMENT: Straightening of the cervical lordosis. VERTEBRAE: No MR evidence of acute-subacute fracture. Vertebral body heights maintained. Spondylosis. Marrow signal within normal limits. DISCS: Multilevel variable intervertebral disc desiccation andpredominantly slight loss of intervertebral disc height. HARDWARE: None in the cervical spine. CORD: Normal in size and signal intensity. No abnormal enhancement. INDIVIDUAL DISC LEVELS: C1-C2: No spinal canal stenosis. C2-C3: No significant diffuse disc bulge or focal herniation. No spinal canal stenosis. No neural foraminal stenosis. C3-C4: Diffuse disc bulge or focal herniation. Rnqs-olttcih-tlyg-right hypertrophic facet arthropathy. No spinal canal stenosis. No neural foraminal stenosis. C4-C5: Mild posterior disc osteophyte complex with tiny central disc protrusion indenting the ventral thecal sac. Bilateral, qzfmo-prtzthf-oxek-left, hypertrophic facet arthropathy. Bilateral uncovertebral joint disease. Mild spinal canal stenosis. No significant neural foraminal stenosis. C5-C6: No diffuse disc bulge or focal herniation. Bilateralhypertrophic facet arthropathy. Bilateral uncovertebral joint disease. No spinalcanal stenosis. No neural foraminal stenosis. C6-C7: Minimal annular disc bulge slightly indenting the ventral thecalsac. Bilateral facet arthropathy. Bilateral uncovertebral joint disease. No spinal canal stenosis no neural foraminal stenosis. C7-T1: Diffuse disc bulge or focal herniation. No spinal canalstenosis. No neural foraminal stenosis. Tiny left perineural sleeve cyst. UPPER THORACIC: Incompletely imaged. No significant spinal stenosis or foraminal stenosis. OTHER: No other significant finding. IMPRESSION: 1. No acute intracranial process. 2. Constellation of straightening of the cervical lordosis, spondylosis,and degenerative disc disease of the cervical spine as detailed level by level above. THIS IS AN ELECTRONICALLY VERIFIED FINAL REPORT 01/19/2025 12:51 PM - Electronically signed by Benito Redding M.D. VIVIAN: VIVIAN Report ID: [id number] Reading Location: [id number] us Ann Matthews NP IMG MRI PROCEDURES Final R esult * MRI Brain W WO Contrast (01/19/2025 9:28 AM CDT) Anatomical Region Laterality Modality Head and Neck N/A Magnetic Resonan ce 01/19/2025 12:3 6 PM CDT Narrative 01/19/2025 12:51 PM CDT EXAM DESCRIPTION: MRI BRAIN WITHOUT AND WITH CONTRAST; MRI CERVICAL SPINE WITHOUT AND WITH CONTRAST REASON FOR STUDY: Basilar neck pain radiating upwards to the head with resultant migraine headaches that patient reports can last for days occurring over unspecified duration. No provided focal neurologic deficits. No provided history of trauma or inciting and/or aggravating events. History of neural fibromatosis type 1. No provided surgical history. TECHNIQUE: MRI BRAIN: Multiplanar imaging includes noncontrast T1, T2, FLAIR, diffusion with ADC map and post contrast T1 sequences. Additional sequence(s) sensitive to blood products. MRI CERVICAL SPINE: Sagittal and axial imaging of the cervical spine includes T1, T2, STIR and gradient echo sequences. Post contrast T1-weighted images. Images saved to PACS. CONTRAST TYPE/DOSE: 14 mL Dotarem injected via peripheral IV site without reported incident. COMPARISON: MRI brain without and with contrast (IAC protocol) 04/25/2024; MRI brain without and with contrast (pituitary protocol) 08/20/2009 FINDINGS: MRI BRAIN: CEREBRUM: No acute intra-axial hemorrhage. No edema, mass effect, midline shift, or herniation. No abnormal enhancement. WHITE MATTER: Within the limitations of motion artifact on axial FLAIR sequences, no new suspicious focal white matter lesions with preservation of the bach-white junction common noting stable appearance of previously discussed right subcortical white matter lesions. POSTERIOR FOSSA: Brainstem and cerebellum are unremarkable. No abnormal enhancement. DIFFUSION IMAGING: No restricted diffusion to suggest acute/subacute ischemia or infarct. EXTRAAXIAL SPACES: No extra-axial fluid collection. No extra-axial mass. No abnormal enhancement. BRAIN VOLUME: Within normal limits for age. PITUITARY: Unremarkable. VASCULATURE: No flow disturbance evident. CALVARIUM: Unremarkable. ORBITS: While evaluation of the orbital contents not optimized on MRI of the brain, no acute abnormality evident with ocular lenses and globes normal in conformation and position. PARANASAL SINUSES AND MASTOIDS: Paranasal sinuses clear. Mastoid air cells well-developed and well aerated. OTHER: No other significant finding. MRI CERVICAL SPINE: ALIGNMENT: Straightening of the cervical lordosis. VERTEBRAE: No MR evidence of acute-subacute fracture. Vertebral body heights maintained. Spondylosis. Marrow signal within normal limits. DISCS: Multilevel variable intervertebral disc desiccation and predominantly slight loss of intervertebral disc height. HARDWARE: None in the cervical spine. CORD: Normal in size and signal intensity. No abnormal enhancement. INDIVIDUAL DISC LEVELS: C1-C2: No spinal canal stenosis. C2-C3: No significant diffuse disc bulge or focal herniation. No spinal canal stenosis. No neural foraminal stenosis. C3-C4: Diffuse disc bulge or focal herniation. Itmi-rbnokxd-vbvi-right hypertrophic facet arthropathy. No spinal canal stenosis. No neural foraminal stenosis. C4-C5: Mild posterior disc osteophyte complex with tiny central disc protrusion indenting the ventral thecal sac. Bilateral, otlsp-cqaxpdz-hffd-left, hypertrophic facet arthropathy. Bilateral uncovertebral joint disease. Mild spinal canal stenosis. No significant neural foraminal stenosis. C5-C6: No diffuse disc bulge or focal herniation. Bilateral hypertrophic facet arthropathy. Bilateral uncovertebral joint disease. No spinal canal stenosis. No neural foraminal stenosis. C6-C7: Minimal annular disc bulge slightly indenting the ventral thecal sac. Bilateral facet arthropathy. Bilateral uncovertebral joint disease. No spinal canal stenosis no neural foraminal stenosis. C7-T1: Diffuse disc bulge or focal herniation. No spinal canal stenosis. No neural foraminal stenosis. Tiny left perineural sleeve cyst. UPPER THORACIC: Incompletely imaged. No significant spinal stenosis or foraminal stenosis. OTHER: No other significant finding. IMPRESSION: 1. No acute intracranial process. 2. Constellation of straightening of the cervical lordosis, spondylosis, and degenerative disc disease of the cervical spine as detailed level by level above. THIS IS AN ELECTRONICALLY VERIFIED FINAL REPORT 01/19/2025 12:51 PM - Electronically signed by Benito Redding M.D. VIVIAN: VIVIAN Report ID: [id number] Reading Location: [id number] Procedure Note Benito Redding MD - 01/19/2025 EXAM DESCRIPTION: MRI BRAIN WITHOUT AND WITH CONTRAST; MRI CERVICALSPINE WITHOUT AND WITH CONTRAST REASON FOR STUDY: Basilar neck pain radiating upwards to the head with resultant migraine headaches that patient reports can last for daysoccurring over unspecified duration. No provided focal neurologic deficits. No provided history of trauma or inciting and/or aggravating events. Historyof neural fibromatosis type 1. No provided surgical history. TECHNIQUE: MRI BRAIN: Multiplanar imaging includes noncontrast T1, T2,FLAIR, diffusion with ADC map and post contrast T1 sequences. Additionalsequence(s) sensitive to blood products. MRI CERVICAL SPINE: Sagittal and axial imaging of the cervical spineincludes T1, T2, STIR and gradient echo sequences. Post contrast T1-weightedimages. Images saved to PACS. CONTRAST TYPE/DOSE: 14 mL Dotarem injected via peripheral IV sitewithout reported incident. COMPARISON: MRI brain without and with contrast (IAC protocol)04/25/2024; MRI brain without and with contrast (pituitary protocol) 08/20/2009 FINDINGS: MRI BRAIN: CEREBRUM: No acute intra-axial hemorrhage. No edema, mass effect,midline shift, or herniation. No abnormal enhancement. WHITE MATTER: Within the limitations of motion artifact on axial FLAIR sequences, no new suspicious focal white matter lesions with preservationof the bach-white junction common noting stable appearance of previously discussed right subcortical white matter lesions. POSTERIOR FOSSA: Brainstem and cerebellum are unremarkable. No abnormal enhancement. DIFFUSION IMAGING: No restricted diffusion to suggest acute/subacute ischemia or infarct. EXTRAAXIAL SPACES: No extra-axial fluid collection. No extra-axial mass.No abnormal enhancement. BRAIN VOLUME: Within normal limits for age. PITUITARY: Unremarkable. VASCULATURE: No flow disturbance evident. CALVARIUM: Unremarkable. ORBITS: While evaluation of the orbital contents not optimized on MRI ofthe brain, no acute abnormality evident with ocular lenses and globes normalin conformation and position. PARANASAL SINUSES AND MASTOIDS: Paranasal sinuses clear. Mastoid aircells well-developed and well aerated. OTHER: No other significant finding. MRI CERVICAL SPINE: ALIGNMENT: Straightening of the cervical lordosis. VERTEBRAE: No MR evidence of acute-subacute fracture. Vertebral body heights maintained. Spondylosis. Marrow signal within normal limits. DISCS: Multilevel variable intervertebral disc desiccation andpredominantly slight loss of intervertebral disc height. HARDWARE: None in the cervical spine. CORD: Normal in size and signal intensity. No abnormal enhancement. INDIVIDUAL DISC LEVELS: C1-C2: No spinal canal stenosis. C2-C3: No significant diffuse disc bulge or focal herniation. No spinal canal stenosis. No neural foraminal stenosis. C3-C4: Diffuse disc bulge or focal herniation. Xbim-gxowtox-zkro-right hypertrophic facet arthropathy. No spinal canal stenosis. No neural foraminal stenosis. C4-C5: Mild posterior disc osteophyte complex with tiny central disc protrusion indenting the ventral thecal sac. Bilateral, bpffr-zqyvcet-kxcj-left, hypertrophic facet arthropathy. Bilateral uncovertebral joint disease. Mild spinal canal stenosis. No significant neural foraminal stenosis. C5-C6: No diffuse disc bulge or focal herniation. Bilateralhypertrophic facet arthropathy. Bilateral uncovertebral joint disease. No spinalcanal stenosis. No neural foraminal stenosis. C6-C7: Minimal annular disc bulge slightly indenting the ventral thecalsac. Bilateral facet arthropathy. Bilateral uncovertebral joint disease. No spinal canal stenosis no neural foraminal stenosis. C7-T1: Diffuse disc bulge or focal herniation. No spinal canalstenosis. No neural foraminal stenosis. Tiny left perineural sleeve cyst. UPPER THORACIC: Incompletely imaged. No significant spinal stenosis or foraminal stenosis. OTHER: No other significant finding. IMPRESSION: 1. No acute intracranial process. 2. Constellation of straightening of the cervical lordosis, spondylosis,and degenerative disc disease of the cervical spine as detailed level by level above. THIS IS AN ELECTRONICALLY VERIFIED FINAL REPORT 01/19/2025 12:51 PM - Electronically signed by Benito Redding M.D. VIVIAN: VIVIAN Report ID: [id number] Reading Location: [place] [address] Ann Matthews EDUCATIONAL CONSULTANT IMG MRI PROCEDURES Final R esult * MRI Lumbar Spine W WO Contrast (01/13/2025 8:24 AM CDT) Anatomical Region Laterality Modality Spine N/A Magnetic Resonan ce 01/13/2025 9:04 AM CDT Narrative 01/13/2025 9:22 AM CDT EXAM DESCRIPTION: MRI LUMBAR SPINE W WO CONTRAST REASON FOR STUDY: Lumbar radiculopathy, symptoms persist with > 6 wks treatment, Neurofibromatosis type 1 Patient claims a HX of neurofibromas in her back, had surgery in 1996, following up to see what can be done to help her back, pain and numbness running down both legs, no injuries TECHNIQUE: Sagittal and Axial imaging includes T1, T1 post gadolinium, T2, and STIR sequences. CONTRAST TYPE/DOSE: 12mL of GADOTERATE MEGLUMINE 0.5 MMOL/ML INTRAVENOUS SOLUTION (SO) injected via intravenous COMPARISON: None available. FINDINGS: Multiple of the sequences are degraded by motion related artifact despite repeat attempts. SEGMENTATION: 5 vsk-vna-bzcozuo lumbar type vertebral bodies. ALIGNMENT: Anterior-posterior alignment is maintained. VERTEBRAE: No acute compression fracture in the lumbar spine. Mild endplate degenerative changes. Rounded T1 and T2 hyperintense foci including in the L2 and L5 vertebral bodies in keeping with intraosseous hemangiomas. Please note subtle marrow abnormality is not adequately assessed on this motion degraded study. DISC HEIGHT: Multilevel disc desiccation and height loss. HARDWARE: None in the spine. CORD/CAUDA: Conus medullaris terminates at L1-L2. No nodular enhancement about the cauda equina nerve roots within the confines of the motion limited study. LOWER THORACIC: Incompletely imaged. No high-grade spinal canal stenosis. INDIVIDUAL DISC LEVELS: L1-L2: No significant disc bulge, spinal canal or neural foraminal narrowing. There is bilateral facet arthropathy. L2-L3: No significant disc bulge, spinal canal or neural foraminal narrowing. There bilateral facet arthropathy. L3-L4: Disc bulge and superimposed left neural foraminal disc protrusion. Thickened ligamentum flavum and facet arthropathy. Flattening of the ventral thecal sac. Mild proximal right and tmjg-ui-bcvvgavi left neural foraminal narrowing. Disc abuts the exiting left L3 nerve root. L4-L5: Disc bulge and superimposed tiny left neural foraminal disc protrusion with annular fissure. Thickened ligamentum flavum and facet arthropathy. Proliferation of dorsal epidural fat. Mild spinal canal stenosis. Vzhn-yp-oyaehuok neural foraminal narrowing with disc and facet arthropathy approaching the exiting L4 nerve roots. L5-S1: Disc bulge with marginal spur formation. Superimposed central disc protrusion. Bilateral facet arthropathy. No significant spinal canal stenosis. Portion of the disc abuts the descending S1 nerve roots. Mild neural foraminal narrowing. VISUALIZED UPPER ABDOMEN: Partially imaged and incompletely characterized bilateral adrenal nodules. IMPRESSION: 1. Motion degraded examination. 2. Lish-wf-rkznmoje lumbar degenerative changes as described. The spinal canal narrowing is most noticeable at L4-L5. 3. Neural foraminal stenosis is most noticeable from L3-L4 through L5-S1. 4. Previous lumbar spine imaging is not available for comparison. An addendum can be made once priors are provided. 5. Adrenal nodule is incompletely characterized on this lumbar spine MRI. If this is a new finding for the patient then dedicated MRI could be obtained. THIS IS AN ELECTRONICALLY VERIFIED FINAL REPORT 01/13/2025 9:22 AM - Electronically signed by Roosevelt Mansfield D.O. 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 CONTRAST TYPE/DOSE: 12mL of GADOTERATE MEGLUMINE 0.5 MMOL/ML INTRAVENOUS SOLUTION (SO) injected via intravenous COMPARISON: None available. FINDINGS: Multiple of the sequences are degraded by motion related artifact despite repeat attempts. SEGMENTATION: 5 oub-gna-pxrlbih lumbar type vertebral bodies. ALIGNMENT: Anterior-posterior alignment is maintained. VERTEBRAE: No acute compression fracture in the lumbar spine. Mildendplate degenerative changes. Rounded T1 and T2 hyperintense foci including inthe L2 and L5 vertebral bodies in keeping with intraosseous hemangiomas. Pleasenote subtle marrow abnormality is not adequately assessed on this motiondegraded study. DISC HEIGHT: Multilevel disc desiccation and height loss. HARDWARE: None in the spine. CORD/CAUDA: Conus medullaris terminates at L1-L2. No nodularenhancement about the cauda equina nerve roots within the confines of the motionlimited study. LOWER THORACIC: Incompletely imaged. No high-grade spinal canalstenosis. INDIVIDUAL DISC LEVELS: L1-L2: No significant disc bulge, spinal canal or neural foraminalnarrowing. There is bilateral facet arthropathy. L2-L3: No significant disc bulge, spinal canal or neural foraminalnarrowing. There bilateral facet arthropathy. L3-L4: Disc bulge and superimposed left neural foraminal disc protrusion. Thickened ligamentum flavum and facet arthropathy. Flattening of theventral thecal sac. Mild proximal right and aemj-qh-wcnjxdlm left neuralforaminal narrowing. Disc abuts the exiting left L3 nerve root. L4-L5: Disc bulge and superimposed tiny left neural foraminal discprotrusion with annular fissure. Thickened ligamentum flavum and facet arthropathy. Proliferation of dorsal epidural fat. Mild spinal canal stenosis. Vslm-rd-qvtvnhzk neural foraminal narrowing with disc and facetarthropathy approaching the exiting L4 nerve roots. L5-S1: Disc bulge with marginal spur formation. Superimposed central disc protrusion. Bilateral facet arthropathy. No significant spinal canal stenosis. Portion of the disc abuts the descending S1 nerve roots. Mild neural foraminal narrowing. VISUALIZED UPPER ABDOMEN: Partially imaged and incompletelycharacterized bilateral adrenal nodules. IMPRESSION: 1. Motion degraded examination. 2. Echz-dt-mcvrisul lumbar degenerative changes as described. Thespinal canal narrowing is most noticeable at L4-L5. 3. Neural foraminal stenosis is most noticeable from L3-L4 throughL5-S1. 4. Previous lumbar spine imaging is not available for comparison. An addendum can be made once priors are provided. 5. Adrenal nodule is incompletely characterized on this lumbar spineMRI. If this is a new finding for the patient then dedicated MRI could beobtained. THIS IS AN ELECTRONICALLY VERIFIED FINAL REPORT 01/13/2025 9:22 AM - Electronically signed by Roosevelt Mansfield D.O. AP: LELO Report ID: [id number] Reading Location: [place] [address] us Ann Matthews EDUCATIONAL CONSULTANT IMG MRI PROCEDURES Final R esult * eGFR (11/07/2024 12:24 PM PORTAINER OPERATOR) eGFR >90 >=60 mL/min/1. 73 m2 Comment: [...] reviewed 2021. Blood 11/07/2024 12:2 4 PM PORTAINER OPERATOR 11/07/2024 12:42 PM PORTAINER OPERATOR us Dov Prasad MD LAB BLOOD ORDERABLES Final Resul t [facility] [address] [place] [address] * (ABNORMAL) Differential, auto (11/07/2024 12:24 PM PORTAINER OPERATOR) Neutrophil abs 6.8(H) 1.5 - 6.5 K/cumm Imm gran abs 0.1 0.0 - 0.1 K/cumm [facility] Lymphocyte abs 3.4(H) 0.8 - 3.3 K/cumm [facility] Monocyte abs 1.0(H) 0.2 - 0.8 K/cumm [facility] Eosinophil abs 0.2 0.0 - 0.5 K/cumm [facility] Basophil abs 0.1 0.0 - 0.1 K/cumm [facility] Neutrophil pct 58.7 % [facility] Comment: Interpretive Data Percent cell count reference ranges are not reported, since discordance with absolute values may lead to misinterpretation of CBC data. Current Interpretive Data was last revised on 2017. Imm gran pct 0.5 % [facility] Comment: Interpretive Data Percent cell count reference ranges are not reported, since discordance with absolute values may lead to misinterpretation of CBC data. Current Interpretive Data was last revised on 2017. Lymphocyte pct 29.4 % [facility] Comment: Interpretive Data Percent cell count reference ranges are not reported, since discordance with absolute values may lead to misinterpretation of CBC data. Current Interpretive Data was last revised on 2017. Monocyte pct 8.8 % [facility] Comment: Interpretive Data Percent cell count reference ranges are not reported, since discordance with absolute values may lead to misinterpretation of CBC data. Current Interpretive Data was last revised on 2017. Eosinophil pct 1.6 % [facility] Comment: Interpretive Data Percent cell count reference ranges are not reported, since discordance with absolute values may lead to misinterpretation of CBC data. Current Interpretive Data was last revised on 2017. Basophil pct 1.0 % [facility] Comment: Interpretive Data Percent cell count reference ranges are not reported, since discordance with absolute values may lead to misinterpretation of CBC data. Current Interpretive Data was last revised on 2017. Blood 11/07/2024 12:2 4 PM PORTAINER OPERATOR 11/07/2024 12:42 PM PORTAINER OPERATOR us Dov Prasad MD LAB BLOOD ORDERABLES Final Resul t [facility] [address] Department [place] [address] * (ABNORMAL) CBC with auto differential (11/07/2024 12:24 PM PORTAINER OPERATOR) WBC 11.5(H) 3.8 - 9.9 K/cumm Hgb 12.6 11.9 - 15.5 g/dL [facility] Hct 37.4 35.6 - 45.5 % [facility] Plt 430(H) 150 - 400 K/cumm [facility] MPV 9.4 9.1 - 12.3 fL [facility] RBC 3.96 3.90 - 5.20 M/cumm [facility] MCV 94.4 81.3 - 96.4 fL [facility] MCH 31.8 27.1 - 33.3 pg [facility] MCHC 33.7 32.3 - 35.7 g/dL [facility] RDW CV 13.6 11.1 - 14.9 % [facility] RDW SD 47.2 35.7 - 48.1 fL [facility] NRBC abs 0.00 0.00 - 0.01 K/cumm [facility] Blood 11/07/2024 12:2 4 PM PORTAINER OPERATOR 11/07/2024 12:42 PM PORTAINER OPERATOR Dov Prasad MD LAB BLOOD ORDERABLES Final Resul t Performing Organization Address [place] de Phone Number [place] [address] [address] [facility] [place] [address] * Magnesium (11/07/2024 12:24 PM PORTAINER OPERATOR) Magnesium 1.9 1.4 - 2.5 mg/dL Blood 11/07/2024 12:2 4 PM PORTAINER OPERATOR 11/07/2024 12:42 PM PORTAINER OPERATOR Dov Prasad MD LAB BLOOD ORDERABLES Final Resul t Performing Organization Address [facility] Phone Number [facility] [address] [facility] [place] [address] * Digoxin level (11/07/2024 12:24 PM PORTAINER OPERATOR) Digoxin 0.7 0.5 - 1.2 ng/mL Comment: Interpretive data The therapeutic range for digoxin varies by indication: Heart failure: 0.5 to 0.8 ng/mL Atrial fibrillation: less than 1.2 ng/mL Toxicity: >2.4. Normal or low digoxin does not rule out toxicity. Current interpretive data was last revised on 2024. Blood 11/07/2024 12:2 4 PM PORTAINER OPERATOR 11/07/2024 12:42 PM PORTAINER OPERATOR Dov Prasad MD LAB BLOOD ORDERABLES Final Resul t [place] [place] [address] [place] [address] * (ABNORMAL) Comprehensive metabolic panel (11/07/2024 12:24 PM PORTAINER OPERATOR) Sodium 141 135 - 145 mmol/L Potassium, [...] CERNER CH Blood 11/07/2024 12:2 4 PM PORTAINER OPERATOR 11/07/2024 12:42 PM PORTAINER OPERATOR us Dov Prasad MD LAB BLOOD ORDERABLES Final Resul t [place] [address] Department [place] [address] * ECG 12 lead (11/07/2024 12:17 PM PORTAINER OPERATOR) 11/07/2024 12:1 7 PM PORTAINER OPERATOR Narrative [facility] - 11/07/2024 1:07 PM PORTAINER OPERATOR Vent Rate: 63 bpm RR Interval: 945 msec VT Interval: 177 msec QRS Duration: 105 msec QT Interval: 408 msec QTC Interval: 415 msec P-R-T [place]: 33 - 46 - 6 degrees IMPRESSION: SINUS RHYTHM NORMAL ECG INTERPRETATION BASED ON A DEFAULT AGE OF 40 YEARS Electronically Signed By: Dr. Jason Garcia [facility] us Dov Prasad MD ECG ORDERABLES Final Result [facility] from Last 3 Months Insurance [facility] Advance Directives For more information, please contact: [phone] * Full Code (Latest Code Status on File) Date Activated Date Inactivated Comments 06/25/2024 4:01 PM 06/26/2024 7:29 PM Care Teams Food Equipment Service Technician Relationship Specialty Start Date End Date Ke Frederick NP [address] [place] [address] PCP - General Family Medicine 01/31/24
--- OUTSIDE RECORDS SUMMARY | 2025-02-04 09:00 | XMS_ITS | Clinical Summary ---
Author Organization [facility] Julien guan [facility] Address [address] [place] [address] Care Team Providers Care Diesel Technology Instructor Name Role Phone Latesha Lewis MD Primary Care Provider + Allergies Active Allergy Reactions Criticality Noted Date Comments Doxycycline Hives,Shortness of Breath/Wheezing High 06/16/2019 Haemophilus Influenzae Type B Unknown 2018 Morphine Hives High 06/16/2019 Pneumococcal 23-Valent Polysaccharide Vaccine Unknown 06/16/2019 Quinolones Rash Medium 06/16/2019 SOB Pymdnxa-Yff-Yqz Reductase Inhibitors Other (See Comments) 06/16/2019 Verapamil [...] on file Legal Sex Female 4:23 PM [employer] Gender Identity Not on file Sexual Orientation Not on file Last Filed Vital Signs Vital Sign Reading Time Taken Comments Blood Pressure 131/77 08/13/2019 2:26 PM [employer] Pulse 82 08/13/2019 2:26 PM [employer] Temperature 36.9 C (98.5 F) 08/13/2019 2:26 PM [employer] Respiratory Rate - - Oxygen Saturation 95% 08/13/2019 2:26 PM [employer] Inhaled Oxygen Concentration - - Weight 137.3 kg (302 lb 9.6 oz) 08/13/2019 2:26 PM [employer] Height 154.9 cm (5' 1) 08/13/2019 2:26 PM [employer] [place] Body Mass Index 57.18 08/13/2019 2:26 PM [employer] [place] Plan of Treatment Health Maintenance Due Date Last Done Comments DIABETES ANNUAL FOOT EXAM 1988 DIABETES ANNUAL RETINAL EXAM 1988 DIABETES MICROALBUMIN ANNUAL SCREEN 1988 LDL CHOLESTEROL ANNUAL 1988 DTAP/TDAP/TD VACCINES (1 - Tdap) 1989 HEPATITIS B VACCINES (1 of 3 - 19+ 3-dose series) 1989 HPV/Cotest (21-29) 1991 CERVICAL CANCER SCREENING 2000 HPV/Cotest (30-65) 2000 PAP SMEAR 2000 COLORECTAL SCREENING 2015 Colorectal Cancer Screening 2015 FIT-DNA Q 3 years 2015 FIT/FOBT Q 1 year 2015 Flex Sig/CT Colonography Q 5 years 2015 DIABETES HBA1C Q 6 MONTHS 11/28/2019 05/30/2019 ZOSTER VACCINE (1 of 2) 2020 BREAST CANCER SCREENING 05/13/2021 05/13/2020, 05/13 INFLUENZA VACCINE (#1) 2024 Care Teams Diesel Technology Instructor Relationship Specialty Start Date End Date Latesha Lewis MD [address] [place] [id number] PCP - General Family Practice 07/22/19
--- OUTSIDE RECORDS SUMMARY | 2025-02-04 09:00 | XMS_ITS | Encounter Summary ---
Author Organization [facility] Address [address] [place] [address] Care Team Providers Care Nutrition Representative Name Role Phone Ke Frederick NP Primary Care Provider [phone] Encounter Details Date Type Department Care Team (Late st Contact Info) Description 01/22/2025 Results Follow-Up [facility] Neurology [address] [place] [address] Ann Matthews NP [address] [facility] [address] [place] [address] MRI Lumbar Spine W WO Contrast Social History Tobacco Use Types Packs/Day Years Used Date Smoking Tobacco: Former Cigarettes 0.5 20.4 2 005 - 1986 Smokeless Tobacco: Never Comments:06/02/2024 Stress s wayne, patient says that she would smoke between a couple to a whole pack per day. 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 There is no high-grade narrowing or cord compression. There is no evidence of neurofibromas in the lumbar spine. documented in this encounter Plan of Treatment Not on file documented as of this encounter Visit Diagnoses Not on filedocumented in this encounter Care Teams Nutrition Representative Relationship Specialty Start Date End Date Ke Frederick NP [address] [place] [address] [place] [address] PCP - General Family Medicine 01/31/24 documented as of this encounter
--- OUTSIDE RECORDS SUMMARY | 2025-02-04 09:00 | XMS_ITS | Data Portability ---
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 Plan of Treatment Reminders Order Date Submit Date Provider Last Modified By Organization Details Last Modified Time Details Appointments None recorded. Lab CBC w/ manual diff 2024 025 [facility] (Lab), [address] [place], [address], 5 18:00:29 PTT (partial thrombopla stin time) mixing study 2024 025 [facility] (Lab), [address] [place], [address], 5 08:36:13 prothrombi n time 2024 025 [facility] (Lab), [address] [place], [address], 5 08:36:[address] referral - Please call patient to schedule an appointmen t. Thank you. 2024 025 [facility], [address], [place], [address], 17:05:[address] referral - prefers female provider. Please call patient to schedule an appointmen t. Thank you. 2024 025 [email or web address] [facility], [address], [address], [place], [address], 08:48:45 Procedures None recorded. Surgeries None recorded. Imaging electrocar diogram 2024 025 [email or web address] [facility] [address], [place], [address], 11:14:03 Medication Orders cefdinir 300 mg capsule 2024 025 [facility] [place], [address], 12:37:35 Medrol (Mekhi) 4 mg tablets in a dose pack 2024 025 [facility], [address] [place], [address], 12:37:34 prednisone 20 mg tablet 2024 025 [facility], [address] [place], [address], 12:43:35 Zithromax Z-Mekhi 250 mg tablet 2024 025 [email or web address] [facility], [address] [place], [address], 12:36:22 cefdinir 300 mg capsule 2024 025 [email or web address] [facility], [address] [place], [address], 11:19:05 digoxin 125 mcg (0.125 mg) tablet 2024 025 [email or web address] [facility], [address] [place], [address], 11:19:20 amoxicilli n 875 mg-potassi um clavulanat e 125 mg tablet 2024 025 [email or web address] [facility], [address] [place], [address], 12:33:56 Patient TargetsNo targets recorded. 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 Please call patient to schedule an appointment. Thank you. Referring Physician: [facility], Encounter Date: 10/29/2024 Utility Assembler Referral for At rial fibrillation Please call patient to schedule an appointment. Thank you. Referring Physician: Amanda Ruelas [facility], Encounter Date: 12/17/2024 Results Created Date Observation Date Name Description Value Unit Range Abnormal Flag Note LastModifiedBy Organization Detail LastModifiedTime 10/29/19 25 elect rocar diogr am No observ ation record ed. [email or web address] [facility] [address], [place], [address], 10/29/2024 10:46:39 11/26/19 25 11/25/2024 XR, knee, 1 or 2 view No observ ation record ed. [email or web address] [address], [place], [address], 11/25/2024 14:06:47 Result Notes None recorded. Problems Name Problem SNOMED Code Status Onset Date Resolution Date Notes Provider Name and Address Organization Details Recorded Time Dysfunctio n of bilateral eustachian tubes 4924628667749 100 Active 2021 Not Available [facility] 3 06:06:19 Plantar fasciitis of right foot 2526263888462 9101 Active 2019 Not Available [facility] 3 06:06:19 Hyperchole sterolemia 05258185 Active 2019 Not Available [facility] 3 06:06:19 Chronic obstructiv e pulmonary disease 74736439 Active 2018 Not Available [facility] 3 06:06:19 Asthma 576104901 Active 2019 Not Available [facility] 3 06:06:19 Anxiety disorder 725006842 Active 2019 Not Available [facility] 3 06:06:20 Disorder of lung 59277210 Active 2019 Not Available [facility] 3 06:06:20 Cerebrovas cular accident 109521446 Active 2018 Not Available [facility] 3 06:06:20 Pneumonia 677224872 Active 2019 Not Available [facility] 3 06:06:20 Osteophyte of bone 1438022078328 00 Active 2022 Not Available [facility] 3 06:06:20 Morbid obesity 243160047 Active 2022 Not Available [facility] 3 06:06:20 Headache 81890331 Active 2019 Not Available [facility] 3 06:06:20 Malignant tumor of breast 012475974 Active 2019 Not Available [facility] 3 06:06:20 Anemia 096907432 Active 2019 Not Available [facility] 3 06:06:20 Right Achilles tendinitis 3699580152065 02 Active 2022 Not Available [facility] 3 06:06:20 Knee pain Active 2018 Not Available [facility] 3 06:06:20 Pain of left hand 9276265920664 03 Active 2021 Not Available [facility] 3 06:06:20 Bronchitis 79491589 Active 2022 Not Available [facility] 3 06:06:20 Depressive disorder 48604771 Active 2018 Not Available [facility] 3 06:06:20 Arthritis 8618494 Active 2019 Not Available [facility] 3 06:06:20 Migraine 42570701 Active 2018 Not Available [facility] 3 06:06:20 Osteoarthr osis of the carpometac arpal joint of the thumb 67386311 Active 2021 Not Available [facility] 3 06:06:20 Hypertensi ve disorder 17800167 Active 2019 Not Available [facility] 3 06:06:20 Neuropathy 842560821 Active 2018 Not Available [facility] 3 06:06:20 Osteoarthr itis 923136961 Active 2021 Not Available [facility] 3 06:06:20 Sleep disorder 46245516 Active 2019 Not Available [facility] 3 06:06:20 Dizziness 176962424 Active 2019 Not Available [facility] 3 06:06:20 Infiltrati ng duct carcinoma of breast 541571265 Active 2018 Not Available [facility] 3 06:06:20 Obesity 480537693 Active 2019 Not Available [facility] 3 06:06:20 Diabetes mellitus 33126195 Active 2018 Not Available [facility] 3 06:06:20 Sleep apnea 69647693 Active 2018 Not Available [facility] 3 06:06:20 Obstructiv e sleep apnea syndrome 31152153 Active 2018 Not Available [facility] 3 06:06:20 Neurofibro matosis type 1 13219748 Active 2019 Not Available [facility] 3 06:06:20 Migraine without aura 18369622 Active 2022 Not Available [facility] 3 06:06:20 Acute sinusitis 33793900 Active 2022 Not Available [facility] 3 06:06:19 Bilateral osteoarthr itis of knees 9791142066956 07 Active 2022 Not Available [facility] 3 06:06:19 Congestion of nasal sinus 44648306 Active 2022 Not Available [facility] 3 06:06:20 Chronic sinusitis 26604090 Active 2022 Odilia Burnett RN null, [place] [facility] 5 12:34:19 Pain in right heel 2472311895708 105 Active 2022 Not Available [facility] 3 06:06:19 Pain of right ankle joint 2714129593211 9106 Active 2022 Not Available [facility] 3 06:06:19 Sinusitis 91980005 Active 2022 Not Available [facility] 3 06:06:20 Deviated nasal septum 436292578 Active 2022 Jason Mora MD [address], [address], [place], [address] , [place] [facility] 3 11:32:07 Acute bilateral otitis media 364304502 Active 2023 LINDA GonsalezC [address], [address], [place], [address] , [place] [facility] 4 14:27:04 Abdominal pain 54423018 Active 2023 CHE Gonsalez [address], [address], [place], [address] , [place] [facility] 4 14:44:35 Epigastric pain 74098962 Active 2023 Kerrie Lopez MD [address], [address], [place], [address] , [place] [facility] 4 13:47:31 Vertigo 885683408 Active 2023 Odilia Burnett RN null, [place] [facility] 4 14:41:30 Vertigo 129796098 Active 2023 Jason Mora MD [address], [address], [place], [address] , [facility] 4 14:42:26 Pain of ear 782135978 Active 2023 CHE Gonsalez [address], [place], [address] , [facility] 4 10:28:41 Vertigo produced by neck pressure 395467288 Active 2023 ADILIA Olsen, [facility] 4 09:25:16 Seasonal allergy 653100722 Active 2023 CHE Gonsalez [address], [place], [address] , [facility] 4 15:23:46 Recurrent falls 755252789 Active 2023 CHE Weathers [address], [place], [address] , [facility] 4 11:43:11 Acute upper respirator y infection 83090608 Active 2024 CHE Weathers [address], [place], [address] , [facility] 5 12:42:23 Pain in right lower limb 327156362 Active 2024 CHE Weathers [address], [place], [address] , [facility] 5 10:45:50 Atrial fibrillati on 36860788 Active 2024 CHE Weathers [address], [place], [address] , [facility] 5 10:56:04 Chronic maxillary sinusitis 53889194 Active 2024 Jason Mora MD [address] [facility] [address], [place], [address] , [facility] [employer] [facility] [employer] [facility] 12:36:18 Notes:ALLERGIES, BACK/NECK P ROBLEMS, BREAST PROBLEMS, RADIATION/CHEMOTHERAPY, STROKE Some problems listed in Document: #[id number] could not be added to this patient's chart. Please review this document and add these problems to the patient's chart manually as needed. Problem Notes None recorded. Procedures Surgical History Date Name Laterality Status Provider Name and Address Organization Details Recorded Time 11/26/19 24 Knee Replacement completed Naomy Ferrell MA [place] [employer] [facility] 12/17/2024 11:23:39 08/29/20 23 nasal septoplasty completed [facility] [employer] [facility] 09/05/2023 09:05:08 08/29/20 23 SEPTOPLASTY (SURG) completed Odilia Burnett RN [facility] [employer] [facility] 09/05/2023 11:32:34 01/16/20 23 Joint Injection-Podia try completed Peter Anguiano DPM [address] [facility] [facility] [address], [place], [address], [employer] [facility] 01/15/2023 10:37:21 01/03/20 23 Transitional_Ca re_Management completed Dionne Mercado MA [facility] [employer] [facility] 01/02/2023 11:18:59 Colonoscopy completed Candy Torres [facility] [employer] [facility] [employer] [facility] 04/07/2024 14:35:14 Hand completed Not Available [facility] 09/2022 02:40:54 procedure on gallbladder completed Not Available [facility] 11/08/2022 02:40:54 procedure on elbow completed Not Available [facility] 11/08/2022 02:40:54 Imaging Results None recorded. Procedure Notes None recorded. Medical Equipment None Reported. Allergies Allergen ID Allergen Name Allergen Category Reaction Reaction Severity Criticality Documentation Date Start Date Code Code System Note Provider Name and Address Organization Details Recorded Time 5189 verapamil medicatio n rash Not available Not available 11/08/2022 85477 RxNorm Not Available [facility] 3 03:07:14 5190 Product containin g 3-hydroxy -3-methyl glutaryl- coenzyme A reductase inhibitor (product) medicatio n other Not available Not available 11/08/2022 98068 009 SNOMED Pain Not Available [facility] 3 03:07:14 5191 Medicinal product containin g quinolone and acting as antibacte rial agent (product) medicatio n Not available Not available Not available 11/08/2022 61067 008 SNOMED Not Available [facility] 3 03:07:14 5192 doxycycli ne Not available hives respirato ry distress Not available Not available Not available 11/08/2022 3640 RxNorm Not Available [facility] 3 03:07:14 5193 clindamyc in Not available itching Not available Not available 11/08/2022 2582 RxNorm Not Available [facility] 3 03:07:14 5194 Cipro medicatio n rash Not available Not available 11/08/2022 01702 3 RxNorm Not Available [facility] 3 03:07:15 5195 tetracycl ine medicatio n Not available Not available Not available 11/08/2022 62497 RxNorm Not Available [facility] 3 03:07:15 5196 Substance with sulfonami de structure and antibacte rial mechanism of action (substanc e) medicatio n hives respirato ry distress Not available Not available Not available 11/08/2022 90699 8003 SNOMED Not Available [facility] 3 03:07:15 82808 morphine medicatio n Not available Not available Not available 03/22/2023 7052 RxNorm Odilia Burnett RN null, [place] [facility] 3 14:56:36 98739 Vaccine product containin g only Influenza virus antigen (medicina l product) medicatio n anaphylax is moderate high 07/09/20232004 66452 38521 105 SNOMED Helena Galindo MA null, [place] [employer] 3 14:15:12 04724 Pneumococ chetna vaccine Not available anaphylax is moderate high 07/09/20232004 50742 7 [facility] Helena Galindo MA null, [place] [facility] 14:15:57 Medications Name Sig Start Date Stop Date Status Note LastModified by Organization Details LastModified Time [employer]now [facility] home jesus manuel 02/23 completed Not Available Not Available Not Available cyclobenzap rine 10 mg tablet TAKE 1 TABLET BY MOUTH THREE TIMES DAILY NEEDED active Not Available Not Available No t Available amoxicillin 500 mg capsule TAKE 1 CAPSULE BY MOUTH THREE TIMES DAILY FOR 10 DAYS 01/15 completed Not Available Not Available Not Available buspirone 5 mg tablet TAKE 1 TABLET BY MOUTH TWICE DAILY active Not Available Not Available No t Available doxepin 50 mg capsule TAKE 1 CAPSULE BY MOUTH AT BEDTIME active Not Available Not Available No t Available anastrozole 1 mg tablet TAKE 1 TABLET BY MOUTH ONCE DAILY active Not Available Not Available No t Available neomycin-po lymyxin-hyd rocort 3.5 mg/mL-10,00 0 unit/mL-1 % ear solution INSTILL 4 DROPS INTO AFFECTED EAR(S) THREE TIMES DAILY 09/17 completed Not Available Not Available Not Available nystatin 100,000 unit/mL oral suspension Take 5 mL 4 times a day by oral route for 7 days. 12/27 completed Not Available Not Available Not Available clindamycin HCl 300 mg capsule Take 1 capsule every 8 hours by oral route for 5 days. active Not Available Not Available No t Available albuterol sulfate 2.5 mg/3 mL (0.083 %) solution for nebulizatio n USE 1 VIAL IN NEBULIZER EVERY 4 TO 6 HOURS NEEDED active Not Available Not Available No t Available polyethylen e glycol 3350 17 gram oral powder packet DISSOLVE 1 PACKET IN WATER & DRINK ONCE DAILY IN THE MORNING 12/17 completed Not Available Not Available Not Available cetirizine 10 mg tablet TAKE 1 TABLET BY MOUTH ONCE DAILY active Not Available Not Available No t Available azithromyci n 250 mg tablet TAKE 2 TABLETS BY MOUTH ON DAY 1, AND THEN TAKE 1 TABLET BY MOUTH ONCE A DAY ON DAY 2 THROUGH DAY 5 active Not Available Not Available No t Available ibuprofen 800 mg tablet TAKE 1 TABLET BY MOUTH TWICE DAILY FOR 10 DAYS 09/17 completed Not Available Not Available Not Available benzonatate 200 mg capsule TAKE 1 CAPSULE BY MOUTH THREE TIMES DAILY NEEDED 02/23 completed Not Available Not Available Not Available doxepin 25 mg capsule TAKE 1 CAPSULE BY MOUTH AT BEDTIME active Not Available Not Available No t Available sumatriptan 100 mg tablet 1 po qday prn migraine, do not exceed 1 tab in 24 hours 01/19 completed Not Available Not Available Not Available hydrocodone 5 mg-acetamin ophen 325 mg tablet TAKE 1 TABLET BY MOUTH EVERY 6 HOURS NEEDED FOR PAIN 09/17 completed Not Available Not Available Not Available prazosin 1 mg capsule TAKE 1 CAPSULE BY MOUTH AT BEDTIME active Not Available Not Available No t Available meloxicam 15 mg tablet TAKE 1 TABLET BY MOUTH ONCE DAILY prn pain active Not Available Not Available No t Available ondansetron HCl 4 mg tablet 09/17 completed Not Available Not Available Not Available bupivacaine HCl 0.5 % (5 mg/mL) injection solution In office injection administe red by the provider 03/29 completed Not Available Not Available Not Available prednisone 20 mg tablet TAKE 2 TABLETS BY MOUTH DAILY FOR 5 DAYS active Not Available Not Available No t Available gabapentin 400 mg capsule TAKE 2 CAPSULES BY MOUTH THREE TIMES DAILY active Not Available Not Available No t Available prochlorper azine maleate 10 mg tablet TAKE 1 TABLET BY MOUTH EVERY 6 HOURS NEEDED FOR NAUSEA AND FOR VOMITING active Not Available Not Available No t Available tramadol 50 mg tablet TAKE 1 TABLET BY MOUTH EVERY 8 HOURS NEEDED 08/18 completed Not Available Not Available Not Available amitriptyli ne 50 mg tablet TAKE 1 TABLET BY MOUTH THREE TIMES DAILY active Not Available Not Available No t Available amoxicillin 875 mg tablet TAKE 1 TABLET BY MOUTH EVERY 12 HOURS FOR 7 days 08/13 completed Not Available Not Available Not Available famotidine 20 mg tablet TAKE 1 TABLET BY MOUTH TWICE DAILY active Not Available Not Available No t Available magnesium oxide 400 mg (241.3 mg magnesium) tablet TAKE 1 TABLET BY MOUTH ONCE DAILY active Not Available Not Available No t Available lorazepam 0.5 mg tablet TAKE 1 TABLET BY MOUTH TWICE DAILY NEEDED active Not Available Not Available No t Available trazodone 100 mg tablet 1 po qhs prn insomnia active Not Available Not Available No t Available Kenalog 10 mg/mL suspension for injection in office 09/17 completed ND: 0003- [id number]- 20 Not Available Not Available Not Available meclizine 25 mg tablet Take 1 tablet 3 times a day by oral route as needed. 2023 active Not Available Not Available Not Avai lable benzonatate 100 mg capsule TAKE 1 CAPSULE BY MOUTH EVERY 8 HOURS NEEDED FOR COUGH AND CONGESTIO N 02/23 completed Not Available Not Available Not Available hydrocodone 7.5 mg-acetamin ophen 325 mg tablet TAKE 1 TABLET BY MOUTH EVERY 4 HOURS NEEDED FOR PAIN 02/28 completed Not Available Not Available Not Available cephalexin 500 mg capsule TAKE 1 CAPSULE BY MOUTH TWICE DAILY FOR 7 DAYS 12/17 completed Not Available Not Available Not Available diphenhydra mine 25 mg capsule Take 1 capsule every 4 hours by oral route. 04/06 completed Not Available Not Available Not Available trazodone 150 mg tablet TAKE 1 TABLET BY MOUTH EVERY DAY AT BEDTIME NEEDED FOR INSOMNIA 09/17 completed Not Available Not Available Not Available oseltamivir 75 mg capsule TAKE 1 CAPSULE BY MOUTH EVERY 12 HOURS FOR 5 DAYS 10/02 completed Not Available Not Available Not Available buspirone 30 mg tablet TAKE 1 TABLET BY MOUTH TWICE DAILY active Not Available Not Available No t Available buspirone 10 mg tablet TAKE 2 TABLETS BY MOUTH TWICE DAILY 09/27 completed Not Available Not Available Not Available docusate sodium 100 mg capsule 09/17 completed Not Available Not Available Not Available lisinopril 20 mg-hydrochl orothiazide 25 mg tablet TAKE 1 TABLET BY MOUTH ONCE DAILY FOR HIGH BLOOD PRESSURE 09/17 completed Not Available Not Available Not Available cephalexin 500 mg tablet Take 1 tablet twice a day by oral route for 7 days. 09/08 completed Not Available Not Available Not Available montelukast 10 mg tablet TAKE 1 TABLET BY MOUTH ONCE DAILY 12/17 completed Not Available Not Available Not Available hydroxyzine HCl 25 mg tablet TAKE 2 TABLETS BY MOUTH THREE TIMES DAILY NEEDED active Not Available Not Available No t Available digoxin 125 mcg (0.125 mg) tablet Tk 1 t po on Sunday through 12/17 completed Not Available Not Available Not Available nystatin 100,000 unit/gram topical powder 09/17 completed Not Available Not Available Not Available lorazepam 1 mg tablet TAKE 1 TABLET BY MOUTH TWICE DAILY active Not Available Not Available No t Available azelastine 137 mcg (0.1 %) nasal spray USE 2 SPRAY(S) IN EACH NOSTRIL TWICE DAILY active Not Available Not Available No t Available methylpredn isolone 4 mg tablets in a dose pack TAKE BY MOUTH DIRECTED ON INSIDE OF PACKAGE active Not Available Not Available No t Available albuterol sulfate HFA 90 mcg/actuati on aerosol inhaler INHALE 2 PUFFS BY MOUTH EVERY 6 HOURS NEEDED FOR WHEEZING active Not Available Not Available No t Available SSD 1 % topical cream APPLY 1.5 MM THICKNESS OF CREAM TOPICALLY TWICE DAILY active Not Available Not Available No t Available propranolol 20 mg tablet TAKE 1 TABLET BY MOUTH TWICE DAILY 12/17 completed Not Available Not Available Not Available cefdinir 300 mg capsule TAKE 1 CAPSULE BY MOUTH EVERY 12 HOURS FOR 5 DAYS active Not Available Not Available No t Available fluticasone propionate 50 mcg/actuati on nasal spray,suspe nsion USE 2 SPRAY(S) IN EACH NOSTRIL ONCE DAILY active Not Available Not Available No t Available Sudafed 30 mg tablet Take 2 tablets every 4-6 hours by oral route as needed. 09/17 completed Not Available Not Available Not Available prazosin 2 mg capsule TAKE 2 CAPSULES BY MOUTH AT BEDTIME active Not Available Not Available No t Available amoxicillin 875 mg-potassiu m clavulanate 125 mg tablet Take 1 tablet every 12 hours by oral route for 10 days 01/19 completed Not Available Not Available Not Available oxycodone 5 mg tablet TAKE 1 TABLET BY MOUTH EVERY 4 HOURS NEEDED FOR PAIN active Not Available Not Available No t Available neomycin-po lymyxin-hyd rocort 3.5 mg-10,000 unit/mL-1 % ear drops,susp INSTILL 2 DROPS INTO EACH EAR 4 TIMES DAILY 09/17 completed Not Available Not Available Not Available azithromyci n 500 mg tablet Take 1 tablet every day by oral route for 3 days. active Not Available Not Available No t Available escitalopra m 10 mg tablet TAKE 1 TABLET BY MOUTH ONCE DAILY AT BEDTIME WITH A 20MG TABLET (TOTAL DOSE OF 30MG AT BEDTIME) active Not Available Not Available No t Available escitalopra m 20 mg tablet TAKE 1 TABLET BY MOUTH ONCE DAILY AT BEDTIME WITH A 10MG TABLET (TOTAL DOSE OF 30MG AT BEDTIME) active Not Available Not Available No t Available chlorhexidi ne gluconate 0.12 % mouthwash 09/17 completed Not Available Not Available Not Available Vitamin C 2022 active Not Available Not Available Not Avai lable meclizine TID 12/17 completed Not Available Not Available Not Available Advil 04/06 completed Not Available Not Available Not Available promethazin e 12/27 completed Not Available Not Available Not Available Tylenol 2021 active Not Available Not Available Not Avai lable cetirizine 12/27 completed Not Available Not Available Not Available clonazepam 12/27 completed Not Available Not Available Not Available aripiprazol e TAKE 1 TAB PO Q D 12/27 completed Not Available Not Available Not Available lidocaine (PF) 10 mg/mL (1 %) injection solution In office injection administe red by the provider 08/18 completed [facility]: 0409- [phone]- [phone] Not Available Not Available Not Available lidocaine (PF) 5 mg/mL (0.5 %) injection solution In office injection administe red by the provider 06/28 completed Not Available Not Available Not Available fenofibrate nanocrystal lized 48 mg tablet TAKE 1 TABLET BY MOUTH ONCE DAILY active Not Available Not Available No t Available Symbicort 160 mcg-4.5 mcg/actuati on HFA aerosol inhaler INHALE 2 PUFFS BY MOUTH TWICE DAILY .RINSE MOUTH AFTER USE. DO NOT SWALLOW active Not Available Not Available No t Available Caltrate 600-D Plus Minerals 2022 active Not Available Not Available Not Avai lable azelastine 205.5 mcg (0.15 %) nasal spray USE 2 SPRAY(S) INTRANASA LLY TWICE DAILY 03/29 completed Not Available Not Available Not Available Oscimin SL 0.125 mg sublingual tablet 09/17 completed Not Available Not Available Not Available ropivacaine (PF) 5 mg/mL (0.5 %) injection solution in office 2023 active [facility] [id number] [phone] Not Available Not Available Not Available Linzess 145 mcg capsule TAKE 1 CAPSULE BY MOUTH ONCE DAILY active Not Available Not Available No t Available Eliquis 2.5 mg tablet TAKE 1 TABLET BY MOUTH EVERY 12 HOURS active Not Available Not Available No t Available Fioricet 50 mg-300 mg-40 mg capsule TAKE 1 CAPSULE BY MOUTH EVERY 6 HOURS NEEDED FOR MIGRAINE 02/17 completed Not Available Not Available Not Available Virtussin AC 10 mg-100 mg/5 mL oral liquid TAKE 10 ML BY MOUTH TWICE DAILY FOR 4 DAYS 05/20 completed Not Available Not Available Not Available Incruse Ellipta 62.5 mcg/actuati on powder for inhalation INHALE 1 PUFF BY MOUTH ONCE DAILY 12/17 completed Not Available Not Available Not Available Breo Ellipta 200 mcg-25 mcg/dose powder for inhalation Inhale 1 puff every day by inhalatio n route. 11/18 completed Not Available Not Available Not Available Allergy 10/02 completed Not Available Not Available Not Available naloxone 4 mg/actuatio n nasal spray CALL 911. ADMINISTE R A SINGLE SPRAY INTRANASA LLY INTO ONE NOSTRIL UPON SIGNS OF OPIOID OVERDOSE. MAY REPEAT AFTER 3 MINUTES IF NO RESPONSE. active Not Available Not Available No t Available Ubrelvy 100 mg tablet TAKE 1 TAB BY MOUTH ONCE NEEDED FOR MIGRAINE. MAY REPEAT DOSE ONCE IN 2 HOURS IF NO RELIEF. MAX 2 DOSES IN 24 HOURS active Not Available Not Available No t Available BinaxNOW COVID-19 Ag Self Test kit Use as Directed on the Package 02/23 completed Not Available Not Available Not Available Qulipta 60 mg tablet TAKE 1 TABLET BY MOUTH ONCE DAILY FOR 90 DAYS active Not Available Not Available No t Available Qulipta 30 mg tablet Take by oral route for 90 days. 09/17 completed Not Available Not Available Not Available Paxlovid 300 mg (150 mg x 2)-100 mg tablets in a dose pack 12/27 completed Not Available Not Available Not Available Vitals Date Recorded Body height Body mass index (BMI) Body weight Body temperature Heart rate Oxygen saturation Oxygen saturation in Arterial blood by Pulse oximetry Systolic blood pressure Diastolic blood pressure Provider Name and Address Organization Details Last Updated DateTime 5 152.4 cm 33.2 kg/m2 64632.7 g 97.9 [degF] 91 /min 95 % 95 % 140 mm[Hg] 76 mm[Hg] Babatunde Olmedo RN [facility] [employer] [facility] 5 10:49:10 Date Recorded Body height Body mass index (BMI) Body weight Body temperature Heart rate Oxygen saturation Oxygen saturation in Arterial blood by Pulse oximetry Systolic blood pressure Diastolic blood pressure Provider Name and Address Organization Details Last Updated DateTime 5 152.4 cm 32.4 kg/m2 68257.3 3 g 97.8 [degF] 91 /min 98 % 98 % 140 mm[Hg] 86 mm[Hg] Babatunde Olmedo RN [facility] [employer] [facility] 5 10:27:30 Date Recorded Body height Body mass index (BMI) Body weight Body temperature Heart rate Oxygen saturation Oxygen saturation in Arterial blood by Pulse oximetry Systolic blood pressure Diastolic blood pressure Provider Name and Address Organization Details Last Updated DateTime 5 152.4 cm 29.9 kg/m2 26301.6 3 g 98.1 [degF] 100 /min 97 % 97 % 152 mm[Hg] 86 mm[Hg] Naomy Ferrell MA [facility] [employer] 5 11:18:07 Date Recorded Body height Body mass index (BMI) Body weight Body temperature Heart rate Oxygen saturation Oxygen saturation in Arterial blood by Pulse oximetry Systolic blood pressure Diastolic blood pressure Provider Name and Address Organization Details Last Updated DateTime 5 152.4 cm 30.1 kg/m2 21687.2 2 g 97.5 [degF] 86 /min 98 % 98 % 128 mm[Hg] 78 mm[Hg] NAVIN Sharpe [facility] [employer] 5 12:38:54 Date Recorded Body height Body mass index (BMI) Body weight Body temperature Provider Name and Address Organization Details Last Updated DateTime 01/29/2025 152.4 cm 30.7 kg/m2 48948 g 97.4 [degF] Odilia Burnett RN [facility] [employer] 01/29/2025 12:12:32 Social History Question Answer Notes LastModified by Organization Details LastModified Time Tobacco Smoking Status Former Smoker [facility]ER[facility]NDO [facility] 10/31/2023 14:36:22 What Is Your Level Of Caffeine Consumption? Moderate [email or web address] Information not available 12/22/2022 In The 14 Days Before Symptom Onset, Have You Had Close Contact With A Laboratory-confi rmed COVID-19 While That Case Was Ill? No Information not available 12/17/2024 In The 14 Days Before Symptom Onset, Have You Had Close Contact With A Person Who Is Under Investigation For COVID-19 While That Person Was Ill? No Information not available 12/17/2024 What Type Of Diet Are You Following? CARBOHYDRATE Protien Diet Hx Gastric Bypass Information not available 12/17/2024 Have There Been Any Changes To Your Family Or Social Situation? No Information not available 12/17/2024 Do You Use Insect Repellent Routinely? No Information not available 12/17/2024 Where Do You Live? SingleLevelHouse Information not available 12/17/2024 Are You Following A Low Salt Diet? Yes Information not available 12/17/2024 What Was The Date Of Your Most Recent Tobacco Screening? 12/17/2024 Information not available 12/17/2024 How Many Children Do You Have? 3 Information not available 12/17/2024 Do You Have Any Pets? Yes Information not available 12/17/2024 What Is Your Relationship Status? Information not available 12/17/2024 Do You Use Your Seat Belt Or Car Seat Routinely? Yes Information not available 10/31/2023 Do You Have Smoke And Carbon Monoxide Detectors In Your Home? Yes Information not available 12/17/2024 Are You Passively Exposed To Smoke? No Information not available 12/17/2024 Are There Any Smokers In Your House? No Information not available 12/17/2024 Do You Participate In Social Media? Yes Information not available 10/31/2023 Do You Use Sunscreen Routinely? No Information not available 12/17/2024 Has Tobacco Cessation Counseling Been Provided? No Information not available 10/31/2023 Have You Recently Traveled Abroad? No Information not available 12/17/2024 Are You Currently In School? No Information not available 12/17/2024 Do You Have Any Dietary Restrictions? Yes Information not available 12/17/2024 Sex: Unknown Functional Status Question Answer Note LastModified by Organizat ion Details LastModified Time Do you use any illicit or recreational drugs? No Information not available 10/31/2023 Do you or have you ever used any other forms of tobacco or nicotine? No Information not available 10/31/2023 What is your level of alcohol consumption? None [id number] Information not available 11/08/2022 Are you currently employed? No Disabled Information not available 12/17/2024 What is your exercise level? None Information not available 12/17/2024 Mental Status Question Answer Note LastModified by Organization D etails LastModified Time Do you feel stressed (tense, restless, nervous, or anxious, or unable to sleep at night)? [id number] Information not available 10/31/2023 Family History Relationship Description Onset Age of this Age Resolved Age Notes LastModified by Organization Details LastModified Time Sister Heart disease [id number] Not available 11/08/2022 02:40:59 Sister Diabetes mellitus [id number] Not available 11/08/2022 02:41:00 Sister Arthritis [email or web address] Not availa ble 01/29/2025 12:03:30 Sister History of hypertension [email or web address] Not available 12:03:30 Sister Family history of malignant neoplasm [email or web address] Not available 01/29 12:03:30 Sister Sinusitis [email or web address] Not availa ble 01/29/2025 12:03:30 Brother History of hypertension [email or web address] Not available 12:03:30 Brother Heart disease [id number] Not available 11/08/2022 02:41:00 Notes:father from brain aneurysm STROKE-SELF CANCER-SELF AND SISTER SISTER HAS NASAL/SINUS SURGERIES Medical History Condition Response BLINDNESS N KIDNEY STONES N MRSA N CARPAL TUNNEL SYNDROME N LUNG DISEASE/DISORDER Y HISTORY OF DRUG ABUSE N RADIATION / CHEMOTHERAPY Y COPD Y SPORTS INJURY N ANKLE PAIN N BLOOD DISEASES N SCHIZOPHRENIA N SHINGLES N BOWEL PROBLEMS N SHOULDER PAIN N DEPRESSION (INCLUDING POST ) Y STROKE/TIA Y KNEE PAIN N ULCERS N BENIGN PROSTATIC HYPERPLASIA N OBESITY Y GERD/NAUSEA N ANEURYSM N URINARY/BLADDER/KIDNEY PROBLEMS N CORONARY ARTERY DISEASE (CAD) N ADDICTION CONCERNS N USE OF BLOOD THINNERS N SKIN PROBLEMS N EMPHYSEMA N MUSCLE,JOINT OR BONE PROBLEMS N DVT N STOMACH ULCERS N BLOOD CLOTS N USE OF NSAIDS N CONCUSSION OR SPINAL TRAUMA N NEUROPATHY N AIDS/HIV N FRACTURES N ELBOW PAIN N HYPERTENSION Y TOURETTE'S N ANXIETY DISORDER Y Metal allergy N BLOOD TRANSFUSION N ANEMIA/BLOOD DISORDER N BIPOLAR DISORDER N BRONCHITIS Y OSTEOARTHRITIS N TUBERCULOSIS N FOOT PROBLEM N HEART VALVE DISORDERS N ALLERGIES/HAYFEVER Y SOFT TISSUE INJURY N INFECTIOUS DISEASE N HEART ARRHYTHMIA N INSOMNIA N RHEUMATOID ARTHRITIS N HIGH CHOLESTEROL / HYPERLIPIDEMIA Y EDEMA N CHRONIC PAIN SYNDROME N CAROTID BLOCKAGE N BACK / NECK PROBLEMS Y HAVE YOU BEEN HOSPITALIZED OR SEEN IN [facility] IN THE PAST YEAR ? N BURSITIS N HERNIATED DISC N DIALYSIS N FIBROMYALGIA N OSTEOPOROSIS N ARTHRITIS Y NO SIGNIFICANT PAST MEDICAL HISTORY N PERIPHERAL NEUROPATHY N DIABETES, TYPE Y HEARTBURN / REFLUX N HEPATITIS / LIVER DISEASE N GOUT N SLEEP DISORDER Y ALZHEIMER'S DISEASE N HERPES N SEIZURES/EPILEPSY N HEADACHES/MIGRAINES Y VASCULAR DISEASE N HIP PAIN N Blood Disorder N DIZZINESS Y HEAD TRAUMA OR INJURY N HEART DISEASE/HEART PROBLEMS Y MULTIPLE SCLEROSIS N CARDIAC ARRHYTHMIA N CANCER: SPECIFY Y ANESTHESIA COMPLICATIONS N ATRIAL FIBRILLATION N AUTOIMMUNE DISEASE N Gynecological History Statement/Question Response How many live births 3 Date of Last Colonoscopy Most Recent Bone Density Date of LMP Menses Monthly N Date of Last Pap Smear Current Control Method Menopause Most Recent Mammogram Breast Problems no Discharge no Obstetrics History GPAL:G 3 P 3 0 0 3 Type Value Multiple Births 0 Full Term 3 Induced 0 Spontaneous 0 Premature 0 Living 3 Ectopics 0 Total 3 Immunizations Vaccine Type Date Status Note Provider Nam e and Address Organization Details Recorded Time COVID-19, mRNA, LNP-S, PF, 100 mcg/0.5mL dose or 50 mcg/0.25mL dose 07/07/2021 completed Annette Downing CMA null, [place] [facility] 08/06/2023 12:12:40 COVID-19, mRNA, LNP-S, PF, 100 mcg/0.5mL dose or 50 mcg/0.25mL dose 06/13/2021 completed Annette Downing, DRIVER RETRAINING INSTRUCTOR null, [place] [facility] 08/06/2023 12:12:40 Past Encounters Encounter ID Performer Location Encounter Start Date Encounter Closed Date Diagnosis/Indication Diagnosis SNOMED-CT Code Diagnosis ICD10 Code Diagnosis Note [id number] LLOYD Nicolas [facility] [place] [address] [place] [address] 11/24/2020 00:00:00 11/24/2020 15:15:47 [id number] Jason Mora MD [facility] [place] [address] [place] [address] 02/15/2021 00:00:00 02/15/2021 10:39:14 [id number] Byron Rosenbaum MD [facility] [place] [address] [place] [address] 02/25/2021 00:00:00 02/25/2021 15:56:46 [id number] Byron Rosenbaum MD [facility] [place] [address] [place] [address] 06/08/2021 00:00:00 06/08/2021 16:58:56 [id number] Marques Benavidez MD [facility] [place] [address] [place] [address] 07/26/2021 00:00:00 07/26/2021 14:16:53 [id number] Giacomo Lewis MD [facility] [address] [facility] [facility] [place] [address] 08/18/2021 00:00:00 09/07/2021 18:47:07 [id number] Byron Rosenbaum MD [facility] [place] [address] [place] [address] 09/28/2021 00:00:00 09/28/2021 16:22:01 [id number] Marques Benavidez MD [facility] [place] [address] [place] [address] 11/08/2021 00:00:00 11/08/2021 12:26:21 [id number] Giacomo Lewis MD [facility] Primary [facility] [address] [facility] [place] [address] 11/28/2021 00:00:00 11/28/2021 11:00:26 [id number] Marques Benavidez MD [facility] [place] [address] [place] [address] 12/27/2021 00:00:00 12/27/2021 14:46:30 [id number] Jason Mora MD [facility] [place] [address] [place] [address] 12/27/2021 00:00:00 12/27/2021 10:41:35 [id number] Bryon Rosenbaum MD [facility] [place] [address] [place] [address] 12/28/2021 00:00:00 12/28/2021 10:10:27 [id number] LLOYD Mayo [facility] [address] [place] [address] 01/25/2022 00:00:00 01/25/2022 10:51:42 [id number] Giacomo Lewis MD [facility] Primary Care [facility] [address] [facility] [address] [facility] [place] [address] 02/16/2022 00:00:00 02/16/2022 09:13:42 [id number] LLOYD Nicolas [facility] [place] [address] [place] [address] 03/29/2022 00:00:00 03/29/2022 10:02:41 [id number] Marques Benavidez MD [facility] [place] [address] [place] [address] 03/29/2022 00:00:00 03/29/2022 17:10:12 [id number] Giacomo Lewis MD [facility] [place] [address] [facility] [place] [address] 05/30/2022 00:00:00 05/30/2022 10:30:37 [id number] Byron Rosenbaum MD [facility] [place] [address] [place] [address] 06/28/2022 00:00:00 06/28/2022 10:15:55 [id number] LLOYD Mayo [facility] [place] [address] [facility] [place] [address] 07/19/2022 00:00:00 07/19/2022 08:15:52 [id number] Marques Benavidez MD [facility] [place] [address] [place] [address] 07/26/2022 00:00:00 07/26/2022 14:30:04 [id number] Giacomo Lewis MD [facility] Primary Care [facility] [address] [facility] [place] [address] 08/31/2022 00:00:00 09/08/2022 10:59:07 [id number] Byron Rosenbaum MD [facility] [place] [address] [place] [address] 09/27/2022 00:00:00 09/27/2022 10:14:00 [id number] Peter Anguiano DPM [facility] [place] [address] [place] [address] 10/02/2022 00:00:00 10/05/2022 08:57:21 [id number] Giacomo Lewis MD [facility] [place] [address] [place] [address] 10/16/2022 00:00:00 10/16/2022 10:16:09 [id number] Giacomo Lewis MD [facility] [address] [place] [address] 11/15/2022 09:37:50 11/15/2022 10:21:38 [facility] [id number] G43Luan was seeing neurologyc ontinue ubrelvy, referral to neurology is already pending Body mass index 40+ - severely obese 927900266 Z68.43 bmi 51.9doing wellgreat candidate for bariatric surgeryref erral givenconti nue good water intake, continue daily food journalsta y physically activef/u in 4 weeks or sooner if needed [id number] Peter Anguiano DPM [facility] [place] [address] [place] [address] 11/27/2022 10:01:23 11/27/2022 12:18:17 Right Achilles tendinitis [id number] 69829 M76.61 Rx physical therapyCon tinue over-the-c ounter Voltaren gelRice therapyCon tinue supportive shoe gear newFollow- up in 7 weeks [id number] LLOYD Mayo [facility] [address] [address] [place] [address] 12/22/2022 09:01:16 12/22/2022 09:38:27 Body mass index 40+ - severely obese 077077215 Z68.43 bmi 51.8New referral given. Continue good water intake, continue daily food journal, stay physically active.Vic ght does cause difficulty with ambulation , new order for walker rollator sent today. Cerebrovas cular accident [id number] I63.9 Needs new neurology referral. [id number] Byron Rosenbaum MD [facility] [place] [address] [place] [address] 12/27/2022 09:18:46 12/27/2022 10:21:27 Bilateral osteoarthritis of knees [id number] 81326 M17.0 [id number] LLOYD Mayo [facility] [address] [facility] [address] [address] [place] [address] 01/02/2023 11:03:09 01/02/2023 12:42:07 Bronchitis 43821799 J40 XR chest (12/28/22) unremarkab leSymptoms improving. Continue current medication s. Asthma [id number] J45.90 9 Needs new nebulizer. [id number] LLOYD Mayo [facility] Primary Care [facility] [address] [facility] [address] [place] [address] 01/22/2023 09:37:37 01/22/2023 10:02:13 Body mass index 40+ - severely obese 116529749 Z68.43 BMI 50.1Trying to get establishe d with Dr. Franny Crowder to try and get bariatric surgery. She is changing over insurance and when she gets that done I will send new referral to their office to proceed.Sh tenisha has been working on diet, eats mainly baked chicken. Increasing water intake. Tried to eat mainly fruit or boiled eggs for breakfast. She has been doing chair exercises. Continue food diary. 12/22/22: bmi 51.8New referral given. Continue good water intake, continue daily food journal, stay physically active.Vic ght does cause difficulty with ambulation , new order for walker rollator sent today. [id number] Peter Anguiano DPM [facility] [place] [address] [place] [address] 01/15/2023 09:53:41 01/15/2023 10:52:20 Right Achilles tendinitis 1207671730 [id number] M76.61 Rx physical therapy - Finishedco ntinue at-home physical therapyAch illes insertion steroid shot today, rightverba l consent obtained by the patientall risks, benefits, complicati ons were reviewed with the patient to her complete full understand ing. Patient elects to continue despite possible risk.Peace nue over-the-c ounter Voltaren gelRice therapycon tinue soft ankle braceConti nue supportive shoe gearFollow -up in Three months [id number] Giacomo Lewis MD [facility] Primary Care [facility] [address] [facility] [address] [place] [address] 02/23/2023 09:43:58 02/23/2023 10:31:18 Body mass index 40+ - severely obese 690918063 Z68.43 BMI 49.6She has been working on portions size, drinking mainly water and teas. Continue food diary.Stidalton dalton doing chair exercise.S he is planning on still pursuing bariatric surgery, waiting on paperwork and call back for appointmen t with physician at [facility]. 01/22/23: BMI 50.1Trying to get establishe d with Dr. Franny Crowder to try and get bariatric surgery. She is changing over insurance and when she gets that done I will send new referral to their office to proceed.Obdulia steven has been working on diet, eats mainly baked chicken. Increasing water intake. Tried to eat mainly fruit or boiled eggs for breakfast. She has been doing chair exercises. Continue food diary. 12/22/22: bmi 51.8New referral given. Continue good water intake, continue daily food journal, stay physically active.Vic ght does cause difficulty with ambulation , new order for walker rollator sent today. Congestion of nasal sinus [id number] R09.81 Most likely allergy related. She is already on daily otc allergy pill, montelukas t and 2 nasal sprays.Con gestion is causing difficulty with breathing. Will do course of steroids, plan to have her f/u with [facility] to evaluate for any other structural abnormalit ies. [id number] Jason Mora MD [facility] [place] [address] [place] [address] 03/22/2023 14:43:29 03/22/2023 15:38:59 Chronic sinusitis 48872866 J32.9 [id number] ANNALISA Ferrara [facility] Primary Care [facility] [address] [facility] [place] [address] 04/06/2023 08:30:21 04/06/2023 09:26:29 Arthritis 9046158 M19.90 ChronicCon tinue with otc or prescribed nsaids as directed. Ok to take otc acetaminop hen per package instructio ns as well. Discussed medication regimen as well as diet and exercise modificati on. Patient will apply heat/ice/t opicals as needed for pain relief. Follow up in 3 months.Munoz mariiap parking placard form completed. Body mass index 40+ - severely obese [id number] Z68.42 ChronicDow n 7# since last visit.Advi sed eat 3 meals daily with 1-2 healthy snacks, eliminate caloric drinks, no grazing btw meals, reduce packaged foods, portion control, modificati on of cooking style, low fat/low sugar items, 30 minutes of exercise at least 3x/week, reduce emotional/ stress eating, increase fruits/veg etables, take 15-20 minutes to eat.Try to keep daily calorie count btw 4646-4866 calories. Gave meal planning handout previously . May need to consider referral to desk top publisher/ nutritioni st as well pending bariatric surgery appt.May also consider medication in the future (phentermi ne, topiramate , Contrave, Qysmia, Wegovy, bupropion) . [id number] Byron Rosenbaum MD [facility] [place] [address] [place] [address] 04/06/2023 14:33:13 04/06/2023 16:22:39 Bilateral osteoarthritis of knees [id number] 93381 M17.0 [id number] Peter Anguiano DPM [facility] [place] [address] [place] [address] 04/16/2023 10:14:22 04/16/2023 11:19:24 Right Achilles tendinitis [id number] 86819 M76.61 Rx physical therapy - Send back to physical therapycon tinue at-home physical therapyCon tinue over-the-c ounter Voltarenadia gelRice therapycon tinue soft ankle braceConti nue supportive shoe gearFollow -up in 1 month if not significan tly improve may require surgical removal of spur [id number] Giacomo Lewis MD [facility] [address] [facility] [address] [facility] [place] [address] 05/04/2023 08:37:51 05/04/2023 09:35:15 Arthritis [id number] M19.90 ChronicCon tinue with otc or prescribed nsaids as directed. Ok to take otc acetaminop hen per package instructio ns as well. Discussed medication regimen as well as diet and exercise modificati on. Patient will apply heat/ice/t opicals as needed for pain relief. Follow up in 3 months.Alexander alexis parking placard form completed previously Body mass index 40+ - severely obese [id number] Z68.42 ChronicDow n 6# since last visit.Advi sed eat 3 meals daily with 1-2 healthy snacks, eliminate caloric drinks, no grazing btw meals, reduce packaged foods, portion control, modificati on of cooking style, low fat/low sugar items, 30 minutes of exercise at least 3x/week, reduce emotional/ stress eating, increase fruits/veg etables, take 15-20 minutes to eat.Try to keep daily calorie count btw [phone] calories. Gave meal planning handout previously . May need to consider referral to desk top publisher/ nutritioni st as well pending bariatric surgery appt, bariatric referral renewed.Zuleika y also consider medication in the future (phentermi ne, topiramate , Contrave, Qysmia, Wegovy, bupropion) . [id number] Peter Anguiano DPM [facility] [place] [address] [place] [address] 06/07/2023 12:14:27 06/07/2023 14:26:53 Right Achilles tendinitis [id number] M76.61 Continue at-home physical therapyRic e therapy, continueco ntinue soft ankle braceConti nue supportive shoe gearFollow -up MRI- Rule out bursitis, tear, tendinosis Pain in right heel 85959 95352 715182 M79.671 as above [id number] Giacomo Lewis MD [facility] Primary Care [facility] [address] [place] [address] 06/11/2023 15:47:36 06/11/2023 17:38:06 Chronic sinusitis [id number] J32.9 Recently given antibiotic amoxicilli n x7days from our office, noted some improvemen tf/u with UC-zpack and steroid for 5 days-mild improvemen t but continued s/swill give another round of amox-clavu lanate Hypertensive disorder 38 [id number] I10 Pt has family hx of cardiovasc ular illness as well as her own hx of HTNRequest s cardiologi st referral-g ivenDnuria es cardiac workup through PMD at this time [id number] Giacomo Lewis MD [facility] Primary Care [facility] [address] [place] [address] 07/09/2023 14:01:15 07/09/2023 16:11:06 Body mass index 40+ - severely obese 141482661 Z68.43 Continue weight loss efforts.St ill planning to get bariatric surgery, waiting on insurance to change to be able to get surgery in [place]. Sinusitis 05525033 J32.9 Has follow-up with [facility] (Dr. Mora) scheduled. Continue otc medication s. [id number] Byron Rosenbaum MD [facility] [place] [address] [place] [address] 07/13/2023 13:54:47 07/13/2023 15:06:12 Bilateral osteoarthritis of knees [id number] 00383 M17.0 [id number] Jason Mora MD [facility] [place] [address] [place] [address] 07/26/2023 11:06:23 07/26/2023 12:33:25 Chronic sinusitis 21629531 J32.9 Deviated nasal septum 12 9308631 J34.2 [id number] Giacomo Lewis MD [facility] Primary Care [facility] [address] [place] [address] 08/06/2023 12:04:36 08/06/2023 13:21:05 Body mass index 40+ - severely obese 585015582 Z68.43 Continue weight loss efforts.St ill planning to get bariatric surgery, waiting on insurance to change to be able to get surgery in [place]. Sinusitis 08173275 J32.9 Has follow-up scheduled with [facility] (Dr. Mora) for surgery for deviated septum 08/29/23. Continue otc medication s. Spasm 83077423 R25.2 [id number] Jason Mora MD [facility] [place] [address] [place] [address] 09/06/2023 13:53:25 09/06/2023 14:49:53 Deviated nasal septum 351821747 J34.2 [id number] Jaosn Mora MD [facility] [place] [address] [place] [address] 10/17/2023 10:00:58 10/22/2023 11:25:39 Dysfunction of bilateral eustachian tubes 5006419873 613439 H69.93 [id number] Byron Rosenbaum MD [facility] [place] [address] [place] [address] 10/12/2023 09:21:17 10/12/2023 10:27:43 Bilateral osteoarthritis of knees [id number] 05846 M17.0 [id number] Giacomo Lewis MD [facility] [place] [address] [facility] [place] [address] 10/31/2023 14:35:25 10/31/2023 16:56:38 Acute sinusitis 37334913 J01.90 -recently had deviated septum surgery in 09/02-went to UC on 09/17, double ear infection noted-f/u with ENT was on 10/17, put on steroid/ce fdinir-tri al sudafed and amoxicilli n [id number] Giacomo Lewis MD [facility] Primary Care [facility] [address] [facility] [place] [address] 11/27/2023 14:33:07 11/27/2023 15:18:19 Abdominal pain 74893170 R10.9 -has been an issue for the last month, diffuse abd pain, epigastric pain-able to drink liquids without issue, but unable to eat solid food without getting pain-no nausea/vom iting noted-hx of GERD, uses dairy products to manage her symptoms-h x of cholecyste ctomy-raeann y bm's, soft formed-Col onoscopy completed 10/23-negat gary per her 10 year plan-EGD ordered, ruling out hiatal hernia-US to be completed if unable to get EGD approved [id number] Kerrie Lopez MD [facility] General Surgery [address] [place] [address] 01/16/2024 13:34:52 01/16/2024 14:07:27 Epigastric pain 80127992 R10.13 [id number] CHE Gonsalez [facility] Primary Care [facility] [address] [facility] [place] [address] 02/29/2024 09:05:04 02/29/2024 09:52:06 Cerebrovascular accident 509514572 I63.9 Migraine 78765337 G43.90 9 Dizziness 718856864 R42 [id number] Jason Mora MD [facility] [place] [address] [place] [address] 04/07/2024 14:08:59 04/08/2024 11:39:55 Vertigo 504818498 R42 [id number] CHE Gonsalez [facility] Primary Care [facility] [address] [place] [address] 05/02/2024 10:00:44 05/02/2024 10:35:09 Cerebrovascular accident 600425668 I63.9 Home health already in the worksshe is to be evaluated by mertanner today Migraine 06270080 G43.90 9 qulipta working well for herstill having some migraines, but decrease in severityin creasing qulipta to 60mg Dizziness 682397133 R42 f/u with Dr. Mora about 1 week agonno given Pain of ear 145611425 H9 2.09 [id number] LLOYD Zafar [facility] Primary Care [facility] [address] [place] [address] 06/03/2024 14:56:56 06/03/2024 16:10:54 Seasonal allergy 867324201 J30.2 Pre-surger y evaluation 937077777 Z01.818 ekg wnlawaitin g labs [id number] CHE Weathers [facility] [address] [place] [address] 09/17/2024 10:41:46 09/17/2024 11:59:19 Acute sinusitis 55228207 J01.90 Will treat as listed below. Patient will follow up as needed. [id number] CHE Weathers [facility] Primary [facility] [address] [place] [address] 10/29/2024 10:16:23 10/29/2024 11:12:14 Pre-surgery evaluation 260427034 Z01.818 Acute sinusitis 44724317 J01.90 Atrial fibrillation 4943 6004 I48.91 [id number] CHE Weathers [facility] Primary [facility] [address] [place] [address] 12/17/2024 11:08:54 12/17/2024 12:04:03 Acute sinusitis 49040567 J01.90 Will treat as listed below. Patient will follow up as needed. Atrial fibrillation 4943 6004 I48.91 [id number] CHE Weathers [facility] [address] [place] [address] 01/19/2025 12:23:06 01/19/2025 12:45:57 Acute upper respiratory infection 62123305 J06.9 [id number] Jason Mora MD [facility] [place] [address] [place] [address] 01/29/2025 12:02:31 01/30/2025 09:02:46 Chronic maxillary sinusitis 90154493 J32.0 Health Concerns Section Related Observation LastModified by Organization Detai ls LastModified Time None Recorded Concern Status LastModified by Organization Details LastModified Time None Recorded Advance Directives Directive None Recorded Payers Encounter Date Sequence Insurance Name Policy Number Policy Main Covered Member ID Main Member ID Guarantor Name 09/17/2024 1 [facility] ON OR AFTER 03/10/21 (MEDICAID REPLACEMENT - HMO) Socorro Ibarra [id number] Socorro Ibarra 10/29/2024 1 [facility] ON OR AFTER 03/10/21 (MEDICAID REPLACEMENT - HMO) Socorro Portillo Stacey [id number] Socorro Gaona Stacey 12/17/2024 1 [facility] - DOS ON OR AFTER 21 (MEDICAID REPLACEMENT - HMO) Socorro Portillo Stacey [id number] Socorro Gaona [place] 01/19/2025 1 [facility] - DOS ON OR AFTER 21 (MEDICAID REPLACEMENT - HMO) Socorro Portillo [place] [id number] Socorro Gaona Stacey 01/29/2025 1 [facility] - DOS ON OR AFTER 21 (MEDICAID REPLACEMENT - HMO) Socorro Portillo [place] [id number] Socorro Gaona [place] Notes Date Note Type Note Provider Name and Address Organization Details Recorded Time 09/17/2024 text/html Patient is a 54 year old female that presents to the office for sick visit. Patient reports sinus pressure and drainage for about 10 days. Patient reports dizziness related to bilateral ear pressure. Patient denies chest pain and shortness of breath. Patient denies fevers, body aches and chills. Patient reports she has been taking Mucus Relief without relief of symptoms. CHE Weathers [address] [facility] [address], [place], [address], [facility] [employer] 09/21/2024 19:12:13 10/29/2024 text/html Patient is a 54 year old female that presents to the office for surgical clearance. Patient is schedule to have her pre surgery evaluation on 11/06 and her knee surgery on 11/25. Patient reports she is doing well and is beyond ready for surgery as it has been in the works for a while. Patient reports sinus infection for about 2 weeks now, main complaint is sinus pressure. Patient has tried several OTC medications without relief of symptoms. Patient is also requesting a refill on her Digoxin and a referral for a new study lead as hers is no longer accepting her insurance. Patient was suppose to have an appt with her study lead tomorrow however they canceled due to her insurance. CHE Weathers [address], [place], [address], [facility] [employer] [facility] 11/03/2024 22:30:30 12/17/2024 text/html Patient is a 54 year old female that presents to the office for ear pain.Patient reports bilateral ear pain and pressure for one week. Patient also reports sinus pressure. Patient denies chest pain and shortness of breath, nausea vomiting and diarrhea. CHE Weathers [address], [place], [address], [employer] [facility] [employer] [facility] 12/17/2024 11:54:48 01/19/2025 text/html Patient is a 54 year old female that presents to the office for sick visit. Patient reports sinus congestion and pressure since Sunday. Patient was at the hospital for testing last week and starting feel ill after. Patient was treated with Z-mekhi and Augmentin last month for sinus infection. Denies chest pain and shortness of breath, nausea vomiting and diarrhea. Patient denies fevers. CHE Weathers [address], [place], [address], [employer] [facility] [employer] [facility] 01/19/2025 12:54:24 01/29/2025 text/html This patient reports that she has left-sided sinus congestion despite antibiotics. She had a CT and MRI in 2023. Her sinusitis has been going on for months and she has an upcoming knee replacement surgery Jason Mora MD [address], [place], [address], [facility] [employer] [facility] [employer] [facility] 01/29/2025 12:37:47 OBGyn Episode No OBEpisode recorded.
--- OUTSIDE RECORDS SUMMARY | 2025-02-04 09:00 | XMS_ITS | CONTINUITY OF CARE DOCUMENT ---
Author Name riya ritter Address Unknown Organization [facility] Address [address] [place] [address] Phone [phone] Care Team Providers Care Trackless Trolley Driver Name Role Phone Vicente Resendez MD Unavailable GIACOMO GRIGGS MD Unavailable SENAIT GOMES Unavailable [...] Shortness of breath active Eileen Ventimigl ia COLD STORAGE WORKER COPD active Eileen Ventimiglia COLD STORAGE WORKER Palpitations active Eileen Ventimiglia COLD STORAGE WORKER LUISA, adult active Eileen Ventimiglia COLD STORAGE WORKER SVT, paroxysmal active Vicente Resendez MD Syncope active Vicente Resendez MD ENCOUNTERS Date Type Provider Location Encounter Diag nosis - In-person encounter Office Visit Vicente Resendez MD [facility] HYPERCHOLESTEROLEMIA -LABS PER DR. TITUS s/p gastric sleeve surgery 06/2024Syncope - In-person encounter Office Visit Vicente Resendez MD [facility] - In-person encounter Office Visit Vicente Resendez MD [facility] SVT, paroxysmal - In-person encounter Office Visit Vicente Resendez MD [facility] - In-person encounter Office Visit Vicente Resendez MD [facility] Shortness of breathCOPDPalpitatio nsOSA, adult - In-person encounter Office Visit Mya Madison MD [facility] HTN-11/16 ECHO EF 65 LVHCVA-11/16 CAROTID NEGCHEST PAIN-11/16 CATH NORMAL - In-person encounter Office Visit Mya Madison MD [facility] ANEMIA NEEDS FE TRANSFUSIONS VITAL SIGNS Date Observation Value Provider Body Mass Index (Ratio) 36.13 kg/m2 Christian Resendez MD blood pressure, diastolic 74 mm[Hg] Benedict clemente [place] blood pressure, systolic 122 mm[Hg] Natalie cosby [place] oxygen saturation, oximetry 97 % [facility] pulse rate 87 /min [facility] blood pressure, cuff size regular Benedict clemente [place] weight E&M 185.0 [lb_av] [facility] height E&M 60 [in_i] [facility] Body Mass Index (Ratio) 49.99 kg/m2 Grah am Juan Jose blood pressure, diastolic 81 mm[Hg] Li [employer] blood pressure, systolic 117 mm[Hg] Carolynn kLogic pulse rate 99 /min [facility] blood pressure, cuff size regular Fa [facility] blood pressure, diastolic 81 mm[Hg] Fa [facility] blood pressure, systolic 117 mm[Hg] René [facility] oxygen saturation, oximetry 96 % [facility] respiratory rate E&M 16 /min Brigette Dez [facility] weight E&M 256 [lb_av] [facility] height E&M 60 [in_i] [facility] Body Mass Index (Ratio) 52.73 kg/m2 Christian Resendez MD blood pressure, diastolic 76 mm[Hg] Saloni Log blood pressure, systolic 134 mm[Hg] Carolynn pulse rate 90 /min Terrell y blood pressure, cuff size large Ja et blood pressure, diastolic 76 mm[Hg] Ja rret blood pressure, systolic 134 mm[Hg] [facility] ret oxygen saturation, oximetry 97 % Terrell [...] Alicja Rocha Calcium 600 + D active Alicja Rocha cetirizine 10 mg tablet active TAKE ONE TABLET BY MOUTH ONCE A DAY Alicja Rocha fenofibrate nanocrystallized 48 mg tablet active Take 1 tablet by mouth once daily [facility] Tricor 48 mg tablet completed Take 1 table t by mouth once a day - [facility] PER [place] [facility] [place] fenofibrate 40 mg tablet completed TAKE 1 TABLET BY MOUTH ONCE A DAY - [facility] digoxin 125 mcg [...] mcg/actuation blister with device active Eileen Ventimiglia COLD STORAGE WORKER Symbicort 160-4.5 mcg/actuation HFA aerosol inhaler active Eileen Ventimiglia COLD STORAGE WORKER escitalopram oxalate 20 mg tablet active Eileen Ventimiglia COLD STORAGE WORKER lisinopril-hydrochl orothiazide 20-25 mg tablet completed - Vicente Resendez MD amitriptyline 50 mg tablet active Eileen Ventimiglia COLD STORAGE WORKER gabapentin 400 mg capsule active Eileen Ventimiglia COLD STORAGE WORKER meloxicam 15 mg tablet active Eileen Ventimiglia COLD STORAGE WORKER anastrozole 1 mg tablet active Eileen Ventimiglia COLD STORAGE WORKER cyclobenzaprine 10 mg tablet active Eileen Ventimiglia COLD STORAGE WORKER prazosin 2 mg capsule active Eileen Ventimiglia COLD STORAGE WORKER hydroxyzine HCl 25 mg tablet active Eileen Ventimiglia COLD STORAGE WORKER buspirone 30 mg tablet active Eileen Ventimiglia COLD STORAGE WORKER anastrozole 1 mg tablet completed - Eileen Ventimiglia COLD STORAGE WORKER cyclobenzaprine 10 mg tablet completed - Eileen Ventimiglia COLD STORAGE WORKER fluticasone propionate 50 mcg/actuation spray,suspension active prazosin 2 mg capsule completed - Eileen Ventimiglia COLD STORAGE WORKER albuterol sulfate 90 mcg/actuation HFA aerosol inhaler active azelastine 137 mcg (0.1 %) aerosol,spray completed - Eileen Ventimiglia COLD STORAGE WORKER buspirone 30 mg tablet completed - Eileen Ventimiglia COLD STORAGE WORKER hydroxyzine HCl 25 mg tablet completed - Urich Ventimiglia COLD STORAGE WORKER VERAMYST 27.5 MCG/SPRAY NASAL SUSPENSION completed - Urich Ventimiglia COLD STORAGE WORKER PROVENTIL HFA AEROSOL SOLUTION active as needed Mayur Ying RN LOFIBRA 134 MG ORAL CAPSULE completed - [facility]OLD STORAGE WORKER Abilify 30 mg tablet completed - [facility] COLD STORAGE WORKER metoclopramide HCl 5 mg tablet completed - Urich Ventimiglia COLD STORAGE WORKER RANITIDINE HCL 150 MG ORAL TABLET completed 1 tablet twice a day - Urich Ventimiglia COLD STORAGE WORKER BUDEPRION SR 150 MG ORAL TABLET EXTENDED RELEASE 12 HOUR completed - [facility] COLD STORAGE WORKER Phenergan 25 mg/mL solution completed as needed - [facility] Maxalt 10 mg tablet completed - Urich Ventimiglia COLD STORAGE WORKER TRAZODONE HCL TABLET active 300 mg as directed TAKE ONE TABLET BY MOUTH ONCE A DAY Alicja Rocha PROPOXYPHENE-APAP 65-650 MG TABS completed as needed - [facility] clonazepam 2 mg tablet completed - Urich Ventimiglia COLD STORAGE WORKER ZETIA TABS (EZETIMIBE) completed - Mayur Ying [...] MD drug use no Eileen Ventimig emily [facility] alcohol use no Eileen Ventimig emily [facility] smoking status Former smoker Eileen Venti miglia [facility] social history reviewed E&M revi ewed - no changes required Vicente Resendez MD drug use no Eileen Ventimig emily [facility] alcohol use no Eileen Ventimig emily [facility] smoking status Former smoker Eileen Venti miglia [facility] social history reviewed E&M reviewed [...] than 10 years [employer] smoking status [facility] MENTAL STATUS Date Observation Value Provider assessment of judgme nt and insight E&M Flat affect- depressed affect. Mayur Ying RN assessment of judgme nt and insight E&M Alert and oriented to time, place and person. Mood and affect are normal. Flat affect- depressed? Mayur Ying RN INSURANCE PROVIDERS Payer name Policy type / Coverage type Heidi red alliance party ID SENG MEDICAID (2) Medicaid [id number] ADVANCE DIRECTIVES Name Date DISCUSSED - NO DECISION MADE TREATMENT PLAN Date Name Performer [id number],C, H er updated medication list for this problem includes: Incruse Ellipta 62.5 Mcg/actuation Blister With Device (Umeclidinium) Symbicort 160-4.5 Mcg/actuation Hfa Aerosol Inhaler (Budesonide-formoterol) Montelukast 10 Mg Tablet (Montelukast) Albuterol Sulfate 90 Mcg/actuation Hfa Aerosol Inhaler (Albuterol sulfate) [facility] [id number],C,c hronic in setting of COPD, obesity and LUISA e cho done showed EF of 60% with diastolic dysfunction n o significant valvular abnormaliteis e ncouraged weight loss and continued use of inhalers H er updated medication list for this problem includes: Lisinopril-hydrochlorothiazide 20-25 Mg Tablet (Lisinopril-hydrochlorothiazide) [facility] [id number],C,p atient is preparing for gastric sleeve w ould be considered an acceptable risk for planned procedure [facility] [id number],C,T he patient is using CPAP on a regular basis. The patient has been benefiting from therapy and should continue use. [facility] [id number],C,B P 158/77 in office B rought in home log and BP 120-130 systolic and 60-70 diastolic w ill continue to monitor at home c ontinue present medication regimen H er updated medication list for this problem includes: Lisinopril-hydrochlorothiazide 20-25 Mg Tablet (Lisinopril-hydrochlorothiazide) Prazosin 2 Mg Capsule (Prazosin) Eileennelson Carlsonmiglia [facility] [id number],C,L abs showed Triglycerides of 490 H er HgbA1C was 5.5% S he will be started on vascepa W ill have f/u lipid panel in 8 weeks and return post Eileennelson Carlsonmiglia [facility] [id number],C,T he patient is using CPAP on a regular basis. The patient has been benefiting from therapy and should continue use. Vicente Resendez MD [id number],C,B lood pressure 152/83 in office today W ell controlled per home log W ill continue to trend at home Vicente Resendez MD [id number],C,will update l ipid panel Vicente Resendez MD [id number],C,e pisodes can come daily or go months without occuring h ave been more frequently c an get updated labs w ill plan tele monitor Vicente Resendez MD [id number],C,M ost likely multifactorial in nature in setting COPD, asthma, and obesity W ill do echo to r/o any LV dysfunction or WMA Vicente Resendez MD [id number],C,plannd for ga stric bypass Urich Aldomiglia [facility] [id number],C,n o residual effects n ot on statin therapy d/t intolerance [facility] Cardiology Vicente Ortez Cardiology: N [...] once a day Lovaza 1 Gram Capsule (Round Top-3 acid ethyl esters) ..... Take 1 capsule [...] 90 Mcg/actuation Hfa Aerosol Inhaler (Albuterol sulfate) Urich Ludivina [facility] Cardiology:chronic i n setting of COPD, obesity and LUISA e cho done showed EF of 60% with diastolic dysfunction n o significant valvular abnormaliteis e ncouraged weight loss and continued use of inhalers H er updated medication list for this problem includes: Lisinopril-hydrochlorothiazide 20-25 Mg Tablet (Lisinopril-hydrochlorothiazide) Urich Ludivina [facility] Cardiology:patient i s preparing for gastric sleeve w ould be considered an acceptable risk for planned procedure [facility] Cardiology:The patie nt is using CPAP on a regular basis. The patient has been benefiting from therapy and should continue use. [facility] Cardiology:BP 158/77 in office B rought in home log and BP 120-130 systolic and 60-70 diastolic w ill continue to monitor at home c ontinue present medication regimen H er updated medication list for this problem includes: Lisinopril-hydrochlorothiazide 20-25 Mg Tablet (Lisinopril-hydrochlorothiazide) Prazosin 2 Mg Capsule (Prazosin) [facility] Cardiology:Labs show ed Triglycerides of 490 H er HgbA1C was 5.5% S he will be started on vascepa W ill have f/u lipid panel in 8 weeks and return post Eileen Ventimiglia [facility] Cardiology:The patie nt is using [...] Resendez MD Cardiology:plannd for gastric by pass Urich Ventimiglia [facility] Cardiology:no residu al effects n ot on statin therapy d/t intolerance Urich Ventimiglia [facility] chest pain: O rders: C [...] Borderline LVH. SL (10/08/2006) Orders: E KG ([id number]) C ardiac Cath - GC (*) Mya [...]
--- OUTSIDE RECORDS SUMMARY | 2025-02-04 09:00 | XMS_ITS | Data Portability ---
Author Organization [facility], [facility] IP Address [address] [place] [address] Assessment No assessment recorded. Plan of Treatment [...] patient use a wheelchair? : N 2022 [facility] (Surgery Sched), [address] [place] [address], [address], 4 11:23:12 Surgeries None recorded. Imaging None recorded. Medication Orders Dulcolax (bisacodyl) 5 mg tablet,daniella yed release 2022 023 [facility] [address] [place], [address], 3 09:49:22 Miralax 17 gram/dose oral powder 2022 023 [facility] [address] [place], [address], 3 09:49:23 Patient TargetsNo targets recorded. Patient Instructions Encounter Date Encounter Id Patient Instructions Last Modified By Organization Details Last Modified Time 07/09/2023 [id number] RL About Your Colonoscopy 1 Day Prep [email or web address] Not available 07/09/2023 09:49:15 Reason for Referral None Reported. Results Created Date Observation Date Name Description Value Unit Range Abnormal Flag Note LastModifiedBy Organization Detail LastModifiedTime Result Notes None recorded. Medical Equipment None Reported. Allergies Allergen ID Allergen Name Allergen Category Reaction Reaction Severity Criticality Documentation Date Start Date Code Code System Note Provider Name and Address Organization Details Recorded Time 211447 doxycycli ne Not available respirato ry distress severe Not available 07/09/2023 3640 RxNorm Mary Barker LIFE MANAGEMENT TEACHER [place], [place] - [facility] 09:41:06 255654 Cipro medicatio n rash Not available Not available 07/09/2023 13944 3 RxNorm Mary Barker LIFE MANAGEMENT TEACHER [place] [facility] 09:41:29 809222 Product containin g 3-hydroxy -3-methyl glutaryl- coenzyme A reductase inhibitor (product) medicatio n myalgias (muscle pain) Not available Not available 07/09/2023 65435 009 SNOMED Mary Barker LIFE MANAGEMENT TEACHER [place], [place] [facility] 3 09:41:49 544092 verapamil medicatio n respirato ry distress Not available Not available 07/09/2023 43379 RxNorm Mary Barker LIFE MANAGEMENT TEACHER [place], [place] [facility] 3 09:42:04 461652 Lipitor medicatio n respirato ry distress Not available Not available 07/09/2023 42509 5 RxNorm Mary Barker LIFE MANAGEMENT TEACHER [place], [place] [facility] 3 09:42:16 239748 morphine medicatio n respirato ry distress Not available Not available 07/09/2023 7052 RxNorm Mary Barker MICHEL [place], [place] [facility] 3 09:42:38 965151 tetracycl ine medicatio n respirato ry distress Not available Not available 07/09/2023 38587 RxNorm Mary Barker LIFE MANAGEMENT TEACHER [place], [place] [facility] 3 09:43:37 Medications Name Sig Start Date Stop Date Status Note LastModified by Organization Details LastModified Time garcíanow cov kit home jesus manuel 07/09 completed [...] one time with 8 ounces of water 10/30/ 2023 active Not Available Not Available Not [...] (BMI) Body height Heart rate Body temperature Oxygen saturation Oxygen saturation in Arterial blood by Pulse oximetry Systolic blood pressure Diastolic blood pressure Provider Name and Address Organization Details Last Updated DateTime 3 477348. 76 g 52.3 kg/m2 152.4 cm 97 /min 97.8 [degF] 98 % 98 % 137 mm[Hg] 67 mm[Hg] Mary Barker LPN [place] - [facility] 09:39:58 Social History Question Answer Notes LastModified by Organizat ion Details LastModified Time Tobacco Smoking Status Former Smoker stopped in 2004 MICHEL [place], [place] - [facility] 07/09/2023 09:47:39 What Was The Date Of Your Most Recent Tobacco Screening? 07/09/2023 Information not available 07/09/2023 Has Tobacco Cessation Counseling Been Provided? No Information not available 07/09/2023 Sex: Unknown Functional Status Question Answer Note LastModified by Organizat ion Details LastModified Time Do you use any illicit or recreational drugs? No Information not available 07/09/2023 Mental Status None recorded. Family History Nothing Reported. Medical History No medical history recorded. Gynecological HistoryNo gynecological history recorded. Obstetrics History GPAL:G 0 P 0 0 0 0 Past Encounters Encounter ID Performer Location Encounter Start Date Encounter Closed Date Diagnosis/Indication Diagnosis SNOMED-CT Code Diagnosis ICD10 Code Diagnosis Note [id number] Italia Leonard DO [facility] [address] [place] [address] 07/09/2023 09:25:43 07/09/2023 14:15:10 Screening for malignant neoplasm of colon 451819668 Z12.11 Previous colonoscop y > 10 years [...] Main Member ID Guarantor Name 07/09/2023 1 [facility] (MEDICAID REPLACEMENT - HMO) [id number] Socorro Ibarra [id number] Socorro Ibarra Notes Date Note Type [...] with gastric sleeve. KRISTIN DESAI [address], [place], [address], [facility] - [facility] 07/09/2023 10:05:44 OBGyn Episode No OBEpisode recorded.
--- OUTSIDE RECORDS SUMMARY | 2025-02-04 09:00 | XMS_ITS | Encounter Summary ---
Author Organization [facility] Healthcare Address [address] [place] [address] Care Team Providers Care Emergency Management Director Name Role Phone Ke Frederick NP Primary Care Provider [phone] Reason for Visit * Reason Onset Date Comments Test Results 01/22/2025 Results Encounter Details Date Type Department Care Team (Late st Contact Info) Description 01/22/2025 Results Follow-Up [facility] Medical Group Neurology [address] [place] [address] Ann Matthews NP [facility] [address] [place] [address] MRI Cervical Spine W WO Contrast Social History Tobacco Use Types Packs/Day Years Used Date Smoking Tobacco: Former Cigarettes 0.5 20.4 2 005 - 1985 Smokeless Tobacco: Never Comments:06/02/2024 Stress s adiliz, patient says that she would smoke between a couple to a whole pack per day. 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 And will also send results message to patient my chart. * Telephone Encounter - Linda Marquis MA - 01/23/2025 8:30 AM CDT ----- Message from Ann Matthews NP sent at 01/22/2025 9:43 AM CDT ----- Please let Socorro know her brain MRI is stable. There are no abnormal findings. No evidence of neurofibromas in the brain. Her cervical MRI looks good with mild degenerative disc changes with no significant narrowing. No neurofibroma in the cervical spine. documented in this encounter Plan of Treatment Not on file documented as of this encounter Visit Diagnoses Not on filedocumented in this encounter Care Teams Emergency Management Director Relationship Specialty Start Date End Date Ke Frederick NP [address] [place] [address] [place] [address] PCP - General Family Medicine 01/31/24 documented as of this encounter
--- OUTSIDE RECORDS SUMMARY | 2025-02-04 09:00 | XMS_ITS | Clinical Summary ---
Author Organization [facility] [employer] Address [address] [place] [address] Care Team Providers Care Investor Relations Specialist Name Role Phone Latesha Lewis MD Primary Care Provider [phone] Source Comments [facility] [employer],non-owned Affiliates and Associated Physician Practices is amultiple site organization consisting of ambulatory clinics and hospital sitesin [place], [place], [place] and [place]. This disclosure is being madepursuant to the Care Everywhere program and may not contain all information available regarding this patient. Last updated 18.[facility] [employer] Allergies Active Allergy Reactions Criticality Noted Date Comments Ciprofloxacin Rash Medium 06/16/2019 SOB Doxycycline Urticaria,Shortness of Breath High 06/16/2019 Flu Virus Vaccine Unknown 06/16/2019 Morphine NUMERICAL CONTROL LATHE OPERATOR Dysfunction 06/16/2019 Pneumococcal Polysaccharides Unknown 019 Quinolones Rash Medium 06/16/2019 Hmg-Coa-R Inhibitors Other 06/16/2019 Verapamil Rash Medium 06/16/2019 Medications * Be aware that medications may not be up to date on this document. Alwaysverify current medications with the patient. Budesonide-For moterol Fumarate (SYMBICORT IN) Symbicort 160 mcg-4.5 mcg/actuation HFA aerosol inhaler Active albuterol HFA (PROAIR HFA) 108 (90 Base) MCG/ACT inhaler every 4 hours Active amitriptyline (ELAVIL) 50 MG tablet amitriptyline 50 mg tablet 1 po tid Active cyclobenzaprin e (FLEXERIL) 10 MG tablet Take 10 mg by mouth nightly as needed Active escitalopram (LEXAPRO) 20 MG tablet escitalopram 20 mg tablet Active gabapentin (NEURONTIN) 400 MG capsule gabapentin 400 mg capsule Take 2 capsules 3 times a day by oral route for 90 days. Active lisinopril-hyd roCHLOROthiazi de (PRINZIDE; ZESTORETIC) 20-25 MG tablet lisinopril 20 mg-hydrochlorothi azide 25 mg tablet TAKE 1 TABLET BY MOUTH ONCE DAILY FOR HIGH BLOOD PRESSURE EDEMA Active meloxicam (MOBIC) 15 MG tablet meloxicam 15 mg tablet TAKE 1 TABLET BY MOUTH ONCE DAILY FOR KNEE PAIN LEG PAIN Active traZODone (DESYREL) 150 MG tablet TAKE 1 TABLET BY MOUTH EVERY DAY AT BEDTIME NEEDED FOR INSOMNIA 4 9 Active Acetaminophen (TYLENOL PO) Take 650 mg by mouth 3 times daily Active Ergocalciferol (VITAMIN D2) 2000 units Take 1 tablet by mouth once daily Active fluticasone propionate (FLONASE) 50 MCG/ACT nasal spray [place] 2 sprays into each nostril once daily Active diphenhydrAMIN E (BENADRYL) 25 MG tablet Take 25 mg by mouth 2 times daily Active fluticasone-vi lanterol (BREO ELLIPTA) 100-25 MCG/INH inhaler every 24 hours Activ e prochlorperazi ne (COMPAZINE) 10 MG tabletIndicati ons:Nausea and Vomiting Take 1 tablet by mouth every 6 hours as needed for Nausea/Vomiting Reasons: Nausea and Vomiting 50 tablet 9 Active anastrozole (ARIMIDEX) 1 MG tablet Take 1 mg by mouth once daily 0 Active hydrOXYzine hcl (ATARAX) 25 MG tablet TAKE 1 TO 2 TABLETS BY MOUTH AT BEDTIME NEEDED 0 Active prazosin (MINIPRESS) 2 MG capsule prazosin 2 mg capsule TAKE 1 CAPSULE BY MOUTH AT BEDTIME Active traMADol (ULTRAM) 50 MG tablet Take 50 mg by mouth every 8 hours as needed 0 Active INCRUSE ELLIPTA 62.5 MCG/INH inhaler INHALE 1 PUFF BY MOUTH ONCE DAILY 0 Active Calcium Carbonate-Vit D-Min (CALTRATE 600+D PLUS MINERALS) 600-800 MG-UNIT TABS Take 1 tablet by mouth once daily 0 Active Active Problems Problem Noted Date Diagnosed Date residential current use of aromatase inhibitor 10/2019 Malignant neoplasm of upper- outer quadrant of right breast in female, estrogen receptor positive 06/03/2019 Cancer Staging:Clinical stage from 05/12/2020:Stage IA(cT1b, cN0, cM0, G1, ER+, TX+, HER2-) - Signed by Natalya Borden MD on 08/15/2020 Pathologic stage from 05/12/2020:Stage IA(pT1b, pN0(sn), cM0, G1, ER+, TX+, HER2-) - Signed by Natalya Borden MD on 08/15/2020 Overview (08/15/2020): Right, 10:00. Grade 1/3 IDC. T1bN0(i-)M0, stage IA. 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 us Khushbu Mackey MD MAMMO ORDERABLES Final Res ult from Last 3 Months or Most Recently Relevant to Health Maintenance Insurance [facility] MEDICAID Care Teams Investor Relations Specialist Relationship Specialty Start Date End Date Latesha Lewis MD [address] [place] [id number] PCP - General 06/16/19
--- OUTSIDE RECORDS SUMMARY | 2025-02-04 09:00 | XMS_ITS | Encounter Summary ---
Author Organization [facility] Address [address] [place] [address] Care Team Providers Care Mailhouse Operator Name Role Phone Ke Frederick NP Primary Care Provider [phone] Encounter Details Date Type Department Care Team (Late st Contact Info) Description 02/03/2025 Orders Only [facility] Pulmonary at [address] [place] [address] Es Vu LPN Social History Tobacco Use Types Packs/Day Years Used Date Smoking Tobacco: Former Cigarettes 0.5 20.4 2 005 - 1986 Smokeless Tobacco: Never Comments:06/02/2024 Stress roge black, patient says that she would smoke between a couple to a whole pack per day. 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 Gender Identity Not on file Sexual Orientation Not on file documented as of this encounter Ordered Prescriptions Prescription Sig Dispense Quantity Refills Last Filled Start Date End Date azelastine (ASTELIN) 137 mcg (0.1 %) nasal spray Administer 1 spray into each nostril 2 (two) times a day Use in each nostril as directed 30 mL 11 02/03/2025 documented in this encounter Progress Notes * Es Vu LPN - 02/03/2025 11:28 AM CDT Received fax from [facility] Wheeler for Azelastine spray, was given 11 refills on 06/02/24 Refill sent documented in this encounter Plan of Treatment Not on file documented as of this encounter Visit Diagnoses Not on filedocumented in this encounter Discontinued Medications Medication Sig Discontinue Reason Start Date End Da te azelastine (ASTELIN) 137 mcg (0.1 %) nasal spray Administer 1 spray into each nostril 2 (two) times a day Use in each nostril as directed Reorder 06/02/2024 02/03/2025 documented as of this encounter Care Teams Mailhouse Operator Relationship Specialty Start Date End Date Ke Frederick NP [address] [place] [address] PCP - General Family Medicine 01/31/24 documented as of this encounter
--- OUTSIDE RECORDS SUMMARY | 2025-02-04 09:00 | XMS_ITS | Clinical Summary ---
Author Organization [facility] Building B Address [address] [place] [address] Care Team Providers Care Food Runner Name Role Phone Ke Frederick NP Primary Care Provider [phone] Allergies Active Allergy Reactions Criticality Noted Date Comments Ciprofloxacin Shortness of breath High 03/03/2024 With a rash Clindamycin Itching Low 10/04/2020 Doxycycline Hives,Rash,Shortness of breath,Urticaria High 06/16/2019 Haemophilus Influenzae Type B Anaphylaxis High 06/16/2019 Influenza Virus Vaccines Anaphylaxis High 06/14/2005 Morphine Other (See comments),Hives,Unknow n High 06/16/2019 Pneumococcal 23-Valent Polysaccharide Vaccine Anaphylaxis High 06/16/2019 Quinolones Other (See comments),Rash Medium 06/16/2019 SOB Odfdabh-Mta-Omc Reductase Inhibitors Other (See comments),Muscle pain,Shortness of [...] Department Care Team Description 02/03/[address] [facility] Medical [facility] Pulmonary at [address] [place] [address] Es Vu LPN 01/27/2025 8:00 AM CDT - 01/27/2025 11:59 PM CDT Hospital Encounter [facility] [address] [place] [address] Obstructive sleep apnea Discharge Disposition: Discharge to home or self care 01/23/2025 7:30 AM CDT - 01/23/2025 11:59 PM CDT Hospital Encounter [facility] Diabetic Education 1 [facility] [address] [place] [address] Rene, Zoie Johnson RD Discharge Disposition: Discharge to home or self care 01/22/2025 Results Follow-Up [facility] Neurology [address] [place] [address] [place] [phone] Ann Matthews NP MRI Cervical Spine W WO Contrast 01/22/2025 Results Follow-Up [facility] Neurology [address] [place] [address] [address] [place] [address] Ann Matthews NP MRI Lumbar Spine W WO Contrast 01/19/2025 7:59 AM CDT - 01/19/2025 11:59 PM CDT Hospital Encounter [facility] [address] [place] [address] Neck pain; Neurofibromatosis, type 1 (HCC) Discharge Disposition: Discharge to home or self care 01/19/2025 7:59 AM CDT - 01/19/2025 11:59 PM CDT Hospital Encounter [address] [address] Migraine without aura and without status migrainosus, not intractable; Neurofibromatosis, type 1 (HCC) Discharge Disposition: Discharge to home or self care 01/14/2025 8:30 AM CDT Office Visit [facility] Medical [facility] Sleep Medicine at [address] [place] [phone] Mi Lerma MD LUISA (obstructive sleep apnea) (Primary Dx); Obstructive sleep apnea; Hypersomnia; Overweight; Insomnia, unspecified type 01/13/2025 7:40 AM CDT - 01/13/2025 11:59 PM CDT Hospital Encounter [address] [address] Gait disorder; Neurofibromatosis, type 1 (HCC) Discharge Disposition: Discharge to home or self care 12/29/2024 1:00 PM CDT Office Visit [facility] Medical [facility] Neurology [address] [facility] [address] [place] [phone] Ann Matthews NP Neck pain (Primary Dx); Gait disorder; Migraine without aura and without status migrainosus, not intractable; Neurofibromatosis, type 1 (HCC) 12/12/[address], [place] [address] Jeanie Velasco 11/19/2024 9:45 AM CDT Office Visit [facility] Medical Group Pulmonary at [address] [place] [address] Salvatore Walker DO Moderate persistent asthma without complication (Primary Dx); Chronic rhinosinusitis; Preoperative clearance; LUISA (obstructive sleep apnea) 11/19/2024 Orders Only [address] [place] [address] Cailin Obrien NP 11/19/[address] [place] [address] Jeanie Velasco 11/07/2024 12:09 PM ALIGNING CHECKER - 11/07/2024 5:31 PM [facility] Emergency [facility] Emergency Department [address] [phone] Dov Prasad MD Encounter for monitoring digoxin therapy (Primary Dx) Discharge Disposition: Discharge to home or self care from Last 3 Months Surgical History Surgery Date Site/Laterality Comments CHOLECYSTECTOMY 09/10/1994 - 09/09/1995 ELBOW SURGERY 09/10/1992 - 09/09/1993 Left Pin placed BREAST LUMPECTOMY 09/10/2018 - 09/09/2019 Right HAND SURGERY Left carpal tunnel NOSE SURGERY SLEEVE GASTROPLASTY 06/25/2024 Medical History Medical History Date Comments Anxiety PTSD (post-traumatic stress disorder) Breast cancer (HCC) right breast cancer Stroke (HCC) 2000 slight left side 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 Gender Identity Not on file Sexual Orientation [...] 01/14/2025 7:47 AM CDT Plan of Treatment Health Maintenance Due Date Last Done Comments Cervical Cancer Screening 1970 Colon Cancer Screening-Colonoscopy 1970 Hepatitis C Screening 1970 DTaP/Tdap/Td Vaccine (1 - Tdap) 1981 Hepatitis B Screening 1988 Regular Well Visit/Exam 18-64 1988 Pneumococcal vaccine <65 (1 of 2 - PCV) 1989 Covid-19 Vaccine (4 - 2023-2 5 season) 2024 11/15/2022, 01/13/2022, 07/07/2021, Additional history exists Breast Cancer Screening-Mammogram 09/27/2024 09/27/2023, 09/27/2023, 09/06/2022, Additional history exists Influenza Vaccine (Season Ended) 2025 Depression Screening 06/16/2025 06/16/2024 Zoster Vaccine Completed [...] 1 (HCC) EGFR STAT 11/07/2024 12:24 PM ALIGNING CHECKER DIFFERENTIAL AUTO STAT 11/07/2024 12: 24 PM ALIGNING CHECKER DIGOXIN LEVEL STAT 11/07/2024 12:24 PM ALIGNING CHECKER MAGNESIUM Routine 11/07/2024 12:24 PM ALIGNING CHECKER COMPREHENSIVE METABOLIC PANEL STAT 11/07/2024 12:24 PM ALIGNING CHECKER CBC WITH AUTO DIFFERENTIAL STAT 11/07/2024 12:24 PM ALIGNING CHECKER ECG 12-LEAD STAT 11/07/2024 12:17 PM ALIGNING CHECKER from Last 3 Months Results * Portable/Home Sleep Study (01/29/2025) Impressions Mi Lerma MD - 01/29/2025 HOME SLEEP APNEA TEST HISTORY: Socorro Ibarra is a 54 y.o. female who presents for Home sleep apnea test. (HSAT). Reason for sleep study: Obstructive sleep apnea, status post weight loss [place] Sleepiness Score: 7 Weight: 156 lbs BMI: 27.67 PROCEDURE: This is a single night diagnostic study. This Home Sleep apnea Test (HSAT) utilized an unattended FDA approved RedJiglu apnea link home air portable monitoring device investigating for obstructive sleep apnea. The patient was provided instructions of the device and application by the registered electroneurodiagnostic technologist at the [facility]. This test was performed without a surgical scrub technologist in attendance. In this study, the following parameters were monitored: Hamlet-nasal airflow, snoring, chest respiratory effort, abdominal respiratory effort, body position, movement, oxygen saturation, and heart rate. Respiratory events are scored according to the criteria from The [place] [employer] (AASM) Manual for [...] be taken into consideration. Mi Lerma MD [facility] Medical [facility] Sleep Medicine Narrative Mi Lerma [...] C3-C4: Diffuse disc bulge or focal herniation. Ofky-smezbjq-pily-right hypertrophic facet arthropathy. No spinal canal stenosis. No neural foraminal stenosis. C4-C5: Mild posterior disc osteophyte complex with tiny central disc protrusion indenting the ventral thecal sac. Bilateral, hvgyk-cyflfgm-ibih-left, hypertrophic facet arthropathy. Bilateral uncovertebral joint disease. [...] Benito Redding M.D. VIVIAN: VIVIAN Report ID: [id number] Reading Location: [place] [address] Procedure Note Benito Redding MD - 01/19/2025 [...] C3-C4: Diffuse disc bulge or focal herniation. Qvxw-nqxsdxe-hdyp-right hypertrophic facet arthropathy. No spinal canal stenosis. No neural foraminal stenosis. C4-C5: Mild posterior disc osteophyte complex with tiny central disc protrusion indenting the ventral thecal sac. Bilateral, cxrrr-rpihzfp-umkj-left, hypertrophic facet arthropathy. Bilateral uncovertebral joint disease. [...] Benito Redding M.D. VIVIAN: VIVIAN Report ID: [id number] Reading Location: [place] [address] Ann Matthews NP IMG MRI PROCEDURES Final [...] C3-C4: Diffuse disc bulge or focal herniation. Rbiz-duylhpv-isih-right hypertrophic facet arthropathy. No spinal canal stenosis. No neural foraminal stenosis. C4-C5: Mild posterior disc osteophyte complex with tiny central disc protrusion indenting the ventral thecal sac. Bilateral, phjei-hkqpjyv-dfoa-left, hypertrophic facet arthropathy. Bilateral uncovertebral joint disease. [...] Benito Redding M.D. VIVIAN: VIVIAN Report ID: [id number] Reading Location: [place] [address] Procedure Note Benito Redding MD - 01/19/2025 [...] C3-C4: Diffuse disc bulge or focal herniation. Rcrn-qtoayij-zndb-right hypertrophic facet arthropathy. No spinal canal stenosis. No neural foraminal stenosis. C4-C5: Mild posterior disc osteophyte complex with tiny central disc protrusion indenting the ventral thecal sac. Bilateral, vaqjw-meogmcg-qlog-left, hypertrophic facet arthropathy. Bilateral uncovertebral joint disease. [...] Benito Redding M.D. VIVIAN: VIVIAN Report ID: [id number] Reading Location: [place] [address] Ann Matthews FINISHER BRUSH IMG MRI PROCEDURES Final R esult * [...] related artifact despite repeat attempts. SEGMENTATION: 5 lqt-yml-xgzvttp lumbar type vertebral bodies. ALIGNMENT: Anterior-posterior alignment [...] ventral thecal sac. Mild proximal right and fgeo-pe-oedhcbuu left neural foraminal narrowing. Disc abuts the exiting left L3 nerve root. L4-L5: Disc bulge and superimposed tiny left neural foraminal disc protrusion with annular fissure. Thickened ligamentum flavum and facet arthropathy. Proliferation of dorsal epidural fat. Mild spinal canal stenosis. Insk-cy-gdfatwpz neural foraminal narrowing with disc and facet [...] nodules. IMPRESSION: 1. Motion degraded examination. 2. Aqmi-by-mhqjfufs lumbar degenerative changes as described. The spinal [...] Electronically signed by Roosevelt Mansfield D.O. AP: LLEO Report ID: [id number] Reading Location: [id number] Procedure Note Roosevelt Mansfield, DO - 01/13/2025 [...] related artifact despite repeat attempts. SEGMENTATION: 5 ily-zxq-lbguyru lumbar type vertebral bodies. ALIGNMENT: Anterior-posterior alignment [...] theventral thecal sac. Mild proximal right and rayc-ou-hphjyfgo left neuralforaminal narrowing. Disc abuts the exiting left L3 nerve root. L4-L5: Disc bulge and superimposed tiny left neural foraminal discprotrusion with annular fissure. Thickened ligamentum flavum and facet arthropathy. Proliferation of dorsal epidural fat. Mild spinal canal stenosis. Wunu-ec-znomyuec neural foraminal narrowing with disc and facetarthropathy approaching the exiting L4 nerve roots. L5-S1: Disc bulge with marginal spur formation. Superimposed central disc protrusion. Bilateral facet arthropathy. No significant spinal canal stenosis. Portion of the disc abuts the descending S1 nerve roots. Mild neural foraminal narrowing. VISUALIZED UPPER ABDOMEN: Partially imaged and incompletelycharacterized bilateral adrenal nodules. IMPRESSION: 1. Motion degraded examination. 2. Tfjf-nk-mncvmhsh lumbar degenerative changes as described. Thespinal canal [...] Roosevelt Mansfield D.O. AP: AP Report ID: [id number] Reading Location: [place] [address] Ann Matthews FINISHER BRUSH IMG MRI PROCEDURES Final R esult * eGFR (11/07/2024 12:24 PM ALIGNING CHECKER) eGFR >90 >=60 mL/min/1. 73 m2 Comment: [...] reviewed 2021. Blood 11/07/2024 12:2 4 PM ALIGNING CHECKER 11/07/2024 12:42 PM ALIGNING CHECKER us Dov Prasad MD LAB BLOOD ORDERABLES Final Resul t [facility] [address] [place] [address] * (ABNORMAL) Differential, auto (11/07/2024 12:24 PM ALIGNING CHECKER) Neutrophil abs 6.8(H) 1.5 - 6.5 K/cumm Imm gran abs 0.1 0.0 - 0.1 K/cumm [facility] Lymphocyte abs 3.4(H) 0.8 - 3.3 K/cumm [facility] Monocyte abs 1.0(H) 0.2 - 0.8 K/cumm [facility] Eosinophil abs 0.2 0.0 - 0.5 K/cumm [facility] Basophil abs 0.1 0.0 - 0.1 K/cumm [facility] Neutrophil pct 58.7 % [facility] Comment: Interpretive Data Percent cell count reference ranges are not reported, since discordance with absolute values may lead to misinterpretation of CBC data. Current Interpretive Data was last revised on 2017. Imm gran pct 0.5 % [facility] Comment: Interpretive Data Percent cell count reference ranges are not reported, since discordance with absolute values may lead to misinterpretation of CBC data. Current Interpretive Data was last revised on 2017. Lymphocyte pct 29.4 % [facility] Comment: Interpretive Data Percent cell count reference ranges are not reported, since discordance with absolute values may lead to misinterpretation of CBC data. Current Interpretive Data was last revised on 2017. Monocyte pct 8.8 % [facility] Comment: Interpretive Data Percent cell count reference [...] revised on 2017. Basophil pct 1.0 % [facility] Comment: Interpretive Data Percent cell count reference ranges are not reported, since discordance with absolute values may lead to misinterpretation of CBC data. Current Interpretive Data was last revised on 2017. Blood 11/07/2024 12:2 4 PM ALIGNING CHECKER 11/07/2024 12:42 PM ALIGNING CHECKER Dov Prasad MD LAB BLOOD ORDERABLES Final [facility]ul t [facility] [address] Department [place] [address] * (ABNORMAL) CBC with auto differential (11/07/2024 12:24 PM ALIGNING CHECKER) WBC 11.5(H) 3.8 - 9.9 K/cumm Hgb 12.6 11.9 - 15.5 g/dL [facility] Hct 37.4 35.6 - 45.5 % [facility] Plt 430(H) 150 - 400 K/cumm [facility] MPV 9.4 9.1 - 12.3 fL [facility] RBC 3.96 3.90 - 5.20 M/cumm [facility] MCV 94.4 81.3 - 96.4 fL [facility] MCH 31.8 27.1 - 33.3 pg [facility] MCHC 33.7 32.3 - 35.7 g/dL [facility] RDW CV 13.6 11.1 - 14.9 % [facility] RDW SD 47.2 35.7 - 48.1 fL [facility] NRBC abs 0.00 0.00 - 0.01 K/cumm [facility] Blood 11/07/2024 12:2 4 PM ALIGNING CHECKER 11/07/2024 12:42 PM ALIGNING CHECKER Dov Prasad MD LAB BLOOD ORDERABLES Final Resul t Performing Organization Address [facility] de Phone Number [place] [address] [facility] [email or web address] [address] * Magnesium (11/07/2024 12:24 PM ALIGNING CHECKER) Pathologist [facility] Magnesium 1.9 1.4 - 2.5 mg/dL Blood 11/07/2024 12:2 4 PM ALIGNING CHECKER 11/07/2024 12:42 PM ALIGNING CHECKER Dov Prasad MD LAB BLOOD ORDERABLES Final Resul t Performing Organization Address [facility] de Phone Number [place] [address] [facility] [email or web address] [address] * Digoxin level (11/07/2024 12:24 PM ALIGNING CHECKER) Pathologist [facility] Digoxin 0.7 0.5 - 1.2 ng/mL Comment: Interpretive data The therapeutic range for digoxin varies by indication: Heart failure: 0.5 to 0.8 ng/mL Atrial fibrillation: less than 1.2 ng/mL Toxicity: >2.4. Normal or low digoxin does not rule out toxicity. Current interpretive data was last revised on 2024. Blood 11/07/2024 12:2 4 PM ALIGNING CHECKER 11/07/2024 12:42 PM ALIGNING CHECKER Dov Prasad MD LAB BLOOD ORDERABLES Final Resul t Performing Organization Address [facility] de Phone Number [place] [phone] Department [email or web address] [address] * (ABNORMAL) Comprehensive metabolic panel (11/07/2024 12:24 PM ALIGNING CHECKER) Pathologist [facility] Sodium 141 135 - 145 mmol/L Potassium, pl 3.5 3.3 - 4.9 mmol/L [facility] Chloride 105 97 - 110 mmol/L [facility] CO2 23 22 - 32 mmol/L [facility] Anion gap 13 2 - 15 mmol/L [facility] BUN 25 6 - 25 mg/dL [facility] Creatinine 0.59(L) 0.60 - 1.10 mg/dL [facility] Glucose 98 70 - 199 mg/dL [facility] Comment: Interpretive Data Fasting glucose >/= 126 [...] [facility] Blood 11/07/2024 12:2 4 PM ALIGNING CHECKER 11/07/2024 12:42 PM ALIGNING CHECKER us Dov Prasad MD LAB BLOOD ORDERABLES Final Resul t [facility] [address] Department [place] [address] * ECG 12 lead (11/07/2024 12:17 PM ALIGNING CHECKER) 11/07/2024 12:1 7 PM ALIGNING CHECKER Narrative [facility] - 11/07/2024 1:07 PM ALIGNING CHECKER Vent Rate: 63 bpm RR Interval: 945 msec FL Interval: 177 msec QRS Duration: 105 msec QT Interval: 408 msec QTC Interval: 415 msec P-R-T Squires: 33 - 46 - 6 degrees IMPRESSION: SINUS RHYTHM NORMAL ECG INTERPRETATION BASED ON A DEFAULT AGE OF 40 YEARS Electronically Signed By: Dr. Jason Garcia [facility] us Dov Prasad MD ECG ORDERABLES Final Result [facility] from Last 3 Months Insurance [facility] Advance Directives For more information, please contact: [phone] * Full Code (Latest Code Status on File) Date Activated Date Inactivated Comments 06/25/2024 4:01 PM 06/26/2024 7:29 PM Care Teams Food Runner Relationship Specialty Start Date End Date Ke Frederick NP [address] [place] [address] PCP - General Family Medicine 01/31/24
--- OUTSIDE RECORDS SUMMARY | 2025-02-04 09:01 | XMS_ITS | Encounter Summary ---
Author Organization [facility] Address [address] [place] [address] Phone Care Team Providers Care Principal Web Developer Name Role Phone Trini Rockwell MD Unavailable [phone] Latesha Lewis MD Primary Care Provider + Michael Benz MD Unavailable [phone] Reason for Visit * Reason Comments Medication Refill Encounter Details Date Type Department Care Team (Late st Contact Info) Description 09/24/2022 Refill [facility] [address] [address] Michael Benz MD [address] [place] [phone] Medication Refill Social History Tobacco Use [...] Natalia Mata, RN - 09/25/2022 8:07 AM MASH GRINDER Refill request from pharmacy. Please fill if appropriate. GRINDER documented in this encounter Plan of Treatment Upcoming Encounters Date Type Department Care Team (Late st Contact Info) Description 02/11/2025 9:45 AM CDT Lab [facility] [address] [phone] Lab, [facility] 02/11/2025 10:00 AM CDT Office Visit [facility] [address] [phone] Michael Benz MD [address] [place] [phone] documented as of this encounter Visit Diagnoses Diagnosis Malignant neoplasm of nipple of right breast in female, estrogen receptor positive (HCC) documented in this encounter Additional Health Concerns Assessment Noted Time PHQ-9 Depression Total Score: 1 04/04/20 21 2:23 PM CDT documented as of this encounter Care Teams Principal Web Developer Relationship Specialty Start Date End Date Latehsa Lewis MD [address] [place] [id number] PCP - General Family Medicine 11/05/19 Trini Rockwell MD [address] [place] [address] Radiation Oncologist Radiology 10/16/19 Michael Benz MD [address] [place] [phone] Consulting Physician Oncology 01/17/23 documented as of this encounter
--- OUTSIDE RECORDS SUMMARY | 2025-02-04 09:01 | XMS_ITS | Data Portability ---
Author Organization [employer] , [facility] Address [address] [place] [address] Assessment Encounter Date Assessment Date Assessment LastModified by Organization Details LastModified Time 07/24/2022 07/24/2022 Patient is new to our Practice. She presents today for a gynecological Annual Exam. Patients Past Medical History and Family History reviewed. Annual Exam: She reports having no significant TELEPHONIC CASE MANAGER symptoms. Menopause Reports mild urine leaking- recommended [...] E6+E7 mRNA, qualitative PCR, cervix 2024 025 [facility], [address] [place], [address], 5 09:25:22 pap, LB 2024 025 [employer] [facility], [address] [place], [address], 5 12:08:47 pap, LB 2021 022 [employer] [facility], [address] [place], [address], 3 15:35:12 HPV E6+E7 mRNA, qualitative PCR, cervix 2021 [facility], [address] [place], [address], 14:23:45 pap, LB 2021 [employer] [facility], [address] [place], [address], 2 12:32:43 Referral None recorded. Procedures None recorded. Surgeries None recorded. Imaging MAMMO, screening, digital, bilateral 2024 [facility], [address] [place] [address], [address], 5 15:00:22 MAMMO, screening, digital, bilateral 2021 022 [email or web address] Not available 16:16:33 Medication Orders None recorded. Patient TargetsNo targets recorded. Patient Instructions Encounter Date Encounter Id Patient Instructions Last Modified By Organization Details Last Modified Time 07/24/2022 [id number] A healthy lifestyle: care instructions bnotzke Not available 07/24/2022 11:51:03 calcium and vitamin D combination bnotzke Not available 07/24/2022 11:51:03 depression (wome n only) bnotzke Not available 07/24/2022 11:51:03 eating healthy foods: care instructions bnotzke Not available 07/24/2022 11:51:03 exercise program : getting started bnotzke Not available 07/24/2022 11:51:03 learning about colonoscopy bnotzke Not available 07/24/2022 11:51:03 11/10/2024 [id number] learning about depression screening Not available 11/10/2024 [...] clinical information: normal None given Not Available [employer] [facility] [address] [place], [address], 09/14/2022 15:35:12 09/14/19 23 09/14/2022 THINP REP TIS PAP LMP: normal NONE GIVEN Not Available [facility] [facility] [address] [place], [address], 09/14/2022 15:35:12 09/14/19 23 09/14/2022 THINP REP TIS PAP prev. Pap: normal NONE GIVEN Not Available [facility] [employer] [facility] [address] [place], [address], 09/14/2022 15:35:12 09/14/19 23 09/14/2022 THINP REP TIS PAP prev. BX: normal NONE GIVEN Not Available [address], [address], 09/14/2022 15:35:12 09/14/19 23 09/14/2022 THINP REP TIS PAP source: normal Cervi x Not Available [address], [address], 09/14/2022 15:35:12 09/14/19 23 09/14/2022 THINP REP TIS PAP statement of adequacy: normal Satis facto ry for evalu ation . Endoc ervic al/tr ansfo rmati on zone compo nent prese nt. Not Available [address], [address], 09/14/2022 15:35:12 09/14/19 23 09/14/2022 THINP REP TIS PAP interpretati on/result: Negat gary for intra epith elial lesio n or malisatu salcido . Atrop corby fregoso rn; predo hardik oseguera parab ovidio cells Not Available [address], [address], 09/14/2022 15:35:12 09/14/19 23 09/14/2022 THINP REP TIS PAP comment: normal This Pap test has been evalu ated with compu ter damon hemant techn ology . Not Available [address], [address], 09/14/2022 15:35:12 09/14/1909/14/2022 THINP REP TIS PAP cytotechnolo gist: normal AAM, CT( CP) CT Scree cecilia Locat ion: [facility] [address] [place] [place] [address] Not Available [address], [address], 09/14/2022 15:35:12 09/14/19 23 09/14/2022 THINP REP [...] CLIEN T SERVI KAMLESH. PHONE NUMBE R: [phone] [phone] 78 Not Available [facility] [place] [address] [place], [address], 09/14/2022 15:35:12 07/24/2007/25/2022 HPV HIGH RISK HPV [...] e for women under age 30 with shlipa l cervi chetna cytol ogy. Not Available [employer] [address] [place], [address], 07/25/2022 14:23:45 07/24/20 22 07/28/2022 THINP REP TIS PAP clinical information: normal None given Not Available [facility] [address] [place], [address], 07/28/2022 12:32:43 07/24/20 22 07/28/2022 THINP REP TIS PAP LMP: normal NONE GIVEN Not Available [address] [address] [place], [address], 07/28/2022 12:32:43 07/24/20 22 07/28/2022 THINP REP TIS PAP prev. Pap: normal NONE GIVEN Not Available [address] [address] [place], [address], 07/28/2022 12:32:43 07/24/20 22 07/28/2022 THINP REP TIS PAP prev. BX: normal NONE GIVEN Not Available [facility] [address] [address] [place], [address], 07/28/2022 12:32:43 07/24/20 22 07/28/2022 THINP REP TIS PAP source: normal Cervi x Not Available [address] [address] [place], [address], 07/28/2022 12:32:43 07/24/20 22 07/28/2022 THINP REP TIS PAP statement of adequacy: Speci men proce ssed and exami cornel, but unsat isfac tory for evalu ation due to an insuf ficie nt numbe r of squam ous cells . Not Available [address] [address] [place], [address], 07/28/2022 12:32:43 07/24/2007/28/2022 THINP REP TIS PAP interpretati on/result: Unabl e to provi de inter preta tion due to unsat isfac tory speci men adequ acy. Not Available [address] [address] [place], [address], 07/28/2022 12:32:43 07/24/20 22 07/28/2022 THINP REP TIS PAP comment: normal This Pap test has been evalu ated with compu ter damon hemant techn ology . Micro scopi c featu res sugge stive of lubri cant. Lubri cant celestinalli es may inter fere with slide prepa ratio n; their use is not recom latonya d. Not Available [facility] [address] [place], [address], 07/28/2022 12:32:43 07/24/20 22 07/28/2022 THINP REP TIS PAP cytotechnolo gist: normal YQ, CT( CP) CT scree cecilia locat ion: [facility] [place] [address] [place] [address] Not Available [facility] [address] [address] [place], [address], 07/28/2022 12:32:43 07/24/2007/28/2022 THINP REP TIS PAP review cytotechnolo gist: normal VIZCARRA, CT( CP) CT Scree cecilia locat ion: [address] [place] [address] Not Available [facility] [address] [address] [address], [place], [address], 07/28/2022 12:32:43 07/24/2007/28/2022 THINP REP TIS PAP [...] clini chetna infor matio n. Not Available [facility] [address] [place], [address], 07/28/2022 12:32:43 09/06/20 22 09/07/2022 HPV HIGH [...] l cervi chetna cytol ogy. Not Available [address], [address], 09/07/2022 14:55:02 11/11/19 25 11/12/2024 HPV HIGH [...] l cervi chetna cytol ogy. Not Available [address], [address], 11/13/2024 09:25:22 11/11/19 25 11/13/2024 THINP REP TIS PAP clinical information: normal None given Not Available [facility] [address] [place], [address], 11/13/2024 12:08:47 11/11/19 25 11/13/2024 THINP REP TIS PAP LMP: normal NONE GIVEN Not Available [facility] [address] [place], [address], 11/13/2024 12:08:47 11/11/19 25 11/13/2024 THINP REP TIS PAP prev. Pap: normal NONE GIVEN Not Available [facility] [address] [place], [address], 11/13/2024 12:08:47 11/11/19 25 11/13/2024 THINP REP TIS PAP prev. BX: normal NONE GIVEN Not Available [facility] [place] [address] [address] [place], [address], 11/13/2024 12:08:47 11/11/19 25 11/13/2024 THINP REP TIS PAP source: normal Cervi x Not Available [address], [address], 11/13/2024 12:08:47 11/11/19 25 11/13/2024 THINP REP TIS PAP statement of adequacy: normal SATIS FACTO RY FOR EVALU ATION Not Available [address], [address], 11/13/2024 12:08:47 11/11/19 25 11/13/2024 THINP REP TIS PAP interpretati on/result: Cytol ogy Resul ts: Negat gary for intra epith elial lesio n or rajni salcido . Atrop corby fregoso rn; predo hardik oseguera parab ovidio cells Not Available [address], [address], 11/13/2024 12:08:47 11/11/19 25 11/13/2024 THINP REP TIS PAP comment: normal This Pap test has been evalu ated with compu ter damon marcos techn ology . Not Available [address], [address], 11/13/2024 12:08:47 11/11/19 25 11/13/2024 THINP REP TIS PAP cytotechnolo gist: normal MMD, CT( CP) CT Scree cecilia Locat ion: [address] [facility] [place] [address] Not Available [address], [address], 11/13/2024 12:08:47 11/11/19 25 11/13/2024 THINP REP [...] clini chetna infor matio n. Not Available [facility] [address] [address], [place], [address], 11/13/2024 12:08:47 11/19/19 25 11/12/2024 MAMMO , scree cecilia, digit al, bilat eral No observ ation record ed. [email or web address], [address], 11/18/2024 15:00:22 12/11/19 25 11/12/2024 MAMMO , scree cecilia, digit al, bilat eral No observ ation record ed. [email or web address] [address], [address], 12/10/2024 19:16:08 Result Notes Documentation Provider Name and Address Organization Details Recorded Time Mammo, Screening, Digital, Bilateral : Mammogram Mammogram Right: normal Left: normal Darlin Mckinney CNM [address] [place], [address], [facility] 12/10/2024 19:16:08 Procedures Surgical History Date Name Laterality Status Provider Name and Address Organization Details Recorded Time 11/13/19 25 Most Recent Mammogram completed [facility] Ruiz [facility] 11/18/2024 15:01:32 11/11/19 25 Date of Last Pap Smear completed EMILY GIVENS NP [facility] [place], [address], [facility] 11/10/2024 16:05:54 Laparoscopic cholecystectomy completed Codie Cardona [facility] 07/24/2022 11:24:16 procedure on elbow completed Codie Cardona V [facility] [place] [facility] 07/24/2022 11:24:29 Imaging Results None recorded. Procedure Notes None recorded. Medical Equipment None Reported. Allergies Allergen ID Allergen Name Allergen Category Reaction Reaction Severity Criticality Documentation Date Start Date Code Code System Note Provider Name and Address Organization Details Recorded Time 683065 doxycycli ne Not available Not available Not available Not available 07/24/2022 3640 RxNorm Codie Cardona null, [place] [facility] 2 11:15:59 740705 morphine medicatio n Not available Not available Not available 07/24/2022 7052 RxNorm Codie Cardona [place], [place] [facility] 2 11:16:08 937413 Cipro medicatio n Not available Not available Not available 07/24/2022 91657 3 RxNorm Codie Cardona [place], [place] [facility] 2 11:17:06 572425 Lipitor medicatio n Not available Not available Not available 07/24/2022 12452 5 RxNorm Codie Cardona [place] [facility] 2 11:17:19 517880 verapamil medicatio n Not available Not available Not available 07/24/2022 01577 RxNorm Codie Cardona [place] [facility] 2 11:17:37 Medications Name Sig Start Date Stop Date [...] Not Available Not Available No t Available za m 11/10 completed Not Available Not Available [...] No t Available Vitals Date Recorded Body height Body mass index (BMI) Body weight Body temperature Systolic blood pressure Diastolic blood pressure Provider Name and Address Organization Details Last Updated DateTime 5 157.48 cm 28.9 kg/m2 49078.5 9 g 97.7 [degF] 108 mm[Hg] 72 mm[Hg] Emily Justice [employer] [facility] 5 15:53:02 Date Recorded Body weight Body mass index (BMI) Body height Systolic blood pressure Diastolic blood pressure Provider Name and Address Organization Details Last Updated DateTime 07/24/2022 900814.9 g 55.2 kg/m2 157.48 cm 134 mm[Hg] 84 mm[Hg] Codie Cardona [employer] [facility] 2 11:27:58 Date Recorded Body height Body mass index (BMI) Body weight Body temperature Systolic blood pressure Diastolic blood pressure Provider Name and Address Organization Details Last Updated DateTime 2 157.48 cm 54.9 kg/m2 730361. 71 g 97.3 [degF] 120 mm[Hg] 70 mm[Hg] Tramea Paige [employer] [facility] 2 10:09:57 Social History Question Answer Notes LastModified by Organizat ion Details LastModified Time Tobacco Smoking Status Former Smoker Emily pearson, [employer] [facility] 11/10/2024 15:22:04 Are You Blind Or Do You Have Difficulty Seeing? No Information not available 09/06/2022 Are You Deaf Or Do You Have Serious Difficulty Hearing? No Information not available 09/06/2022 What Type Of Diet Are You Following? REGULAR Information not available 09/06/2022 When Did You Quit Smoking? 16+yearssincel astcigarette Information not available 11/10/2024 How Many Children Do You Have? 3 Information not available 07/24/2022 What Is Your Relationship Status? Information not available 11/10/2024 Are You Sexually Active? No Information not available 11/10/2024 At What Age Did You Start Smoking Tobacco? 16 Information not available 07/24/2022 How Much Tobacco Do You Smoke? No Information not available 11/10/2024 Sex: Unknown Functional Status Question Answer Note LastModified by Organizat ion Details LastModified Time Do you use any illicit or recreational drugs? No Information not available 09/06/2022 Do you or have you ever used any other forms of tobacco or nicotine? No Information not available 07/24/2022 What is your level of alcohol consumption? None Information not available 11/10/2024 Are you currently employed? No Information not available 11/10/2024 What is your exercise level? Occasional Information [...] SNOMED-CT Code Diagnosis ICD10 Code Diagnosis Note [id number] GRACE ROGERS, [facility] [address] [place] [address] 07/24/2022 10:43:59 07/24/2022 12:17:51 Gynecologic examination 87772284 Z01.419 Screening for malignant neoplasm of cervix 090203238 Z12.4 Screening for malignant neoplasm of breast 708217385 Z12.39 Pt educated on breast cancer screening guidelines , and discussed recommenda tion for scheduling imaging at hospital of her choice. Reviewed recommenda tion to have imaging done at same facility if possible as previous screenings . Pt states understand ing of POC. Screening colonoscopy 44 8403249 Z12.11 Pt has not had one since 2004, she will get order from PCP for colonoscop y [id number] ELLA ZENDEJAS, [facility] [address] [place] [address] 09/06/2022 09:06:17 09/06/2022 10:43:51 Cervicovaginal cytology specimen unsatisfactory 912751309 R87.716 [id number] EMILY GIVENS, DAVID [facility] [address] [place] [address] 11/10/2024 15:15:14 11/10/2024 16:47:35 Gynecologic examination 63643522 Z01.419 Patient is an establishe d patient who presents for a gynecologi chetna Annual Exam. The patient denies any changes in her medical history. The patient denies any changes in her family medical history. Annual Exam:She reports having no significan t TELEPHONIC CASE MANAGER symptoms.S he is in menopause. Pap History:La st Pap: 2014/2015 NILMShe is due for a pap smear. Breast History:Sh e denies breast symptoms. Education on Breast Self [...] date Screening for malignant neoplasm of cervix 481532137 Z12.4 Depression screening 171 050741 Z13.31 refer to intake screening Screening mammography of bilateral breasts 2072009373 34859 Z12.31 Pt educated on breast cancer screening guidelines , and discussed recommenda tion for scheduling imaging at hospital of her choice. Reviewed recommenda tion to have imaging done at same facility if possible as previous screenings . Pt states understand ing of POC. Screening colonoscopy 44 7659000 Z12.11 Health Concerns Section Related Observation LastModified by Organization Detai ls LastModified Time None Recorded Concern Status LastModified by Organization Details LastModified Time None Recorded Advance Directives Directive None Recorded Payers Insurance Date Sequence Insurance Name Policy Number Policy Main Covered Member ID Main Member ID Guarantor Name 11/10/2024 1 [facility] (MEDICAID REPLACEMENT - HMO) Socorro Greenberggore [id number] Daytonshoshana Ibarra 11/18/2024 1 [facility] (MEDICAID REPLACEMENT - HMO) Daytonshoshana Ibarra [id number] Daytonshoshana Ibarra 11/10/2024 1 [facility] (MEDICAID REPLACEMENT - HMO) [id number] Socorro Greenberggore [id number] Socorro Greenberggore Notes Date Note Type Note Provider Name and Address Organization Details Recorded Time 07/24/2022 text/html Patient is here for annual examWould like to have her bladder checked- states that she thinks it may be dropping DILIA MILLER- [address] [facility], [place], [address], [facility] 07/24/2022 23:25:41 09/06/2022 text/html Here for repeat Pap smear only due to insufficient number of squamouscells on Pap from 07/2022. HPV results and was negative. ELLA ZENDEJAS DO [address] [place], [address], [facility] [employer] [facility] 09/06/2022 10:35:56 11/10/2024 text/html Annual GYNReport [...] No anxiety; No PMDD EMILY GIVENS NP [address] [place], [address], [facility] 11/10/2024 16:07:40 OBGyn Episode No OBEpisode recorded.
--- OUTSIDE RECORDS SUMMARY | 2025-02-04 09:01 | XMS_ITS | Clinical Summary ---
Author Organization [facility] Address [address], [facility] [address] [place] [address] Phone Care Team Providers Care Center Director Name Role Phone Trini Rockwell MD Unavailable [phone] Latesha Lewis MD Primary Care Provider + Michael Benz MD Unavailable [phone] Allergies Active Allergy Reactions Criticality Noted Date [...] EVERY DAY AT BEDTIME NEEDED FOR INSOMNIA 11/01/19 20 Active lisinopril-hydr oCHLOROthiazide (PRINZIDE, ZESTORETIC) 20-25 MG Tablet TAKE 1 TABLET BY MOUTH ONCE DAILY FOR HIGH BLOOD PRESSURE EDEMA 11/01/19 20 Active gabapentin (NEURONTIN) 400 MG Capsule gabapentin 400 mg capsule TAKE 2 CAPSULES BY MOUTH THREE TIMES DAILY FOR 90 DAYS Active escitalopram (LEXAPRO) 20 MG Tablet escitalopram 20 mg tablet TAKE 1 TABLET BY MOUTH ONCE DAILY Active albuterol 108 (90 Base) MCG/ACT Aerosol Solution albuterol sulfate HFA 90 mcg/actuation aerosol inhaler INHALE 2 PUFFS BY MOUTH EVERY 4 HOURS Activ e budesonide-form oterol fumarate (SYMBICORT) 160-4.5 MCG/ACT Aerosol budesonide-formotero l HFA 160 mcg-4.5 mcg/actuation aerosol inhaler INHALE 2 PUFFS BY MOUTH TWICE DAILY Active cyclobenzaprine (FLEXERIL) 10 MG Tablet cyclobenzaprine 10 mg [...] Tab by mouth daily. 90 Tab 3 04/14/20 20 Active Cetirizine HCl 10 MG Capsule Take by mouth. A ctive Multiple Vitamin (MULTIVITAMIN PO) Take by mouth. Activ e Ascorbic Acid (Vitamin C) 1000 MG Tablet Take by mouth. Active hydrOXYzine (ATARAX) 25 MG Tablet TAKE 1 TO 2 TABLETS BY MOUTH AT BEDTIME NEEDED 03/25/20 21 Active busPIRone HCl (BUSPAR) 30 MG Tablet Take 30 mg by mouth 2 times daily. 12/25/19 23 Active albuterol (PROVENTIL, VENTOLIN) (2.5 MG/3ML) 0.083% Nebulizer Soln USE 1 VIAL IN NEBULIZER EVERY 4 TO 6 HOURS NEEDED 01/03/20 23 Active vitamin b-12 (CYANOCOBALAMIN ) 100 MCG Tablet Take 100 mcg by mouth daily. Active Atogepant (Qulipta) 30 MG Tablet Take 60 mg by mouth daily. Active meclizine (ANTIVERT) 25 MG Tablet Take 25 mg by mouth. Active famotidine (PEPCID) 20 MG Tablet Take 20 mg by mouth. 0 24 025 Active Linzess 145 MCG Capsule Take 1 Capsule by mouth daily. 07/18/20 24 Active ondansetron (ZOFRAN) 4 MG Tablet 06/26/20 24 Active Oscimin 0.125 MG SL Tablet 06/26/20 24 Active digoxin (LANOXIN) 125 MCG Tablet 05/15/20 24 Active fenofibrate (TRICOR) 48 MG Tablet fenofibrate nanocrystallized 48 mg tablet 03/25/20 24 Active VITAMIN D PO Take by mouth. Ac tive magnesium oxide (MAG-OX) 400 MG TabletIndicatio ns:Hypomagnesem ia Take 1 Tablet by mouth daily. 7 Tablet 07/28/20 24 Active anastrozole (ARIMIDEX) 1 MG TabletIndicatio ns:Malignant neoplasm of nipple of right breast in female, estrogen receptor positive (HCC),Anemia, unspecified type Take 1 tablet by mouth once daily 90 Tablet 11/25/19 25 Active Active Problems Problem Noted Date Diagnosed Date HTN (hypertension) 07/28/2024 Malignant neoplasm of nipple of right breast in female, estrogen receptor positive 01/17/2023 Osteopenia 01/17/2023 Vitamin D deficiency 01/17/2023 Anemia 01/17/2023 Encounter for screening colonoscopy 01/17/2023 Encounters Date Type Department Care Team Description 01/26/2025 Travel 01/21/2025 Telephone [facility] [address] [address] Michael Benz MD Canopy Call / test results 11/22/2024 Refill [facility] [address] [address] Priya Shukla APRN, BOTTOMING ROOM INSPECTOR Medication Refill 11/12/2024 Telephone [facility] [address] [address] Michael Benz MD Canopy call / GERMÁN [...] Comments Blood Pressure 134/82 07/28/2024 12:41 PM TRACK MAINTAINER Pulse 96 07/28/2024 12:41 PM TRACK MAINTAINER Temperature 36.6 C (97.8 F) 07/28/2024 12:41 PM TRACK MAINTAINER Respiratory Rate 18 07/28/2024 12:41 PM TRACK MAINTAINER Oxygen Saturation 97% 07/28/2024 12:41 PM TRACK MAINTAINER Inhaled Oxygen Concentration - - Weight 83.7 kg (184 lb 8 oz) 07/28/2024 12:41 PM TRACK MAINTAINER Height 157.5 cm (5' 2) 07/28/2024 12:41 PM TRACK MAINTAINER Body Mass Index 33.75 07/28/2024 12:41 PM TRACK MAINTAINER Plan of Treatment Upcoming Encounters Date Type Department Care Team (Late st Contact Info) Description 02/11/2025 9:45 AM CDT Lab [facility] [address] [phone] Lab, [facility] 02/11/2025 10:00 AM CDT Office Visit [facility] [address] [address] Michael Benz MD [address] [place] [phone] Health Maintenance Due Date Last Done Comments Hepatitis C Virus (HCV) Screening 1970 TdaP Immunization 1970 Hepatitis B Immunization (1 of 3 - 19+ 3-dose series) 1989 Pneumococcal Immunization (50+ years) (1 of 2 - PCV) 1989 Pap Smear 1991 Cervical Cancer Screening (CCS) 2000 HPV/Cotest 2000 Colonoscopy 2015 Colorectal Cancer Screening 2015 Cologuard 2020 Immunochemical Fecal Occult Blood 2020 SARS-COV-2 Immunization ( season) 2024 11/15/2022, 01/13/2022, 07/07/2021, Additional history exists Mammogram 09/27/2024 09/27/2023, 09/10, 09/06/2022, Additional history exists Influenza Immunization (Season Ended) 2025 Respiratory Syncytial Virus (RSV) Immunization (Adult) (1 - 1-dose 75+ series) 2045 Zoster Immunization Completed 05/05/2023, Human Papillomavirus (HPV) Immunization Aged Out No longer eligible based on patient's age to complete this topic Meningococcal Immunization (ACWY) Aged Out No longer [...] Insurance MEDICAID [employer] Care Teams Center Director Relationship Specialty Start Date End Date Latesha Lewis MD [address] [place] [id number] PCP - General Family Medicine 11/05/19 Trini Rockwell MD [address] [place] [address] Radiation Oncologist Radiology 10/16/19 Michael Benz MD [address] [place] [phone] Consulting Physician Oncology 01/17/23
--- OUTSIDE RECORDS SUMMARY | 2025-02-04 09:01 | XMS_ITS | Continuity of Care Document ---
Author Organization [facility] Address [address] [address] Phone Care Team Providers Care Photo Graphics Librarian Name Role Phone Roosevelt Mary HERNANDEZ Unavailable [...] Diagnoses Date Provider Providers Copied on Encounter [facility] on, [address] [place] [address], [id number] , tel:[phone] [facility] No Information 9 Roosevelt Mary. [address] [place] [address], [id number] [place] [address], [id number]. OFFICE/OUTPA TIENT VISIT, EST [facility] [employer] on, [address] [place] [address], [id number] , tel: [phone] [facility] Follow Up of Diabetes (chief complaint)Foll ow Up of Hypertension (chief complaint)Foll ow Up of back pain (chief complaint)Foll ow Up of COPD (chief complaint) Benign HTNMixed hyperlipidemia Type 2 diabetes mellitus with diabetic polyneuropathy COPDLow back painBody mass index (BMI) 50-59.9 , adult 9 Roosevelt Mary. [address] [place] [address], [id number] [place] [address], [address]. Referring Provider: Camacho Wiley, [id number] [place] [address], [id number] . tel:[phone] [facility] [employer] on, [address] [place] [address], [id number] , tel: [phone] [facility] No Information 9 Roosevelt Mary. [address] [facility], [id number] [place], [place], [address]. [facility] on, [address] [place] [address], [id number] , tel:[phone] [facility] No Information 9 Roosevelt Mary. [address] [place], [id number] [place], [place], [address]. OFFICE/OUTPA TIENT VISIT, EST [facility] on, [address] [place] [address], [id number] , tel:[phone] [facility] Follow Up of Hypertension (chief complaint)Foll ow Up of Diabetes (chief complaint)Foll ow Up of Hyperlipidemia (chief complaint)Foll ow Up of back pain (chief complaint)Foll ow Up of COPD (chief complaint) Benign HTNMixed hyperlipidemia Type 2 diabetes mellitus with diabetic polyneuropathy Low back painCOPDBody mass index (BMI) 50-59.9 , adult 8 Roosevelt Mary. [address] [place] [address], [id number] [place], [address]. Referring Provider: Camacho Wiley[address], [address] . tel:[phone] OFFICE/OUTPA TIENT VISIT, EST [facility] on, [address] [place] [address], [id number] , tel: [phone] [facility] Follow Up of Hypertension (chief complaint)labs (chief complaint)Foll ow Up of Hyperlipidemia (chief complaint)Foll ow Up of diabetes (chief complaint)back pain (chief complaint)COPD (chief complaint) Benign HTNMixed hyperlipidemia Type 2 diabetes mellitus with diabetic neuropathy, unspBody mass index (BMI) 60.0-69.9, adultLow back painCOPD 8 Roosevelt Mary. [address] [facility], [id number] [place], [place], [address]. Referring Provider: Camacho Wiley, [address] [place], [place] [address], [address] . tel:[phone] [facility], [facility], [address] [place] [address], [id number] , tel:[phone] [facility] ER Follow Up: Cough (chief complaint)Coug h (chief complaint)Foll ow Up of hypertension (chief complaint)Foll ow Up of hyperlipidemia (chief complaint)Foll ow Up of diabetes (chief complaint)low back pain (chief complaint) CoughAcute maxillary sinusitisType 2 diabetes mellitus with diabetic neuropathy, unspMuscle spasm of backMixed hyperlipidemia Benign HTNPain in leg 8 [facility]. [address] [place] [address], [address] [place] [address], [place], [address]. Referring Provider: Camacho Wiley, [address] [place] [address], [id number] . tel:[phone] OFFICE/OUTPA TIENT VISIT, [facility] [employer] [employer] on, [address] [place] [address], [id number] , [phone] [facility] PAP test (chief complaint) Screening for cervical cancerEncounte r for screening mammogram for cancer of breastEncntr for electronic wirer exam (general) (routine) w/o abn findings 7 Roosevelt Mary. [address] [place] [address], [address] [place] [address], [place], [address]. Referring Provider: Camacho Wiley, [address] [place], [place] [address] [id number], [address] . tel:[phone] OFFICE/OUTPA TIENT VISIT, [facility] on, [address] [place] [address], [id number] , tel:[phone] [facility] Follow Up of Hypertension (chief complaint)bloo d work (chief complaint)sick (chief complaint)Foll ow Up of hyperlipidemia (chief complaint)Foll ow Up of diabetes (chief complaint)natalie rgies (chief complaint) Body mass index (BMI) 50-59.9 , adultEssential (primary) hypertensionMi xed hyperlipidemia Type 2 diabetes mellitus with diabetic neuropathy, unspPain in legMuscle spasm of backAllergic rhinitis due to pollen 7 Roosevelt Mary. [address] [facility], [id number], [address]. Referring Provider: [facility] , [address] [place], [place] [address] [id number], [address] . tel:[phone] OFFICE/OUTPA TIENT VISIT, [facility] on, [address] [place] [address], [id number] , [place] tel:[phone] [facility] Follow Up of Diabetes (chief complaint)Foll ow Up of hyperlipidemia (chief complaint)Foll ow Up of hypertension (chief complaint) Essential (primary) hypertensionTy pe 2 diabetes mellitus with diabetic neuropathy, unspMixed hyperlipidemia Body mass index (BMI) 50-59.9 , adult 7 Roosevelt Mary. [address] [facility], [id number], [address]. Referring Provider: [facility] , [address] [place], [place] [address] [id number], [address] . tel:[phone] [facility] on, [address] [place] [address], [id number] , [place] tel:[phone] [facility] Benign HTNMixed hyperlipidemia Type II diabetes w/ diabetic neuropathy 7 Roosevelt Mary. [address] [facility], [address] [place] [address], [address]. Referring Provider: [facility] , [facility] [place] [id number], [address] . tel:[phone] OFFICE/OUTPA TIENT VISIT, [facility] on, [address] [place] [address], [id number] , [place] tel:[phone] [facility] Follow Up of Hypertension (chief complaint)ER Follow Up: Sinus Infection (chief complaint)Foll ow Up of diabetes (chief complaint)Foll ow Up of hyperlipidemia (chief complaint)Sinu s symptoms (acute) (chief complaint) Benign HTNType II diabetes w/ diabetic neuropathyMixe d hyperlipidemia Body mass index (BMI) 50-59.9 , adultAcute maxillary sinusitis 7 Roosevelt Hernandez. [address] [place] [address], [id number] [place], [address]. Referring Provider: Camacho Wiley, [address] [place], [place] [address] [id number], [address] . tel:[phone] OFFICE/OUTPA TIENT VISIT, [facility] [employer] on, [address] [place] [address], [id number] , tel:[phone] [facility] Earache (chief complaint)Nasa l congestion (chief complaint) Acute pansinusitisBe nign HTN 6 No Information Referring Provider: Camacho Wiley, [address] [place], [place] [address] [id number], [address] . tel:[phone] OFFICE/OUTPA TIENT VISIT, [facility] on, [address] [place] [address], [id number] , tel:[phone] [facility] Follow Up of Hypertension (chief complaint)Foll ow Up of diabetes (chief complaint)Foll ow Up of hyperlipidemia (chief complaint) Benign hypertensionTy pe II diabetes w/ diabetic neuropathyMixe d hyperlipidemia Body mass index (BMI) 50-59.9 , adult 6 No Information Referring Provider: Bewes Wiley, [address] [place], [place] [address] [id number], [address] . tel:[phone] OFFICE/OUTPA TIENT VISIT, [facility] [employer] on, [address] [place] [address], [id number] , tel:[phone] [facility] Cold symptoms (chief complaint) Acute pansinusitisOt her acute nonsuppurative otitis media, left ear 5 No Information Referring Provider: Manyoni Wiley, [address] [place] [address], [id number] . tel:[phone] OFFICE/OUTPA TIENT VISIT, [facility] on, [address] [place] [address], [id number] , tel:[phone] [facility] Cough (chief complaint)Sore throat (chief complaint)foll owup er (chief complaint)Foll ow Up of Diabetes (chief complaint)Foll ow Up of Hypertension (chief complaint) Acute bronchitisAcut e pansinusitisBe nign hypertensionTy pe II diabetes w/ diabetic neuropathy 5 No Information Referring Provider: Rush Springsyoni Wiley, [address] [place] [address], [address] . tel:[phone] OFFICE/OUTPA TIENT VISIT, [facility] on, [address] [place] [address], [id number] , tel:[phone] [facility] Cough (chief complaint)Sore throat (chief complaint)Foll ow Up of Hypertension (chief complaint)Foll ow Up of Diabetes (chief complaint)Foll ow Up of Hyperlipidemia (chief complaint) Hypertension, BenignAcute bronchitisDiab etesHypertrigl yceridemiaLumb agoObesity, Morbid 5 No Information Referring Provider: [facility] Taylor N, [address] [place] [address], [address] . tel:[phone] [facility] on, [address] [place] [address], [id number] , tel:[phone] [facility] Breast Ca screening 5 No Information OFFICE/OUTPA TIENT VISIT, [facility] on, [address] [place] [address], [id number] , tel:[phone] [facility] Med Refill (chief complaint)Sinu s symptoms (acute) (chief complaint) Hypertension, BenignEdemaLeg painAcute maxillary sinusitis 5 No Information Referring Provider: [facility], [address] [place] [id number], [address] . tel:[phone] OFFICE/OUTPA TIENT VISIT, [facility] on, [address] [place] [address], [id number] , tel:[phone] [facility] Sinus symptoms (acute) (chief complaint)diab etes (chief complaint) Hypertension, BenignUncontro lled DM w/ neurological complicationsM igraineAcute, but ill-defined, cerebrovascula r diseaseLumbago Obesity, Morbid 3- 4 No Information Referring Provider: [facility], [address] [place] [address], [id number] . tel:[phone] OFFICE/OUTPA TIENT VISIT, [facility] on, [address] [place] [address], [id number] , tel:[phone] [facility] hypertension (chief complaint) Hypertension, BenignObesity, MorbidArthropa thyMigraineAcu te, but ill-defined, cerebrovascula r disease 4 No Information Referring Provider: [facility], [address] [place] [id number], [address] . tel:[phone] Family History Family Member Type Diagnosis Age [...] hypertension Payers Payer name Insurance type Covered libertarian ID Authoriza tion(s) No Information Social History Type Description Quantity Date Captured Comments Sex Female Smoking Status No Information Sexual Orientation Straight or heterosexual Gender Identity Female Chief Complaint And Reason For Visit No Information Reason For Referral Reason For Referral No Information Plan Of Treatment Date Type Action Status Goal Foot exam. Due on due Goal Depression screening. Due on due Goal Pap/HPV testing. Due on due Goal ECG due Goal Hemoglobin A1C. Due on due Goal CMP. Due on due Goal Urinalysis due Goal Lipid panel. Due on due Goal Lifestyle education regardin g diet completed Goal Foot exam. Due on due Goal CMP. Due on due Goal Pap/HPV testing. Due on due Goal Hemoglobin A1C. Due on due Goal ECG due Goal Lipid panel. Due on due Goal Depression screening. Due on due Goal Urinalysis due Goal Lifestyle education regardin g diet completed Goal MICROALBUMIN, SEMIQUANT. Due on due Goal ECG due Goal Depression screening. Due on due Goal CMP. Due on due Goal Pap/HPV testing. Due on due Goal Lipid panel. Due on due Goal Foot exam. Due on due Goal Urinalysis due Goal Urine microalbumin. Due on due Goal Dilated eye exam. Due on Mar due Goal Hemoglobin A1C. Due on due Goal Lifestyle education regardin g diet completed Goal GFR. Due on due Goal Urine microalbumin. Due on due Goal Hemoglobin A1C. Due on due Goal Depression screening. Due on due Goal Hgb A1c. Due on due Goal Lipid panel. Due on 016 due Goal Pap/HPV testing. Due on due Goal MICROALBUMIN, SEMIQUANT. Due on due Goal CMP. Due on due Goal Foot exam. Due on 8 due Goal Pap/HPV testing. Due on due Goal Lifestyle education regardin g diet completed Goal ECG due Goal Diabetes screening due Goal Urinalysis due Goal Lipid panel. Due on 015 due Goal Urine microalbumin. Due on due Goal GFR. Due on due Goal Pap/HPV testing. Due on due Goal Lifestyle education regardin g diet completed Goal Td vaccine. Due on 17 due Goal Tdap. Due on due Goal Pap/HPV testing. Due on due Goal Td vaccine. Due on 17 due Goal Pap/HPV testing. Due on due Goal MICROALBUMIN, SEMIQUANT. Due on due Goal Tdap. Due on due Goal Dietary management education , guidance, and counseling completed Goal Td vaccine. Due on 16 due Goal Pap/HPV testing. Due on due Goal Tdap. Due on due Goal MICROALBUMIN, SEMIQUANT. Due on due Goal Tdap. Due on due Goal Pap/HPV testing. Due on due Goal Td vaccine. Due on 16 due Goal Dietary management education , guidance, and counseling completed Goal Pap/HPV testing. Due on due Goal MICROALBUMIN, SEMIQUANT. Due on due Goal Tdap. Due on due Goal Td vaccine. Due on 15 due Goal Td vaccine. Due on 15 due Goal Tdap. Due on due Goal MICROALBUMIN, SEMIQUANT. Due on due Goal Pap/HPV testing. Due on due Goal Tdap. Due on due Goal Pap/HPV testing. Due on due Goal Td vaccine. Due on 15 due Goal MICROALBUMIN, SEMIQUANT. Due on due [...] patient was seen in the ER at [facility] and diagnosed with acute bronchitis. [...] year ago. Last PAP test was from 2375-2831. She has not had a mammogram in [...] mellitus with diabetic polyneuropathy The patient has ic designer gate arrays crispin mixed hyperlipidemia. We will check fasting [...] mellitus with diabetic polyneuropathy The patient has ic designer gate arrays crispin mixed hyperlipidemia. We will check fasting [...] index (BMI) 50-59.9 , adult The patient has ic designer gate [employer] crispin mixed hyperlipidemia. Controlled with diet and [...] Related to Benign HTN The patient has ic designer gate [employer] crispin low back pain and is having [...] Related to Low back pain The patient presents with chronic Type 2 [...] Type 2 diabetes mellitus with diabetic neuropathy, [facility] The patient reports having COPD for several [...] with diabetic neuropathy, unsp The patient has ic designer gate [employer] crispin mixed hyperlipidemia. Controlled with diet and exercise. We will check fasting lipid panel today. Encouraged low fat, low cholesterol diet and exercise as tolerated. Patient will follow up in 4 months or sooner if needed. Related to Mixed hyperlipidemia Stable. Will continu e muscle relaxer per module. She will follow up in 4 months. Related to Muscle spasm of back The patient presents with chronic hypertension that is currently well controlled. BP is at goal. Will continue medication per module. Educated on DASH diet, exercise as tolerated, and checking BP daily with goal of less than 130/80. Encouraged yearly dilated eye exam. They will follow up in 4 months or sooner if needed. Related to Benign HTN The patient presents for promotional PAP tests today. She is menopausal. No abnormal findings on exam. Cervix does point posteriorly and she is obese. It was hard to get a good sample from cervix. She will follow up as directed based on results. Related to Encntr for electronic wirer exam (general) (routine) w/o abn findings The patient would li ke to have screening mammogram done. We will refer for screening mammogram. Related to Encounter for screening mammogram for cancer of breast We will send PAP jesus manuel t to outside lab for further testing. She will follow up as directed by lab results. Related to Screening for cervical cancer Stable. She has issu es with lower [...] months. Related to Pain in leg Will check fasting l ipid panel today. She is currently controlled with diet and exercise. We will start treatment if indicated. Encouraged low fat, low cholesterol diet. She will follow up in 4 months. Related to Mixed hyperlipidemia Stable. Will check H gbA1C today. Will start treatment back if indicated. Right now she is well controlled with diet and exercise. Encouraged ADA diet, annual eye exam, daily foot care, and exercise as tolerated. Will continue gabapentin for neurpoathy. Instructed to follow up in 4 months. Related to Type 2 diabetes mellitus with diabetic neuropathy, unsp Stable. BP is at goa l. We [...] Related to Benign HTN Was seen at [facility] on 09-12-16 for sinus infection and [...]
== END 2025-02-04 08:55 | disposition home or self-care (01) ==
PROVIDERS: PCP Family Medicine; Visit Provider Otolaryngology
DX: J32.9 Chronic sinusitis, unspecified (principal)
CPT/HCPCS: 70486

== ENCOUNTER 2025-02-17 10:47 | Outpatient (CLI) | payer OTHER, SELFPAY ==
--- OUTSIDE RECORDS SUMMARY | 2025-02-17 12:08 | XMS_ITS | Clinical Summary ---
Author Organization [facility] Address [address] [place] [address] Care Team Providers Care Freight Clerk Name Role Phone Ke Frederick NP Primary Care Provider [phone] Allergies Active Allergy Reactions Criticality Noted Date Comments Ciprofloxacin Shortness of breath High 03/03/2024 With a rash Clindamycin Itching Low 10/04/2020 Doxycycline Hives,Rash,Shortness of breath,Urticaria High 06/16/2019 Haemophilus Influenzae Type B Anaphylaxis High 06/16/2019 Influenza Virus Vaccines Anaphylaxis High 06/14/2005 Morphine Other (See comments),Hives,Unknow n High 06/16/2019 Pneumococcal 23-Valent Polysaccharide Vaccine Anaphylaxis High 06/16/2019 Quinolones Other (See comments),Rash Medium 06/16/2019 SOB Jayduhw-Kep-Cfc Reductase Inhibitors Other (See comments),Muscle pain,Shortness of [...] (100 mcg total) by mouth daily Active diphenhydrAMINE 25 mg capsule every 4 [...] (4 mg total) by mouth nightly Active meclizine (ANTIVERT) 25 mg tablet Take [...] mouth daily 90 tablet 3 12/29 Active azelastine (ASTELIN) 137 mcg (0.1 %) nasal spray Administer 1 spray into each nostril 2 (two) times a day Use in each nostril as directed 30 mL 11 2024 Active Linzess 145 mcg capsuleIndications :Chronic idiopathic constipation Take 1 capsule by mouth once daily 30 capsule 2024 Active digoxin (LANOXIN) 125 mcg (0.125 mg) tablet TAKE 1 TABLET BY MOUTH DIRECTED SUNDAY - 02/16 Discontinued ROPivacaine (NAROPIN) 5 mg/mL (0.5 %) injection every 3 (three) months 02/16 Discontinued azelastine (ASTELIN) 137 mcg (0.1 %) nasal spray Administer 1 spray into each nostril 2 (two) times a day Use in each nostril as directed 30 mL 11 02/03 Discontinued( Reorder) Linzess 145 mcg capsuleIndications :Chronic idiopathic constipation Take 1 capsule by mouth once daily 30 capsule 01/19 Discontinued Linzess 145 mcg capsuleIndications :Chronic idiopathic constipation Take 1 capsule by mouth once daily 30 capsule 02/16 Discontinued Active Problems Problem Noted Date Diagnosed [...] Encounters Date Type Department Care Team Description 02/16/2025 9:45 AM CDT Office Visit [facility] Sleep Medicine at [address] [place] [address] Mi Lerma MD Obstructive sleep apnea (Primary Dx); Hypersomnia; Overweight; Insomnia, unspecified type 02/03/2025 Orders Only [facility] Pulmonary at [address] [place] [address] Es Vu LPN 01/27/2025 8:00 AM CDT - 01/27/2025 11:59 PM CDT Hospital Encounter [facility] [address] [place] [address] Obstructive sleep apnea Discharge Disposition: Discharge to home or self care 01/23/2025 7:30 AM CDT - 01/23/2025 11:59 PM CDT Hospital Encounter [facility] Nutrition and Diabetic Education [address] [facility] Malik Wing [address] [place] [address] Discharge Disposition: Discharge to home or self care 01/22/2025 Results Follow-Up [facility] Neurology [address] [place] [address] [address] [place] [phone] Ann Matthews NP MRI Cervical Spine W WO Contrast 01/22/2025 Results Follow-Up [facility] Neurology [address] [place] [phone] Ann Matthews NP MRI Lumbar Spine W WO Contrast 01/19/2025 7:59 AM CDT - 01/19/2025 11:59 PM CDT Hospital Encounter [facility] [address] [place] [address] Neck pain; Neurofibromatosis, type 1 (HCC) Discharge Disposition: Discharge to home or self care 01/19/2025 7:59 AM CDT - 01/19/2025 11:59 PM CDT Hospital Encounter [address] [address] Migraine without aura and without status migrainosus, not intractable; Neurofibromatosis, type 1 (HCC) Discharge Disposition: Discharge to home or self care 01/14/2025 8:30 AM CDT Office Visit [facility] Sleep Medicine at [address] [phone] Mi Lerma MD LUISA (obstructive sleep apnea) (Primary Dx); Obstructive sleep apnea; Hypersomnia; Overweight; Insomnia, unspecified type 01/13/2025 7:40 AM CDT - 01/13/2025 11:59 PM CDT Hospital Encounter [address] [address] Gait disorder; Neurofibromatosis, type 1 (HCC) Discharge Disposition: Discharge to home or self care 12/29/2024 1:00 PM CDT Office Visit [facility] Neurology [address] [place] [phone] Ann Matthews NP Neck pain (Primary Dx); Gait disorder; Migraine without aura and without status migrainosus, not intractable; Neurofibromatosis, type 1 (HCC) 12/12/[address] [place] [address] Jeanie Velasco 11/19/2024 9:45 AM CDT Office Visit [facility] Pulmonary at [address] [place] [address] Salvatore Walker DO Moderate persistent asthma without complication (Primary Dx); Chronic rhinosinusitis; Preoperative clearance; LUISA (obstructive sleep apnea) 11/19/2024 Orders Only [facility] [address] [facility] [address] [place] [phone] Cailin Obrien NP 11/19/2024 Telephone [facility] [address] [facility] [address] [place] [phone] Jeanie Velasco from Last 3 Months Surgical History Surgery Date Site/Laterality Comments CHOLECYSTECTOMY 09/10/1994 - 09/09/1995 ELBOW SURGERY 09/10/1992 - 09/09/1993 Left Pin placed BREAST LUMPECTOMY 09/10/2018 - 09/09/2019 Right HAND SURGERY Left carpal tunnel NOSE SURGERY SLEEVE GASTROPLASTY 06/25/2024 Medical History Medical History Date Comments Anxiety PTSD (post-traumatic stress disorder) Breast cancer (HCC) right breast cancer Stroke (HCC) 2000 slight left side hand lock plater weak and affected her memory slightly High [...] to a whole pack per day. 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 MANAGER AUDIT-C Answer Date Recorded Q1: How [...] on file Legal Sex Female 12:43 AM TRANSITION MGR RN Gender Identity Not on file Sexual Orientation Not on file Obstetrics History Last Filed Vital Signs Vital Sign Reading Time Taken Comments Blood Pressure 135/84 02/16/2025 9:55 AM CDT Pulse 88 02/16/2025 9:55 AM CDT Temperature 36.4 C (97.5 F) 11/19/2024 9:17 AM CDT Respiratory Rate 24 12/29/2024 12:43 PM CDT Oxygen Saturation 97% 02/16/2025 9:55 AM CDT Inhaled Oxygen Concentration - - Weight 69.6 kg (153 lb 6.4 oz) 02/16/2025 9:55 A M CDT Height 160 cm (5' 2.99) 02/16/2025 9:55 AM CDT Body Mass Index 27.18 02/16/2025 9:55 AM CDT Plan of Treatment Health Maintenance [...] Routine) 01/19/2025 9:29 AM CDT Neck pain Neurofibromatosis, type 1 (HCC) MRI BRAIN W WO CONTRAST Schedule Routine, Read Routine (OP Routine) 01/19/2025 9:28 AM CDT Migraine without aura and without status migrainosus, not intractable Neurofibromatosis, type 1 (HCC) MRI LUMBAR SPINE W WO CONTRAST Schedule Routine, Read Routine (OP Routine) 01/13/2025 8:24 AM CDT Gait disorder Neurofibromatosis, type 1 (HCC) from Last 3 Months Results * Portable/Home Sleep Study (01/29/2025) Impressions Mi Lerma MD - 01/29/2025 HOME SLEEP APNEA TEST HISTORY: Socorro Ibarra is a 54 y.o. female who presents for Home sleep apnea test. (HSAT). Reason for sleep study: Obstructive sleep apnea, status post weight loss Spencer Sleepiness Score: 7 Weight: 156 lbs BMI: 27.67 PROCEDURE: This is a single night diagnostic study. This Home Sleep apnea Test (HSAT) utilized an unattended FDA approved [employer] apnea link home air portable monitoring device investigating for obstructive sleep apnea. The patient was provided instructions of the device and application by the registered medical technologist microbiology at the [facility]. This test was performed without a histologist technologist in attendance. In this study, the following parameters were monitored: Hamlet-nasal airflow, snoring, chest respiratory effort, abdominal respiratory effort, body position, movement, oxygen saturation, and heart rate. Respiratory events are scored according to the criteria from The [place] [employer] (AASM) Manual for [...] be taken into consideration. Mi Lerma MD [facility] Sleep Medicine Narrative Mi Lerma [...] C3-C4: Diffuse disc bulge or focal herniation. Tdhz-dzvykpu-cclq-right hypertrophic facet arthropathy. No spinal canal stenosis. No neural foraminal stenosis. C4-C5: Mild posterior disc osteophyte complex with tiny central disc protrusion indenting the ventral thecal sac. Bilateral, sjlhh-eqegoig-pinr-left, hypertrophic facet arthropathy. Bilateral uncovertebral joint disease. [...] Benito Redding M.D. VIVIAN: VIVIAN Report ID: [id number] Reading Location: [place] [address] Procedure Note Benito Redding MD - 01/19/2025 [...] C3-C4: Diffuse disc bulge or focal herniation. Smal-sjazsvo-xpdf-right hypertrophic facet arthropathy. No spinal canal stenosis. No neural foraminal stenosis. C4-C5: Mild posterior disc osteophyte complex with tiny central disc protrusion indenting the ventral thecal sac. Bilateral, oyybm-ttihzeu-iqqp-left, hypertrophic facet arthropathy. Bilateral uncovertebral joint disease. [...] Benito Redding M.D. VIVIAN: VIVIAN Report ID: [id number] Reading Location: [id number] [place] Ann Matthews TECHNICAL REPORT WRITER IMG MRI PROCEDURES Final R esult * [...] C3-C4: Diffuse disc bulge or focal herniation. Aoca-cgoufjh-eroj-right hypertrophic facet arthropathy. No spinal canal stenosis. No neural foraminal stenosis. C4-C5: Mild posterior disc osteophyte complex with tiny central disc protrusion indenting the ventral thecal sac. Bilateral, irovf-vwanbxd-whhg-left, hypertrophic facet arthropathy. Bilateral uncovertebral joint disease. [...] Benito Redding M.D. VIVIAN: VIVIAN Report ID: [id number] Reading Location: [place] [address] Procedure Note Benito Redding MD - 01/19/2025 [...] C3-C4: Diffuse disc bulge or focal herniation. Mkfc-dyojzrc-pweg-right hypertrophic facet arthropathy. No spinal canal stenosis. No neural foraminal stenosis. C4-C5: Mild posterior disc osteophyte complex with tiny central disc protrusion indenting the ventral thecal sac. Bilateral, xxazl-bblksnd-ogia-left, hypertrophic facet arthropathy. Bilateral uncovertebral joint disease. [...] Benito Redding M.D. VIVIAN: VIVIAN Report ID: [id number] Reading Location: [id number] us Ann GaonaMaddi Matthews TECHNICAL REPORT WRITER IMG MRI PROCEDURES Final R esult * [...] related artifact despite repeat attempts. SEGMENTATION: 5 qfq-iwd-pkirnay lumbar type vertebral bodies. ALIGNMENT: Anterior-posterior alignment [...] ventral thecal sac. Mild proximal right and ucdy-bl-lctxpwgp left neural foraminal narrowing. Disc abuts the exiting left L3 nerve root. L4-L5: Disc bulge and superimposed tiny left neural foraminal disc protrusion with annular fissure. Thickened ligamentum flavum and facet arthropathy. Proliferation of dorsal epidural fat. Mild spinal canal stenosis. Jodw-xo-hogyboib neural foraminal narrowing with disc and facet [...] nodules. IMPRESSION: 1. Motion degraded examination. 2. Lymp-sf-zqwmiddv lumbar degenerative changes as described. The spinal [...] Roosevelt Mansfield D.O. AP: AP Report ID: [id number] Reading Location: [id number] Procedure Note Roosevelt Mansfield, DO - 01/13/2025 [...] related artifact despite repeat attempts. SEGMENTATION: 5 tul-pin-cgfhpfv lumbar type vertebral bodies. ALIGNMENT: Anterior-posterior alignment [...] theventral thecal sac. Mild proximal right and kwaz-zb-evunjjyl left neuralforaminal narrowing. Disc abuts the exiting left L3 nerve root. L4-L5: Disc bulge and superimposed tiny left neural foraminal discprotrusion with annular fissure. Thickened ligamentum flavum and facet arthropathy. Proliferation of dorsal epidural fat. Mild spinal canal stenosis. Sojs-mn-ytoagymx neural foraminal narrowing with disc and facetarthropathy approaching the exiting L4 nerve roots. L5-S1: Disc bulge with marginal spur formation. Superimposed central disc protrusion. Bilateral facet arthropathy. No significant spinal canal stenosis. Portion of the disc abuts the descending S1 nerve roots. Mild neural foraminal narrowing. VISUALIZED UPPER ABDOMEN: Partially imaged and incompletelycharacterized bilateral adrenal nodules. IMPRESSION: 1. Motion degraded examination. 2. Rlqz-hb-tisbinob lumbar degenerative changes as described. Thespinal canal [...] Roosevelt Mansfield D.O. AP: AP Report ID: [id number] Reading Location: [place] [address] Ann Matthews TECHNICAL REPORT WRITER IMG MRI PROCEDURES Final R esult from Last 3 Months Insurance [facility] Advance Directives For more information, please contact: [phone] * Full Code (Latest Code Status on File) Date Activated Date Inactivated Comments 06/25/2024 4:01 PM 06/26/2024 7:29 PM Care Teams Freight Clerk Relationship Specialty Start Date End Date Ke Frederick NP [address] [place] [address] [place] [address] PCP - General Family Medicine 01/31/24
--- OUTSIDE RECORDS SUMMARY | 2025-02-17 12:08 | XMS_ITS | Encounter Summary ---
Author Organization [facility] Address [address] [place] [address] Phone Care Team Providers Care Track Layer Head Name Role Phone Trini Rockwell MD Unavailable [phone] Latesha Lewis MD Primary Care Provider + Michael Benz MD Unavailable [phone] Encounter Details Date Type Department Care Team (Late st Contact Info) Description 06/13/2021 Telephone [facility] [address] [place] [address] Michael Benz MD [address] [place] [address] Social History Tobacco Use Types [...] about the mammogram she had done at [facility], report is in media and if you wanted her to come in or what you recommend for her to do. Please advise. documented in this encounter Plan of Treatment Upcoming Encounters Date Type Department Care Team (Late st Contact Info) Description 03/30/2025 8:15 AM CDT Lab [facility] [address] [phone] Lab, [facility] 03/30/2025 8:30 AM CDT Office Visit [facility] [address] [phone] Michael Benz MD [address] [place] [phone] documented as of this encounter Visit Diagnoses Not on filedocumented in this encounter Additional Health Concerns Assessment Noted Time PHQ-9 Depression Total Score: 1 04/04/20 21 2:23 PM CDT documented as of this encounter Care Teams Track Layer Head Relationship Specialty Start Date End Date Latesha Lewis MD [address] [place] [address] PCP - General Family Medicine 11/05/19 Trini Rockwell MD [address] [place] [address] Radiation Oncologist Radiology 10/16/19 Michael Benz MD [address] [place] [phone] Consulting Physician Oncology 01/17/23 documented as of this encounter
--- OUTSIDE RECORDS SUMMARY | 2025-02-17 12:08 | XMS_ITS | Encounter Summary ---
Author Organization [facility] Healthcare Address [address] [place] [address] Care Team Providers Care Political Consultant Name Role Phone Ke Frederick NP Primary Care Provider [phone] Encounter Details Date Type Department Care Team (Late st Contact Info) Description 01/22/2025 Results Follow-Up [facility] Neurology [address] [facility] [address] [place] [address] Ann Matthews NP [address] [facility] [address] [place] [address] MRI Lumbar Spine W WO Contrast Social History Tobacco Use Types Packs/Day Years Used Date Smoking Tobacco: Former Cigarettes 0.5 20.4 2 005 - 1986 Smokeless Tobacco: Never Comments:06/02/[address], patient says that she would smoke between a couple to a whole pack per day. TCampbell SPECIAL SKILLS OFFICER AUDIT-C Answer Date Recorded Q1: How often [...] on file Legal Sex Female 12:43 AM VINEYARD TENDER Gender Identity Not on file Sexual Orientation Not on file documented as of this encounter Miscellaneous Notes * Result Encounter Note - Ann Matthews NP - 01/22/2025 9:39 AM CDT Please let Socorro know her lumbar MRI shows pccx-fg-hzpbtiio degenerative disc changes, which is wear and tear/arthritic changes. There is no high-grade narrowing or cord compression. There is no evidence of neurofibromas in the lumbar spine. documented in this encounter Plan of Treatment Not on file documented as of this encounter Visit Diagnoses Not on filedocumented in this encounter Care Teams Political Consultant Relationship Specialty Start Date End Date Ke Frederick NP [address] [place] [address] [place] [address] PCP - General Family Medicine 01/31/24 documented as of this encounter
--- OUTSIDE RECORDS SUMMARY | 2025-02-17 12:08 | XMS_ITS | Referral Summary ---
Author Organization [facility] Medical Office Building B Address [address] [place] [address] Care Team Providers Care Scanning Tech Name Role Phone Ke Frederick NP Primary Care Provider [phone] Encounters Date Type Department Care Team Description 02/16/2025 9:45 AM CDT Office Visit [facility] Sleep Medicine at [address] [place] [phone] Mi Lerma MD Obstructive sleep apnea (Primary Dx); Hypersomnia; Overweight; Insomnia, unspecified type 02/03/2025 Orders Only [facility] Pulmonary at [address] [place] [address] Es Vu LPN 01/27/2025 8:00 AM CDT - 01/27/2025 11:59 PM CDT Hospital Encounter [facility] [address] [place] [address] Obstructive sleep apnea Discharge Disposition: Discharge to home or self care 01/23/2025 7:30 AM CDT - 01/23/2025 11:59 PM CDT Hospital Encounter [facility] [address] [facility] [address] [place] [address] Discharge Disposition: Discharge to home or self care 01/22/2025 Results Follow-Up [facility] Neurology [address] [facility] [address] [place] [phone] Ann Matthews NP MRI Cervical Spine W WO Contrast 01/22/2025 Results Follow-Up [facility] Neurology [address] [place] [phone] Ann Matthews NP MRI Lumbar Spine W WO Contrast 01/19/2025 7:59 AM CDT - 01/19/2025 11:59 PM CDT Hospital Encounter [address] [address] Migraine without aura and without status migrainosus, not intractable; Neurofibromatosis, type 1 (HCC) Discharge Disposition: Discharge to home or self care 01/19/2025 7:59 AM CDT - 01/19/2025 11:59 PM CDT Hospital Encounter [address] [address] Neck pain; Neurofibromatosis, type 1 (HCC) Discharge Disposition: Discharge to home or self care 01/14/2025 8:30 AM CDT Office Visit [facility] Sleep Medicine at [address] [place] [address] Mi Lerma MD LUISA (obstructive sleep apnea) (Primary Dx); Obstructive sleep apnea; Hypersomnia; Overweight; Insomnia, unspecified type 01/13/2025 7:40 AM CDT - 01/13/2025 11:59 PM CDT Hospital Encounter [address] [address] Gait disorder; Neurofibromatosis, type 1 (HCC) Discharge Disposition: Discharge to home or self care 12/29/2024 1:00 PM CDT Office Visit [facility] Neurology [address] [place] [phone] Ann Matthews NP Neck pain (Primary Dx); Gait disorder; Migraine without aura and without status migrainosus, not intractable; Neurofibromatosis, type 1 (HCC) 12/12/[address] [place] [address] Jeanie Velasco 11/19/2024 Orders Only [address] [place] [phone] Cailin Obrien NP 11/19/[address] [place] [address] Kj Velascoia 11/19/2024 9:45 AM CDT Office Visit [facility] Pulmonary at [address] [place] [address] Salvatore Walker, Moderate persistent asthma without complication (Primary Dx); Chronic rhinosinusitis; Preoperative clearance; LUISA (obstructive sleep apnea) from Last 3 Months Allergies Active Allergy [...] Quinolones Other (See comments),Rash Medium 06/16/2019 SOB Eoiilnx-Gpg-Ubh Reductase Inhibitors Other (See comments),Muscle pain,Shortness of [...] in each nostril as directed 30 mL 2024 Active Linzess 145 mcg capsuleIndications :Chronic [...] 20.4 2 - 1985 Smokeless Tobacco: Never Tobacco Cessation:Counseling Given: Not Answered Comments:06/02/2024 Stress smoker, patient says that she would smoke between a couple to a whole pack per day. 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 This Home Sleep apnea Test (HSAT) utilized an unattended FDA approved RedSaharey apnea link home air portable monitoring device investigating for obstructive sleep apnea. The patient was provided instructions of the device and application by the registered cardiac technologist at the [facility]. This test was performed without a polysomnographic technologist in attendance. In this study, the following parameters were monitored: Hamlet-nasal airflow, snoring, chest respiratory effort, abdominal respiratory effort, body position, movement, oxygen saturation, and heart rate. Respiratory events are scored according to the criteria from The [place] [employer] (AASM) Manual for [...] be taken into consideration. Mi Lerma MD [facility] Sleep Medicine Narrative Mi Lerma [...] C3-C4: Diffuse disc bulge or focal herniation. Ttvk-ubetgdu-xqdo-right hypertrophic facet arthropathy. No spinal canal stenosis. No neural foraminal stenosis. C4-C5: Mild posterior disc osteophyte complex with tiny central disc protrusion indenting the ventral thecal sac. Bilateral, xigql-vnkocpp-vtfp-left, hypertrophic facet arthropathy. Bilateral uncovertebral joint disease. [...] Benito Redding M.D. VIVIAN: VIVIAN Report ID: [id number] Reading Location: [place] [address] Procedure Note Benito Redding MD - 01/19/2025 [...] C3-C4: Diffuse disc bulge or focal herniation. Mofa-nyukcss-xblh-right hypertrophic facet arthropathy. No spinal canal stenosis. No neural foraminal stenosis. C4-C5: Mild posterior disc osteophyte complex with tiny central disc protrusion indenting the ventral thecal sac. Bilateral, hstxh-wflzanq-nqvc-left, hypertrophic facet arthropathy. Bilateral uncovertebral joint disease. [...] Benito Redding M.D. VIVIAN: VIVIAN Report ID: [id number] Reading Location: [id number] Ann Matthews NP IMG MRI PROCEDURES Final [...] C3-C4: Diffuse disc bulge or focal herniation. Acgj-erjnict-pyal-right hypertrophic facet arthropathy. No spinal canal stenosis. No neural foraminal stenosis. C4-C5: Mild posterior disc osteophyte complex with tiny central disc protrusion indenting the ventral thecal sac. Bilateral, rpbdl-ornftzu-dzpm-left, hypertrophic facet arthropathy. Bilateral uncovertebral joint disease. [...] Benito Redding M.D. VIVIAN: VIVIAN Report ID: [id number] Reading Location: [place] [address] Procedure Note Benito Redding MD - 01/19/2025 [...] C3-C4: Diffuse disc bulge or focal herniation. Wzez-zglopnj-vwwm-right hypertrophic facet arthropathy. No spinal canal stenosis. No neural foraminal stenosis. C4-C5: Mild posterior disc osteophyte complex with tiny central disc protrusion indenting the ventral thecal sac. Bilateral, zvhlc-apfvcnb-gduh-left, hypertrophic facet arthropathy. Bilateral uncovertebral joint disease. [...] Benito Redding M.D. VIVIAN: VIVIAN Report ID: [id number] Reading Location: [place] [address] us Ann Matthews LABELLING MACHINE OPERATOR IMG MRI PROCEDURES Final R esult * [...] related artifact despite repeat attempts. SEGMENTATION: 5 tjs-mnb-svqlaxl lumbar type vertebral bodies. ALIGNMENT: Anterior-posterior alignment [...] ventral thecal sac. Mild proximal right and sptn-ot-cpixzbjp left neural foraminal narrowing. Disc abuts the exiting left L3 nerve root. L4-L5: Disc bulge and superimposed tiny left neural foraminal disc protrusion with annular fissure. Thickened ligamentum flavum and facet arthropathy. Proliferation of dorsal epidural fat. Mild spinal canal stenosis. Xjwn-di-srhdoesk neural foraminal narrowing with disc and facet [...] nodules. IMPRESSION: 1. Motion degraded examination. 2. Hakr-ib-ojdzilqb lumbar degenerative changes as described. The spinal [...] Roosevelt Mansfield D.O. AP: AP Report ID: [id number] Reading Location: [id number] Procedure Note Roosevelt Mansfield DO - 01/13/2025 EXAM DESCRIPTION: MRI LUMBAR [...] related artifact despite repeat attempts. SEGMENTATION: 5 gem-pkx-xbgdlzg lumbar type vertebral bodies. ALIGNMENT: Anterior-posterior alignment [...] theventral thecal sac. Mild proximal right and gasl-kv-gamnesvf left neuralforaminal narrowing. Disc abuts the exiting left L3 nerve root. L4-L5: Disc bulge and superimposed tiny left neural foraminal discprotrusion with annular fissure. Thickened ligamentum flavum and facet arthropathy. Proliferation of dorsal epidural fat. Mild spinal canal stenosis. Ccbg-kt-cczxblwe neural foraminal narrowing with disc and facetarthropathy approaching the exiting L4 nerve roots. L5-S1: Disc bulge with marginal spur formation. Superimposed central disc protrusion. Bilateral facet arthropathy. No significant spinal canal stenosis. Portion of the disc abuts the descending S1 nerve roots. Mild neural foraminal narrowing. VISUALIZED UPPER ABDOMEN: Partially imaged and incompletelycharacterized bilateral adrenal nodules. IMPRESSION: 1. Motion degraded examination. 2. Rvbv-rc-mdscywbz lumbar degenerative changes as described. Thespinal canal [...] Roosevelt Mansfield D.O. AP: AP Report ID: [id number] Reading Location: [place] [address] Ann Matthews LABELLING MACHINE OPERATOR IMG MRI PROCEDURES Final R esult from Last 3 Months Insurance [facility] Advance Directives For more information, please contact: [phone] * Full Code (Latest Code Status on File) Date Activated Date Inactivated Comments 06/25/2024 4:01 PM 06/26/2024 7:29 PM Care Teams Scanning Tech Relationship Specialty Start Date End Date Ke Frederick, LABELLING MACHINE OPERATOR [address] [place] [address] PCP - General Family Medicine 01/31/24
--- OUTSIDE RECORDS SUMMARY | 2025-02-17 12:08 | XMS_ITS | Encounter Summary ---
Author Organization [facility] Healthcare Address [address] [place] [address] Care Team Providers Care Slots Manager Name Role Phone Ke Frederick NP Primary Care Provider [phone] Reason for Visit * Reason Onset Date Comments Test Results 01/22/2025 Results Encounter Details Date Type Department Care Team (Late st Contact Info) Description 01/22/2025 Results Follow-Up [facility] Neurology [address] [facility] [address] [place] [address] Ann Matthews NP [facility] [address] [place] [address] MRI Cervical Spine W WO Contrast Social History Tobacco Use Types Packs/Day Years Used Date Smoking Tobacco: Former Cigarettes 0.5 20.4 2 005 - 1985 Smokeless Tobacco: Never Comments:06/02/2024 Stress s wayne, patient says that she would smoke between a couple to a whole pack per day. 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
--- OUTSIDE RECORDS SUMMARY | 2025-02-17 12:09 | XMS_ITS | Clinical Summary ---
Author Organization [facility] Julien guan [facility] Address [address] [place] [address] Care Team Providers Care Manager Progressive Care Name Role Phone Latesha Lewis MD Primary Care Provider + Allergies Active Allergy Reactions Criticality Noted Date Comments Doxycycline Hives,Shortness of Breath/Wheezing High 06/16/2019 Haemophilus Influenzae Type B Unknown 2018 Morphine Hives High 06/16/2019 Pneumococcal 23-Valent Polysaccharide Vaccine Unknown 06/16/2019 Quinolones Rash Medium 06/16/2019 SOB Zmbxmez-But-Nuw Reductase Inhibitors Other (See Comments) 06/16/2019 Verapamil [...] on file Legal Sex Female 4:23 PM NETWORK 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 Gender Identity Not on file Sexual Orientation Not on file Last Filed Vital Signs Vital Sign Reading Time Taken Comments Blood Pressure 131/77 08/13/2019 2:26 PM NETWORK 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 Pulse 82 08/13/2019 2:26 PM NETWORK 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 Temperature 36.9 C (98.5 F) 08/13/2019 2:26 PM NETWORK 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 Respiratory Rate - - Oxygen Saturation 95% 08/13/2019 2:26 PM NETWORK 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 Inhaled Oxygen Concentration - - Weight 137.3 kg (302 lb 9.6 oz) 08/13/2019 2:26 PM NETWORK 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 Height 154.9 cm (5' 1) 08/13/2019 2:26 PM NETWORK 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 Body Mass Index 57.18 08/13/2019 2:26 PM NETWORK 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 Plan of Treatment Health Maintenance Due Date [...] 05/13 INFLUENZA VACCINE (#1) 2024 Care Teams Manager Progressive Care Relationship Specialty Start Date End Date Latesha Lewis MD [address] [place] [phone] PCP - General Family Practice 07/22/19
--- OUTSIDE RECORDS SUMMARY | 2025-02-17 12:09 | XMS_ITS | Data Portability ---
Author Organization [employer] , [facility] Address [address] [place] [address] Assessment Encounter Date Assessment Date Assessment LastModified by Organization Details LastModified Time 07/24/2022 07/24/2022 Patient is new to our Practice. She presents today for a gynecological Annual Exam. Patients Past Medical History and Family History reviewed. 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 Menopause Reports mild urine leaking- recommended [...] E6+E7 mRNA, qualitative PCR, cervix 2024 025 [facility], [address] [place], [address], 5 09:25:22 pap, LB 2024 025 [facility], [address] [place], [address], 5 12:08:47 pap, LB 2021 022 [facility], [address] [place], [address], 3 15:35:12 HPV E6+E7 mRNA, qualitative PCR, cervix 2021 [facility], [address] [place], [address], 14:23:45 pap, LB 2021 [facility], [address] [place], [address], 2 12:32:43 Referral None recorded. Procedures None recorded. Surgeries None recorded. Imaging MAMMO, screening, digital, bilateral 2024 [facility], [address] [place] [address], [address], 5 15:00:22 MAMMO, screening, digital, bilateral 2021 022 [email or web address] Not available 16:16:33 Medication Orders None recorded. Patient TargetsNo targets recorded. Patient Instructions Encounter Date Encounter Id Patient Instructions Last Modified By Organization Details Last Modified Time 07/24/2022 [id number] A healthy lifestyle: care instructions bnotzke Not available 07/24/2022 11:51:03 calcium and vitamin D combination bnotzke Not available 07/24/2022 11:51:03 depression (wome n only) bnotzke Not available 07/24/2022 11:51:03 eating healthy foods: care instructions bnotzke Not available 07/24/2022 11:51:03 exercise program : getting started bnotzke Not available 07/24/2022 11:51:03 learning about colonoscopy bnotzke Not available 07/24/2022 11:51:03 11/10/2024 [id number] learning about depression screening Not available 11/10/2024 [...] clinical information: normal None given Not Available [facility] [address] [place], [address], 09/14/2022 15:35:12 09/14/19 23 09/14/2022 THINP REP TIS PAP LMP: normal NONE GIVEN Not Available [employer] [facility] [address] [place], [address], 09/14/2022 15:35:12 09/14/19 23 09/14/2022 THINP REP TIS PAP prev. Pap: normal NONE GIVEN Not Available [facility] [address] [place], [address], 09/14/2022 15:35:12 09/14/19 23 09/14/2022 THINP REP TIS PAP prev. BX: normal NONE GIVEN Not Available [address], [address], 09/14/2022 15:35:12 09/14/19 23 09/14/2022 THINP REP TIS PAP source: normal Cervi x Not Available [address], [address], 09/14/2022 15:35:12 09/14/19 23 09/14/2022 THINP REP TIS PAP statement of adequacy: normal Satis facto ry for evalu ation . Endoc ervic al/tr ansfo rmati on zone compo nent prese nt. Not Available [address], [address], 09/14/2022 15:35:12 09/14/19 23 09/14/2022 THINP REP TIS PAP interpretati on/result: Negat gary for intra epith elial lesio n or malisatu salcido . Atrop corby fregoso rn; predo hardik oseguera parab ovidio cells Not Available [address], [address], 09/14/2022 15:35:12 09/14/19 23 09/14/2022 THINP REP TIS PAP comment: normal This Pap test has been evalu ated with compu ter damon hemant techn ology . Not Available [address], [address], 09/14/2022 15:35:12 09/14/1909/14/2022 THINP REP TIS PAP cytotechnolo gist: normal AAM, CT( CP) CT Scree cecilia Locat ion: [facility] [address] [place] [address] Not Available [address], [address], 09/14/2022 15:35:12 09/14/19 23 09/14/2022 THINP REP [...] CLIEN T SERVI KAMLESH. PHONE NUMBE R: [phone] [phone] Not Available [employer] [place] [address] [place], [address], 09/14/2022 15:35:12 07/24/2007/25/2022 HPV HIGH RISK HPV [...] l cervi chetna cytol ogy. Not Available [facility] [address] [place], [address], 07/25/2022 14:23:45 07/24/20 22 07/28/2022 THINP REP TIS PAP clinical information: normal None given Not Available [employer] [facility] [address] [place], [address], 07/28/2022 12:32:43 07/24/20 22 07/28/2022 THINP REP TIS PAP LMP: normal NONE GIVEN Not Available [place] [address] [place], [address], 07/28/2022 12:32:43 07/24/20 22 07/28/2022 THINP REP TIS PAP prev. Pap: normal NONE GIVEN Not Available [place] [address] [place], [address], 07/28/2022 12:32:43 07/24/20 22 07/28/2022 THINP REP TIS PAP prev. BX: normal NONE GIVEN Not Available [facility] [address] [place] [address] [place], [address], 07/28/2022 12:32:43 07/24/20 22 07/28/2022 THINP REP TIS PAP source: normal Cervi x Not Available [place] [address] [place], [address], 07/28/2022 12:32:43 07/24/20 22 07/28/2022 THINP REP TIS PAP statement of adequacy: Speci men proce ssed and exami cornel, but unsat isfac tory for evalu ation due to an insuf ficie nt numbe r of squam ous cells . Not Available [place] [address] [place], [address], 07/28/2022 12:32:43 07/24/2007/28/2022 THINP REP TIS PAP interpretati on/result: Unabl e to provi de inter preta tion due to unsat isfac tory speci men adequ acy. Not Available [place] [address] [place], [address], 07/28/2022 12:32:43 07/24/20 22 07/28/2022 THINP REP TIS PAP comment: normal This Pap test has been evalu ated with compu ter damon hemant techn ology . Micro scopi c featu res sugge stive of lubri cant. Lubri cant celestinalli es may inter fere with slide prepa ratio n; their use is not recom latonya d. Not Available [facility] [address] [place], [address], 07/28/2022 12:32:43 07/24/20 22 07/28/2022 THINP REP TIS PAP cytotechnolo gist: normal YQ, CT( CP) CT scree cecilia locat ion: [facility] [place] [address] [place] [address] Not Available [facility] [place] [address] [place], [address], 07/28/2022 12:32:43 07/24/2007/28/2022 THINP REP TIS PAP review cytotechnolo gist: normal VIZCARRA, CT( CP) CT Scree cecilia locat ion: [address] [place] [address] Not Available [facility] [place] [address] [address], [place], [address], 07/28/2022 12:32:43 07/24/2007/28/2022 THINP REP TIS PAP [...] clini chetna infor matio n. Not Available [facility] [address] [place], [address], 07/28/2022 12:32:43 09/06/20 22 09/07/2022 HPV HIGH [...] l cervi chetna cytol ogy. Not Available [address], [address], 09/07/2022 14:55:02 11/11/19 25 11/12/2024 HPV HIGH [...] l cervi chetna cytol ogy. Not Available [address], [address], 11/13/2024 09:25:22 11/11/19 25 11/13/2024 THINP REP TIS PAP clinical information: normal None given Not Available [employer] [address] [place], [address], 11/13/2024 12:08:47 11/11/19 25 11/13/2024 THINP REP TIS PAP LMP: normal NONE GIVEN Not Available [employer] [address] [place], [address], 11/13/2024 12:08:47 11/11/19 25 11/13/2024 THINP REP TIS PAP prev. Pap: normal NONE GIVEN Not Available [employer] [address] [place], [address], 11/13/2024 12:08:47 11/11/19 25 11/13/2024 THINP REP TIS PAP prev. BX: normal NONE GIVEN Not Available [employer] [place] [address] [place], [address], 11/13/2024 12:08:47 11/11/19 25 11/13/2024 THINP REP TIS PAP source: normal Cervi x Not Available [address], [address], 11/13/2024 12:08:47 11/11/19 25 11/13/2024 THINP REP TIS PAP statement of adequacy: normal SATIS FACTO RY FOR EVALU ATION Not Available [address], [address], 11/13/2024 12:08:47 11/11/19 25 11/13/2024 THINP REP TIS PAP interpretati on/result: Cytol ogy Resul ts: Negat gary for intra epith elial lesio n or rajni salcido . Atrop corby fregoso rn; predo hardik oseguera parab ovidio cells Not Available [address], [address], 11/13/2024 12:08:47 11/11/19 25 11/13/2024 THINP REP TIS PAP comment: normal This Pap test has been evalu ated with compu ter damon marcos techn ology . Not Available [address], [address], 11/13/2024 12:08:47 11/11/19 25 11/13/2024 THINP REP TIS PAP cytotechnolo gist: normal MMD, CT( CP) CT Scree cecilia Locat ion: [address] [facility] , [place] [address] Not Available [address], [address], 11/13/2024 12:08:47 11/11/19 25 11/13/2024 THINP REP [...] chetna infor matio n. Not Available [facility] [address] [address], [place], [address], 11/13/2024 12:08:47 11/19/19 25 11/12/2024 MAMMO , scree cecilia, digit al, bilat eral No observ ation record ed. [address], [address], 11/18/2024 15:00:22 12/11/19 25 11/12/2024 MAMMO , scree cecilia, digit al, bilat eral No observ ation record ed. [address], [address], 12/10/2024 19:16:08 Result Notes Documentation Provider Name and Address Organization Details Recorded Time Mammo, Screening, Digital, Bilateral : Mammogram Mammogram Right: normal Left: normal Darlin Mckinney CNM [address] [place], [address], [facility] [facility] 12/10/2024 19:16:08 Procedures Surgical History Date Name Laterality Status Provider Name and Address Organization Details Recorded Time 11/13/19 25 Most Recent Mammogram completed Mariano Ruiz [facility] 11/18/2024 15:01:32 11/11/19 25 Date of Last Pap Smear completed EMILY GIVENS NP [facility] [place], [address], [employer] [facility] 11/10/2024 16:05:54 Laparoscopic cholecystectomy completed Codie Cardona [employer] [facility] [employer] 07/24/2022 11:24:16 procedure on elbow completed Codie Cardona [facility] 07/24/2022 11:24:29 Imaging Results None recorded. Procedure Notes None recorded. Medical Equipment None Reported. Allergies Allergen ID Allergen Name Allergen Category Reaction Reaction Severity Criticality Documentation Date Start Date Code Code System Note Provider Name and Address Organization Details Recorded Time 754225 doxycycli ne Not available Not available Not available Not available 07/24/2022 3640 RxNorm Codie Cardona null, [place] [employer] [facility] 2 11:15:59 840206 morphine medicatio n Not available Not available Not available 07/24/2022 7052 RxNorm Codie Cardona null, [place] [facility] 2 11:16:08 133702 Cipro medicatio n Not available Not available Not available 07/24/2022 39835 3 RxNorm Codie Cardona null, [place] [employer] [facility] 2 11:17:06 184986 Lipitor medicatio n Not available Not available Not available 07/24/2022 11623 5 RxNorm Codie Cardona [place], [place] [employer] [facility] 2 11:17:19 826925 verapamil medicatio n Not available Not available Not available 07/24/2022 34967 RxNorm Codie Cardona null, [place] [employer] [facility] 2 11:17:37 Medications Name Sig Start [...] Updated DateTime 5 157.48 cm 28.9 kg/m2 56779.5 9 g 97.7 [degF] 108 mm[Hg] 72 mm[Hg] Emily Justice [employer] IV 5 15:53:02 Date Recorded Body weight Body mass index (BMI) Body height Systolic blood pressure Diastolic blood pressure Provider Name and Address Organization Details Last Updated DateTime 07/24/2022 910809.9 g 55.2 kg/m2 157.48 cm 134 mm[Hg] 84 mm[Hg] Codie Cardona [employer] IV 2 11:27:58 Date Recorded Body height Body mass index (BMI) Body weight Body temperature Systolic blood pressure Diastolic blood pressure Provider Name and Address Organization Details Last Updated DateTime 2 157.48 cm 54.9 kg/m2 837190. 71 g 97.3 [degF] 120 mm[Hg] 70 mm[Hg] Tramea Paige [employer] IV 2 10:09:57 Social History Question Answer Notes LastModified by Organizat ion Details LastModified Time Tobacco Smoking Status Former Smoker Emily pearson, [employer] [facility] 11/10/2024 15:22:04 Are You Blind Or [...] SNOMED-CT Code Diagnosis ICD10 Code Diagnosis Note [id number] GRACE ROGERS, [facility] [address] [place] [address] 07/24/2022 10:43:59 07/24/2022 12:17:51 Gynecologic examination 29379719 Z01.419 Screening for malignant neoplasm of cervix 817297487 Z12.4 Screening for malignant neoplasm of breast 673223931 Z12.39 Pt educated on breast cancer screening guidelines , and discussed recommenda tion for scheduling imaging at hospital of her choice. Reviewed recommenda tion to have imaging done at same facility if possible as previous screenings . Pt states understand ing of POC. Screening colonoscopy 44 0146622 Z12.11 Pt has not had one since 2004, she will get order from PCP for colonoscop y [id number] ELLA ZENDEJAS, [facility] [address] [place] [address] 09/06/2022 09:06:17 09/06/2022 10:43:51 Cervicovaginal cytology specimen unsatisfactory 572395202 R87.034 [id number] EMILY GIVENS, DAVID [facility] [address] [place] [address] 11/10/2024 15:15:14 11/10/2024 16:47:35 Gynecologic examination 18174231 Z01.419 Patient is an establishe d patient who presents for a gynecologi chetna Annual Exam. The patient denies any changes in her medical history. The patient denies any changes in her family medical history. 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 Pap History:La [...] date Screening for malignant neoplasm of cervix 079947852 Z12.4 Depression screening 171 661536 Z13.31 refer to intake screening Screening mammography of bilateral breasts 4876752650 36713 Z12.31 Pt educated on breast cancer screening guidelines , and discussed recommenda tion for scheduling imaging at hospital of her choice. Reviewed recommenda tion to have imaging done at same facility if possible as previous screenings . Pt states understand ing of POC. Screening colonoscopy 44 4234744 Z12.11 Health Concerns Section Related Observation LastModified by Organization Detai ls LastModified Time None Recorded Concern Status LastModified by Organization Details LastModified Time None Recorded Advance Directives Directive None Recorded Payers Insurance Date Sequence Insurance Name Policy Number Policy Main Covered Member ID Main Member ID Guarantor Name 11/10/[address] [facility] (MEDICAID REPLACEMENT - HMO) Socorro Greenberggore [id number] Socorroshoshana Ibarra 11/18/2024 1 [facility] (MEDICAID REPLACEMENT - HMO) Socorro[place]oshana Ibarra [id number] [place] 11/10/[address] [facility] (MEDICAID REPLACEMENT - HMO) [id number] Socorro Greenberggore [id number] Socorro Greenberggore Notes Date Note Type Note Provider Name and Address Organization Details Recorded Time 07/24/2022 text/html Patient is here for annual examWould like to have her bladder checked- states that she thinks it may be dropping DILIA MILLER- [address] [facility], [place], [address], [facility] 07/24/2022 23:25:41 09/06/2022 text/html Here for repeat Pap smear only due to insufficient number of squamouscells on Pap from 07/2022. HPV results and was negative. ELLA ZENDEJAS DO [address] [place], [address], [facility] [employer] [facility] 09/06/2022 10:35:56 11/10/2024 text/html Annual GYNReport [...] anxiety; No PMDD EMILY GIVENS NP [address] [place], [address], [facility] [employer] [facility] 11/10/2024 16:07:40 OBGyn Episode No OBEpisode recorded.
--- OUTSIDE RECORDS SUMMARY | 2025-02-17 12:09 | XMS_ITS | Encounter Summary ---
Author Organization [facility] Healthcare Address [address] [place] [address] Care Team Providers Care Clipper Counters Name Role Phone Ke Frederick NP Primary Care Provider [phone] Encounter Details Date Type Department Care Team (Late st Contact Info) Description 02/16/2025 9:45 AM CDT Office Visit [facility] Sleep Medicine at [address] [place] [address] Mi Lerma MD [address] [place] [address] [address] [place] [address] Obstructive sleep apnea (Primary Dx); Hypersomnia; Overweight; Insomnia, unspecified type Social History Tobacco Use Types Packs/Day Years Used Date Smoking Tobacco: Former Cigarettes 0.5 20.4 2 005 - 1986 Smokeless Tobacco: Never Tobacco Cessation:Counseling Given: Not Answered Comments:06/02/2024 Stress smoker, patient says that she would smoke between a couple to a whole pack per day. 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 Gender Identity Not on file Sexual Orientation Not on file documented as of this encounter Last Filed Vital Signs Vital Sign Reading Time Taken Comments Blood Pressure 135/84 02/16/2025 9:55 AM CDT Pulse 88 02/16/2025 9:55 AM CDT Temperature - - Respiratory Rate - - Oxygen Saturation 97% 02/16/2025 9:55 AM CDT Inhaled Oxygen Concentration - - Weight 69.6 kg (153 lb 6.4 oz) 02/16/2025 9:55 A M CDT Height 160 cm (5' 2.99) 02/16/2025 9:55 AM CDT Body Mass Index 27.18 02/16/2025 9:55 AM CDT documented in this encounter Progress Notes * Mi Lerma MD - 02/16/2025 9:45 AM CDT Images from the original note were not included. SUBJECTIVE Chief Complaints: Snoring, unrefreshing sleep, excessive daytime sleepiness HPI: Socorro Ibarra is a 54 y.o. female seen in the sleep medicine clinic for follow-up. Obstructive sleep apnea: Patient recently had a home sleep apnea testing to reassess her sleep disordered breathing after significant weight loss. Patient is here to discuss the results and management plan. Patient has not been able to tolerate the auto CPAP since the weight loss and states that she sleeps better without the machine now days. History: Patient gives history of many years of snoring and witnessed apneas and excessive daytime sleepiness. Denies any waking up gasping choking for air. Patient was diagnosed obstructive sleep apnea in 1999 and was started on a CPAP machine. Patient states that during that time, she was also on supplemental O2. In 2011, she lost insurance and she stopped using her CPAP machine. Patient started using CPAP again in 2018 when she moved and had insurance again. Patient states she is currently on auto CPAP at 4-14 cm of water. She has a new machine- received around 4 months ago. But since her last sleepstudy in 2019, she has lost over 150 lb. Patient states that when she was 1st diagnosed in 1999, she used to weigh over 400 lb, which is over 250 lb than when she weighs now. Patient when a month without a CPAP machine recently and states that she slept fine. She sleeps alone, so she does not know if she still snores without the machine. Patient feels suffocated when she sleeps with a CPAP machine now days. Denies any falling asleep while talking or eating or driving. She no longer drives now days. Deniesany motor vehicle accidents or near misses when she was driving in the past. Positive family history of obstructive sleep apnea in her sister who does not need a CPAP machine. DME: [employer] Insomnia: She goes to bed at 8:00 p.m., falls asleep in 30 minutes and wakes up at 4-6 a.m.. Patient wakes uponce during the night. History: Patient has difficulty falling asleep. It takes her an hour to fall asleep. Patient is currently being treated by her psychiatrist. She also has history of PTSD. Patient is currently on doxepin and hydroxyzine. Patient also goes for weekly therapy. Patient exercises every morning and sometimes exercise in the evening as well. Denies any smoking or alcohol use. No caffeine use. Sleep schedule: At initial visit: On all days, she goes to bed at 8:00 p.m., falls asleep in an hour and wakes up at 2:00 a.m.. Patient wakes up once to use the restroom and is able to go to sleep right away. Denies any naps. Denies any morning headaches. Denies any hypnogogic or hypnopompic hallunications. Denies any sleep paralysis. Denies any cataplexy. Denies any daytime naps. Denies any sleepwalking. Denies any sleeptalking. Denies any motor activities, kicking, acting out dreams, falls, or screaming during sleep. Denies any urge to move his legs in the evening, during rest which gets better with activity. 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 Past Surgical History: Procedure Laterality Date BREAST LUMPECTOMY Right 2018 CHOLECYSTECTOMY 1994 ELBOW SURGERY Left 1992 Pin placed HAND SURGERY Left carpal tunnel NOSE SURGERY SLEEVE GASTROPLASTY 06/25/2024 Current Outpatient Medications: albuterol, USE 1 VIAL IN NEBULIZER EVERY 4 TO 6 HOURS NEEDED albuterol HFA, 2 puff, inhalation, Q6H PRN amitriptyline, 1 tablet, oral, TID anastrozole, 1 tablet, oral, Daily ascorbic acid, Take by mouth azelastine, 1 spray, each nostril, BID biotin, Take by mouth budesonide-formoteroL, 2 puff, inhalation, BID busPIRone, 1 tablet, oral, BID calcium carb/vit D3/minerals (CALTRATE 600+D PLUS MINERALS ORAL), 1 tablet, oral, Daily cetirizine, 1 tablet, oral, Daily cyanocobalamin, 100 mcg, oral, Daily cyclobenzaprine, cyclobenzaprine 10 mg tablet TAKE 1 TABLET BY MOUTH AT BEDTIME NEEDED FOR MUSCLE SPASM diphenhydrAMINE, every 4 (four) hours as needed doxepin, 25 mg, oral, Nightly (Patient taking differently: 50 mg, oral, Nightly) ergocalciferol (vitamin D2), 1 tablet, oral, Daily escitalopram, 1 tablet, oral, Daily famotidine, 20 mg, oral, BID fenofibrate nanocrystallized, 1 tablet, oral, Daily fluticasone propionate, 2 spray, each nostril, Daily gabapentin, 2 capsule, oral, TID hydrOXYzine, TAKE 1 TABLET BY MOUTH NEEDED AND AT BEDTIME FOR ANXIETY Linzess, 145 mcg, oral, Daily LORazepam, 0.5 mg, oral, BID magnesium oxide, 400 mg, oral, Daily meclizine, 25 mg, oral, TID PRN meloxicam, miconazole, Apply topically 2 (two) times a day multivitamin, Take by mouth ondansetron, oxyCODONE, Take by mouth prazosin, 2 capsule, oral, Nightly Qulipta, 60 mg, oral, Daily riboflavin (vitamin B2), 400 mg, oral, Daily ubrogepant, 100 mg, oral, Once PRN Allergies Allergen Reactions Ciprofloxacin Shortness of breath With a rash Doxycycline Hives, Rash, Shortness of breath and Urticaria Haemophilus Influenzae Type B Anaphylaxis Influenza Virus Vaccines Anaphylaxis Morphine Other (See comments), Hives and Unknown Pneumococcal 23-Valent Polysaccharide Vaccine Anaphylaxis Pvbtfjm-Tcw-Ppy Reductase Inhibitors Other (See comments), Muscle pain and Shortness of breath Quinolones Other (See comments) and Rash SOB Verapamil Rash Clindamycin Itching Tetracycline Other (See comments) Social History Tobacco Use Smoking status: Former Current packs/day: 0.50 Average packs/day: 0.5 packs/day for 20.4 years (10.2 ttl pk-yrs) Types: Cigarettes Start date: 2004 Quit date: 1985 Smokeless tobacco: Never Tobacco comments: 06/02/2024 Stress smoker, patient says that she would smoke between a couple to a whole pack per day. 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 Family History Problem Relation Age of Onset Alcohol abuse Mother Heart failure Mother Brain Aneurysm Father Atrial fibrillation Sister Heart defect Brother Physical Exam: Vitals: 02/16/25 0955 BP: 135/84 Pulse: 88 SpO2: 97% Weight: 69.6 kg (153 lb 6.4 oz) Height: 160 cm (5' 2.99) BMI: Body mass index is 27.18 kg/m??. Wt Readings from Last 6 Encounters: 02/16/25 69.6 kg (153 lb 6.4 oz) 01/14/25 70.9 kg (156 lb 3.2 oz) 12/29/24 68 kg (150 lb) 11/19/24 72.5 kg (159 lb 14.4 oz) 11/07/24 74 kg (163 lb 2.3 oz) 10/28/24 74.2 kg (163 lb 8 oz) BMI Readings from Last 6 Encounters: 02/16/25 27.18 kg/m?? 01/23/25 27.67 kg/m?? 01/14/25 28.56 kg/m?? 12/29/24 27.44 kg/m?? 11/19/24 29.25 kg/m?? 11/07/24 32.03 kg/m?? Physical Exam General appearance: Alert, oriented, in no distress. HEENT: Atraumatic, normocephalic. Pupils are equal and reactive to light. Extraocular movement intact. Mallampati-IV. Positive for macroglossia and scalloped tongue. Neuro: No focal deficits Psychiatric: Normal mood and affect Polysomnogram results: PSG from 1999: Unavailable PSG from 2019 at [place]: Pending Home sleep apnea testing from 01/2025: Negative Data download: Please see scanned data Ejection fraction: NA Assessment and Plan: History of obstructive sleep apnea: PSG from 1999 and 2018 unavailable. Patient used to be on CPAP and oxygen in 1999. Currently on auto CPAP at 4-14 cm of water but unable to tolerate it since the weight loss. Given the significant weight loss of over 150 lb since the last sleep study in 2019, sleep study was repeated. Home sleep apnea testing from 01/2025 was negative. Will discontinue auto CPAP use. Monitor for worsening of snoring or significant weight gain and repeat sleep study if needed. Patient verbalized understanding. Weight loss for ideal body weight range is recommended. Hypersomnia: Likely secondary to sleep fragmentation associated with uncontrolled sleep disordered breathing. Improved with auto CPAP use and weight loss. No driving if sleepy. Overweight: The effects of obesity, obstructive sleep apnea syndrome and other morbidities were discussed. Recommended diet and exercise for ideal body weight. Patient verbalized understanding. Sleep onset insomnia: Managed by her psychiatrist. Patient has underlying PTSD. Sleep hygiene discussed in detail. Handout given to the patient during prior visit. Return in about 1 year (around 02/16/2026). Voice recognition software [employer] was used dictate and transcribe this document. Strategy Execution Consultant variances may occur. Despite proofreading, typographical errors may occur. Mi Lerma MD [facility] Sleep Medicine CC: Ke Frederick FURNACE INSTALLER HELPER documented in this encounter Plan of Treatment Not on file documented as of this encounter Visit Diagnoses Diagnosis Obstructive sleep apnea- Primary Obstructive sleep apnea (adult) (pediatric) Hypersomnia Hypersomnia, unspecified Overweight Insomnia, unspecified type documented in this encounter Discontinued Medications Medication Sig Discontinue Reason Start Date End Da te digoxin (LANOXIN) 125 mcg (0.125 mg) tablet TAKE 1 TABLET BY MOUTH DIRECTED [place] - Sunday02/16/2025 ROPivacaine (NAROPIN) 5 mg/mL (0.5 %) injection every 3 (three) months 10/12/2023 02/16/2025 documented as of this encounter Care Teams Clipper Counters Relationship Specialty Start Date End Date Ke Frederick, FURNACE INSTALLER HELPER [address] [place] [address] PCP - General Family Medicine 01/31/24 documented as of this encounter
--- OUTSIDE RECORDS SUMMARY | 2025-02-17 12:09 | XMS_ITS | Encounter Summary ---
Author Organization [facility] Address [address] [place] [address] Phone Care Team Providers Care Maintenance Of Way Supervisor Name Role Phone Trini Rockwell MD Unavailable [phone] Latesha Lewis MD Primary Care Provider + Michael Benz MD Unavailable [phone] Reason for Visit * Reason Comments Medication Refill Encounter Details Date Type Department Care Team (Late st Contact Info) Description 09/24/2022 Refill [facility] [address] [phone] Michael Benz MD [address] [place] [phone] Medication Refill Social History Tobacco Use [...] Natalia Mata, RN - 09/25/2022 8:07 AM REGIONAL EDUCATION COORDINATOR Refill request from pharmacy. Please fill if appropriate. ONAL EDUCATION COORDINATOR documented in this encounter Plan of Treatment Upcoming Encounters Date Type Department Care Team (Late st Contact Info) Description 03/30/2025 8:15 AM CDT Lab [facility] [address] [phone] Lab, [place] [facility] 03/30/2025 8:30 AM CDT Office Visit [facility] [address] [phone] Michael Benz MD [address] [place] [phone] documented as of this encounter Visit Diagnoses Diagnosis Malignant neoplasm of nipple of right breast in female, estrogen receptor positive (HCC) documented in this encounter Additional Health Concerns Assessment Noted Time PHQ-9 Depression Total Score: 1 04/04/20 21 2:23 PM CDT documented as of this encounter Care Teams Maintenance Of Way Supervisor Relationship Specialty Start Date End Date Latesha Lewis MD [address] [place] [id number] PCP - General Family Medicine 11/05/19 Trini Rockwell MD [address] [place] [id number] Radiation Oncologist Radiology 10/16/19 Michael Benz MD [address] [place] [phone] Consulting Physician Oncology 01/17/23 documented as of this encounter
--- OUTSIDE RECORDS SUMMARY | 2025-02-17 12:09 | XMS_ITS | Continuity of Care Document ---
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 [address] [place] [address], [id number] [place] [address], [address]. OFFICE/OUTPA TIENT VISIT, EST [facility] [employer] on, [address] [place] [address], [id number] , tel: [phone] [facility] Follow Up of Diabetes (chief complaint)Foll ow Up of Hypertension (chief complaint)Foll ow Up of back pain (chief complaint)Foll ow Up of COPD (chief complaint) Benign HTNMixed hyperlipidemia Type 2 diabetes mellitus with diabetic polyneuropathy COPDLow back painBody mass index (BMI) 50-59.9 , adult 9 Roosevelt Mary. [address] [place] [address], [id number] [place] [address], [address]. Referring Provider: Camacho Wiley, [id number] [place] [address], [id number] . tel:[phone] [facility] [employer] on, [address] [place] [address], [id number] , tel: [phone] [facility] No Information 9 Roosevelt Mary. [address] [facility], [id number] [place], [place], [address]. [facility] on, [address] [place] [address], [id number] , tel:+ [phone] [facility] No Information 9 Roosevelt Mary. [address] [place], [id number] [place], [place], [address]. OFFICE/OUTPA TIENT VISIT, EST [facility] on, [address] [place] [address], [id number] , tel:[phone] [facility] Follow Up of Hypertension (chief complaint)Foll ow Up of Diabetes (chief complaint)Foll ow Up of Hyperlipidemia (chief complaint)Foll ow Up of back pain (chief complaint)Foll ow Up of COPD (chief complaint) Benign HTNMixed hyperlipidemia Type 2 diabetes mellitus with diabetic polyneuropathy Low back painCOPDBody mass index (BMI) 50-59.9 , adult 8 Roosevelt Mary. [address] [place] [address], [id number] [place], [address]. Referring Provider: Camacho Wiley[address], [address] . tel:[phone] OFFICE/OUTPA TIENT VISIT, EST [facility] on, [address] [place] [address], [id number] , tel: [phone] [facility] Follow Up of Hypertension (chief complaint)labs (chief complaint)Foll ow Up of Hyperlipidemia (chief complaint)Foll ow Up of diabetes (chief complaint)back pain (chief complaint)COPD (chief complaint) Benign HTNMixed hyperlipidemia Type 2 diabetes mellitus with diabetic neuropathy, unspBody mass index (BMI) 60.0-69.9, adultLow back painCOPD 8 Roosevelt Mary. [address] [facility], [id number] [place], [place], [address]. Referring Provider: Camacho Wiley, [address] [place], [place] [address], [address] . tel:[phone] OFFICE/OUTPA TIENT VISIT, [facility], [address] [place] [address], [id number] , tel:[phone] [facility] ER Follow Up: Cough (chief complaint)Coug h (chief complaint)Foll ow Up of hypertension (chief complaint)Foll ow Up of hyperlipidemia (chief complaint)Foll ow Up of diabetes (chief complaint)low back pain (chief complaint) CoughAcute maxillary sinusitisType 2 diabetes mellitus with diabetic neuropathy, unspMuscle spasm of backMixed hyperlipidemia Benign HTNPain in leg 8 [facility]. [address] [place] [address], [address] [place] [address], [place], [address]. Referring Provider: Camacho Wiley, [address] [place] [address], [id number] . tel:[phone] OFFICE/OUTPA TIENT VISIT, [facility] on, [address] [place] [address], [id number] , [phone] [facility] PAP test (chief complaint) Screening for cervical cancerEncounte r for screening mammogram for cancer of breastEncntr for silverware etcher exam (general) (routine) w/o abn findings 7 Roosevelt Mary. [address] [place] [address], [address] [place] [address], [place], [address]. Referring Provider: Camacho Wiley, [address] [place], [place] [address] [id number], [address] . tel:[phone] OFFICE/OUTPA TIENT VISIT, [facility] on, [address] [place] [address], [id number] , tel:[phone] [facility] Follow Up of Hypertension (chief complaint)bloo d work (chief complaint)sick (chief complaint)Foll ow Up of hyperlipidemia (chief complaint)Foll ow Up of diabetes (chief complaint)natalie rgies (chief complaint) Body mass index (BMI) 50-59.9 , adultEssential (primary) hypertensionMi xed hyperlipidemia Type 2 diabetes mellitus with diabetic neuropathy, unspPain in legMuscle spasm of backAllergic rhinitis due to pollen 7 Roosevelt Mary. [address] [facility], [id number], [address]. Referring Provider: [facility] , [address] [place], [place] [address] [id number], [address] . tel:[phone] OFFICE/OUTPA TIENT VISIT, [facility] on, [address] [place] [address], [id number] , [place] tel:[phone] [facility] Follow Up of Diabetes (chief complaint)Foll ow Up of hyperlipidemia (chief complaint)Foll ow Up of hypertension (chief complaint) Essential (primary) hypertensionTy pe 2 diabetes mellitus with diabetic neuropathy, unspMixed hyperlipidemia Body mass index (BMI) 50-59.9 , adult 7 Roosevelt Mary. [address] [facility], [id number], [address]. Referring Provider: [facility] , [address] [place], [place] [address] [id number], [address] . tel:[phone] [facility] on, [address] [place] [address], [id number] , [place] tel:[phone] [facility] Benign HTNMixed hyperlipidemia Type II diabetes w/ diabetic neuropathy 7 Roosevelt Mary. [address] [facility], [address] [place] [address], [address]. Referring Provider: [facility] , [facility] [place] [id number], [address] . tel:[phone] OFFICE/OUTPA TIENT VISIT, [facility] on, [address] [place] [address], [id number] , [place] tel:[phone] [facility] Follow Up of Hypertension (chief complaint)ER Follow Up: Sinus Infection (chief complaint)Foll ow Up of diabetes (chief complaint)Foll ow Up of hyperlipidemia (chief complaint)Sinu s symptoms (acute) (chief complaint) Benign HTNType II diabetes w/ diabetic neuropathyMixe d hyperlipidemia Body mass index (BMI) 50-59.9 , adultAcute maxillary sinusitis 7 Roosevelt Hernandez. [address] [place] [address], [id number] [place], [address]. Referring Provider: Camacho Wiley, [address] [place], [place] [address] [id number], [address] . tel:[phone] OFFICE/OUTPA TIENT VISIT, [facility] [employer] on, [address] [place] [address], [id number] , tel:[phone] [facility] Earache (chief complaint)Nasa l congestion (chief complaint) Acute pansinusitisBe nign HTN 6 No Information Referring Provider: Camacho Wiley, [address] [place], [place] [address] [id number], [address] . tel:[phone] OFFICE/OUTPA TIENT VISIT, [facility], [address] [place] [address], [id number] , tel:[phone] [facility] Follow Up of Hypertension (chief complaint)Foll ow Up of diabetes (chief complaint)Foll ow Up of hyperlipidemia (chief complaint) Benign hypertensionTy pe II diabetes w/ diabetic neuropathyMixe d hyperlipidemia Body mass index (BMI) 50-59.9 , adult 6 No Information Referring Provider: Bewes Wiley, [address] [place], [place] [address] [id number], [address] . tel:[phone] OFFICE/OUTPA TIENT VISIT, [facility] [place] [facility] [employer] on, [address] [place] [address], [id number] , tel:[phone] [facility] Cold symptoms (chief complaint) Acute pansinusitisOt her acute nonsuppurative otitis media, left ear 5 No Information Referring Provider: Manyoni Wiley, [address] [place] [address], [address] . tel:[phone] OFFICE/OUTPA TIENT VISIT, [facility] on, [address] [place] [address], [id number] , tel:[phone] [facility] Cough (chief complaint)Sore throat (chief complaint)foll owup er (chief complaint)Foll ow Up of Diabetes (chief complaint)Foll ow Up of Hypertension (chief complaint) Acute bronchitisAcut e pansinusitisBe nign hypertensionTy pe II diabetes w/ diabetic neuropathy 5 No Information Referring Provider: Rosamondyoni Wiley, [address] [place] [address], [address] . tel:[phone] OFFICE/OUTPA TIENT VISIT, [facility] on, [address] [place] [address], [id number] , tel:[phone] [facility] Cough (chief complaint)Sore throat (chief complaint)Foll ow Up of Hypertension (chief complaint)Foll ow Up of Diabetes (chief complaint)Foll ow Up of Hyperlipidemia (chief complaint) Hypertension, BenignAcute bronchitisDiab etesHypertrigl yceridemiaLumb agoObesity, Morbid 5 No Information Referring Provider: [facility] N, [address] [place] [address], [address] . tel:[phone] [facility] on, [address] [place] [address], [id number] , tel:[phone] [facility] Breast Ca screening 5 No Information OFFICE/OUTPA TIENT VISIT, [facility] on, [address] [place] [address], [id number] , tel:[phone] [facility] Med Refill (chief complaint)Sinu s symptoms (acute) (chief complaint) Hypertension, BenignEdemaLeg painAcute maxillary sinusitis 5 No Information Referring Provider: [facility], [address] [place] [id number], [address] . tel:[phone] OFFICE/OUTPA TIENT VISIT, [facility] on, [address] [place] [address], [id number] , tel:[phone] [facility] Sinus symptoms (acute) (chief complaint)diab etes (chief complaint) Hypertension, BenignUncontro lled DM w/ neurological complicationsM igraineAcute, but ill-defined, cerebrovascula r diseaseLumbago Obesity, Morbid 3- 4 No Information Referring Provider: [facility], [address] [place] [address], [id number] . tel:[phone] OFFICE/OUTPA TIENT VISIT, [facility] on, [address] [place] [address], [id number] , tel:[phone] [facility] hypertension (chief complaint) Hypertension, BenignObesity, MorbidArthropa thyMigraineAcu te, but ill-defined, cerebrovascula r disease 4 No Information Referring Provider: [facility], [address] [place] [id number], [address] . tel:[phone] Family History Family Member Type Diagnosis Age [...] hypertension Payers Payer name Insurance type Covered constitution party ID Authoriza tion(s) No Information Social [...] patient was seen in the ER at [facility] and diagnosed with acute bronchitis. She was [...] year ago. Last PAP test was from 8560-8968. She has not had a mammogram in [...] Related to Benign HTN The patient has per diem registered nurse crispin mixed hyperlipidemia. We will check fasting [...] Type 2 diabetes mellitus with diabetic polyneuropathy Stable. Will continu e inhalers. She is [...] mellitus with diabetic polyneuropathy The patient has per diem registered nurse crispin mixed hyperlipidemia. We will check fasting [...] Related to Benign HTN The patient has per diem registered nurse crispin mixed hyperlipidemia. Controlled with diet and [...] with diabetic neuropathy, unsp The patient has per diem registered nurse crispin low back pain and is having [...] to Body mass index (BMI) 60.0-69.9, adult Will continue meloxi cam per medication module. She will follow up in 4 months. Related to Pain in leg The patient was seen in ER for [...] for chest x-ray. Related to Cough Will treat with Augm entin BID for 7 days. Will also treat with steroid dose pack. She has taken in the past with no issues. Encouraged to use sinus rinse if needed. Instructed to follow up if not improved within 3 days. Related to Acute maxillary sinusitis Stable. Will continu e muscle relaxer per module. She will follow up in 4 months. Related to Muscle spasm of back The patient has per diem registered nurse crispin mixed hyperlipidemia. Controlled with diet and [...] mellitus with diabetic neuropathy, unsp The patient presents with chronic hypertension that [...] based on results. 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 [...] Related to Benign HTN Was seen at [facility] on 09-12-16 for sinus infection and [...]
--- OUTSIDE RECORDS SUMMARY | 2025-02-17 12:09 | XMS_ITS | CONTINUITY OF CARE DOCUMENT ---
Author Name riya ritter Address Unknown Organization [facility] Address [address] [place] [address] Phone [phone] Care Team Providers Care Director Of Partner Marketing Name Role Phone Vicente Resendez MD Unavailable GIACOMO GRIGGS MD Unavailable [phone] SENAIT GOMES Unavailable PROBLEMS Condition Status Date [...] Shortness of breath active Eileen Ventimigl ia PUTTIER COPD active Eileen Ventimiglia PUTTIER Palpitations active Eileen Ventimiglia PUTTIER LUISA, adult active Eileen Ventimiglia PUTTIER SVT, paroxysmal active Vicente Resendez MD Syncope active Vicente Resendez MD ENCOUNTERS Date Type Provider Location Encounter Diag nosis - In-person encounter Office Visit Vicente Resendez MD [facility] HYPERCHOLESTEROLEMIA -LABS PER DR. TITUS s/p gastric sleeve surgery 06/2024Syncope - In-person encounter Office Visit Vicente Resendez MD [facility] - In-person encounter Office Visit Vicente Resendez MD [facility] SVT, paroxysmal - In-person encounter Office Visit Vicente Resendez MD [facility] - In-person encounter Office Visit Vicente Resendez MD [facility] Shortness of breathCOPDPalpitatio nsOSA, adult - In-person encounter Office Visit Mya Madison MD [facility] HTN-11/16 ECHO EF 65 LVHCVA-11/16 CAROTID NEGCHEST PAIN-11/16 CATH NORMAL - In-person encounter Office Visit Mya Madison MD [facility] ANEMIA NEEDS FE TRANSFUSIONS VITAL SIGNS Date Observation Value Provider Body Mass Index (Ratio) 36.13 kg/m2 Christian Resendez MD blood pressure, diastolic 74 mm[Hg] Benedict clemente [place] blood pressure, systolic 122 mm[Hg] Natalie cosby [place] oxygen saturation, oximetry 97 % [facility] pulse rate 87 /min [facility] blood pressure, cuff size regular Benedict clemente [place] weight E&M 185.0 [lb_av] [facility] height E&M 60 [in_i] [facility] Body Mass Index (Ratio) 49.99 kg/m2 Grah am Juan Jose blood pressure, diastolic 81 mm[Hg] Li [employer] blood pressure, systolic 117 mm[Hg] Carolynn kLogic pulse rate 99 /min [facility] blood pressure, cuff size regular Fa [facility] blood pressure, diastolic 81 mm[Hg] Fa [facility] blood pressure, systolic 117 mm[Hg] René [facility] oxygen saturation, oximetry 96 % [facility] respiratory rate E&M 16 /min Brigette Dez [facility] weight E&M 256 [lb_av] [facility] height E&M 60 [in_i] [facility] Body Mass Index (Ratio) 52.73 kg/m2 Christian Resendez MD blood pressure, diastolic 76 mm[Hg] Saloni Log blood pressure, systolic 134 mm[Hg] Carolynn pulse rate 90 /min Terrell y blood pressure, cuff size large Ja et blood pressure, diastolic 76 mm[Hg] Ja rret blood pressure, systolic 134 mm[Hg] [facility] [place] ret oxygen saturation, oximetry 97 % Terrell [...] Take 1 tablet by mouth once daily [facility] Tricor 48 mg tablet completed Take 1 table t by mouth once a day - [facility] fenofibrate 40 mg tablet completed TAKE 1 TABLET BY MOUTH ONCE A DAY - [facility] digoxin 125 mcg [...] mcg/actuation blister with device active Eileen Ventimiglia PUTTIER Symbicort 160-4.5 mcg/actuation HFA aerosol inhaler active Eileen Ventimiglia PUTTIER escitalopram oxalate 20 mg tablet active Eileen Ventimiglia PUTTIER lisinopril-hydrochl orothiazide 20-25 mg tablet completed - Vicente Resendez MD amitriptyline 50 mg tablet active Eileen Ventimiglia PUTTIER gabapentin 400 mg capsule active Eileen Ventimiglia PUTTIER meloxicam 15 mg tablet active Eileen Ventimiglia PUTTIER anastrozole 1 mg tablet active Eileen Ventimiglia PUTTIER cyclobenzaprine 10 mg tablet active Eileen Ventimiglia PUTTIER prazosin 2 mg capsule active Eileen Ventimiglia PUTTIER hydroxyzine HCl 25 mg tablet active Eileen Ventimiglia PUTTIER buspirone 30 mg tablet active Eileen Ventimiglia PUTTIER anastrozole 1 mg tablet completed - Eileen Ventimiglia PUTTIER cyclobenzaprine 10 mg tablet completed - Eileen Ventimiglia PUTTIER fluticasone propionate 50 mcg/actuation spray,suspension active prazosin 2 mg capsule completed - Eileen Ventimiglia PUTTIER albuterol sulfate 90 mcg/actuation HFA aerosol inhaler active azelastine 137 mcg (0.1 %) aerosol,spray completed - Eileen Ventimiglia PUTTIER buspirone 30 mg tablet completed - Eileen Ventimiglia PUTTIER hydroxyzine HCl 25 mg tablet completed - [place] Ventimiglia PUTTIER VERAMYST 27.5 MCG/SPRAY NASAL SUSPENSION completed - [place] Ventimiglia PUTTIER PROVENTIL HFA AEROSOL SOLUTION active as needed Mayur Ying RN LOFIBRA 134 MG ORAL CAPSULE completed - [facility] Abilify 30 mg tablet completed - [facility] metoclopramide HCl 5 mg tablet completed - [place] Ventimiglia PUTTIER RANITIDINE HCL 150 MG ORAL TABLET completed 1 tablet twice a day - [place] Ventimiglia PUTTIER BUDEPRION SR 150 MG ORAL TABLET EXTENDED RELEASE 12 HOUR completed - [facility] Phenergan 25 mg/mL solution completed as needed - [facility] Maxalt 10 mg tablet completed - [place] Ventimiglia PUTTIER TRAZODONE HCL TABLET active 300 mg as directed TAKE ONE TABLET BY MOUTH ONCE A DAY Alicja Rocha PROPOXYPHENE-APAP 65-650 MG TABS completed as needed - [facility] clonazepam 2 mg tablet completed - [place] Ventimiglia PUTTIER ZETIA TABS (EZETIMIBE) completed - Mayur Ying [...] MD drug use no Eileen Ventimig emily [facility] alcohol use no Eileen Ventimig emily [facility] smoking status Former smoker Eileen Venti miglia [facility] social history reviewed E&M revi ewed - no changes required Vicente Resendez MD drug use no Eileen Ventimig emily [facility] alcohol use no Eileen Ventimig emily [facility] smoking status Former smoker Eileen Venti miglia [facility] social history reviewed E&M reviewed Mayur Ying [...] than 10 years [employer] smoking status Quit [facility] MENTAL STATUS Date Observation Value Provider assessment of judgme nt and insight E&M Flat affect- depressed affect. Mayur Ying RN assessment of judgme nt and insight E&M Alert and oriented to time, place and person. Mood and affect are normal. Flat affect- depressed? Mayur Ying RN INSURANCE PROVIDERS Payer name Policy type / Coverage type Heidi red democrat [place] [employer] MEDICAID (2) Medicaid [id number] ADVANCE DIRECTIVES Name Date DISCUSSED - NO DECISION MADE TREATMENT PLAN Date Name Performer [id number],C, H er updated medication list for this problem includes: Incruse Ellipta 62.5 Mcg/actuation Blister With Device (Umeclidinium) Symbicort 160-4.5 Mcg/actuation Hfa Aerosol Inhaler (Budesonide-formoterol) Montelukast 10 Mg Tablet (Montelukast) Albuterol Sulfate 90 Mcg/actuation Hfa Aerosol Inhaler (Albuterol sulfate) [facility] [id number],C,c hronic in setting of COPD, obesity and LUISA e cho done showed EF of 60% with diastolic dysfunction n o significant valvular abnormaliteis e ncouraged weight loss and continued use of inhalers H er updated medication list for this problem includes: Lisinopril-hydrochlorothiazide 20-25 Mg Tablet (Lisinopril-hydrochlorothiazide) [facility] [id number],C,p atient is preparing for gastric sleeve w ould be considered an acceptable risk for planned procedure [facility] [id number],C,T he patient is using CPAP on a regular basis. The patient has been benefiting from therapy and should continue use. [facility] [id number],C,B P 158/77 in office B rought in home log and BP 120-130 systolic and 60-70 diastolic w ill continue to monitor at home c ontinue present medication regimen H er updated medication list for this problem includes: Lisinopril-hydrochlorothiazide 20-25 Mg Tablet (Lisinopril-hydrochlorothiazide) Prazosin 2 Mg Capsule (Prazosin) [facility] [id number],C,L abs showed Triglycerides of 490 H er HgbA1C was 5.5% S he will be started on vascepa W ill have f/u lipid panel in 8 weeks and return post [facility] [id number],C,T he patient is using CPAP on a regular basis. The patient has been benefiting from therapy and should continue use. Vicente Resendez MD [id number],C,B lood pressure 152/83 in office today W ell controlled per home log W ill continue to trend at home Vicente Resendez MD [id number],C,will update l ipid panel Vicente Resendez MD [id number],C,e pisodes can come daily or go months without occuring h ave been more frequently c an get updated labs w ill plan tele monitor Vicente Resendez MD [id number],C,M ost likely multifactorial in nature in setting COPD, asthma, and obesity W ill do echo to r/o any LV dysfunction or WMA Vicente Resendez MD [id number],C,plannd for ga stric bypass [place] [facility] [id number],C,n o residual effects n ot on statin therapy d/t intolerance [facility] Cardiology Vicente Ortez Cardiology: N o recurrence. [...] once a day Lovaza 1 Gram Capsule ([place]-3 acid ethyl esters) ..... Take 1 capsule [...] 90 Mcg/actuation Hfa Aerosol Inhaler (Albuterol sulfate) [place] Ludivina [facility] Cardiology:chronic i n setting of COPD, obesity and LUISA e cho done showed EF of 60% with diastolic dysfunction n o significant valvular abnormaliteis e ncouraged weight loss and continued use of inhalers H er updated medication list for this problem includes: Lisinopril-hydrochlorothiazide 20-25 Mg Tablet (Lisinopril-hydrochlorothiazide) [place] Ludivina [facility] Cardiology:patient i s preparing for gastric sleeve w ould be considered an acceptable risk for planned procedure [facility] Cardiology:The patie nt is using CPAP on a regular basis. The patient has been benefiting from therapy and should continue use. [facility] Cardiology:BP 158/77 in office B rought in home log and BP 120-130 systolic and 60-70 diastolic w ill continue to monitor at home c ontinue present medication regimen H er updated medication list for this problem includes: Lisinopril-hydrochlorothiazide 20-25 Mg Tablet (Lisinopril-hydrochlorothiazide) Prazosin 2 Mg Capsule (Prazosin) [facility] Cardiology:Labs show ed Triglycerides of 490 H er HgbA1C was 5.5% S he will be started on vascepa W ill have f/u lipid panel in 8 weeks and return post Eileen Ventimiglia [facility] Cardiology:The patie nt is using CPAP on [...] Resendez MD Cardiology:plannd for gastric by pass [place] Ventimiglia [facility] Cardiology:no residu al effects n ot on statin therapy d/t intolerance [place] Ventimiglia [facility] chest pain: O rders: C ardiac Cath [...] Borderline LVH. SL (10/08/2006) Orders: E KG ([id number]) C ardiac Cath - GC (*) Mya [...]
--- OUTSIDE RECORDS SUMMARY | 2025-02-17 12:09 | XMS_ITS | Clinical Summary ---
Author Organization [facility] [employer] Address [address] [place] [address] Care Team Providers Care Pelletizer Tender Name Role Phone Latesha Lewis MD Primary Care Provider [phone] Source Comments [facility] [employer]non-owned Affiliates and Associated Physician Practices is amultiple site organization consisting of ambulatory clinics and hospital sitesin [place], [place], [place] and [place]. This disclosure is being madepursuant to the Care Everywhere program and may not contain all information available regarding this patient. Last updated 18.[facility] [employer] Allergies Active Allergy Reactions Criticality Noted Date Comments Ciprofloxacin Rash Medium 06/16/2019 SOB Doxycycline Urticaria,Shortness of Breath High 06/16/2019 Flu Virus Vaccine Unknown 06/16/2019 Morphine AUTOMATION ANALYST Dysfunction 06/16/2019 Pneumococcal Polysaccharides Unknown 019 Quinolones [...] fluticasone propionate (FLONASE) 50 MCG/ACT nasal spray [place] 2 sprays into each nostril once daily [...] Active Problems Problem Noted Date Diagnosed Date penitentiary current use of aromatase inhibitor 10/2019 Malignant neoplasm of upper- outer quadrant of right breast in female, estrogen receptor positive 06/03/2019 Cancer Staging:Clinical stage from 05/12/2020:Stage IA(cT1b, cN0, cM0, G1, ER+, AL+, HER2-) - Signed by Natalya Borden MD on 08/15/2020 Pathologic stage from 05/12/2020:Stage IA(pT1b, pN0(sn), cM0, G1, ER+, AL+, HER2-) - Signed by Natalya Borden MD on 08/15/2020 Overview (08/15/2020): Right, 10:00. Grade 1/3 IDC. T1bN0(i-)M0, stage IA. 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
--- OUTSIDE RECORDS SUMMARY | 2025-02-17 12:09 | XMS_ITS | Clinical Summary ---
Author Organization [facility] Address [address], [facility] [address] [place] [address] Phone Care Team Providers Care Forging Dies Final Finisher Name Role Phone Trini Rockwell MD Unavailable [phone] Latesha Lewis MD Primary Care Provider + Michael Benz MD Unavailable [phone] Allergies Active Allergy Reactions Criticality Noted Date [...] Travel 01/21/2025 Telephone [facility] [address] [address] Michael Benz MD Canopy Call / test results 11/22/2024 Refill [facility] [address] [address] Priya Shukla, BLOCKER POLISHING, HISTORIAN DRAMATIC [employer]S Medication Refill from Last 3 Months Immunizations Immunization Administration [...] Recorded Total Score - Questions 1-9 0 0 09/2021 Education Answer Date Recorded What [...] Comments Blood Pressure 134/82 07/28/2024 12:41 PM REIMBURSEMENT DIRECTOR Pulse 96 07/28/2024 12:41 PM REIMBURSEMENT DIRECTOR Temperature 36.6 C (97.8 F) 07/28/2024 12:41 PM REIMBURSEMENT DIRECTOR Respiratory Rate 18 07/28/2024 12:41 PM REIMBURSEMENT DIRECTOR Oxygen Saturation 97% 07/28/2024 12:41 PM REIMBURSEMENT DIRECTOR Inhaled Oxygen Concentration - - Weight 83.7 kg (184 lb 8 oz) 07/28/2024 12:41 PM REIMBURSEMENT DIRECTOR Height 157.5 cm (5' 2) 07/28/2024 12:41 PM REIMBURSEMENT DIRECTOR Body Mass Index 33.75 07/28/2024 12:41 PM REIMBURSEMENT DIRECTOR Plan of Treatment Upcoming Encounters Date Type Department Care Team (Late st Contact Info) Description 03/30/2025 8:15 AM CDT Lab [facility] [address] [address] Lab, Cc [facility] 03/30/2025 8:30 AM CDT Office Visit [facility] [address] [address] Michael Benz MD [address] [place] [phone] Health Maintenance Due Date Last Done Comments Hepatitis C Virus (HCV) Screening 1970 TdaP Immunization 1970 Hepatitis B Immunization (1 of 3 - 19+ 3-dose series) 1989 Pneumococcal Immunization (50+ years) (1 of 2 - PCV) 1989 Pap Smear 1991 Cervical Cancer Screening (CCS) 2000 HPV/Cotest 2000 Cologuard 2015 Colonoscopy 2015 Colorectal Cancer Screening 2015 Immunochemical Fecal Occult Blood 2015 SARS-COV-2 Immunization ( season) 2024 11/15/2022, 01/13/2022, [...] Recently Relevant to Health Maintenance Insurance MEDICAID [facility] PLAN Care Teams Forging Dies Final Finisher Relationship Specialty Start Date End Date HenryLatesha majano MD [address] [place] [id number] PCP - General Family Medicine 11/05/19 Trini Rockwell MD [address] [address] Radiation Oncologist Radiology 10/16/19 Michael Benz MD [address] [place] [phone] Consulting Physician Oncology 01/17/23
--- OUTSIDE RECORDS SUMMARY | 2025-02-17 12:09 | XMS_ITS | Data Portability ---
Author Organization [facility] IP Address [address] [place] [address] Assessment No assessment recorded. Plan of Treatment [...] patient use a wheelchair? : N 2022 [facility] (Surgery Sched), [address] [place] [address], [address], 4 11:23:12 Surgeries None recorded. Imaging None recorded. Medication Orders Dulcolax (bisacodyl) 5 mg tablet,daniella yed release [address] [facility] [place], [address], 3 09:49:22 Miralax 17 gram/dose oral powder [address] [facility] [place], [address], 3 09:49:23 Patient TargetsNo targets recorded. Patient Instructions Encounter Date Encounter Id Patient Instructions Last Modified By Organization Details Last Modified Time 07/09/2023 [id number] RL About Your Colonoscopy 1 Day Prep [email or web address] Not available 07/09/2023 09:49:15 Reason for Referral None Reported. Results Created Date Observation Date Name Description Value Unit Range Abnormal Flag Note LastModifiedBy Organization Detail LastModifiedTime Result Notes None recorded. Medical Equipment None Reported. Allergies Allergen ID Allergen Name Allergen Category Reaction Reaction Severity Criticality Documentation Date Start Date Code Code System Note Provider Name and Address Organization Details Recorded Time 959365 doxycycli ne Not available respirato ry distress severe Not available 07/09/2023 3640 RxNorm Mary Barker LEAD CUSTODIAN null, [place] [facility] 09:41:06 019474 Cipro medicatio n rash Not available Not available 07/09/2023 01302 3 RxNorm Mary Barker LEAD CUSTODIAN [place] [facility] 09:41:29 004469 Product containin g 3-hydroxy -3-methyl glutaryl- coenzyme A reductase inhibitor (product) medicatio n myalgias (muscle pain) Not available Not available 07/09/2023 55513 009 SNOMED Mary Barker LEAD CUSTODIAN [place], [place] [facility] 3 09:41:49 449465 verapamil medicatio n respirato ry distress Not available Not available 07/09/2023 44354 RxNorm Mary Barker LEAD CUSTODIAN [place] [facility] 3 09:42:04 451493 Lipitor medicatio n respirato ry distress Not available Not available 07/09/2023 69042 5 RxNorm Mary Barker LEAD CUSTODIAN [place] [facility] 3 09:42:16 901259 morphine medicatio n respirato ry distress Not available Not available 07/09/2023 7052 RxNorm Mary Barker MICHEL [place], [place] [facility] 3 09:42:38 463996 tetracycl ine medicatio n respirato ry distress Not available Not available 07/09/2023 84058 RxNorm Mary Barker LEAD CUSTODIAN [place] [facility] 3 09:43:37 Medications [...] Address Organization Details Last Updated DateTime 3 072811. 76 g 52.3 kg/m2 152.4 cm 97 [...] SNOMED-CT Code Diagnosis ICD10 Code Diagnosis Note [id number] Italia Leonard DO [facility] [address] [place] [address] 07/09/2023 09:25:43 07/09/2023 14:15:10 Screening for malignant neoplasm of colon [id number] Z12.11 Previous colonoscop y > 10 years [...] Main Member ID Guarantor Name 07/09/2023 1 [facility] (MEDICAID REPLACEMENT - HMO) [id number] Socorro Ibarra [id number] Socorro Ibarra Notes Date Note Type [...] gastric sleeve. KRISTIN DESAI [address], [place], [address], [facility] 07/09/2023 10:05:44 OBGyn Episode No OBEpisode recorded.
[2025-02-17 13:00] LABS: Basophils Absolute Auto 0.1 K/mm3 (0.0-0.1); Basophils Percent Auto 0.8 % (0.2-1.2); Eosinophils Absolute Auto 0.2 K/mm3 (0-0.3); Eosinophils Percent Auto 1.6 % (0-4.4); Hematocrit 36.8 % (37.0-47.0); Hemoglobin 12.1 g/dL (12.0-15.0); Immature Granulocyte Absolute 0.03 K/mm3 (0.00-0.031); Immature Granulocyte Percent A 0.3 % (0-0.5); Lymphocytes Absolute Auto 3.91 K/mm3 (0.9-3.2); Lymphocytes Percent Auto 34.7 % (18.3-44.2); Mean Corpuscular HGB Conc 32.9 g/dl (32-36); Mean Corpuscular Hemoglobin 31.8 pg (26-34); Mean Corpuscular Volume 96.6 fl (80-100); Mean Platelet Volume 9.5 fl (7.4-10.4); Monocytes Absolute Auto 0.9 K/mm3 (0.1-0.6); Monocytes Percent Auto 7.9 % (2.6-8.5); Neutrophils Absolute Auto 6.2 K/mm3 (1.3-6.7); Neutrophils Percent Auto 54.7 % (45.5-73.1); Platelet Count Result 376 k/mm3 (150-375); Red Blood Count 3.81 M/mm3 (4.2-5.4); White Blood Count 11.3 K/mm3 (4.5-10.0)
[2025-02-17 13:12] LABS: Albumin Level 4.1 g/dL (3.5-5.1); Anion Gap 9 mmol/L (4-12); Blood Urea Nitrogen 36 mg/dL (7-17); Calcium 9.8 mg/dL (8.4-10.2); Carbon Dioxide 24 mmol/L (22-30); Chloride 105 mmol/L (98-107); Estimated Glomerular Filt Rate > 60; Glucose 74 mg/dL (65-110); Potassium 3.8 mmol/L (3.4-5.0); Sodium 138 mmol/L (137-145)
[2025-02-17 13:24] LABS: Hemoglobin A1C 4.8 % (<5.7)
[2025-02-17 13:34] LABS: Urine Cotinine NEGATIVE
== END 2025-02-17 10:48 | disposition home or self-care (01) ==
LOC: ANHSURGERY 10:52
PROVIDERS: PCP Family Medicine; Visit Provider Orthopaedic Surgery
DX: Z01.812 Encounter for preprocedural laboratory examination (principal); M17.11 Unilateral primary osteoarthritis, right knee
CPT/HCPCS: 80048; 80307; 82040; 83036; 85025; 86850; 86880; 86900; 86901; 86902; 87081

== ENCOUNTER 2025-02-26 01:51 | Day surgery (SDC) | payer OTHER, SELFPAY ==
--- NOTE | 2025-02-16 13:23 | PC.NURSE ---
Report to the Outpatient Waiting Room, entrance under the green pavilion located off [facility], at time _9:30 AM on date _02/26/25 . Planned Procedure Time: ___11:30 AM .? Time changes happen often and if your time is changed the preop area will call you the afternoon before. - You and your visitor will be asked to self-screen and do not enter if you have any COVID symptoms. Please call surgeon if you need to reschedule. - A mask is optional within the hospital at this time. Patients may have clear liquids (water, carbonated beverages, clear teas, apple juice) until 3 hours prior to surgery ( 8:30 AM) with a maximum of 20 ounces. - No food from midnight until time of surgery and no smoking, or chewing tobacco (or any form of nicotine). No chewing gum, candy or mints. Take only the following medications with a SIP of water on the morning of surgery: __AMITRIPTYLINE,_SYMBICORT INHALER_,BUSPIRONE,GABAPENTIN,HYDROXYZINE,LORAZEPAM DO NOT STOP ANY OF YOUR OTHER PRESCRIPTION MEDICATIONS PRIOR TO SURGERY EXCEPT THE FOLLOWING Hold all vitamins and supplements for 3 days per anesthesiologist. PATIENT STATES HOLD [address] MCKEON 02/18/25 Medications to discontinue per physician MELOXICAM 7 DAYS Date to take last dose__02/18/25 Please no make-up, nail chinese, hairspray, perfume, deodorant, or body powder the day of surgery.? No jewelry (including any body piercings) or valuables the day of surgery, leave them at home.? Please take a shower or bath the night before, or the morning of, surgery with an antibacterial soap.? Wear comfortable, loose fitting clothing.? Children are encouraged to wear pajamas. - Jewelry must be removed prior to entering the operating room.? Rings and piercings that are not removed may be cut off. - The hospital will not accept responsibility for valuables.? - Please leave all valuables, including medications, at home the day of surgery. If you are going home after surgery, a licensed uke driver must drive you home.? - NO public transportation without another adult if you receive anesthesia. - We recommend that an adult stay with you for 24 hours following discharge. - We also recommend that you do not drive, make important decision, drink alcoholic beverages, or take any drugs that were not prescribed by your health care provider for at least 24 hours after your discharge time. For Pediatric surgeries, we recommend two adults accompany the child home. Follow any additional instructions given to you from your surgeon. Telephone instructions given to ___PATIENT and asked if any additional questions and then verbalized understanding. Patient advised to call surgeon office or pre surgery nurse liaison [phone] if any additional questions.
[2025-02-16 13:46] VITALS: BMI 29.8
--- NOTE | 2025-02-25 12:02 | P.HP_ITS ---
H&P: HPI History of Present Illness Date/Time: 02/25/25 12:02 Chief Complaint: Right knee DJD Narrative: 54-year-old female who presents today for right total knee arthroplasty. She underwent left total knee arthroplasty in November of this year. She did have a cortisone injection right at that time. She recovered well from left total knee. She has good range of motion and patient is very happy with the way the left knee feels. She has healed be low bit more active because of having little to no discomfort in the left knee. Right knee still is very symptomatic. She has advanced medial compartment osteoarthritis in the right knee. It has been over 3 months since the cortisone injection in the right knee. At this point patient feels she has recovered well from the left total knee and is ready to pr oceed with the right. Review of Systems Review of Systems: All systems reviewed & are unremarkable except as noted in HPI and below PMFSH Past Medical History Medical History Breast cancer 2020 Anxiety PTSD (post-traumatic stress disorder) Tachycardia High cholesterol Normal colonoscopy LUISA (obstructive sleep apnea) RLS (restless legs syndrome) Obesity Neuropathy Migraine COPD (chronic obstructive pulmonary disease) Chronic back pain Bursitis Bipolar 1 disorder Asthma CVA (cerebral vascular accident) Surgical History Surgical History S/P total knee arthroplasty History of back surgery History of lumpectomy of right breast H/O elbow surgery Hx of cholecystectomy Family History Family History Father Brain bleed Other Heart disease No history of cancer Social History Social History Smoking packs per day: 1 Smoking cigarettes per day: 20.0 Years smoked: 10 Smoking pack-years: 10.00 Smoking status: Former smoker Tobacco type: cigarettes Second hand tobacco smoke exposure: No Smoking end date: 09/10/04 Additional smoking assessment comments: DENIES ANY FORM OF TOBACCO USE Alcohol intake: never Substance use type: does not use Current Housing: Decline to Answer Concerned About Future Housing: Decline to Answer Difficulty Paying Gas/Electric Bills: Decline to Answer Difficulty Paying for Meds: Decline to Answer Currently Unemployed: Decline to Answer Education: Decline to Answer Difficulty w/ Childcare or Family Care: Decline to Answer Living arrangements: alone Occupation/Education: unemployed Gender identity (if verbalized by the patient): Female Spiritual care concerns: No Meds Home Medications and Allergies Home Medications ?Medication ?Instructions ?Recorded ?Confirmed ?Type albuterol sulfate 90 mcg/actuation 2 puff inhalation PRN SOB 01/02/20 02/16/25 History aerosol inhaler amitriptyline 50 mg tablet 50 mg PO TID 01/02/20 02/16/25 History escitalopram oxalate 20 mg tablet 30 mg PO HS 01/02/20 02/16/25 History fluticasone propionate 50 2 spray intranasal DAILY 01/02/20 02/16/25 History mcg/actuation nasal spray,suspension gabapentin 400 mg capsule 800 mg PO TID 01/02/20 02/16/25 History albuterol sulfate 0.63 mg/3 mL 0.63 mg inhalation Q6H 01/23/24 02/16/25 History solution for nebulization famotidine 20 mg tablet 20 mg PO BID 07/23/24 02/16/25 History linaclotide 145 mcg capsule 145 mcg PO DAILY 07/23/24 02/16/25 History (Linzess) atogepant 60 mg tablet (Qulipta) 60 mg PO DAILY 10/01/24 02/16/25 History budesonide-formoterol HFA 160 2 puff inhalation Q12H 10/01/24 02/16/25 History mcg-4.5 mcg/actuation aerosol inhaler (Symbicort) buspirone 30 mg tablet 30 mg PO BID 10/01/24 02/16/25 History cetirizine 10 mg tablet (Zyrtec) 10 mg PO DAILY PRN ALLERGIE 10/01/24 02/16/25 History SYMPTOMS doxepin 25 mg capsule 25 mg PO QHS 10/01/24 02/16/25 History fenofibrate nanocrystallized 48 mg 48 mg PO DAILY 10/01/24 02/16/25 History tablet hydroxyzine HCl 25 mg tablet 50 mg PO TID PRN anxiety 10/01/24 02/16/25 History biotin 10,000 mcg capsule 10,000 mcg PO DAILY 11/06/24 02/16/25 History cholecalciferol (vitamin D3) 50 50 mcg PO DAILY 11/06/24 02/16/25 History mcg (2,000 unit) capsule cyanocobalamin (vitamin B-12) 1,000 mcg PO DAILY 11/06/24 02/16/25 History 1,000 mcg capsule anastrozole 1 mg tablet 1 mg PO DAILY 12/10/24 02/16/25 History ascorbic acid (vitamin C) 1,000 mg 2,000 mg PO DAILY 12/10/24 02/16/25 History tablet,extended release (C Complex) calcium 600mg plus vitamin d3 1,200 mg PO BID 12/10/24 02/16/25 History cyclobenzaprine 10 mg tablet 10 mg PO TID PRN MUSCLE SPASM 12/10/24 02/16/25 History lorazepam 0.5 mg tablet 0.5 mg PO BID PRN anxiety 12/10/24 02/16/25 History meloxicam 15 mg tablet 15 mg PO DAILY PRN pain 12/10/24 02/16/25 History prazosin 2 mg capsule 4 mg PO QHS 12/10/24 02/16/25 History ubrogepant 100 mg tablet (Ubrelvy) 100 mg PO ONCE 12/10/24 02/16/25 History oxycodone 5 mg tablet 5 mg PO Q4H PRN pain #40 tabs 12/24/24 02/16/25 Rx magnesium oxide 400 mg PO DAILY 01/07/25 02/16/25 History oxycodone 5 mg tablet 5 mg PO Q4H PRN pain #40 tabs 01/07/25 02/16/25 Rx doxepin 50 mg capsule 50 mg PO HS 02/16/25 02/16/25 History lorazepam 1 mg tablet 1 mg PO BID 02/16/25 02/16/25 History Allergies Allergy/AdvReac Type Severity Reaction Status Date / Time atorvastatin (From Lipitor) Allergy Severe PAIN Verified 02/16/25 13:23 digoxin Allergy Severe unkown Verified 02/16/25 13:23 ciprofloxacin (From Cipro) Allergy SOB AND Verified 02/16/25 13:23 RASH doxycycline Allergy SOB AND Verified 02/16/25 13:23 RASH Influenza Virus Vaccines Allergy Unknown Verified 02/16/25 13:23 morphine Allergy Fatigued/LE Verified 02/16/25 13:23 THARGIC pneumococcal vaccine Allergy Unknown Verified 02/16/25 13:23 Zmlimtl-[id number] Reductase Allergy Rash Verified 02/16/25 13:23 Inhibitor (Wbcffpf-Rsy-Lab Reductase Inhibitor) verapamil Allergy Unknown Verified 02/16/25 13:23 Exam Narrative: 54-year-old female alert. She walks wit h a mild limp she is 5 ft 2 and 157 lb BMI is 28.1. Range of motion the right knee is from 3-140 degrees. Mild effusion. Normal stability. Hip range of motion is full without discomfort, negative Stinchfield maneuver. Normal quad strength. She has 2+ dorsalis pedis pulse palpable. No edema in lower extremity. She has normal sensation to both lower extremities. Resp: Auscultation: clear to auscultation bilaterally Cardio: Rate: regular rate Rhythm: regular rhythm Assessment and Plan Assessment and plan (1) Primary osteoarthritis of right knee: Code(s): M17.11 - Unilateral primary osteoarthritis, right knee Status: Acute Assessment and Plan: 54-year-old female who has severe medial compartment osteoarthritis the right knee with continued symptoms. The very from her left total knee and feels she is ready proceed with the right surgical procedures well as the risks and complications were reviewed and all questions were answered we will proceed. Patient's nasal swab was negative. Hemoglobin is 12.1 and platelets were 376. Chem panel was all within normal limits creatinine 0.63.
[2025-02-26] VITALS (12 sets, daily range): BP systolic 122–178; BP diastolic 64–90; PULSE 93–124; RESP 14–20; TEMP 35.9–37.3; O2SAT 95–97
--- NOTE | ~2025-02-26 | XR_ITS ---
EXAMINATION: [id number] DATE: 02/26/2025 14:56 INDICATION: Postoperative evaluation following right total knee arthroplasty. TECHNIQUE: Anteroposterior and lateral views of the right knee were obtained. COMPARISON: None. FINDINGS: Right total knee arthroplasty without patellar resurfacing appears well seated and in near anatomic a lignment. No fractures identified. Expected postoperative subcutaneous and intra-articular gas. IMPRESSION: 1. Right total knee arthroplasty, negative for postoperative purposes. Reviewed, dictated and finalized at location B.
--- OUTSIDE RECORDS SUMMARY | 2025-02-26 01:54 | XMS_ITS | Clinical Summary ---
[facility] Address [address] [place] [address] Care Team Providers Care Lean Process Deployment Consultant Name Role Phone Ke Frederick NP Primary Care Provider [phone] Allergies Active Allergy Reactions Criticality Noted Date Comments Ciprofloxacin Shortness of breath High 03/03/2024 With a rash Clindamycin Itching Low 10/04/2020 Doxycycline Hives,Rash,Shortness of breath,Urticaria High 06/16/2019 Haemophilus Influenzae Type B Anaphylaxis High 06/16/2019 Influenza Virus Vaccines Anaphylaxis High 06/14/2005 Morphine Other (See comments),Hives,Unknow n High 06/16/2019 Pneumococcal 23-Valent Polysaccharide Vaccine Anaphylaxis High 06/16/2019 Quinolones Other (See comments),Rash Medium 06/16/2019 SOB Adjyiem-Eol-Vuf Reductase Inhibitors Other (See comments),Muscle pain,Shortness of breath High 06/16/2019 Tetracycline Other (See comments) Low 03/03/2024 Verapamil Rash Medium 06/16/2019 Medications calcium carb/vit D3/minerals (CALTRATE 600+D PLUS MINERALS ORAL) Take 1 tablet by mouth daily 2019 Active busPIRone (BUSPAR) 30 mg tablet Take 1 tablet (30 mg total) by mouth 2 (two) times a day 2022 Active multivitamin tablet Take by mouth [...] (20 mg total) by mouth daily Active gabapentin [...] mouth once daily 30 capsule 2024 Active albuterol 2.5 mg /3 mL (0.083 %) nebulizer solution Take 3 mL (2.5 mg total) by nebulization every 6 (six) hours as needed for wheezing 75 mL 03/25 Active ezetimibe (ZETIA) 10 mg tabletIndications: Hyperlipidemia, unspecified hyperlipidemia type Take 1 tablet (10 mg total) by mouth daily 30 tablet 11 02/24 Active fenofibrate nanocrystallized (TRICOR) 48 mg tablet Take 1 tablet (48 mg total) by mouth daily 90 tablet 3 2024 Active albuterol 2.5 mg /3 mL (0.083 %) nebulizer solution USE 1 VIAL IN NEBULIZER EVERY 4 TO 6 HOURS NEEDED 02/23 Discontinued digoxin (LANOXIN) 125 mcg (0.125 mg) tablet TAKE 1 TABLET BY MOUTH DIRECTED SUNDAY - 02/16 Discontinued fenofibrate nanocrystallized (TRICOR) 48 mg tablet Take 1 tablet (48 mg total) by mouth daily 02/25 Discontinued( Reorder) ROPivacaine (NAROPIN) 5 mg/mL (0.5 %) injection [...] Active Problems Problem Noted Date Diagnosed Date Paroxysmal atrial fibrillation 02/18/2025 Obstructive sleep apnea 01/29/2025 Chronic rhinosinusitis 11/20/2024 [...] Encounters Date Type Department Care Team Description 02/25/2025 Telephone [facility] at [address] [place] [address] Nguyen Mendez NP 02/24/2025 9:10 AM CDT Lab [address] Hyperlipidemia, unspecified hyperlipidemia type 02/24/2025 9:00 AM CDT Office Visit [facility] [address] [place] [address] [address] [place] [address] Cailin Obrien NP S/P gastric sleeve procedure (Primary Dx); Abdominal pannus 02/24/2025 Orders Only [facility] at [address] [place] [address] Nguyen Mendez NP Hyperlipidemia, unspecified hyperlipidemia type (Primary Dx) 02/24/2025 Results Follow-Up [facility] at [address] [place] [address] Nguyen Mendez NP Lipid panel 02/23/2025 Telephone [facility] Pulmonary at [address] [place] [address] Nancy Kitchen LPN albuterol 02/18/2025 11:15 AM CDT Office Visit [facility] at [address] [place] [phone] Nguyen Mendez NP Paroxysmal atrial fibrillation (HCC) (Primary Dx); Hyperlipidemia, unspecified hyperlipidemia type 02/16/2025 9:45 AM CDT Office Visit [facility] Sleep Medicine at [address] [place] [phone] Mi Lerma MD Obstructive sleep apnea (Primary Dx); Hypersomnia; Overweight; Insomnia, unspecified type 02/03/2025 Orders Only [facility] Pulmonary at [address] [place] [address] Es Vu LPN 01/27/2025 8:00 AM CDT - 01/27/2025 11:59 PM CDT Hospital Encounter [facility] [address] [place] [address] Obstructive sleep apnea Discharge Disposition: Discharge to home or self care 01/23/2025 7:30 AM CDT - 01/23/2025 11:59 PM CDT Hospital Encounter [facility] [address] [place] [address] Discharge Disposition: Discharge to home or self care 01/22/2025 Results Follow-Up [facility] Neurology [address] [place] [phone] Ann Matthews NP MRI Cervical Spine W WO Contrast 01/22/2025 Results Follow-Up [facility] Neurology [address] [place] [address] [address] [place] [address] Ann Matthews NP MRI Lumbar Spine W WO Contrast 01/19/2025 7:59 AM CDT - 01/19/2025 11:59 PM CDT Hospital Encounter [facility] [address] [place] [address] Neck pain; Neurofibromatosis, type 1 (HCC) Discharge Disposition: Discharge to home or self care 01/19/2025 7:59 AM CDT - 01/19/2025 11:59 PM CDT Hospital Encounter [facility] [address] [place] [address] Migraine without aura and without status migrainosus, not intractable; Neurofibromatosis, type 1 (HCC) Discharge Disposition: Discharge to home or self care 01/14/2025 8:30 AM CDT Office Visit [facility] Sleep Medicine at [address] [place] [address] Mi Lerma MD LUISA (obstructive sleep apnea) (Primary Dx); Obstructive sleep apnea; Hypersomnia; Overweight; Insomnia, unspecified type 01/13/2025 7:40 AM CDT - 01/13/2025 11:59 PM CDT Hospital Encounter [address] [address] Gait disorder; Neurofibromatosis, type 1 (HCC) Discharge Disposition: Discharge to home or self care 12/29/2024 1:00 PM CDT Office Visit [facility] Neurology [address] [place] [phone] Ann Matthews NP Neck pain (Primary Dx); Gait disorder; Migraine without aura and without status migrainosus, not intractable; Neurofibromatosis, type 1 (HCC) 12/12/[address] [place] [phone] Jeanie Velasco from Last 3 Months Surgical History Surgery Date Site/Laterality Comments CHOLECYSTECTOMY 09/10/1994 - 09/09/1995 ELBOW SURGERY 09/10/1992 - 09/09/1993 Left Pin placed BREAST LUMPECTOMY 09/10/2018 - 09/09/2019 Right HAND SURGERY Left carpal tunnel NOSE SURGERY SLEEVE GASTROPLASTY 06/25/2024 ABDOMINAL SURGERY Gastric sleeve June 27 2024 Medical History Medical History Date Comments Anxiety PTSD (post-traumatic stress disorder) Breast cancer (HCC) right breast cancer Stroke (HCC) 2000 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 High cholesterol Diabetes mellitus (HCC) Hypertension Arthritis Asthma Sleep apnea Palpitation Depression 1990 Migraines 1994 Family History Medical History Relation Name Comments Heart defect Brother Brain Aneurysm Father Alcohol abuse Mother Zena Heart failure Mother Zena Atrial fibrillation Sister Maricruz Depression Sister Maricruz Relation Name Status Comments Brother Father Mother Zena Alive Sister Maricruz Alive Social History Tobacco Use Types Packs/Day Years Used Date Smoking Tobacco: Former Cigarettes 0.5 20.5 2 005 - 1985 Smokeless Tobacco: Never Tobacco Cessation:Counseling Given: Not Answered Comments:06/02/2024 Stress smoker, patient says that she would smoke between a couple to a whole pack per day. 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 Gender Identity Not on file Sexual Orientation Not on file Obstetrics History Last Filed Vital Signs Vital Sign Reading Time Taken Comments Blood Pressure 148/87 02/24/2025 8:23 AM CDT Pulse 79 02/24/2025 8:23 AM CDT Temperature 36.2 C (97.1 F) 02/24/2025 8:23 AM CDT Respiratory Rate 18 02/18/2025 10:47 AM CDT Oxygen Saturation 98% 02/24/2025 8:23 AM CDT Inhaled Oxygen Concentration - - Weight 69.7 kg (153 lb 9.6 oz) 02/24/2025 8:23 A M CDT Height 157.5 cm (5' 2) 02/24/2025 8:23 AM CDT Body Mass Index 28.09 02/24/2025 8:23 AM CDT Plan of Treatment Health Maintenance Due Date Last Done Comments Cervical Cancer Screening 1970 Colon Cancer Screening-Colonoscopy 1970 Hepatitis C Screening 1970 DTaP/Tdap/Td Vaccine (1 - Tdap) 1981 Hepatitis B Screening 1988 Regular Well Visit/Exam 18-64 1988 Pneumococcal vaccine <65 (1 of 2 - PCV) 1989 Covid-19 Vaccine (2023-2 5 season) 2024 11/15/2022, 01/13/2022, 07/07/2021, Additional history exists Breast Cancer Screening-Mammogram 09/27/2024 09/27/2023, 09/27/2023, 09/06/2022, Additional history exists Influenza Vaccine (Season Ended) 2025 Depression Screening 06/16/2025 06/16/2024 Zoster Vaccine Completed 05/05/2023, 11/29/2022 Procedures Procedure Name Priority Date/Time Associated Diagnosis Comments LIPID PANEL Routine 02/24/2025 9:03 AM CDT Hyperlipidemia, unspecified hyperlipidemia type PORTABLE/HOME SLEEP STUDY Routine 01/29/2025 Obstructive sleep [...] (HCC) from Last 3 Months Results * Lipid panel (02/24/2025 9:03 AM CDT) Cholesterol 161 30 - 199 mg/dL Comment: Interpretive Data Ages < or = 19 years Acceptable: <170 mg/dL Borderline high: 170-199 mg/dL High: >or= 200 mg/dL Ages > or = 20 years Desirable: <200 mg/dL Borderline high: 200-239 mg/dL High: >or= 240 mg/dL Literature References: 1. Expert Panel on Integrated Guidelines for Cardiovascular Health and Risk Reduction in Children and Adolescents. Pediatrics 2011;128:S213 2. NCEP Expert Panel. Circulation 2004;110:227 Current Interpretive Data was last revised on 2018. Triglycerides 67 <=149 mg/dL DELONTE FUENTES ([place]O) Comment: Interpretive Data Ages < or = 9 years Acceptable: <75 mg/dL Borderline high: 75-99 mg/dL High: >or= 100 mg/dL Ages 10 to 20 years Acceptable: <90 mg/dL Borderline high: 90-129 mg/dL High: >or= 130 mg/dL Ages > or = 20 years Desirable: <150 mg/dL Borderline high: 150-199 mg/dL High: 200-499 mg/dL Very high: >or= 499 mg/dL Literature References: 1. Expert Panel on Integrated Guidelines for Cardiovascular Health and Risk Reduction in Children and Adolescents. Pediatrics 2011;128:S213 2. NCEP Expert Panel. Circulation 2004;110:227 Current Interpretive Data was last revised on 2018. HDL 44 >=40 mg/dL DELONTE FRANCISCO H ([place]) Comment: Interpretive Data Ages < or = 19 years Acceptable: >45 mg/dL Borderline low: 40-45 mg/dL Low: <40 mg/dL Ages > or = 20 years Desirable: >or= 60 mg/dL Low: <40 mg/dL Literature References: 1. Expert Panel on Integrated Guidelines for Cardiovascular Health and Risk Reduction in Children and Adolescents. Pediatrics 2011;128:S213 2. NCEP Expert Panel. Circulation 2004;110:227 Current Interpretive Data was last revised on 2018. LDL, calculated 104 <=129 mg/dL DELONTE FUENTES ([place]) Comment: Interpretive Data Ages < or = 19 years Acceptable: <110 mg/dL Borderline high: 110-129 mg/dL High: >or= 130 mg/dL Ages > or = 20 years Optimal: <100 mg/dL Near optimal: 100-129 mg/dL Borderline high: 130-159 mg/dL High: >160 mg/dL Calculated using the Antony LDL-C estimating equation. This equation was implemented on 2024. Prior to this date LDL-C was estimated using the Friedewald equation. Literature References: 1. Expert Panel on Integrated Guidelines for Cardiovascular Health and Risk Reduction in Children and Adolescents. Pediatrics 2011;128:S213 2. NCEP Expert Panel. Circulation 2004;110:227 3. Antony M et al. PATRICK Cardiol. 2020 January 08;5(5):540-548. doi: 10.1001/jamacardio.2020.0013 Current Interpretive Data was last revised on 2024. Non-HDL Cholesterol 117 mg/dL [facility]ONTE FUENTES ([place]) Comment: Interpretive Data Ages < or = 19 years Acceptable: <120 mg/dL Borderline high: 120-144 mg/dL High: >145 mg/dL Ages > or = 20 years When triglycerides are >200 mg/dL, Non-HDL cholesterol is a secondary target of therapy with treatment goals that are 30 mg/dL greater than the LDL cholesterol target. Literature References: 1. Expert Panel on Integrated Guidelines for Cardiovascular Health and Risk Reduction in Children and Adolescents. Pediatrics 2011;128:S213 2. NCEP Expert Panel. Circulation 2004;110:227 Current Interpretive Data was last revised on 2018. Chol/HDL ratio 4 KRUNAL FUENTES ([place]) Blood 02/24/2025 9:03 AM CDT 02/24/2025 10:35 AM CDT us Nguyen Mendez NP LAB BLOOD ORDERABLES nal Result [facility] ([place]) [facility] [place] [address] * Portable/Home Sleep Study (01/29/2025) Impressions Mi Lerma MD - 01/29/2025 HOME SLEEP APNEA TEST HISTORY: Socorro Ibarra is a 54 y.o. female who presents for Home sleep apnea test. (HSAT). Reason for sleep study: Obstructive sleep apnea, status post weight loss Buckner Sleepiness Score: 7 Weight: 156 lbs BMI: 27.67 PROCEDURE: This is a single night diagnostic study. This Home Sleep apnea Test (HSAT) utilized an unattended FDA approved RedMed apnea link home air portable monitoring device investigating for obstructive sleep apnea. The patient was provided instructions of the device and application by the registered lab technologist at the [facility]. This test was performed without a cat scan technologist in attendance. In this study, the following parameters were monitored: Hamlet-nasal airflow, snoring, chest respiratory effort, abdominal respiratory effort, body position, movement, oxygen saturation, and heart rate. Respiratory events are scored according to the criteria from The [place] Academy of Sleep Medicine (AASM) Manual for [...] be taken into consideration. Mi Lerma MD [facility] Sleep Medicine Narrative Mi [...] C3-C4: Diffuse disc bulge or focal herniation. Jhju-ehrgcst-mvtd-right hypertrophic facet arthropathy. No spinal canal stenosis. No neural foraminal stenosis. C4-C5: Mild posterior disc osteophyte complex with tiny central disc protrusion indenting the ventral thecal sac. Bilateral, kwwiv-xutihxo-qzik-left, hypertrophic facet arthropathy. Bilateral uncovertebral joint disease. [...] Benito Redding M.D. VIVIAN: VIVIAN Report ID: [id number] Reading Location: [id number] Procedure Note Benito Redding MD - 01/19/2025 [...] C3-C4: Diffuse disc bulge or focal herniation. Jbkf-rumjsyy-wefn-right hypertrophic facet arthropathy. No spinal canal stenosis. No neural foraminal stenosis. C4-C5: Mild posterior disc osteophyte complex with tiny central disc protrusion indenting the ventral thecal sac. Bilateral, qlmrg-gzkluhc-vamy-left, hypertrophic facet arthropathy. Bilateral uncovertebral joint disease. [...] Benito Redding M.D. VIVIAN: VIVIAN Report ID: [id number] Reading Location: [place] [address] us Ann GaonaMaddi Matthews [facility] IMG MRI PROCEDURES Final R esult * [...] C3-C4: Diffuse disc bulge or focal herniation. Ives-bdvavrb-eukw-right hypertrophic facet arthropathy. No spinal canal stenosis. No neural foraminal stenosis. C4-C5: Mild posterior disc osteophyte complex with tiny central disc protrusion indenting the ventral thecal sac. Bilateral, axeju-tninwlb-oone-left, hypertrophic facet arthropathy. Bilateral uncovertebral joint disease. [...] Benito Redding M.D. VIVIAN: VIVIAN Report ID: [id number] Reading Location: [place] [address] Procedure Note Benito Redding MD - 01/19/2025 [...] C3-C4: Diffuse disc bulge or focal herniation. Dbkf-fsktxwh-xasn-right hypertrophic facet arthropathy. No spinal canal stenosis. No neural foraminal stenosis. C4-C5: Mild posterior disc osteophyte complex with tiny central disc protrusion indenting the ventral thecal sac. Bilateral, uyaln-iwictss-kprn-left, hypertrophic facet arthropathy. Bilateral uncovertebral joint disease. [...] Benito Redding M.D. VIVIAN: VIVIAN Report ID: [id number] Reading Location: [id number] us Ann Matthews [facility] IM[facility] MRI PROCEDURES Final R esult * [...] related artifact despite repeat attempts. SEGMENTATION: 5 ncb-vdx-rgwokxg lumbar type vertebral bodies. ALIGNMENT: Anterior-posterior alignment [...] ventral thecal sac. Mild proximal right and ibcx-bv-evurqwue left neural foraminal narrowing. Disc abuts the exiting left L3 nerve root. L4-L5: Disc bulge and superimposed tiny left neural foraminal disc protrusion with annular fissure. Thickened ligamentum flavum and facet arthropathy. Proliferation of dorsal epidural fat. Mild spinal canal stenosis. Hwgg-vs-qpktedod neural foraminal narrowing with disc and facet [...] nodules. IMPRESSION: 1. Motion degraded examination. 2. Ixjt-mr-jmwdtnll lumbar degenerative changes as described. The spinal [...] Roosevelt Mansfield D.O. AP: AP Report ID: [id number] Reading Location: [id number] Procedure Note Roosevelt Mansfield, DO - 01/13/2025 [...] related artifact despite repeat attempts. SEGMENTATION: 5 puy-pmd-hefufqz lumbar type vertebral bodies. ALIGNMENT: Anterior-posterior alignment [...] theventral thecal sac. Mild proximal right and vmtl-wb-dtchwhqc left neuralforaminal narrowing. Disc abuts the exiting left L3 nerve root. L4-L5: Disc bulge and superimposed tiny left neural foraminal discprotrusion with annular fissure. Thickened ligamentum flavum and facet arthropathy. Proliferation of dorsal epidural fat. Mild spinal canal stenosis. Eagl-tq-eywunctk neural foraminal narrowing with disc and facetarthropathy approaching the exiting L4 nerve roots. L5-S1: Disc bulge with marginal spur formation. Superimposed central disc protrusion. Bilateral facet arthropathy. No significant spinal canal stenosis. Portion of the disc abuts the descending S1 nerve roots. Mild neural foraminal narrowing. VISUALIZED UPPER ABDOMEN: Partially imaged and incompletelycharacterized bilateral adrenal nodules. IMPRESSION: 1. Motion degraded examination. 2. Nfqc-ok-ehcsrxup lumbar degenerative changes as described. Thespinal canal [...] Roosevelt Mansfield D.O. AP: LELO Report ID: [id number] Reading Location: [id number] Ann Matthews [facility] MRI PROCEDURES Final R esult from Last 3 Months Insurance [facility] Advance Directives For more information, please contact: [phone] * Full Code (Latest Code Status on File) Date Activated Date Inactivated Comments 06/25/2024 4:01 PM 06/26/2024 7:29 PM Care Teams Lean Process Deployment Consultant Relationship Specialty Start Date End Date Ke Frederick NP [address] [place] [address] PCP - General Family Medicine 01/31/24
--- OUTSIDE RECORDS SUMMARY | 2025-02-26 01:54 | XMS_ITS | Referral Summary ---
Author Organization [facility] B Address [address] [place] [phone] Care Team Providers Care Blankbook Forwarder Name Role Phone Ke Frederick NP Primary Care Provider [phone] Encounters Date Type Department Care Team Description 02/25/[address] [facility] Director at [address] [place] [phone] Nguyen Mendez NP 02/24/2025 Orders Only [facility] Director at [address] [place] [address] Nguyen Mendez NP Hyperlipidemia, unspecified hyperlipidemia type (Primary Dx) 02/24/2025 Results Follow-Up [facility] Director at [address] [place] [phone] Nguyen Mendez NP Lipid panel 02/24/2025 9:10 AM CDT Lab [address] Hyperlipidemia, unspecified hyperlipidemia type 02/24/2025 9:00 AM CDT Office Visit [address] [place] [address] Cailin Obrien NP S/P gastric sleeve procedure (Primary Dx); Abdominal pannus 02/23/2025 Telephone [facility] Pulmonary at [address] [place] [address] Nancy Kitchen LPN albuterol 02/18/2025 11:15 AM CDT Office Visit [place] [facility] Director at [facility] [address] [facility] [address] [place] [phone] Nguyen Mendez NP Paroxysmal atrial fibrillation (HCC) (Primary Dx); Hyperlipidemia, unspecified hyperlipidemia type 02/16/2025 9:45 AM CDT Office Visit [facility] Sleep Medicine at [address] [place] [phone] Mi Lerma MD Obstructive sleep apnea (Primary Dx); Hypersomnia; Overweight; Insomnia, unspecified type 02/03/2025 Orders Only [facility] Pulmonary at [address] [place] [address] Es Vu LPN 01/27/2025 8:00 AM CDT - 01/27/2025 11:59 PM CDT Hospital Encounter [facility] [address] [place] [address] Obstructive sleep apnea Discharge Disposition: Discharge to home or self care 01/23/2025 7:30 AM CDT - 01/23/2025 11:59 PM CDT Hospital Encounter [facility] [address] [place] [address] [address] [place] [address] Rene, Zoie Johnson RD Discharge Disposition: Discharge to home or self care 01/22/2025 Results Follow-Up [facility] Neu[facility] [address] [place] [phone] Ann Matthews NP MRI Cervical Spine W WO Contrast 01/22/2025 Results Follow-Up [facility] Neurology [address] [place] [phone] Ann Matthews NP MRI Lumbar Spine W WO Contrast 01/19/2025 7:59 AM CDT - 01/19/2025 11:59 PM CDT Hospital Encounter [facility] 1 [place] [address] Migraine without aura and without status migrainosus, not intractable; Neurofibromatosis, type 1 (HCC) Discharge Disposition: Discharge to home or self care 01/19/2025 7:59 AM CDT - 01/19/2025 11:59 PM CDT Hospital Encounter [address] [address] Neck pain; Neurofibromatosis, type 1 (HCC) Discharge Disposition: Discharge to home or self care 01/14/2025 8:30 AM CDT Office Visit [facility] Sleep Medicine at [address] [place] [phone] Mi Lerma MD LUISA (obstructive sleep apnea) (Primary Dx); Obstructive sleep apnea; Hypersomnia; Overweight; Insomnia, unspecified type 01/13/2025 7:40 AM CDT - 01/13/2025 11:59 PM CDT Hospital Encounter [address] [address] Gait disorder; Neurofibromatosis, type 1 (HCC) Discharge Disposition: Discharge to home or self care 12/29/2024 1:00 PM CDT Office Visit [facility] Neurology [address] [facility] [address] [place] [address] Ann Matthews NP Neck pain (Primary Dx); Gait disorder; Migraine without aura and without status migrainosus, not intractable; Neurofibromatosis, type 1 (HCC) 12/12/[address] [place] [phone] Jeanie Velasco from Last 3 Months Allergies Active Allergy [...] Quinolones Other (See comments),Rash Medium 06/16/2019 SOB Aialoqj-Ppi-Nyf Reductase Inhibitors Other (See comments),Muscle pain,Shortness of [...] not swallow. 1 each 11 2023 Active albuterol HFA (PROVENTIL HFA,VENTOLIN [...] hours as needed for wheezing 75 mL 11 03/25 Active ezetimibe (ZETIA) 10 mg tabletIndications: [...] in each nostril as directed 30 mL 02/03 Discontinued( Reorder) Linzess 145 mcg capsuleIndications [...] Smoking Tobacco: Former Cigarettes 0.5 20.5 2 - 1985 Smokeless Tobacco: Never Tobacco Cessation:Counseling Given: Not Answered Comments:06/02/2024 Stress smoker, patient says that she would smoke between a couple to a whole pack per day. TCampbell FACING BASTER JUMPBASTING AUDIT-C Answer Date Recorded Q1: How often [...] on file Legal Sex Female 12:43 AM WILD [employer] Gender Identity Not on file Sexual Orientation [...] 02/24/2025 8:23 AM CDT Plan of Treatment Not on [...] NCEP Expert Panel. Circulation 2004;110:227 3. Antony Garces et al. PATRICK Cardiol. 2019January 08;5(5):540-548. doi: 10.1001/jamacardio.2020.0013 Current Interpretive Data was [...] CDT 02/24/2025 10:35 AM CDT us Nguyen Jackeline Mendez NP LAB BLOOD ORDERABLES Fi nal Result [facility]) [address] [facility] [place] [address] * Portable/Home Sleep Study (01/29/2025) Impressions Mi Lerma MD - 01/29/2025 HOME SLEEP APNEA TEST HISTORY: Socorro Ibarra is a 54 y.o. female who presents for Home sleep apnea test. (HSAT). Reason for sleep study: Obstructive sleep apnea, status post weight loss [place] Sleepiness Score: 7 Weight: 156 lbs BMI: 27.67 PROCEDURE: This is a single night diagnostic study. This Home Sleep apnea Test (HSAT) utilized an unattended FDA approved RedMed apnea link home air portable monitoring device investigating for obstructive sleep apnea. The patient was provided instructions of the device and application by the registered ct mri technologist at the [facility]. This test was performed without a food technologist in attendance. In this study, the following parameters were monitored: Hamlet-nasal airflow, snoring, chest respiratory effort, abdominal respiratory effort, body position, movement, oxygen saturation, and heart rate. Respiratory events are scored according to the criteria from The [place] Academy [employer] (AASM) Manual for [...] be taken into consideration. Mi Lerma MD [facility] Sleep Medicine Narrative Mi [...] C3-C4: Diffuse disc bulge or focal herniation. Dvyi-quhksac-kako-right hypertrophic facet arthropathy. No spinal canal stenosis. No neural foraminal stenosis. C4-C5: Mild posterior disc osteophyte complex with tiny central disc protrusion indenting the ventral thecal sac. Bilateral, wkogw-qamffrf-uznh-left, hypertrophic facet arthropathy. Bilateral uncovertebral joint disease. [...] Benito Redding M.D. VIVIAN: VIVIAN Report ID: [id number] Reading Location: [place] [address] Procedure Note Benito Redding MD - 01/19/2025 [...] C3-C4: Diffuse disc bulge or focal herniation. Qgfj-fobjdtu-ncuc-right hypertrophic facet arthropathy. No spinal canal stenosis. No neural foraminal stenosis. C4-C5: Mild posterior disc osteophyte complex with tiny central disc protrusion indenting the ventral thecal sac. Bilateral, oygvr-cbbmdkf-eeyq-left, hypertrophic facet arthropathy. Bilateral uncovertebral joint disease. [...] Benito Redding M.D. VIVIAN: VIVIAN Report ID: [id number] Reading Location: [place] [address] us Ann Matthews SECURITY SOFTWARE ENGINEER IMG MRI PROCEDURES Final R esult * [...] C3-C4: Diffuse disc bulge or focal herniation. Fcwm-tdcmwes-jawz-right hypertrophic facet arthropathy. No spinal canal stenosis. No neural foraminal stenosis. C4-C5: Mild posterior disc osteophyte complex with tiny central disc protrusion indenting the ventral thecal sac. Bilateral, qdxug-jnagopi-jjoc-left, hypertrophic facet arthropathy. Bilateral uncovertebral joint disease. [...] Benito Redding M.D. VIVIAN: VIVIAN Report ID: [id number] Reading Location: [place] [address] Procedure Note Benito Redding MD - 01/19/2025 [...] C3-C4: Diffuse disc bulge or focal herniation. Kzgw-ictznez-rrtg-right hypertrophic facet arthropathy. No spinal canal stenosis. No neural foraminal stenosis. C4-C5: Mild posterior disc osteophyte complex with tiny central disc protrusion indenting the ventral thecal sac. Bilateral, ihkym-fsdpmsi-gsbe-left, hypertrophic facet arthropathy. Bilateral uncovertebral joint disease. [...] Benito Redding M.D. VIVIAN: VIVIAN Report ID: [id number] Reading Location: [id number] us Ann Matthews SECURITY SOFTWARE ENGINEER IMG MRI PROCEDURES Final R esult * [...] related artifact despite repeat attempts. SEGMENTATION: 5 vra-gae-mzshguk lumbar type vertebral bodies. ALIGNMENT: Anterior-posterior alignment [...] ventral thecal sac. Mild proximal right and qbpf-vj-hgiyxxri left neural foraminal narrowing. Disc abuts the exiting left L3 nerve root. L4-L5: Disc bulge and superimposed tiny left neural foraminal disc protrusion with annular fissure. Thickened ligamentum flavum and facet arthropathy. Proliferation of dorsal epidural fat. Mild spinal canal stenosis. Bbsn-vv-qeccxesy neural foraminal narrowing with disc and facet [...] nodules. IMPRESSION: 1. Motion degraded examination. 2. Oalg-gb-naaqvdih lumbar degenerative changes as described. The spinal [...] Roosevelt Mansfield D.O. AP: AP Report ID: [id number] Reading Location: [place] [address] Procedure Note Roosevelt Mansfield, DO - 01/13/2025 [...] related artifact despite repeat attempts. SEGMENTATION: 5 ceh-ftg-afxsjdc lumbar type vertebral bodies. ALIGNMENT: Anterior-posterior alignment [...] theventral thecal sac. Mild proximal right and qylf-hx-nzgqzpjl left neuralforaminal narrowing. Disc abuts the exiting left L3 nerve root. L4-L5: Disc bulge and superimposed tiny left neural foraminal discprotrusion with annular fissure. Thickened ligamentum flavum and facet arthropathy. Proliferation of dorsal epidural fat. Mild spinal canal stenosis. Jclk-ye-bkmagphp neural foraminal narrowing with disc and facetarthropathy approaching the exiting L4 nerve roots. L5-S1: Disc bulge with marginal spur formation. Superimposed central disc protrusion. Bilateral facet arthropathy. No significant spinal canal stenosis. Portion of the disc abuts the descending S1 nerve roots. Mild neural foraminal narrowing. VISUALIZED UPPER ABDOMEN: Partially imaged and incompletelycharacterized bilateral adrenal nodules. IMPRESSION: 1. Motion degraded examination. 2. Mpai-ns-jhctwqew lumbar degenerative changes as described. Thespinal canal [...] Roosevelt Mansfield D.O. AP: AP Report ID: [id number] Reading Location: [id number] us Ann Matthews SECURITY SOFTWARE ENGINEER IMG MRI PROCEDURES Final R esult from Last 3 Months Insurance [facility] Advance Directives For more information, please contact: [phone] * Full Code (Latest Code Status on File) Date Activated Date Inactivated Comments 06/25/2024 4:01 PM 06/26/2024 7:29 PM Care Teams Blankbook Forwarder Relationship Specialty Start Date End Date Ke Frederick NP [address] [place] [address] PCP - General Family Medicine 01/31/24
--- OUTSIDE RECORDS SUMMARY | 2025-02-26 01:54 | XMS_ITS | Encounter Summary ---
Author Organization [facility] Address [address] [place] [address] Phone Care Team Providers Care Accounts Payable Clerk Name Role Phone Trini Rockwell MD Unavailable [phone] Latesha Lewis MD Primary Care Provider + Michael Benz MD Unavailable [phone] Encounter Details Date Type Department Care Team (Late st Contact Info) Description 06/13/2021 Telephone [facility] [address] [place] [address] Michael Benz MD [address] [place] [address] Social History Tobacco Use Types [...] about the mammogram she had done at [place], report is in media and if you wanted her to come in or what you recommend for her to do. Please advise. documented in this encounter Plan of Treatment Upcoming Encounters Date Type Department Care Team (Late st Contact Info) Description 03/30/2025 8:15 AM CDT Lab [facility] [address] [phone] Lab, [facility] 03/30/2025 8:30 AM CDT Office Visit [facility] [address] [phone] Michael Benz MD [address] [place] [phone] documented as of this encounter Visit Diagnoses Not on filedocumented in this encounter Additional Health Concerns Assessment Noted Time PHQ-9 Depression Total Score: 1 04/04/20 21 2:23 PM CDT documented as of this encounter Care Teams Accounts Payable Clerk Relationship Specialty Start Date End Date Latesha Lewis MD [address] [place] [id number] PCP - General Family Medicine 11/05/19 Trini Rockwell MD [address] [place] [id number] Radiation Oncologist Radiology 10/16/19 Michael Benz MD [address] [place] [phone] Consulting Physician Oncology 01/17/23 documented as of this encounter
--- OUTSIDE RECORDS SUMMARY | 2025-02-26 01:55 | XMS_ITS | Data Portability ---
Author Organization [facility] [employer], Main Office Address [address] [place] [address] Care Team Providers Care Roughener Name Role Phone GIACOMO LEWIS Primary Care Provider GIACOMO LEWIS Referring Provider [phone] FRANNY CROWDER Research Clerk AMANDA RUELAS Primary Care Provider Unavailabl e Assessment No assessment recorded. Plan of Treatment Reminders Order Date Submit Date Provider Last Modified By Organization Details Last Modified Time Details Appointments None recorded. Lab CBC w/ manual diff 2024 025 [facility] (Lab), [address] [place], [address], 5 18:00:29 PTT (partial thrombopla stin time) mixing study 2024 025 [facility] (Lab), [address] [place], [address], 5 08:36:13 prothrombi n time 2024 025 [facility] (Lab), [address] [place], [address], 5 08:36:[address] referral - Please call patient to schedule an appointmen t. Thank you. 2024 025 [facility] Aide, [address], [address], [place], [address], 17:05:[address] referral - prefers female provider. Please call patient to schedule an appointmen t. Thank you. 2024 025 [email or web address] [facility], [address], [address], [place], [address], 08:48:45 Procedures None recorded. Surgeries None recorded. Imaging electrocar diogram 2024 025 [email or web address] 77 [facility] [address], [place], [address], 11:14:03 Medication Orders cefdinir 300 mg capsule 2024 025 [facility] [place], [address], 12:37:35 Medrol (Mekhi) 4 mg tablets in a dose pack 2024 025 [facility], [address] [place], [address], 12:37:34 prednisone 20 mg tablet 2024 025 [facility], [address] [place], [address], 12:43:35 Zithromax Z-Mekhi 250 mg tablet 2024 025 [email or web address] [facility], [address] [place], [address], 12:36:22 cefdinir 300 mg capsule 2024 025 [email or web address] [facility], [address] [place], [address], 11:19:05 digoxin 125 mcg (0.125 mg) tablet 2024 025 [email or web address] [facility], [address] [place], [address], 11:19:20 amoxicilli n 875 mg-potassi um clavulanat e 125 mg tablet 2024 025 [email or web address] [facility], [address] [place], [address], 12:33:56 Patient TargetsNo targets recorded. Patient Instructions Encounter Date Encounter Id Patient Instructions Last Modified By Organization Details Last Modified Time 01/29/2025 [id number] this patient is placed on cefdinir and Medrol Dosepak and [email or web address] Not available 01/29/2025 12:37:22 Reason for Referral Family Development Extension Specialist Referral for At rial fibrillation prefers female provider. Please call patient to schedule an appointment. Thank you. Referring Physician: Amanda R[facility], Encounter Date: 10/29/2024 Family Development Extension Specialist Referral for At rial fibrillation Please call patient to schedule an appointment. Thank you. Referring Physician: Amanda Ruelas [facility], Encounter Date: 12/17/2024 Results Created Date Observation Date Name Description Value Unit Range Abnormal Flag Note LastModifiedBy Organization Detail LastModifiedTime 10/29/19 25 elect richelle lombardogr am No observ ation record ed. [email or web address] [facility] [address], [place], [address], 10/29/2024 10:46:39 11/26/19 25 11/25/2024 XR, knee, 1 or 2 view No observ ation record ed. [email or web address] [address], [address], 11/25/2024 14:06:47 02/05/20 25 02/04/2025 CT, sinus es, w/ contr ast No observ ation record ed. [email or web address] [address], [address], 02/05/2025 08:54:10 Result Notes None recorded. Problems Name Problem SNOMED Code Status Onset Date Resolution Date Notes Provider Name and Address Organization Details Recorded Time Dysfunctio n of bilateral eustachian tubes 3177008579587 100 Active 2021 Not Available [facility] 3 06:06:19 Plantar fasciitis of right foot 2134189356891 9101 Active 2019 Not Available [facility] 3 06:06:19 Hyperchole sterolemia 28423272 Active 2019 Not Available [facility] 3 06:06:19 Chronic obstructiv e pulmonary disease 77509465 Active 2018 Not Available [facility] 3 06:06:19 Asthma 420202622 Active 2019 Not Available [facility] 3 06:06:19 Anxiety disorder 343373547 Active 2019 Not Available [facility] 3 06:06:20 Disorder of lung 20044250 Active 2019 Not Available [facility] 3 06:06:20 Cerebrovas cular accident 530237920 Active 2018 Not Available [facility] 3 06:06:20 Pneumonia 136185333 Active 2019 Not Available [facility] 3 06:06:20 Osteophyte of bone 7458418056643 00 Active 2022 Not Available [facility] 3 06:06:20 Morbid obesity 523632013 Active 2022 Not Available [facility] 3 06:06:20 Headache 53245029 Active 2019 Not Available [facility] 3 06:06:20 Malignant tumor of breast 017350059 Active 2019 Not Available [facility] 3 06:06:20 Anemia 993081975 Active 2019 Not Available [facility] 3 06:06:20 Right Achilles tendinitis 5690405938005 02 Active 2022 Not Available [facility] 3 06:06:20 Knee pain Active 2018 Not Available [facility] 3 06:06:20 Pain of left hand 7464833898089 03 Active 2021 Not Available [facility] 3 06:06:20 Bronchitis 20088246 Active 2022 Not Available [facility] 3 06:06:20 Depressive disorder 97824000 Active 2018 Not Available [facility] 3 06:06:20 Arthritis 9276887 Active 2019 Not Available [facility] 3 06:06:20 Migraine 11666079 Active 2018 Not Available [facility] 3 06:06:20 Osteoarthr osis of the carpometac arpal joint of the thumb 06691297 Active 2021 Not Available [facility] 3 06:06:20 Hypertensi ve disorder 42454081 Active 2019 Not Available [facility] 3 06:06:20 Neuropathy 830455407 Active 2018 Not Available [facility] 3 06:06:20 Osteoarthr itis 266746624 Active 2021 Not Available [facility] 3 06:06:20 Sleep disorder 46059701 Active 2019 Not Available [facility] 3 06:06:20 Dizziness 125544442 Active 2019 Not Available [facility] 3 06:06:20 Infiltrati ng duct carcinoma of breast 380662732 Active 2018 Not Available [facility] 3 06:06:20 Obesity 340640052 Active 2019 Not Available [facility] 3 06:06:20 Diabetes mellitus 01556420 Active 2018 Not Available [facility] 3 06:06:20 Sleep apnea 34459527 Active 2018 Not Available [facility] 3 06:06:20 Obstructiv e sleep apnea syndrome 08806778 Active 2018 Not Available [facility] 3 06:06:20 Neurofibro matosis type 1 28286663 Active 2019 Not Available [facility] 3 06:06:20 Migraine without aura 67919771 Active 2022 Not Available [facility] 3 06:06:20 Acute sinusitis 64583186 Active 2022 Not Available [facility] 3 06:06:19 Bilateral osteoarthr itis of knees 6225360959195 07 Active 2022 Not Available [facility] 3 06:06:19 Congestion of nasal sinus 83038651 Active 2022 Not Available [facility] 3 06:06:20 Chronic sinusitis 06639595 Active 2022 Odilia Burnett RN [facility], [facility] 5 12:34:19 Pain in right heel 8896072869550 105 Active 2022 Not Available [facility] 3 06:06:19 Pain of right ankle joint 5973376724165 9106 Active 2022 Not Available [facility] 3 06:06:19 Sinusitis 94184687 Active 2022 Not Available [facility] 3 06:06:20 Deviated nasal septum 414254598 Active 2022 Jason Mora MD [address], [address], [place], [address] , [facility] 3 11:32:07 Acute bilateral otitis media 320936507 Active 2023 CHE Gonsalez [address], [address], [place], [address] , [facility] 4 14:27:04 Abdominal pain 91935855 Active 2023 CHE Gonsalez [address], [place], [address] , [facility] 4 14:44:35 Epigastric pain 50078167 Active 2023 Kerrie Lopez MD [address], [address], [place], [address] , [facility] 4 13:47:31 Vertigo 160351688 Active 2023 Odilia Burnett RN null, [facility] 4 14:41:30 Vertigo 649178576 Active 2023 Jason Mora MD [address], [address], [place], [address] , [facility] 4 14:42:26 Pain of ear 940162682 Active 2023 CHE Gonsalez [address], [address], [place], [address] , [facility] 4 10:28:41 Vertigo produced by neck pressure 507631533 Active 2023 ADILIA Olsen null, [facility] 4 09:25:16 Seasonal allergy 190595798 Active 2023 CHE Gonsalez [address], [address], [place], [address] , [facility] 4 15:23:46 Recurrent falls 223484248 Active 2023 CHE Weathers [address], [address], [place], [address] , [facility] 4 11:43:11 Acute upper respirator y infection 52498138 Active 2024 CHE Weathers [address], [address], [place], [address] , [facility] 5 12:42:23 Pain in right lower limb 250885135 Active 2024 CHE Weathers [address], [place], [address] , [facility] 5 10:45:50 Atrial fibrillati on 82207976 Active 2024 CHE Weathers [address] [facility] [facility] [address], [place], [address] , [facility] [employer] [facility] [employer] [facility] 5 10:56:04 Chronic maxillary sinusitis 26159133 Active 2024 Jason Mora MD [address] [facility] [facility] [address], [place], [address] , [facility] [employer] [facility] [employer] [facility] 5 12:36:18 Notes:ALLERGIES, BACK/NECK P ROBLEMS, BREAST PROBLEMS, RADIATION/CHEMOTHERAPY, STROKE Some problems listed in Document: #[id number] could not be added to this patient's chart. Please review this document and add these problems to the patient's chart manually as needed. Problem Notes None recorded. Procedures Surgical History Date Name Laterality Status Provider Name and Address Organization Details Recorded Time 11/26/19 24 Knee Replacement completed Naomy Ferrell MA [facility] [employer] 12/17/2024 11:23:39 08/29/20 23 nasal septoplasty completed ADILIA Olsen [place] [employer] [facility] [employer] [facility] 09/05/2023 09:05:08 08/29/20 23 SEPTOPLASTY (SURG) completed Odilia Burnett RN [facility] [employer] [facility] 09/05/2023 11:32:34 01/16/20 23 Joint Injection-Podia try completed Peter Anguiano DPM [address] [facility], [facility] [address], [place], [address], [facility] [employer] [facility] [employer] [facility] 01/15/2023 10:37:21 01/03/20 23 Transitional_Ca re_Management completed Dionne Mercado MA [place] [employer] [facility] [employer] [facility] 01/02/2023 11:18:59 Colonoscopy completed ADILIA Olsen [facility] [employer] [facility] 04/07/2024 14:35:14 Hand completed Not Available [facility] 09/2022 02:40:54 procedure on gallbladder completed Not Available [facility] 11/08/2022 02:40:54 procedure on elbow completed Not Available [facility] 11/08/2022 02:40:54 Imaging Results None recorded. Procedure Notes None recorded. Medical Equipment None Reported. Allergies Allergen ID Allergen Name Allergen Category Reaction Reaction Severity Criticality Documentation Date Start Date Code Code System Note Provider Name and Address Organization Details Recorded Time 5189 verapamil medicatio n rash Not available Not available 11/08/2022 17152 RxNorm Not Available [facility] 3 03:07:14 5190 Product containin g 3-hydroxy -3-methyl glutaryl- coenzyme A reductase inhibitor (product) medicatio n other Not available Not available 11/08/2022 33203 009 SNOMED Pain Not Available [facility] 3 03:07:14 5191 Medicinal product containin g quinolone and acting as antibacte rial agent (product) medicatio n Not available Not available Not available 11/08/2022 59002 008 SNOMED Not Available [facility] 3 03:07:14 5192 doxycycli ne Not available hives respirato ry distress Not available Not available Not available 11/08/2022 3640 RxNorm Not Available [facility] 3 03:07:14 5193 clindamyc in Not available itching Not available Not available 11/08/2022 2582 RxNorm Not Available [facility] 3 03:07:14 5194 Cipro medicatio n rash Not available Not available 11/08/2022 12807 3 RxNorm Not Available [facility] 3 03:07:15 5195 tetracycl ine medicatio n Not available Not available Not available 11/08/2022 71437 RxNorm Not Available [facility] 3 03:07:15 5196 Substance with sulfonami de structure and antibacte rial mechanism of action (substanc e) medicatio n hives respirato ry distress Not available Not available Not available 11/08/2022 38234 8003 SNOMED Not Available [facility] 3 03:07:15 60786 morphine medicatio n Not available Not available Not available 03/22/2023 7052 RxNorm BRONSON Zaidi, [place] [employer] 3 14:56:36 38255 Vaccine product containin g only Influenza virus antigen (medicina l product) medicatio n anaphylax is moderate high 07/09/20232004 53011 73261 105 SNOMED Helenaissa Israelkapil [facility] 14:15:12 96464 Pneumococ chetna vaccine Not available anaphylax is moderate high 07/09/20232004 53065 7 RxNorm Helenaissa Galindo KAELA michel, [facility] 14:15:57 Medications Name Sig Start Date [...] NEBULIZER EVERY 4 TO 6 HOURS NEEDED 2024 active Not Available Not Available Not Avai lable polyethylen e glycol 3350 17 gram oral [...] 2 CAPSULES BY MOUTH THREE TIMES DAILY 2024 active Not Available Not Available Not Mel mcrae prochlorper azine maleate 10 mg tablet TAKE [...] suspension for injection in office 09/17 completed [facility]: 0003- 0494- 20 Not Available Not Available [...] 137 mcg (0.1 %) nasal spray USE 1 SPRAY(S) INTO EACH NOSTRIL TWICE DAILY DIRECTED active Not Available Not Available No t [...] ONCE DAILY WITH 20 MG TOTAL DOSE 30 MG AT BEDTIME active Not Available Not Available No t Available escitalopra m 20 mg tablet TAKE 1 TABLET BY MOUTH ONCE DAILY WITH 10 MG TOTAL DOSE 30 MG AT BEDTIME active Not Available Not Available [...] administe red by the provider 08/18 completed [facility]: 0409- 4276- 17 Not Available Not Available [...] %) injection solution in office 2023 active [facility] 13045 -064- 01 Not Available Not Available Not [...] No t Available Qulipta 30 mg tablet active Not Available Not Available No t Available Paxlovid 300 mg (150 mg x [...] Updated DateTime 5 152.4 cm 33.2 kg/m2 21267.7 g 97.9 [degF] 91 /min 95 % 95 % 140 mm[Hg] 76 mm[Hg] Babatunde Olmedo RN [facility] [employer] [facility] 5 10:49:10 Date Recorded Body height Body mass index (BMI) Body weight Body temperature Heart rate Oxygen saturation Oxygen saturation in Arterial blood by Pulse oximetry Systolic blood pressure Diastolic blood pressure Provider Name and Address Organization Details Last Updated DateTime 5 152.4 cm 32.4 kg/m2 12102.3 3 g 97.8 [degF] 91 /min 98 % 98 % 140 mm[Hg] 86 mm[Hg] Babatunde Olmedo RN [facility] [employer] [facility] 5 10:27:30 Date Recorded Body height Body mass index (BMI) Body weight Body temperature Heart rate Oxygen saturation Oxygen saturation in Arterial blood by Pulse oximetry Systolic blood pressure Diastolic blood pressure Provider Name and Address Organization Details Last Updated DateTime 5 152.4 cm 29.9 kg/m2 44973.6 3 g 98.1 [degF] 100 /min 97 % 97 % 152 mm[Hg] 86 mm[Hg] Naomy Ferrell MA [facility] [employer] [facility] 5 11:18:07 Date Recorded Body height Body mass index (BMI) Body weight Body temperature Heart rate Oxygen saturation Oxygen saturation in Arterial blood by Pulse oximetry Systolic blood pressure Diastolic blood pressure Provider Name and Address Organization Details Last Updated DateTime 5 152.4 cm 30.1 kg/m2 00099.2 2 g 97.5 [degF] 86 /min 98 % 98 % 128 mm[Hg] 78 mm[Hg] NAVIN Sharpe [facility] [employer] [facility] 5 12:38:54 Date Recorded Body height Body mass index (BMI) Body weight Body temperature Provider Name and Address Organization Details Last Updated DateTime 01/29/2025 152.4 cm 30.7 kg/m2 82761 g 97.4 [degF] Odilia Burnett RN [facility] [employer] 01/29/2025 12:12:32 Social History Question Answer Notes LastModified by Organization Details LastModified Time Tobacco Smoking Status Former Smoker Jacquie AguillonTalies michel [facility] [employer] 10/31/2023 14:36:22 What Is Your Level Of Caffeine Consumption? Moderate [email or web address] Information not available 12/22/2022 In The 14 [...] is your level of alcohol consumption? None [id number] Information not available 11/08/2022 Are you currently employed? No Disabled Information not available 12/17/2024 What is your exercise level? None Information not available 12/17/2024 Mental Status Question Answer Note LastModified by Organization D etails LastModified Time Do you feel stressed (tense, restless, nervous, or anxious, or unable to sleep at night)? [id number] Information not available 10/31/2023 Family History Relationship Description Onset Age of this Age Resolved Age Notes LastModified by Organization Details LastModified Time Sister Heart disease [id number] Not available 11/08/2022 02:40:59 Sister Diabetes mellitus [id number] Not available 11/08/2022 02:41:00 Sister Arthritis [email or web address] Not availa ble 01/29/2025 12:03:30 Sister History of hypertension [email or web address] Not available 12:03:30 Sister Family history of malignant neoplasm [email or web address] Not available 01/29 12:03:30 Sister Sinusitis Not availa ble 01/29/2025 12:03:30 Brother History of hypertension [email or web address] Not available 12:03:30 Brother Heart disease [id number] Not available 11/08/2022 02:41:00 Notes:father from brain aneurysm STROKE-SELF CANCER-SELF AND SISTER SISTER HAS NASAL/SINUS SURGERIES Medical History Condition Response BLINDNESS N KIDNEY STONES N MRSA N CARPAL TUNNEL SYNDROME N LUNG DISEASE/DISORDER Y HISTORY OF DRUG ABUSE N COPD Y RADIATION / CHEMOTHERAPY Y SPORTS INJURY N ANKLE PAIN N BLOOD DISEASES N SCHIZOPHRENIA N SHINGLES N SHOULDER PAIN N DEPRESSION (INCLUDING POST ) Y BOWEL PROBLEMS N STROKE/TIA Y KNEE PAIN N ULCERS N [...] N NEUROPATHY N AIDS/HIV N FRACTURES N HYPERTENSION Y ELBOW PAIN N TOURETTE'S N Metal allergy N ANXIETY DISORDER Y BLOOD TRANSFUSION N ANEMIA/BLOOD DISORDER N BIPOLAR DISORDER N BRONCHITIS Y OSTEOARTHRITIS N TUBERCULOSIS N FOOT PROBLEM N HEART VALVE DISORDERS N ALLERGIES/HAYFEVER Y SOFT TISSUE INJURY N INFECTIOUS DISEASE N HEART ARRHYTHMIA N INSOMNIA N HIGH CHOLESTEROL / HYPERLIPIDEMIA Y RHEUMATOID ARTHRITIS N EDEMA N CHRONIC PAIN SYNDROME N CAROTID BLOCKAGE N BACK / NECK PROBLEMS Y HAVE YOU BEEN HOSPITALIZED OR SEEN IN HEALTH SYSTEM ER IN THE PAST YEAR ? N BURSITIS N HERNIATED DISC N DIALYSIS N FIBROMYALGIA N OSTEOPOROSIS N ARTHRITIS Y NO SIGNIFICANT PAST MEDICAL HISTORY N PERIPHERAL NEUROPATHY N DIABETES, TYPE Y HEARTBURN / REFLUX N HEPATITIS / LIVER DISEASE N GOUT N ALZHEIMER'S DISEASE N SLEEP DISORDER Y HERPES N HEADACHES/MIGRAINES Y SEIZURES/EPILEPSY N VASCULAR DISEASE N Blood Disorder N HIP PAIN N DIZZINESS Y HEAD TRAUMA OR INJURY N HEART DISEASE/HEART PROBLEMS Y MULTIPLE SCLEROSIS N CANCER: SPECIFY Y CARDIAC ARRHYTHMIA N ANESTHESIA COMPLICATIONS N ATRIAL FIBRILLATION N AUTOIMMUNE [...] Annette Downing CMA null, [place] [facility] [place] [employer] [facility] 08/06/2023 12:12:40 COVID-19, mRNA, LNP-S, PF, 100 mcg/0.5mL dose or 50 mcg/0.25mL dose 06/13/2021 completed Annette Downing CMA null, [place] [facility] [place] [employer] [facility] 08/06/2023 12:12:40 Past Encounters Encounter ID Performer Location Encounter Start Date Encounter Closed Date Diagnosis/Indication Diagnosis SNOMED-CT Code Diagnosis ICD10 Code Diagnosis Note [id number] LLOYD Nicolas S[facility] [address] [place] [address] 11/24/2020 00:00:00 11/24/2020 15:15:47 [id number] Jason Mora MD [facility] [place] [address] [place] [address] 02/15/2021 00:00:00 02/15/2021 10:39:14 [id number] Byron Rosenbaum MD [facility] [place] [address] [place] [address] 02/25/2021 00:00:00 02/25/2021 15:56:46 [id number] Byron Rosenbaum MD [facility] [place] [address] [place] [address] 06/08/2021 00:00:00 06/08/2021 16:58:56 [id number] Marques Benavidez MD [facility] [place] [address] [place] [address] 07/26/2021 00:00:00 07/26/2021 14:16:53 [id number] Giacomo Lewis MD [facility] [address] [facility] [address] [place] [address] 08/18/2021 00:00:00 09/07/2021 18:47:07 [id number] Byron Rosenbaum MD [facility] [place] [address] [place] [address] 09/28/2021 00:00:00 09/28/2021 16:22:01 [id number] Marques Benavidez MD [facility] [place] [address] [place] [address] 11/08/2021 00:00:00 11/08/2021 12:26:21 [id number] Giacomo Lewis MD [facility] Primary [facility] [address] [facility] [address] [place] [address] 11/28/2021 00:00:00 11/28/2021 11:00:26 [id number] Marques Benavidez MD [facility] [place] [address] [place] [address] 12/27/2021 00:00:00 12/27/2021 14:46:30 [id number] Jason Mora MD [facility] [place] [address] [place] [address] 12/27/2021 00:00:00 12/27/2021 10:41:35 [id number] Byron Rosenbaum MD [facility] [place] [address] [place] [address] 12/28/2021 00:00:00 12/28/2021 10:10:27 [id number] LLOYD Mayo S[facility] [address] [facility] [address] [place] [address] 01/25/2022 00:00:00 01/25/2022 10:51:42 [id number] Giacomo Lewis MD [facility] Primary [employer] [facility] [address] [facility] [address] [place] [address] 02/16/2022 00:00:00 02/16/2022 09:13:42 [id number] LLOYD Nicolas [facility] [place] [address] [place] [address] 03/29/2022 00:00:00 03/29/2022 10:02:41 [id number] Marques Benavidez MD [facility] [place] [address] [place] [address] 03/29/2022 00:00:00 03/29/2022 17:10:12 [id number] Giacomo Lewis MD [facility] [address] [facility] [place] [address] 05/30/2022 00:00:00 05/30/2022 10:30:37 [id number] Byron Rosenbaum MD [facility] [place] [address] [place] [address] 06/28/2022 00:00:00 06/28/2022 10:15:55 [id number] LLOYD Mayo [facility] [address] [facility] [place] [address] 07/19/2022 00:00:00 07/19/2022 08:15:52 [id number] Marques Benavidez MD [facility] [place] [address] [place] [address] 07/26/2022 00:00:00 07/26/2022 14:30:04 [id number] Giacomo Lewis MD [facility] Primary Care [address] [facility] [place] [address] 08/31/2022 00:00:00 09/08/2022 10:59:07 [id number] Byron Rosenbaum MD [facility] [place] [address] [place] [address] 09/27/2022 00:00:00 09/27/2022 10:14:00 [id number] Peter Anguiano DPM [facility] [place] [address] [place] [address] 10/02/2022 00:00:00 10/05/2022 08:57:21 [id number] Giacomo Lewis MD [facility] [address] [facility] [address] [place] [address] 10/16/2022 00:00:00 10/16/2022 10:16:09 [id number] Giacomo Lewis MD [facility] Primary Care [facility] [address] [facility] [address] [place] [address] 11/15/2022 09:37:50 11/15/2022 10:21:38 [facility] [id number] G43Luan was seeing neurology ontinue ubrelvy, referral to neurology is already pending Body mass index 40+ - severely obese [id number] Z68.43 bmi 51.9doing wellgreat candidate for bariatric surgeryref erral givenconti nue good water intake, continue daily food journalsta y physically activef/u in 4 weeks or sooner if needed [id number] Peter Anguiano DPM [facility] [place] [address] [place] [address] 11/27/2022 10:01:23 11/27/2022 12:18:17 Right Achilles tendinitis [id number] 36661 M76.61 Rx physical therapyCon tinue over-the-c ounter Voltaren gelRice therapyCon tinue supportive shoe gear newFollow- up in 7 weeks [id number] LLOYD Mayo [facility] Primary Care [facility] [address] [facility] [address] [place] [address] 12/22/2022 09:01:16 12/22/2022 09:38:27 Body mass index 40+ - severely obese 742389855 Z68.43 bmi 51.8New referral given. Continue good water intake, continue daily food journal, stay physically active.Vic ght does cause difficulty with ambulation , new order for walker rollator sent today. Cerebrovas cular accident [id number] I63.9 Needs new neurology referral. [id number] Byron Rosenbaum MD [facility] [place] [address] [place] [address] 12/27/2022 09:18:46 12/27/2022 10:21:27 Bilateral osteoarthritis of knees [id number] 11507 M17.0 [id number] LLOYD Mayo [facility] Primary Care [place] [address] [facility] [address] [facility] [place] [address] 01/02/2023 11:03:09 01/02/2023 12:42:07 Bronchitis 73777434 J40 XR chest (12/28/22) unremarkab leSymptoms improving. Continue current medication s. Asthma 227405385 J45.90 9 Needs new nebulizer. [id number] LLOYD Mayo [facility] Primary Care [place] [address] [facility] [address] [place] [address] 01/22/2023 09:37:37 01/22/2023 10:02:13 Body mass index 40+ - severely obese 681228260 Z68.43 BMI 50.1Trying to get establishe d [...] new order for walker rollator sent today. [id number] Peter Anguiano DPM [facility] Podiatry [place] [address] [place] [address] 01/15/2023 09:53:41 01/15/2023 10:52:20 Right Achilles tendinitis [id number] 22792 M76.61 Rx physical therapy - Finishedco ntinue at-home physical therapyAch illes insertion steroid shot today, rightverba l consent obtained by the patientall risks, benefits, complicati ons were reviewed with the patient to her complete full understand ing. Patient elects to continue despite possible risk.Peace nue over-the-c ounter Voltaren gelRice therapycon tinue soft ankle braceConti nue supportive shoe gearFollow -up in Three months [id number] Giacomo Lewis MD [facility] Primary Care [facility] [address] [facility] [place] [address] 02/23/2023 09:43:58 02/23/2023 10:31:18 Body mass index 40+ - severely obese 132633413 Z68.43 BMI 49.6She has been working on portions size, drinking mainly water and teas. Continue food diary.Stil l doing chair exercise.S he is planning on still pursuing bariatric surgery, waiting on paperwork and call back for appointmen t with physician at [facility]. 01/22/23: BMI 50.1Trying to get establishe d [...] rollator sent today. Congestion of nasal sinus 86792701 R09.81 Most likely allergy related. She is already on daily otc allergy pill, montelukas t and 2 nasal sprays.Con gestion is causing difficulty with breathing. Will do course of steroids, plan to have her f/u with [facility] to evaluate for any other structural abnormalit ies. [id number] Jason Mora MD [facility] [place] [address] [place] [address] 03/22/2023 14:43:29 03/22/2023 15:38:59 Chronic sinusitis 43053129 J32.9 [id number] ANNALISA Frerara [facility] Primary Care [facility] [address] [facility] [address] [place] [address] 04/06/2023 08:30:21 04/06/2023 09:26:29 Arthritis 9932823 M19.90 ChronicCon tinue with otc or prescribed nsaids as directed. Ok to take otc acetaminop hen per package instructio ns as well. Discussed medication regimen as well as diet and exercise modificati on. Patient will apply heat/ice/t opicals as needed for pain relief. Follow up in 3 months.Alexander alexis parking placard form completed. Body mass index 40+ - severely obese 866777891 Z68.42 ChronicDow n 7# since last visit.Advi sed eat 3 meals daily with 1-2 healthy snacks, eliminate caloric drinks, no grazing btw meals, reduce packaged foods, portion control, modificati on of cooking style, low fat/low sugar items, 30 minutes of exercise at least 3x/week, reduce emotional/ stress eating, increase fruits/veg etables, take 15-20 minutes to eat.Try to keep daily calorie count btw 2017-0076 calories. Gave meal planning handout previously . May need to consider referral to head strength and conditioning coach/ nutritioni st as well pending bariatric surgery appt.May also consider medication in the future (phentermi ne, topiramate , Contrave, Qysmia, Wegovy, bupropion) . [id number] Byron Rosenbaum MD [facility] [place] [address] [place] [address] 04/06/2023 14:33:13 04/06/2023 16:22:39 Bilateral osteoarthritis of knees 8685243796 71999 M17.0 [id number] Peter Anguiano DPM [facility] [place] [address] [place] [address] 04/16/2023 10:14:22 04/16/2023 11:19:24 Right Achilles tendinitis 8554094411 40912 M76.61 Rx physical therapy - Send back to physical therapycon tinue at-home physical therapyCon tinue over-the-c ounter Voltaren gelRice therapycon tinue soft ankle braceConti nue supportive shoe gearFollow -up in 1 month if not significan tly improve may require surgical removal of spur [id number] Giacomo Lewis MD [facility] Primary Care [place] [address] [facility] [address] [place] [address] 05/04/2023 08:37:51 05/04/2023 09:35:15 Arthritis 3203596 M19.90 ChronicCon tinue with otc or prescribed nsaids as directed. Ok to take otc acetaminop hen per package instructio ns as well. Discussed medication regimen as well as diet and exercise modificati on. Patient will apply heat/ice/t opicals as needed for pain relief. Follow up in 3 months.Alexander alexis parking placard form completed previously Body mass index 40+ - severely obese 115158909 Z68.42 ChronicDow n 6# since last visit.Advi sed eat 3 meals daily with 1-2 healthy snacks, eliminate caloric drinks, no grazing btw meals, reduce packaged foods, portion control, modificati on of cooking style, low fat/low sugar items, 30 minutes of exercise at least 3x/week, reduce emotional/ stress eating, increase fruits/veg etables, take 15-20 minutes to eat.Try to keep daily calorie count btw 6744-7669 calories. Gave meal planning handout previously . May need to consider referral to head strength and conditioning coach/ nutritioni st as well pending bariatric surgery appt, bariatric referral renewed.Ma y also consider medication in the future (phentermi ne, topiramate , Contrave, Qysmia, Wegovy, bupropion) . [id number] Peter Anguiano DPM [facility] [place] [address] [place] [address] 06/07/2023 12:14:27 06/07/2023 14:26:53 Right Achilles tendinitis 3392647741 08478 M76.61 Continue at-home physical therapyRic e therapy, continueco ntinue soft ankle braceConti nue supportive shoe gearFollow -up MRI- Rule out bursitis, tear, tendinosis Pain in right heel [id number] [id number] [id number] M79.671 as above [id number] Giacomo Lewis MD [facility] Primary Care [address] [place] [address] 06/11/2023 15:47:36 06/11/2023 17:38:06 Chronic sinusitis 88072794 J32.9 Recently given antibiotic amoxicilli n x7days from our office, noted some improvemen tf/u with UC-zpack and steroid for 5 days-mild improvemen t but continued s/swill give another round of amox-clavu lanate Hypertensive disorder 38 459215 I10 Pt has family hx of cardiovasc ular illness as well as her own hx of HTNRequest s cardiologi st referral-g ivenDeclin es cardiac workup through PMD at this time [id number] Giacomo Lewis MD [facility] Primary Care [facility] [address] [facility] [address] [facility] [place] [address] 07/09/2023 14:01:15 07/09/2023 16:11:06 Body mass index 40+ - severely obese 277896697 Z68.43 Continue weight loss efforts.St ill planning to get bariatric surgery, waiting on insurance to change to be able to get surgery in [place]. Sinusitis 42830921 J32.9 Has follow-up with [facility] (Dr. Mora) scheduled. Continue otc medication s. [id number] Byron Rosenbaum MD [facility] [place] [address] [place] [address] 07/13/2023 13:54:47 07/13/2023 15:06:12 Bilateral osteoarthritis of knees 8451013366 59952 M17.0 [id number] Jason Mora MD [facility] [place] [address] [place] [address] 07/26/2023 11:06:23 07/26/2023 12:33:25 Chronic sinusitis 76265178 J32.9 Deviated nasal septum 12 5749009 J34.2 [id number] Giacomo Lewis MD [facility] [address] [facility] [address] [facility] [place] [address] 08/06/2023 12:04:36 08/06/2023 13:21:05 Body mass index 40+ - severely obese 176222160 Z68.43 Continue weight loss efforts.St ill planning to get bariatric surgery, waiting on insurance to change to be able to get surgery in [place]. Sinusitis 74806747 J32.9 Has follow-up scheduled with [facility] (Dr. Mora) for surgery for deviated septum 08/29/23. Continue otc medication s. Spasm 96170819 R25.2 [id number] Jason Mora MD [facility] [place] [address] [place] [address] 09/06/2023 13:53:25 09/06/2023 14:49:53 Deviated nasal septum 315244983 J34.2 [id number] Jason Mora MD [facility] [place] [address] [place] [address] 10/17/2023 10:00:58 10/22/2023 11:25:39 Dysfunction of bilateral eustachian tubes 2708621739 523874 H69.93 [id number] Byron Rosenbaum MD [facility] [place] [address] [place] [address] 10/12/2023 09:21:17 10/12/2023 10:27:43 Bilateral osteoarthritis of knees 0012098278 95659 M17.0 [id number] Giacomo Lewis MD [facility] Primary Care [place] [address] [facility] [place] [address] 10/31/2023 14:35:25 10/31/2023 16:56:38 Acute sinusitis 89525066 J01.90 -recently had deviated septum surgery in 09/02-went to on 09/17, double ear infection noted-f/u with ENT was on 10/17, put on steroid/ce fdinir-tri al sudafed and amoxicilli n [id number] Giacomo Lewis MD [facility] Primary [place] [address] [facility] [place] [address] 11/27/2023 14:33:07 11/27/2023 15:18:19 Abdominal pain 67771104 R10.9 -has been an issue for the [...] completed if unable to get EGD approved [id number] Kerrie Lopez MD [facility] General Surgery [address] [place] [address] 01/16/2024 13:34:52 01/16/2024 14:07:27 Epigastric pain 13950918 R10.13 [id number] CHE Gonsalez [facility] Primary Care [facility] [address] [facility] [address] [place] [address] 02/29/2024 09:05:04 02/29/2024 09:52:06 Cerebrovascular accident 987118910 I63.9 Migraine 72213387 G43.90 9 Dizziness 734686847 R42 [id number] Jason Mora MD [facility] [place] [address] [place] [address] 04/07/2024 14:08:59 04/08/2024 11:39:55 Vertigo 734193675 R42 [id number] CHE Gonsalez [facility] Primary Care [facility] [address] [facility] [address] [place] [address] 05/02/2024 10:00:44 05/02/2024 10:35:09 Cerebrovascular accident 806393766 I63.9 Home health already in the worksshe is to be evaluated [place] [facility] [place] Migraine 00804321 G43.90 9 qulipta working well for herstill having some migraines, but decrease in severityin creasing qulipta to 60mg Dizziness 029275059 R42 f/u with Dr. Mora about 1 week agonno given Pain of ear 353739264 H9 2.09 [id number] LLOYD Zafar [facility] Primary Care [facility] [address] [facility] [address] [place] [address] 06/03/2024 14:56:56 06/03/2024 16:10:54 Seasonal allergy 823823326 J30.2 Pre-surger y evaluation 724460130 Z01.818 ekg wnlawaitin g labs [id number] CHE Weathers [facility] Primary Care Accidentestefany e [address] [place] [address] 09/17/2024 10:41:46 09/17/2024 11:59:19 Acute sinusitis 26910221 J01.90 Will treat as listed below. Patient will follow up as needed. [id number] CHE Weathers [facility] [place] [address] [place] [address] 10/29/2024 10:16:23 10/29/2024 11:12:14 Pre-surgery evaluation 987701340 Z01.818 Acute sinusitis 77202010 J01.90 Atrial fibrillation 4943 6004 I48.91 [id number] CHE Weathers [facility] [place] [address] [facility] [address] [place] [address] 12/17/2024 11:08:54 12/17/2024 12:04:03 Acute sinusitis 80124596 J01.90 Will treat as listed below. Patient will follow up as needed. Atrial fibrillation 4943 6004 I48.91 [id number] CHE Weathers [facility] [place] [address] [facility] [address] [place] [address] 01/19/2025 12:23:06 01/19/2025 12:45:57 Acute upper respiratory infection 09192211 J06.9 [id number] Jason Mora MD [facility] ENT [place] [address] [place] [address] 01/29/2025 12:02:31 01/30/2025 09:02:46 Chronic maxillary sinusitis 07536525 J32.0 Health Concerns Section Related Observation LastModified by Organization Detai ls LastModified Time None Recorded Concern Status LastModified by Organization Details LastModified Time None Recorded Advance Directives Directive None Recorded Payers Insurance Date Sequence Insurance Name Policy Number Policy Main Covered Member ID Main Member ID Guarantor Name 01/23/2025 1 [facility] (MEDICAID REPLACEMENT - HMO) [id number] Socorro Ibarra [id number] Socorro Ibarra 01/23/2025 [facility] Socorro Ibarra SELF SELF Socorro Ibarra 01/28/2025 1 [facility] - DOS ON OR AFTER 21 (MEDICAID REPLACEMENT - HMO) Socorro Ibarra [id number] Socorro Ibarra Notes Date Note Type Note [...] without relief of symptoms. CHE Weathers [address], [place], [address], [employer] 09/21/2024 19:12:13 10/29/2024 text/html Patient is a [...] Digoxin and a referral for a new millinery worker as hers is no longer accepting her insurance. Patient was suppose to have an appt with her millinery worker tomorrow however they canceled due to her insurance. CHE Weathers [address], [place], [address], [employer] 11/03/2024 22:30:30 12/17/2024 text/html Patient is a 54 year old female that presents to the office for ear pain.Patient reports bilateral ear pain and pressure for one week. Patient also reports sinus pressure. Patient denies chest pain and shortness of breath, nausea vomiting and diarrhea. CHE Weathers [address], [place], [address], [employer] [facility] 12/17/2024 11:54:48 01/19/2025 text/html Patient is a [...] CHE Weathers [address], [place], [address], [employer] 01/19/2025 12:54:24 01/29/2025 text/html This patient reports that she has left-sided sinus congestion despite antibiotics. She had a CT and MRI in 2023. Her sinusitis has been going on for months and she has an upcoming knee replacement surgery Jason Mora MD [address], [place], [address], [employer] [facility] [employer] 01/29/2025 12:37:47 OBGyn Episode No OBEpisode recorded.
--- OUTSIDE RECORDS SUMMARY | 2025-02-26 01:55 | XMS_ITS | Encounter Summary ---
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 documented in this encounter Plan of Treatment Not on file documented as of this encounter Visit Diagnoses Not on filedocumented in this encounter Care Teams Welt Insole Channeler Relationship Specialty Start Date End Date Ke Frederick NP [address] [place] [address] PCP - General Family Medicine 01/31/24 documented as of this encounter
--- OUTSIDE RECORDS SUMMARY | 2025-02-26 01:55 | XMS_ITS | Data Portability ---
Author Organization [facility] IP Address [address] [place] [address] Assessment No assessment recorded. Plan of Treatment [...] patient use a wheelchair? : N 2022 [facility] (Surgery Sched), [address] [place] [address], [address], 4 11:23:12 Surgeries None recorded. Imaging None recorded. Medication Orders Dulcolax (bisacodyl) 5 mg tablet,daniella yed release 2022 023 [facility] [place], [address], 3 09:49:22 Miralax 17 gram/dose oral powder 2022 023 [facility] [address] [place], [address], 3 09:49:23 Patient TargetsNo targets recorded. Patient Instructions Encounter Date Encounter Id Patient Instructions Last Modified By Organization Details Last Modified Time 07/09/2023 [id number] RL About Your Colonoscopy 1 Day Prep Not available 07/09/2023 09:49:15 Reason for Referral None Reported. Results Created Date Observation Date Name Description Value Unit Range Abnormal Flag Note LastModifiedBy Organization Detail LastModifiedTime Result Notes None recorded. Medical Equipment None Reported. Allergies Allergen ID Allergen Name Allergen Category Reaction Reaction Severity Criticality Documentation Date Start Date Code Code System Note Provider Name and Address Organization Details Recorded Time 327804 doxycycli ne Not available respirato ry distress severe Not available 07/09/2023 3640 RxNorm Mary Barker MANAGING SUPERVISOR [place], [place] - [facility] 09:41:06 237777 Cipro medicatio n rash Not available Not available 07/09/2023 76151 3 RxNorm Mary Barker MANAGING SUPERVISOR [place] [facility] 09:41:29 741631 Product containin g 3-hydroxy -3-methyl glutaryl- coenzyme A reductase inhibitor (product) medicatio n myalgias (muscle pain) Not available Not available 07/09/2023 57453 009 SNOMED Mary Barker MANAGING SUPERVISOR [place] [facility] 3 09:41:49 903952 verapamil medicatio n respirato ry distress Not available Not available 07/09/2023 80252 RxNorm Mary Barker MANAGING SUPERVISOR [place] [facility] 3 09:42:04 864398 Lipitor medicatio n respirato ry distress Not available Not available 07/09/2023 27053 5 RxNorm Mary Barker MANAGING SUPERVISOR [place] [facility] 3 09:42:16 628084 morphine medicatio n respirato ry distress Not available Not available 07/09/2023 7052 RxNorm Mary Barker MICHEL [place], [place] [facility] 3 09:42:38 457748 tetracycl ine medicatio n respirato ry distress Not available Not available 07/09/2023 02706 RxNorm Mary Barker MANAGING SUPERVISOR [place] [facility] 3 09:43:37 Medications [...] Address Organization Details Last Updated DateTime 3 503805. 76 g 52.3 kg/m2 152.4 cm 97 [...] SNOMED-CT Code Diagnosis ICD10 Code Diagnosis Note [id number] Italia Leonard DO [facility] [address] [place] [address] 07/09/2023 09:25:43 07/09/2023 14:15:10 Screening for malignant neoplasm of colon [id number] Z12.11 Previous colonoscop y > 10 years [...] Member ID Main Member ID Guarantor Name 11/20/2023 1 [facility] - DOS ON OR AFTER 21 (MEDICAID REPLACEMENT - HMO) Socorro Portillo Stacey [id number] Socorro Lindsey Adrian 09/19/2023 1 [facility] (MEDICARE REPLACEMENT/AD VANTAGE - HMO) Socorro Lindsey Stacey [id number] [place] B Adrian 09/13/2023 1 [facility] (MEDICAID REPLACEMENT - HMO) [id number] Socorro B Stacey [id number] [place] Lindsey Stacey Notes Date Note Type Note Provider Name [...] to proceed with gastric sleeve. KRISTIN DESAI [address] [place], [address], [facility] 07/09/2023 10:05:44 OBGyn Episode No OBEpisode recorded.
--- OUTSIDE RECORDS SUMMARY | 2025-02-26 01:55 | XMS_ITS | Clinical Summary ---
Author Organization [facility] Julien guan [facility] Address [address] [place] [address] Care Team Providers Care Plant Assigner Name Role Phone Latesha Lewis MD Primary Care Provider + Allergies Active Allergy Reactions Criticality Noted Date Comments Doxycycline Hives,Shortness of Breath/Wheezing High 06/16/2019 Haemophilus Influenzae Type B Unknown 2018 Morphine Hives High 06/16/2019 Pneumococcal 23-Valent Polysaccharide Vaccine Unknown 06/16/2019 Quinolones Rash Medium 06/16/2019 SOB Tqpsnnn-Nfn-Htt Reductase Inhibitors Other (See Comments) 06/16/2019 Verapamil [...] on file 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 Gender Identity Not on file Sexual Orientation Not on file Last Filed Vital Signs Vital Sign Reading Time Taken Comments Blood Pressure 131/77 08/13/2019 2:26 PM MOUTHPIECE MAKER Pulse 82 08/13/2019 2:26 PM MOUTHPIECE MAKER Temperature 36.9 C (98.5 F) 08/13/2019 2:26 PM MOUTHPIECE MAKER Respiratory Rate - - Oxygen Saturation 95% 08/13/2019 2:26 PM MOUTHPIECE MAKER Inhaled Oxygen Concentration - - Weight 137.3 kg (302 lb 9.6 oz) 08/13/2019 2:26 PM MOUTHPIECE MAKER Height 154.9 cm (5' 1) 08/13/2019 2:26 PM MOUTHPIECE MAKER Body Mass Index 57.18 08/13/2019 2:26 PM MOUTHPIECE MAKER Plan of Treatment Health Maintenance Due Date [...] 05/13 INFLUENZA VACCINE (#1) 2024 Care Teams Plant Assigner Relationship Specialty Start Date End Date Latesha Lewis MD [address] [place] [id number] PCP - General Family Practice 07/22/19
--- OUTSIDE RECORDS SUMMARY | 2025-02-26 01:55 | XMS_ITS | Encounter Summary ---
Author Organization [facility] Healthcare Address [address] [place] [address] Care Team Providers Care Home Demonstrator Name Role Phone Ke Frederick NP Primary Care Provider [phone] Encounter Details Date Type Department Care Team (Late st Contact Info) Description 02/24/2025 Results Follow-Up [place] Food Service Attendant at [address] [place] [address] Nguyen Mendez NP [address] [place] [address] [address] [place] [address] Lipid panel Social History Tobacco Use Types Packs/Day Years Used Date Smoking Tobacco: Former Cigarettes 0.5 20.5 2 005 - 1986 Smokeless Tobacco: Never Comments:06/02/[address], patient says that she would smoke between a couple to a whole pack per day. 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 Medication called in. documented in this encounter Plan of Treatment Not on file documented as of this encounter Visit Diagnoses Not on filedocumented in this encounter Care Teams Home Demonstrator Relationship Specialty Start Date End Date Ke Frederick NP [address] [place] [address] PCP - General Family Medicine 01/31/24 documented as of this encounter
--- OUTSIDE RECORDS SUMMARY | 2025-02-26 01:55 | XMS_ITS | Continuity of Care Document ---
Author Organization [employer] Address [address] [address] Phone Care Team Providers Care Scientific Programmer Name Role Phone Roosevelt Mary HERNANDEZ Unavailable [...] Diagnoses Date Provider Providers Copied on Encounter [facility] on, [address] [place] [address], [id number] , tel:[phone] [facility] No Information 9 Roosevelt Mary. [address] [place] [address], [id number] [place] [address], [address]. OFFICE/OUTPA TIENT VISIT, EST [facility] [employer] on, [address] [place] [address], [id number] , tel: [phone] [facility] Follow Up of Diabetes (chief complaint)Foll ow Up of Hypertension (chief complaint)Foll ow Up of back pain (chief complaint)Foll ow Up of COPD (chief complaint) Benign HTNMixed hyperlipidemia Type 2 diabetes mellitus with diabetic polyneuropathy COPDLow back painBody mass index (BMI) 50-59.9 , adult 9 Roosevelt Mary. [address] [place] [address], [id number] [place] [address], [address]. Referring Provider: Camacho Wiley, [address] [place] [id number] [address] [place] [address], [id number] . tel:[phone] [facility] [employer] on, [address] [place] [address], [id number] , tel: [phone] [facility] No Information 9 Roosevelt Mary. [address] [facility], [id number] [place], [place], [address]. [facility] [email or web address] on, [address] [place] [address], [id number] , tel:[phone] [facility] No Information 9 Roosevelt Mary. [address], [id number] [place], [place], [address]. OFFICE/OUTPA TIENT VISIT, EST [facility] [[email or web address] on, [address] [place] [address], [id number] , tel:[phone] [facility] Follow Up of Hypertension (chief complaint)Foll ow Up of Diabetes (chief complaint)Foll ow Up of Hyperlipidemia (chief complaint)Foll ow Up of back pain (chief complaint)Foll ow Up of COPD (chief complaint) Benign HTNMixed hyperlipidemia Type 2 diabetes mellitus with diabetic polyneuropathy Low back painCOPDBody mass index (BMI) 50-59.9 , adult 8 Roosevelt Mary. [address] [place] [address], [id number] [place], [address]. Referring Provider: Camacho Wiley[address], [address] . tel:[phone] OFFICE/OUTPA TIENT VISIT, EST [facility] [[email or web address] on, [address] [place] [address], [id number] , tel: [phone] [facility] Follow Up of Hypertension (chief complaint)labs (chief complaint)Foll ow Up of Hyperlipidemia (chief complaint)Foll ow Up of diabetes (chief complaint)back pain (chief complaint)COPD (chief complaint) Benign HTNMixed hyperlipidemia Type 2 diabetes mellitus with diabetic neuropathy, unspBody mass index (BMI) 60.0-69.9, adultLow back painCOPD 8 Roosevelt Mary. [address] [facility], [id number] [place], [place], [address]. Referring Provider: Camacho Wiley, [address] [place], [place] [address], [address] . tel:[phone] OFFICE[facility]OUTPA TIENT VISIT, [facility], [address] [place] [address], [id number] , tel:[phone] [facility] ER Follow Up: Cough (chief complaint)Coug h (chief complaint)Foll ow Up of hypertension (chief complaint)Foll ow Up of hyperlipidemia (chief complaint)Foll ow Up of diabetes (chief complaint)low back pain (chief complaint) CoughAcute maxillary sinusitisType 2 diabetes mellitus with diabetic neuropathy, unspMuscle spasm of backMixed hyperlipidemia Benign HTNPain in leg 8 [facility]. [address] [place] [address], [address] [place] [address], [place], [address]. Referring Provider: Camacho Wiley, [address] [place] [address], [address] . tel:[phone] OFFICE/OUTPA TIENT VISIT, [facility] on, [address] [place] [address], [id number] , [phone] [facility] PAP test (chief complaint) Screening for cervical cancerEncounte r for screening mammogram for cancer of breastEncntr for pig caster exam (general) (routine) w/o abn findings 7 Roosevelt Mary. [address] [place] [address], [address] [place] [address], [place], [address]. Referring Provider: Camacho Wiley, [address] [place], [place] [address] [id number], [address] . tel:[phone] OFFICE/OUTPA TIENT VISIT, [facility] on, [address] [place] [address], [id number] , tel:[phone] [facility] Follow Up of Hypertension (chief complaint)bloo d work (chief complaint)sick (chief complaint)Foll ow Up of hyperlipidemia (chief complaint)Foll ow Up of diabetes (chief complaint)natalie rgies (chief complaint) Body mass index (BMI) 50-59.9 , adultEssential (primary) hypertensionMi xed hyperlipidemia Type 2 diabetes mellitus with diabetic neuropathy, unspPain in legMuscle spasm of backAllergic rhinitis due to pollen 7 Roosevelt Mary. [address] [facility], [id number], [address]. Referring [facility]: [facility] , [address] [place], [place] [address] [id number], [address] . tel:[phone] OFFICE/OUTPA TIENT VISIT, [facility] on, [address] [place] [address], [id number] , [place] tel:[phone] [facility] Follow Up of Diabetes (chief complaint)Foll ow Up of hyperlipidemia (chief complaint)Foll ow Up of hypertension (chief complaint) Essential (primary) hypertensionTy pe 2 diabetes mellitus with diabetic neuropathy, unspMixed hyperlipidemia Body mass index (BMI) 50-59.9 , adult 7 Roosevelt Mary. [address] [facility], [id number], [address]. Referring Provider: [facility] , [address] [place], [place] [address] [id number], [address] . tel:[phone] [facility] [[email or web address] on, [address] [place] [address], [id number] , [place] tel:[phone] [facility] Benign HTNMixed hyperlipidemia Type II diabetes w/ diabetic neuropathy 7 Roosevelt Mary. [address] [facility], [address] [place] [address], [address]. Referring Provider: [facility] , [facility] [place] [id number], [address] . tel:[phone] OFFICE/OUTPA TIENT VISIT, [facility] on, [address] [place] [address], [id number] , [place] tel:[phone] [facility] Follow Up of Hypertension (chief complaint)ER Follow Up: Sinus Infection (chief complaint)Foll ow Up of diabetes (chief complaint)Foll ow Up of hyperlipidemia (chief complaint)Sinu s symptoms (acute) (chief complaint) Benign HTNType II diabetes w/ diabetic neuropathyMixe d hyperlipidemia Body mass index (BMI) 50-59.9 , adultAcute maxillary sinusitis 7 Roosevelt Hernandez. [address] [place] [address], [id number] [place], [address]. Referring Provider: Camacho Wiley, [address] [place], [place] [address] [id number], [address] . tel:[phone] OFFICE/OUTPA TIENT VISIT, [facility] [employer] on, [address] [place] [address], [id number] , tel:[phone] [facility] Earache (chief complaint)Nasa l congestion (chief complaint) Acute pansinusitisBe nign HTN 6 No Information Referring Provider: Camacho Wiley, [address] [place], [place] [address] [id number], [address] . tel:[phone] OFFICE/OUTPA TIENT VISIT, [facility] [employer] [facility], [address] [place] [address], [id number] , tel:[phone] [facility] Follow Up of Hypertension (chief complaint)Foll ow Up of diabetes (chief complaint)Foll ow Up of hyperlipidemia (chief complaint) Benign hypertensionTy pe II diabetes w/ diabetic neuropathyMixe d hyperlipidemia Body mass index (BMI) 50-59.9 , adult 6 No Information Referring Provider: Bewes Wiley, [address] [place], [place] [address] [id number], [address] . tel:[phone] OFFICE/OUTPA TIENT VISIT, [facility] [employer] on, [address] [place] [address], [id number] , tel:[phone] [facility] Cold symptoms (chief complaint) Acute pansinusitisOt her acute nonsuppurative otitis media, left ear 5 No Information Referring Provider: Manyoni Wiley, [address] [place] [address], [address] . tel:[phone] OFFICE/OUTPA TIENT VISIT, [facility] on, [address] [place] [address], [id number] , tel:[phone] [facility] Cough (chief complaint)Sore throat (chief complaint)foll owup er (chief complaint)Foll ow Up of Diabetes (chief complaint)Foll ow Up of Hypertension (chief complaint) Acute bronchitisAcut e pansinusitisBe nign hypertensionTy pe II diabetes w/ diabetic neuropathy 5 No Information Referring Provider: [place] [facility] Wiley, [address] [place] [address], [address] . tel:[phone] OFFICE/OUTPA TIENT VISIT, [facility] on, [address] [place] [address], [id number] , tel:[phone] [facility] Cough (chief complaint)Sore throat (chief complaint)Foll ow Up of Hypertension (chief complaint)Foll ow Up of Diabetes (chief complaint)Foll ow Up of Hyperlipidemia (chief complaint) Hypertension, BenignAcute bronchitisDiab etesHypertrigl yceridemiaLumb agoObesity, Morbid 5 No Information Referring Provider: [facility] Taylor N, [address] [place] [address], [address] . tel:[phone] [facility] [[email or web address] on, [address] [place] [address], [id number] , tel:[phone] [facility] Breast Ca screening 5 No Information OFFICE/OUTPA TIENT VISIT, [facility] on, [address] [place] [address], [id number] , tel:[phone] [facility] Med Refill (chief complaint)Sinu s symptoms (acute) (chief complaint) Hypertension, BenignEdemaLeg painAcute maxillary sinusitis 5 No Information Referring Provider: [facility], [address] [place] [id number], [address] . tel:[phone] OFFICE/OUTPA TIENT VISIT, [facility] on, [address] [place] [address], [id number] , tel:[phone] [facility] Sinus symptoms (acute) (chief complaint)diab etes (chief complaint) Hypertension, BenignUncontro lled DM w/ neurological complicationsM igraineAcute, but ill-defined, cerebrovascula r diseaseLumbago Obesity, Morbid 3- 4 No Information Referring Provider: [facility], [address] [place] [address], [address] . tel:[phone] OFFICE/OUTPA TIENT VISIT, [facility] on, [address] [place] [address], [id number] , tel:[phone] [facility] hypertension (chief complaint) Hypertension, BenignObesity, MorbidArthropa thyMigraineAcu te, but ill-defined, cerebrovascula r disease 4 No Information Referring Provider: [facility], [address] [place] [id number], [address] . tel:[phone] Family History Family Member Type Diagnosis Age [...] hypertension Payers Payer name Insurance type Covered green party ID Authoriza tion(s) No Information Social History Type Description Quantity Date Captured Comments Sex Female Smoking Status No Information Sexual Orientation Straight or heterosexual Gender Identity Female Chief Complaint And Reason For Visit No Information Reason For Referral Reason For Referral No Information Plan Of Treatment Date Type Action Status Goal Hemoglobin A1C. Due on due Goal CMP. Due on due Goal Urinalysis due Goal Lipid panel. Due on due Goal Foot exam. Due on due Goal Depression screening. Due on due Goal Pap/HPV testing. Due on due Goal ECG due Goal Lifestyle education regardin g diet completed Goal Depression screening. Due on due Goal Lipid panel. Due on due Goal ECG due Goal Hemoglobin A1C. Due on due Goal Pap/HPV testing. Due on due Goal CMP. Due on due Goal Foot exam. Due on 9 due Goal Urinalysis due Goal Lifestyle education regardin g diet completed Goal Hemoglobin A1C. Due on due Goal Dilated eye exam. Due on Mar due Goal Urine microalbumin. Due on due Goal Urinalysis due Goal Foot exam. Due on 9 due Goal Lipid panel. Due on due Goal Pap/HPV testing. Due on due Goal CMP. Due on due Goal Depression screening. Due on due Goal ECG due Goal MICROALBUMIN, SEMIQUANT. Due on due Goal Lifestyle education regardin g diet completed Goal Lipid panel. Due on 016 due Goal Hgb A1c. Due on due Goal Depression screening. Due on due Goal Hemoglobin A1C. Due on due Goal Urine microalbumin. Due [...] Goal Td vaccine. Due on due Goal Tdap. Due on due Goal MICROALBUMIN, SEMIQUANT. Due on due Goal Pap/HPV testing. Due on due Goal Pap/HPV testing. Due [...] can use it twice daily as directed. Cough Onset: 1 month a go. Severity: [...] information: States fever improved then came back. ER Follow Up: Cough The symptoms began 1 month ago. The patient was seen in the ER at [facility] and diagnosed with acute bronchitis. She was given azithromycin in the ER on 08-19-18 with improvement for about 1 week then symptoms returned. See HPI below. low back pain Location of pain is [...] in the legs, weakness and weight loss. Follow Up of diabetes [...] States neuropathy is well controlled with gabapentin.. Follow Up of hyperlipidemia Risk factors include obesity, poor diet and sedentary life style. Hyperlipidemia management includes improved diet and increased exercise. Pertinent negatives include chest pain, claudication, diaphoresis, dyspnea, heartburn, hematuria, nausea, palpitations, transient weakness and vomiting. Follow Up of hypertension Comorb id conditions include diabetes mellitus. It is currently stable. Risk factors include family history HTN, gout or CAD, inactive lifestyle and obesity. The hypertension is exacerbated by nothing. Pertinent negatives include chest pain, claudication, confusion, diaphoresis, dyspnea, epistaxis, fatigue, headache, hematuria, irregular heartbeat/palpitations, nausea, tinnitus, transient weakness, tremor, visual disturbances and vomiting. PAP test Negative for: br east discharge, [...] year ago. Last PAP test was from [id number]. She has not had a mammogram in a long time. She denies any current issues. Follow Up of diabetes The proble m [...] Additional information: Gapabentin keeps neuropathy well controlled.. Follow Up of hyperlipidemia Risk factors include [...] loss,'+ vomiting, weight gain and weight loss. sick She is having is sues with [...] sinus symptom HPI. ER records were reviewed. Earache Onset: 2 weeks a go. The [...] ringing in ears, tooth pain and vomiting. Nasal congestion The obstruction occurs in both [...] (posterior), snoring (mild), snoring (severe) and tearing. Follow Up of Hypertension Follow Up of Hypertension Comorb id conditions [...] with amitriptyline and gabapentin. Follow Up of hyperlipidemia The hyperlipidemia is [...] of allergies. Additional information: T Max 100. Cough Onset: 1 month a go. The [...] any better. The cough medicine does help. followup er Follow Up of Hypertension Comorb id conditions include diabetes mellitus. It is currently stable. Risk factors include family history HTN, gout or CAD, inactive lifestyle and obesity. Associated symptoms include fatigue and headache. Pertinent negatives include chest pain, claudication, confusion, diaphoresis, dyspnea, epistaxis, hematuria, irregular heartbeat/palpitations, nausea, tinnitus, transient weakness, tremor, visual disturbances and vomiting. Sore throat Follow Up of Diabetes The proble m [...] healing wounds / sores and weight gain. Follow Up of Hyperlipidemia Risk factors include [...] weakness, vision loss,'+ vomiting and weight loss. Follow Up of Diabetes The proble m [...] healing wounds / sores and weight loss. Cough Onset: 1 week ag o. The [...] has a history of allergies and asthma. Sore throat Follow Up of Hypertension Comorb id conditions include diabetes mellitus. Risk factors include family history HTN, gout or CAD, inactive lifestyle and obesity. Associated symptoms include dyspnea, fatigue and nausea. Pertinent negatives include chest pain, claudication, confusion, diaphoresis, epistaxis, headache, hematuria, irregular heartbeat/palpitations, tinnitus, transient weakness, tremor, visual disturbances and vomiting. Sinus symptoms (acute) Onset: 2 Weeks. The [...] mellitus with diabetic polyneuropathy The patient has air marshal crispin mixed hyperlipidemia. We will check fasting [...] mellitus with diabetic polyneuropathy The patient has air marshal crispin mixed hyperlipidemia. We will check fasting [...] Related to Benign HTN The patient has air marshal crispin mixed hyperlipidemia. Controlled with diet and exercise. We will check fasting lipid panel today. Encouraged low fat, low cholesterol diet and exercise as tolerated. Patient will follow up in 5 months or sooner if needed. Related to Mixed hyperlipidemia The patient has air marshal crispin low back pain and is having [...] Type 2 diabetes mellitus with diabetic neuropathy, [facility] The patient reports having COPD for several [...] Muscle spasm of back The patient has air marshal crispin mixed hyperlipidemia. Controlled with diet and [...] based on results. Related to Encntr for pig caster exam (general) (routine) w/o abn findings Stable. [...] Related to Benign HTN Was seen at [place] [facility] on 09-12-16 for sinus infection and [...]
--- OUTSIDE RECORDS SUMMARY | 2025-02-26 01:55 | XMS_ITS | Encounter Summary ---
Author Organization [facility] Address [address] [place] [address] Phone Care Team Providers Care Service Person Name Role Phone Trini Rockwell MD Unavailable [phone] Latesha Lewis MD Primary Care Provider + Michael Benz MD Unavailable [phone] Reason for Visit * Reason Comments Medication Refill Encounter Details Date Type Department Care Team (Late st Contact Info) Description 09/24/2022 Refill [facility] [address] [id number] Michael Benz MD [address] [place] [id number] Medication Refill Social History Tobacco Use [...] Natalia Mata, RN - 09/25/2022 8:07 AM [employer] Refill request from pharmacy. Please fill if appropriate. [employer] documented in this encounter Plan of Treatment Upcoming Encounters Date Type Department Care Team (Late st Contact Info) Description 03/30/2025 8:15 AM CDT Lab [facility] [address] [address] Lab, [facility] 03/30/2025 8:30 AM CDT Office Visit [facility] [address] [phone] Michael Benz MD [address] [place] [phone] documented as of this encounter Visit Diagnoses Diagnosis Malignant neoplasm of nipple of right breast in female, estrogen receptor positive (HCC) documented in this encounter Additional Health Concerns Assessment Noted Time PHQ-9 Depression Total Score: 1 04/04/20 21 2:23 PM CDT documented as of this encounter Care Teams Service Person Relationship Specialty Start Date End Date Latesha Lewis MD [address] [place] [id number] PCP - General Family Medicine 11/05/19 Trini Rockwell MD [address] [place] [address] Radiation Oncologist Radiology 10/16/19 Michael Benz MD [address] [place] [id number] Consulting Physician Oncology 01/17/23 documented as of this encounter
--- OUTSIDE RECORDS SUMMARY | 2025-02-26 01:55 | XMS_ITS | CONTINUITY OF CARE DOCUMENT ---
Author Name riya ritter Address Unknown Organization [facility] Address [address] [facility] [address] [place] [address] Phone [phone] Care Team Providers Care Staff Therapist Name Role Phone Vicente Resendez MD Unavailable [phone] GIACOMO GRIGGS MD Unavailable SENAIT GOMES [...] Shortness of breath active Eileen Ventimigl ia RADIATION THERAPY TECHNICIAN COPD active Eileen Ventimiglia RADIATION THERAPY TECHNICIAN Palpitations active Eileen Ventimiglia RADIATION THERAPY TECHNICIAN LUISA, adult active Eileen Ventimiglia RADIATION THERAPY TECHNICIAN SVT, paroxysmal active Vicente Resendez MD Syncope active Vicente Resendez MD ENCOUNTERS Date Type Provider Location Encounter Diag nosis - In-person encounter Office Visit Vicente Resendez MD [facility] HYPERCHOLESTEROLEMIA -LABS PER DR. TITUS s/p gastric sleeve surgery 06/2024Syncope - In-person encounter Office Visit Vicente Resendez MD [facility] - In-person encounter Office Visit Vicente Resendez MD [facility] SVT, paroxysmal - In-person encounter Office Visit Vicente Resendez MD [facility] - In-person encounter Office Visit Vicente Resendez MD [facility] Shortness of breathCOPDPalpitatio nsOSA, adult - In-person encounter Office Visit Mya Madison MD [facility] HTN-11/16 ECHO EF 65 LVHCVA-11/16 CAROTID NEGCHEST PAIN-11/16 CATH NORMAL - In-person encounter Office Visit Mya Madison MD [facility] ANEMIA NEEDS FE TRANSFUSIONS VITAL SIGNS Date Observation Value Provider Body Mass Index (Ratio) 36.13 kg/m2 Christian Resendez MD blood pressure, diastolic 74 mm[Hg] Benedict clemente Wana blood pressure, systolic 122 mm[Hg] Natalie cosby Wana oxygen saturation, oximetry 97 % [facility] pulse rate 87 /min [facility] blood pressure, cuff size regular Benedict clemente Wana weight E&M 185.0 [lb_av] [facility] height E&M 60 [in_i] [facility] Body Mass Index (Ratio) 49.99 kg/m2 Grah am Juan Jose blood pressure, diastolic 81 mm[Hg] Li nkLogic blood pressure, systolic 117 mm[Hg] Carolynn kLogic pulse rate 99 /min [facility] blood pressure, cuff size regular Fa [facility] blood pressure, diastolic 81 mm[Hg] Fa [facility] blood pressure, systolic 117 mm[Hg] René [facility] oxygen saturation, oximetry 96 % [facility] respiratory rate E&M 16 /min Brigette Dez [facility] weight E&M 256 [lb_av] [facility] height E&M 60 [in_i] [facility] Body Mass Index (Ratio) 52.73 kg/m2 Christian Resendez MD blood pressure, diastolic 76 mm[Hg] Saloni Log blood pressure, systolic 134 mm[Hg] Carolynn pulse rate 90 /min Terrell y blood pressure, cuff size large Ja et blood pressure, diastolic 76 mm[Hg] Ja rret blood pressure, systolic 134 mm[Hg] [facility] ret oxygen saturation, oximetry 97 [...] large Damian blood pressure, diastolic 83 mm[Hg] Damain blood pressure, systolic 152 mm[Hg] Joanna crane [...] Take 1 tablet by mouth once daily [facility] Tricor 48 mg tablet completed Take 1 table t by mouth once a day - [facility] PER [place]BAL MT TO [place] fenofibrate 40 mg tablet completed TAKE 1 TABLET BY MOUTH ONCE A DAY - [facility] digoxin 125 mcg [...] mcg/actuation blister with device active Eileen Ventimiglia RADIATION THERAPY TECHNICIAN Symbicort 160-4.5 mcg/actuation HFA aerosol inhaler active Eileen Ventimiglia RADIATION THERAPY TECHNICIAN escitalopram oxalate 20 mg tablet active Eileen Ventimiglia RADIATION THERAPY TECHNICIAN lisinopril-hydrochl orothiazide 20-25 mg tablet completed - Vicente Resendez MD amitriptyline 50 mg tablet active Eileen Ventimiglia RADIATION THERAPY TECHNICIAN gabapentin 400 mg capsule active Eileen Ventimiglia RADIATION THERAPY TECHNICIAN meloxicam 15 mg tablet active Eileen Ventimiglia RADIATION THERAPY TECHNICIAN anastrozole 1 mg tablet active Eileen Ventimiglia RADIATION THERAPY TECHNICIAN cyclobenzaprine 10 mg tablet active Eileen Ventimiglia RADIATION THERAPY TECHNICIAN prazosin 2 mg capsule active Eileen Ventimiglia RADIATION THERAPY TECHNICIAN hydroxyzine HCl 25 mg tablet active Eileen Ventimiglia RADIATION THERAPY TECHNICIAN buspirone 30 mg tablet active Eileen Ventimiglia RADIATION THERAPY TECHNICIAN anastrozole 1 mg tablet completed - Eielen Ventimiglia RADIATION THERAPY TECHNICIAN cyclobenzaprine 10 mg tablet completed - Eileen Ventimiglia RADIATION THERAPY TECHNICIAN fluticasone propionate 50 mcg/actuation spray,suspension active prazosin 2 mg capsule completed - Eileen Ventimiglia RADIATION THERAPY TECHNICIAN albuterol sulfate 90 mcg/actuation HFA aerosol inhaler active azelastine 137 mcg (0.1 %) aerosol,spray completed - Eileen Ventimiglia RADIATION THERAPY TECHNICIAN buspirone 30 mg tablet completed - Eileen Ventimiglia RADIATION THERAPY TECHNICIAN hydroxyzine HCl 25 mg tablet completed - Only Vent[place]lia RADIATION THERAPY TECHNICIAN VERAMYST 27.5 MCG/SPRAY NASAL SUSPENSION completed - Only Vent[place] RADIATION THERAPY TECHNICIAN PROVENTIL HFA AEROSOL SOLUTION active as needed Mayur Ying RN LOFIBRA 134 MG ORAL CAPSULE completed - [facility] RADIATION THERAPY TECHNICIAN Abilify 30 mg tablet completed - [facility] RADIATION THERAPY TECHNICIAN metoclopramide HCl 5 mg tablet completed - Only [place] RADIATION THERAPY TECHNICIAN RANITIDINE HCL 150 MG ORAL TABLET completed 1 tablet twice a day - Only [place] RADIATION THERAPY TECHNICIAN BUDEPRION SR 150 MG ORAL TABLET EXTENDED RELEASE 12 HOUR completed - [facility] RADIATION THERAPY TECHNICIAN Phenergan 25 mg/mL solution completed as needed - [facility] Maxalt 10 mg tablet completed - Only [place] RADIATION THERAPY TECHNICIAN TRAZODONE HCL TABLET active 300 mg as directed TAKE ONE TABLET BY MOUTH ONCE A DAY Alicja Rocha PROPOXYPHENE-APAP 65-650 MG TABS completed as needed - [facility] clonazepam 2 mg tablet completed - Only [place] RADIATION THERAPY TECHNICIAN ZETIA TABS (EZETIMIBE) completed - Mayur Ying RN NORVASC TABS (AMLODIPINE BESYLATE) completed - Mayur Ying RN SOCIAL HISTORY Date Observation Value Provider drug use no Vicente Resendez MD alcohol use no Vicente Resendez MD smoking status Former smoker Vicente omran MD number of grandchildren Vicente Resendez MD [...] MD drug use no Eileen Ventimig emily [facility] alcohol use no Eileen Ventimig emily [facility] smoking status Former smoker Eileen Venti miglia [facility] social history reviewed E&M revi ewed - no changes required Vicente Resendez MD drug use no Eileen Ventimig emily [facility] alcohol use no Eileen Ventimig emily [facility] smoking status Former smoker Eileen Venti miglia [facility] social history reviewed E&M reviewed Mayur Ying [...] than 10 years LinkLogic smoking status [facility] MENTAL STATUS Date Observation Value Provider assessment of judgme nt and insight E&M Flat affect- depressed affect. Mayur Ying RN assessment of judgme nt and insight E&M Alert and oriented to time, place and person. Mood and affect are normal. Flat affect- depressed? Mayur Ying RN INSURANCE PROVIDERS Payer name Policy type / Coverage type Heidi red republican [place] [employer] MEDICAID (2) Medicaid [id number] ADVANCE DIRECTIVES Name Date DISCUSSED - NO DECISION MADE TREATMENT PLAN Date Name Performer [id number],C, H er updated medication list for this problem includes: Incruse Ellipta 62.5 Mcg/actuation Blister With Device (Umeclidinium) Symbicort 160-4.5 Mcg/actuation Hfa Aerosol Inhaler (Budesonide-formoterol) Montelukast 10 Mg Tablet (Montelukast) Albuterol Sulfate 90 Mcg/actuation Hfa Aerosol Inhaler (Albuterol sulfate) [facility] [id number],C,c hronic in setting of COPD, obesity and LUISA e cho done showed EF of 60% with diastolic dysfunction n o significant valvular abnormaliteis e ncouraged weight loss and continued use of inhalers H er updated medication list for this problem includes: Lisinopril-hydrochlorothiazide 20-25 Mg Tablet (Lisinopril-hydrochlorothiazide) [facility] [id number],C,p atient is preparing for gastric sleeve w ould be considered an acceptable risk for planned procedure [facility] [id number],C,T he patient is using CPAP on a regular basis. The patient has been benefiting from therapy and should continue use. [facility] [id number],C,B P 158/77 in office B rought in home log and BP 120-130 systolic and 60-70 diastolic w ill continue to monitor at home c ontinue present medication regimen H er updated medication list for this problem includes: Lisinopril-hydrochlorothiazide 20-25 Mg Tablet (Lisinopril-hydrochlorothiazide) Prazosin 2 Mg Capsule (Prazosin) Eileennelson Carlsonmiglia [facility] [id number],C,L abs showed Triglycerides of 490 H er HgbA1C was 5.5% S he will be started on vascepa W ill have f/u lipid panel in 8 weeks and return post Eileennelson Carlsonmiglia [facility] [id number],C,T he patient is using CPAP on a regular basis. The patient has been benefiting from therapy and should continue use. Vicente Resendez MD [id number],C,B lood pressure 152/83 in office today W ell controlled per home log W ill continue to trend at home Vicente Resendez MD [id number],C,will update l ipid panel Vicente Resendez MD [id number],C,e pisodes can come daily or go months without occuring h ave been more frequently c an get updated labs w ill plan tele monitor Vicente Resendez MD [id number],C,M ost likely multifactorial in nature in setting COPD, asthma, and obesity W ill do echo to r/o any LV dysfunction or WMA Vicente Resendez MD [id number],C,plannd for ga stric bypass Only Aldomiglia [facility] [id number],C,n o residual effects n ot on statin therapy d/t intolerance [facility] Cardiology Vicente Ortez Cardiology: N o recurrence. [...] eing evaluated for gastric sleeve surgery Eric Roeglinari Cardiology: O n Digoxin N o further symptoms Vicente Resendez MD Cardiology:Continues medication and diet modification H er updated medication list for this problem includes: Tricor 48 Mg Tablet (Fenofibrate nanocrystallized) ..... Take 1 tablet by mouth once a day Lovaza 1 Gram Capsule (Corea-3 acid ethyl esters) ..... Take 1 capsule by mouth twice a day Vicente Rseendez MD Cardiology: T he patient is using [...] 90 Mcg/actuation Hfa Aerosol Inhaler (Albuterol sulfate) Only Ludivina [facility] Cardiology:chronic i n setting of COPD, obesity and LUISA e cho done showed EF of 60% with diastolic dysfunction n o significant valvular abnormaliteis e ncouraged weight loss and continued use of inhalers H er updated medication list for this problem includes: Lisinopril-hydrochlorothiazide 20-25 Mg Tablet (Lisinopril-hydrochlorothiazide) Only Ludivina [facility] Cardiology:patient i s preparing for gastric sleeve w ould be considered an acceptable risk for planned procedure [facility] Cardiology:The patie nt is using CPAP on a regular basis. The patient has been benefiting from therapy and should continue use. [facility] Cardiology:BP 158/77 in office B rought in home log and BP 120-130 systolic and 60-70 diastolic w ill continue to monitor at home c ontinue present medication regimen H er updated medication list for this problem includes: Lisinopril-hydrochlorothiazide 20-25 Mg Tablet (Lisinopril-hydrochlorothiazide) Prazosin 2 Mg Capsule (Prazosin) [facility] Cardiology:Labs show ed Triglycerides of 490 H er HgbA1C was 5.5% S he will be started on vascepa W ill have f/u lipid panel in 8 weeks and return post Eileen Ventimiglia [facility] Cardiology:The patie nt is using CPAP on [...] Resendez MD Cardiology:plannd for gastric by pass Only Ventimiglia [facility] Cardiology:no residu al effects n ot on statin therapy d/t intolerance Only Vent[place] [facility] chest pain: O rders: C ardiac Cath [...] Borderline LVH. SL (10/08/2006) Orders: E KG ([id number]) C ardiac Cath - GC (*) Mya [...]
--- OUTSIDE RECORDS SUMMARY | 2025-02-26 01:55 | XMS_ITS | Encounter Summary ---
Author Organization [facility] Address [address] [place] [address] Care Team Providers Care Trimming Cutter Name Role Phone Ke Frederick NP Primary Care Provider Reason for Visit * Reason Onset Date Comments Test Results 01/22/2025 Results Encounter Details Date Type Department Care Team (Late st Contact Info) Description 01/22/2025 Results Follow-Up [facility] Neurology [address] [facility] [address] [place] [address] Ann Matthews NP [facility] [address] [place] [address] MRI Cervical Spine W WO Contrast Social History Tobacco Use Types Packs/Day Years Used Date Smoking Tobacco: Former Cigarettes 0.5 20.5 2 005 - 1985 Smokeless Tobacco: Never Comments:06/02/2024 Stress s wayne, patient says that she would smoke between a couple to a whole pack per day. 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
--- OUTSIDE RECORDS SUMMARY | 2025-02-26 01:55 | XMS_ITS | Clinical Summary ---
Author Organization [facility] Address [address] [place] [address] Care Team Providers Care Broker Agricultural Produce Name Role Phone Latesha Lewis MD Primary Care Provider [phone] Source Comments [facility],non-owned Affiliates and Associated Physician Practices is amultiple site organization consisting of ambulatory clinics and hospital sitesin [place], [place], [place] and [place]. This disclosure is being madepursuant to the Care Everywhere program and may not contain all information available regarding this patient. Last updated 18.[facility] Allergies Active Allergy Reactions Criticality Noted Date Comments Ciprofloxacin Rash Medium 06/16/2019 SOB Doxycycline Urticaria,Shortness of Breath High 06/16/2019 Flu Virus Vaccine Unknown 06/16/2019 Morphine INSTRUCTOR OF EDUCATION Dysfunction 06/16/2019 Pneumococcal Polysaccharides Unknown 019 Quinolones [...] fluticasone propionate (FLONASE) 50 MCG/ACT nasal spray [place] 2 sprays into each nostril once daily [...] Active Problems Problem Noted Date Diagnosed Date intermediate current use of aromatase inhibitor 10/2019 Malignant [...] on file 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
--- OUTSIDE RECORDS SUMMARY | 2025-02-26 01:55 | XMS_ITS | Clinical Summary ---
Author Organization [facility] Address [address], [facility] [address] [place] [address] Phone Care Team Providers Care Treating Plant Pumper Name Role Phone Trini Rockwell MD Unavailable [phone] Latesha Lewis MD Primary Care Provider + Michael Benz MD Unavailable [phone] Allergies Active Allergy Reactions Criticality Noted Date [...] 01/21/2025 Telephone [facility] [address] [address] Michael Benz MD Canopy Call / test results from Last 3 Months Immunizations Immunization [...] Comments Blood Pressure 134/82 07/28/2024 12:41 PM DIALYSIS CHIEF EQUIPMENT TECHNICIAN Pulse 96 07/28/2024 12:41 PM DIALYSIS CHIEF EQUIPMENT TECHNICIAN Temperature 36.6 C (97.8 F) 07/28/2024 12:41 PM DIALYSIS CHIEF EQUIPMENT TECHNICIAN Respiratory Rate 18 07/28/2024 12:41 PM DIALYSIS CHIEF EQUIPMENT TECHNICIAN Oxygen Saturation 97% 07/28/2024 12:41 PM DIALYSIS CHIEF EQUIPMENT TECHNICIAN Inhaled Oxygen Concentration - - Weight 83.7 kg (184 lb 8 oz) 07/28/2024 12:41 PM DIALYSIS CHIEF EQUIPMENT TECHNICIAN Height 157.5 cm (5' 2) 07/28/2024 12:41 PM DIALYSIS CHIEF EQUIPMENT TECHNICIAN Body Mass Index 33.75 07/28/2024 12:41 PM DIALYSIS CHIEF EQUIPMENT TECHNICIAN Plan of Treatment Upcoming Encounters Date Type Department Care Team (Late st Contact Info) Description 03/30/2025 8:15 AM CDT Lab [facility] [address] [address] Lab, Cc [facility] 03/30/2025 8:30 AM CDT Office Visit [facility] [address] [address] Michael Benz MD [address] [place] [address] Health Maintenance Due Date Last Done [...] series) 2045 Zoster Immunization Completed 05/05/2023, 3 Human Papillomavirus (HPV) Immunization Aged Out No [...] Recently Relevant to Health Maintenance Insurance MEDICAID [facility] Care Teams Treating Plant Pumper Relationship Specialty Start Date End Date Latesha Lweis MD [address] [place] [id number] PCP - General Family Medicine 11/05/19 Trini Rockwell MD [address] [address] Radiation Oncologist Radiology 10/16/19 Michael Benz MD [address] [place] [phone] Consulting Physician Oncology 01/17/23
--- OUTSIDE RECORDS SUMMARY | 2025-02-26 01:55 | XMS_ITS | Encounter Summary ---
Author Organization [facility] Healthcare Address [address] [place] [address] Care Team Providers Care Gun Stock Maker Name Role Phone Ke Frederick NP Primary Care Provider [phone] Encounter Details Date Type Department Care Team (Late st Contact Info) Description 01/22/2025 Results Follow-Up [facility] Neurology [address] [facility] [address] [place] [address] Ann Matthews NP [address] [facility] [address] [place] [address] MRI Lumbar Spine W WO Contrast Social History Tobacco Use Types Packs/Day Years Used Date Smoking Tobacco: Former Cigarettes 0.5 20.5 2 005 - 1986 Smokeless Tobacco: Never Comments:06/02/2024 Stress s wayne, patient says that she would smoke between a couple to a whole pack per day. 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 There is no high-grade narrowing or cord compression. There is no evidence of neurofibromas in the lumbar spine. documented in this encounter Plan of Treatment Not on file documented as of this encounter Visit Diagnoses Not on filedocumented in this encounter Care Teams Gun Stock Maker Relationship Specialty Start Date End Date Ke Frederick NP [address] [place] [address] [place] [address] PCP - General Family Medicine 01/31/24 documented as of this encounter
[2025-02-26] MEDS: VANCOMYCIN 1,000 MG/NS 250 ML 1,000 MG/250 ML BAG 250 MG IVPB ×2 (10:00→21:15)
[2025-02-26] MEDS: LACTATED RINGERS 1,000 ML 30 ML IV CONT ×2 (10:00→14:58)
--- NOTE | 2025-02-26 10:29 | WPDANESEPPF ---
Anes - Initial Pre Proc Eval Procedure: Operation Date: 02/26/25 11:30 Proposed Procedures p Right Total Knee Arthroplasty - Byron Rosenbaum MD Date/Time: 02/26/25 10:29 Surgeon: Byron Rosenbaum MD Pre Op Diagnosis: O A Rt Knee Patient Data Age: 54 Gender: F Height: 1.57 m Weight: 74 kg Allergies Allergy/AdvReac Type Severity Reaction Status Date / Time atorvastatin (From Lipitor) Allergy Severe PAIN Verified 02/16/25 13:23 digoxin Allergy Severe unkown Verified 02/16/25 13:23 ciprofloxacin (From Cipro) Allergy SOB AND Verified 02/16/25 13:23 RASH doxycycline Allergy SOB AND Verified 02/16/25 13:23 RASH Influenza Virus Vaccines Allergy Unknown Verified 02/16/25 13:23 morphine Allergy Fatigued/LE Verified 02/16/25 13:23 THARGIC pneumococcal vaccine Allergy Unknown Verified 02/16/25 13:23 Vadzkjf-UXC-QqS Reductase Allergy Rash Verified 02/16/25 13:23 Inhibitor (Xuwvrng-Dht-Tth Reductase Inhibitor) verapamil Allergy Unknown Verified 02/16/25 13:23 Home Medications ?Medication ?Instructions ?Recorded ?Confirmed ?Type albuterol sulfate 90 mcg/actuation 2 puff inhalation PRN SOB 01/02/20 02/16/25 History aerosol inhaler amitriptyline 50 mg tablet 50 mg PO TID 01/02/20 02/16/25 History escitalopram oxalate 20 mg tablet 30 mg PO HS 01/02/20 02/16/25 History fluticasone propionate 50 2 spray intranasal DAILY 01/02/20 02/16/25 History mcg/actuation nasal spray,suspension gabapentin 400 mg capsule 800 mg PO TID 01/02/20 02/16/25 History albuterol sulfate 0.63 mg/3 mL 0.63 mg inhalation Q6H 01/23/24 02/16/25 History solution for nebulization famotidine 20 mg tablet 20 mg PO BID 07/23/24 02/16/25 History linaclotide 145 mcg capsule 145 mcg PO DAILY 07/23/24 02/16/25 History (Linzess) atogepant 60 mg tablet (Qulipta) 60 mg PO DAILY 10/01/24 02/16/25 History budesonide-formoterol HFA 160 2 puff inhalation Q12H 10/01/24 02/16/25 History mcg-4.5 mcg/actuation aerosol inhaler (Symbicort) buspirone 30 mg tablet 30 mg PO BID 10/01/24 02/16/25 History cetirizine 10 mg tablet (Zyrtec) 10 mg PO DAILY PRN ALLERGIE 10/01/24 02/16/25 History SYMPTOMS doxepin 25 mg capsule 25 mg PO QHS 10/01/24 02/16/25 History fenofibrate nanocrystallized 48 mg 48 mg PO DAILY 10/01/24 02/16/25 History tablet hydroxyzine HCl 25 mg tablet 50 mg PO TID PRN anxiety 10/01/24 02/16/25 History biotin 10,000 mcg capsule 10,000 mcg PO DAILY 11/06/24 02/16/25 History cholecalciferol (vitamin D3) 50 50 mcg PO DAILY 11/06/24 02/16/25 History mcg (2,000 unit) capsule cyanocobalamin (vitamin B-12) 1,000 mcg PO DAILY 11/06/24 02/16/25 History 1,000 mcg capsule anastrozole 1 mg tablet 1 mg PO DAILY 12/10/24 02/16/25 History ascorbic acid (vitamin C) 1,000 mg 2,000 mg PO DAILY 12/10/24 02/16/25 History tablet,extended release (C Complex) calcium 600mg plus vitamin d3 1,200 mg PO BID 12/10/24 02/16/25 History cyclobenzaprine 10 mg tablet 10 mg PO TID PRN MUSCLE SPASM 12/10/24 02/16/25 History lorazepam 0.5 mg tablet 0.5 mg PO BID PRN anxiety 12/10/24 02/16/25 History meloxicam 15 mg tablet 15 mg PO DAILY PRN pain 12/10/24 02/16/25 History prazosin 2 mg capsule 4 mg PO QHS 12/10/24 02/16/25 History ubrogepant 100 mg tablet (Ubrelvy) 100 mg PO ONCE 12/10/24 02/16/25 History oxycodone 5 mg tablet 5 mg PO Q4H PRN pain #40 tabs 12/24/24 02/16/25 Rx magnesium oxide 400 mg PO DAILY 01/07/25 02/16/25 History oxycodone 5 mg tablet 5 mg PO Q4H PRN pain #40 tabs 01/07/25 02/16/25 Rx doxepin 50 mg capsule 50 mg PO HS 02/16/25 02/16/25 History lorazepam 1 mg tablet 1 mg PO BID 02/16/25 02/16/25 History Patient hx anesthesia problems: none Family hx anesthesia problems: none Results Review: All pre-operative results and documents have been reviewed as part of the pre-operative evaluation. [facility] Past Medical History Medical History Breast cancer 2020 Anxiety PTSD (post-traumatic stress disorder) Tachycardia High cholesterol Normal colonoscopy LUISA (obstructive sleep apnea) RLS (restless legs syndrome) Obesity Neuropathy Migraine COPD (chronic obstructive pulmonary disease) Chronic back pain Bursitis Bipolar 1 disorder Asthma CVA (cerebral vascular accident) Surgical History Surgical History S/P total knee arthroplasty History of back surgery History of lumpectomy of right breast H/O elbow surgery Hx of cholecystectomy Family History Family History Father Brain bleed Other Heart disease No history of cancer Social History Social History Smoking packs per day: 1 Smoking cigarettes per day: 20.0 Years smoked: 10 Smoking pack-years: 10.00 Smoking status: Former smoker Tobacco type: cigarettes Second hand tobacco smoke exposure: No Smoking end date: 02/08/05 Additional smoking assessment comments: DENIES ANY FORM OF TOBACCO USE Alcohol intake: never Substance use type: does not use Current Housing: Decline to Answer Concerned About Future Housing: Decline to Answer Difficulty Paying Gas/Electric Bills: Decline to Answer Difficulty Paying for Meds: Decline to Answer Currently Unemployed: Decline to Answer Education: Decline to Answer Difficulty w/ Childcare or Family Care: Decline to Answer Living arrangements: alone Occupation/Education: unemployed Gender identity (if verbalized by the patient): Female Spiritual care concerns: No Anes - Eval Final PreProcedure Day of Procedure 02/26/25 10:29 Patient weight: overweight Heart: regular rate and rhythm Lungs: decreased breath sounds Airway: Mallampati scale class II Neurological: hemiparesis Last oral intake: >/= 8 hours ASA classification: IV Emergent: no Anesthetic plan: proceed Anesthesia type and monitoring: general ETT and standard monitoring Results Review: All pre-operative results and documents have been reviewed as part of the pre-operative evaluation. Informed Consent: The patient's anesthetic plan and its attendant risks and benefits were discussed with the patient/family/POA. Questions were solicited and answers provided to the satisfaction of the patient/family/POA.
[2025-02-26] MEDS: ACETAMINOPHEN 500 MG TABLET 1000 MG PO (10:35)
[2025-02-26] MEDS: TRANEXAMIC ACID 1,000MG/ISO100 1,000 MG/100 ML BAG 200 MG IVPB (10:35)
--- NOTE | 2025-02-26 10:58 | WPDHPUPDATE1 ---
History and Physical Update Update Date/Time: 02/26/25 10:58 History and Physical has been reviewed, including an updated exam of the patient. There are NO changes in the patient's condition. Risks, benefits, and alternatives have been discussed and questions answered. Patient agrees to proceed with procedure.
[2025-02-26] MEDS: ceFAZolin 2 GM/D5W 50 ML 2 GM/50 ML BAG IVPB ×2 (11:37→18:31)
[2025-02-26] MEDS: SODIUM CHLORIDE 0.9% IV 38.7 ML, ROPivacaine HCL 1% 200 MG, KETOROLAC INJ (*BKC) 15 MG,... INFILTRATE (12:11)
[2025-02-26] MEDS: ceFAZolin SODIUM 1 GM VIAL 3 GM IRRIGATION (12:13)
[2025-02-26] MEDS: GENTAMICIN BONE CEMENT REFOBACIN 1 EACH TOPICAL (13:45)
[2025-02-26] MEDS: ceFAZolin SODIUM 1 GM VIAL 2 GM IV PUSH (14:00)
[2025-02-26] MEDS: KETOROLAC 15 MG/ML VIAL (*BKC) 7.5 MG IV PUSH ×2 (14:02→21:10)
[2025-02-26] MEDS: HYDROmorphone HCL INJ (*CRX) 1 MG/ML SYR 0.5 MG IV PUSH ×2 (15:02→15:09)
--- NOTE | 2025-02-26 15:09 | W.PM.PROC2 ---
Procedure Note - Detailed Date of Procedure 02/26/25 Pre-op Diagnosis O A Rt Knee Post-op Diagnosis Same Procedure Performed Right total knee arthroplasty Surgeon Byron Rosenbaum MD [employer] [facility] Anesthesia General Description of Procedure Patient was brought to the operating room and general anesthesia was administered. She received 2 g of Ancef weight based vancomycin 1 g of TXA preoperatively. The right leg was prepped draped usual fashion. Limb was exsanguinated tourniquet elevated to 250 mmHg. A 7 in longitudinal midline incision was used and a vastus medialis splitting approach utilized splitting the vastus medialis at the level of the superior pole of patella. Partial excision of infrapatellar fat pad performed quadriceps synovectomy carried out partial excision of suprapatellar fat pad performed. The patella had intact articular cartilage. Minimal lateral facetectomy was performed. A guide latoya was inserted on femoral canal after aspiration of canal contents and using the 5 degree valgus cutting bushing 9 mm of bone removed the distal femur. The reference point was on a median ridge that was more prominent than the surface of the distal medial femoral condyle due to prominent bone wear there. We noticed that the medial 1/4 of the distal surface of the exposed medial femoral condyle was extremely osteoporotic. The cut removed about 6 mm from lateral plateau. Next the tibial plateau was cut. We made a cut that was mm under the subchondral bone of the where area of the medial femoral condyle. Meniscal remnants were excised the PCL recessed. In flexion the medial side measured 10 mm of lateral side 13 mm. Femoral sizing guide was applied the distal femur set at 4? of external rotation which matched Whitesides line. Posterior referencing pinholes were placed. The size 60 Vanguard AP cutting block was applied AP and chamfer cuts were made. We noted that the area of osteopenia extended to the posterior chamfer and putting a small sucker in this area we saw that there was complete absence of bone an area about 7 or 8 mm wide. It was not a degenerative cyst as there was no cyst wall. There were widely spaced trabeculae that the this cyst. Fortunately the shell of bone comprising the medial surface of the medial condyle and medial epicondyle was intact and we were very careful to maintain the integrity. We took the bone chips that were produced by making the cuts as described above and harvested cancellous bone from the pieces and packed the cancellous chips in to the osteoporosis defect. The size 60 trial fit nicely. The anterior flange was flushed to the anterior cortex proximally. The tibia was sized to a 63 which fit line to line anteromedial to posterolateral proper rotation this was punched. We trialed and the 12 was appropriate at 90? of flexion allowing 1 mm lateral and 2 mm of medial opening. However it was too tight in extension lacking approximately 5-7 degrees with no medial or lateral play. Therefore an additional 2 mm of bone removed the distal femur chamfer cuts revisited and on read trialing this time the knee had a barely positive bounce. The knee opened up 1 mm medial and 1 mm lateral this position. Therefore another 1 mm bone was removed the distal femur and chamfer cuts revisited and this time the knee came out to full extension with negative bounce 1-2 mm medial and 1-2 mm lateral opening in extension appropriate anterior posterior stability in all positions and gravity flexion was to 1 hand. There is central patellar tracking. Lug holes were drilled. Residual posterior femoral osteophyte was removed. We did not release posterior capsule. Step drill was used to make perforations in the more dense areas under the medial tibial plateau and distal femur. Bony surfaces were thoroughly irrigated and dried. Using 2 batches of methylmethacrylate 1 with gentamicin powder cement was immediately applied the size 63 vanguard tibial tray and the size 60 right CR femoral component. Cement applied the tibial plateau and in the canal pressurized and tibial component fully seated. Cement applied the femur the femoral component fully seated the knee brought into extension with a 13 mm 5 and 1 insert for pressurization. Tourniquet was released total tourniquet time approximately 105 minutes. After cement hardening excess cement was sought for removed and hemostasis was achieved. We inspected the medial epicondyle and the femoral component covered the area bone grafting nicely. We read trialed with 12 had says findings. The real 12 insert was placed locked locking pin range of motion stability patellar tracking reconfirmed. Local anesthetic cocktail was injected in the periarticular soft tissues. Arthrotomy was closed with 2. Vicryl and 1. Unidirectional barbed Stratafix suture and 1. Vicryl in the split. Is the arthrotomy close the was full extension the bounce and gravity flexion to 140. His skin closed with 2 subcutaneous Vicryl 3-0 subcuticular Monocryl and glue EBL start cc. There were no complications. Patient was transferred postop recovery room in stable condition. [facility] Billing Surgery - Charge Forward: Surgery Billing (Right total knee replacement)
--- NOTE | 2025-02-26 15:12 | PM.OP ---
Procedure Note - Brief Procedure Note - Brief Date of procedure: 02/26/25 O A Rt Knee Procedure performed: Right total knee arthroplasty Surgeon: LLOYD Caraballo Findings: 54 year from the underwent right total knee arthroplasty on 02/26. I was involved in the procedure including positioning the patient on the OR table and 1st assisting through the time surgery. Total time spent was 3 hours
[2025-02-26] MEDS: METOPROLOL TARTRATE INJ 5 MG/5 ML VIAL IV PUSH (15:40)
--- NOTE | 2025-02-26 17:02 | ADMGEN ---
This patient, Socorro Ibarra, was admitted to [facility] Surg Room 307-02. Patient/family oriented to hospital policies and general routines including ID bracelet, bed and alarms, visiting hours, pain management, procedures, bathroom and other care routines, personal items, smoking policy, room service/diet, and visiting hours. Information on how to activate the Rapid Response Team has been discussed. Patient/Family are encouraged to report perceived risks to care and to ask questions if they do not understand what they are told or what they should do. Report from Ivelisse.
[2025-02-26] MEDS: CALCIUM/VITAMIN D 500 MG/5 MCG (200 I.U.) TABLET 1000 MG PO (17:20)
[2025-02-26] MEDS: SENNA/DOCUSATE SODIUM TABLET 2 TAB PO (17:20)
[2025-02-26] MEDS: oxyCODONE HCL (*CRX) 5 MG TAB IR PO ×2 (17:20→21:10)
[2025-02-26] MEDS: GABAPENTIN 400 MG CAPSULE 800 MG PO (17:20)
[2025-02-26] MEDS: AMITRIPTYLINE HCL 25 MG TABLET 50 MG PO (17:25)
[2025-02-26] MEDS: ACETAMINOPHEN 325 MG TABLET 650 MG PO ×2 (18:02→23:15)
[2025-02-26] MEDS: FLUTICASONE/SALMETEROL 115-21 MCG INHALER 1 PUFF 2 PUFF INHALATION (20:14)
[2025-02-26] MEDS: ESCITALOPRAM OXALATE 10 MG TABLET 30 MG PO (21:08)
[2025-02-26] MEDS: PRAZOSIN HCL 1 MG CAPSULE 4 MG PO (21:09)
[2025-02-26] MEDS: busPIRone HCL 10 MG TABLET 30 MG PO (21:09)
[2025-02-26] MEDS: FAMOTIDINE 20 MG TABLET PO (21:09)
[2025-02-26] MEDS: DOXEPIN HCL 25 MG CAPSULE 50 MG PO (21:09)
[2025-02-26] MEDS: LORazepam (*CRX) 1 MG TABLET PO (21:09)
[2025-02-27] MEDS: oxyCODONE HCL (*CRX) 5 MG TAB IR PO ×4 (00:53→13:10)
[2025-02-27 01:00] VITALS: BP 106/60; PULSE 90; RESP 16; TEMP 36.6; O2SAT 95
[2025-02-27] MEDS: KETOROLAC 15 MG/ML VIAL (*BKC) 7.5 MG IV PUSH (03:25)
[2025-02-27] MEDS: ACETAMINOPHEN 325 MG TABLET 650 MG PO ×3 (03:25→11:56)
[2025-02-27] MEDS: ceFAZolin 2 GM/D5W 50 ML 2 GM/50 ML BAG IVPB ×2 (03:25→13:12)
[2025-02-27 05:11] VITALS: BP 111/62; PULSE 97; RESP 16; TEMP 36.4; O2SAT 97
[2025-02-27 06:48] LABS: Basophils Absolute Auto 0.1 K/mm3 (0.0-0.1); Basophils Percent Auto 0.3 % (0.2-1.2); Eosinophils Absolute Auto 0.1 K/mm3 (0-0.3); Eosinophils Percent Auto 0.3 % (0-4.4); Hemoglobin 10.5 g/dL (12.0-15.0); Immature Granulocyte Percent A 0.6 % (0-0.5); Lymphocytes Percent Auto 18.3 % (18.3-44.2); Mean Corpuscular HGB Conc 31.8 g/dl (32-36); Mean Corpuscular Volume 97.3 fl (80-100); Mean Platelet Volume 9.2 fl (7.4-10.4); Monocytes Absolute Auto 1.6 K/mm3 (0.1-0.6); Monocytes Percent Auto 8.9 % (2.6-8.5); Neutrophils Absolute Auto 12.5 K/mm3 (1.3-6.7); Neutrophils Percent Auto 71.6 % (45.5-73.1); Platelet Count Result 284 k/mm3 (150-375); Red Blood Count 3.39 M/mm3 (4.2-5.4); Red Cell Distribution Width 12.2 % (11.5-14.5); White Blood Count 17.5 K/mm3 (4.5-10.0)
[2025-02-27 07:05] LABS: Anion Gap 7 mmol/L (4-12); Blood Urea Nitrogen 28 mg/dL (7-17); Calcium 9.1 mg/dL (8.4-10.2); Carbon Dioxide 25 mmol/L (22-30); Chloride 106 mmol/L (98-107); Estimated CRCL calculation 71 ml/min; Estimated Glomerular Filt Rate > 60; Glucose 113 mg/dL (65-110); Potassium 3.7 mmol/L (3.4-5.0); Sodium 138 mmol/L (137-145)
[2025-02-27] MEDS: FLUTICASONE/SALMETEROL 115-21 MCG INHALER 1 PUFF 2 PUFF INHALATION (08:36)
[2025-02-27 08:40] VITALS: O2SAT 97
[2025-02-27] MEDS: APIXABAN 2.5 MG TABLET PO (09:27)
[2025-02-27] MEDS: CALCIUM/VITAMIN D 500 MG/5 MCG (200 I.U.) TABLET 1000 MG PO (09:27)
[2025-02-27] MEDS: GABAPENTIN 400 MG CAPSULE 800 MG PO ×2 (09:27→13:10)
[2025-02-27] MEDS: CHOLECALCIFEROL (VITAMIN D3) 25 MCG (1,000 UNITS) TABLET 50 MCG PO (09:27)
[2025-02-27] MEDS: LINACLOTIDE 145 MCG CAPSULE PO (09:28)
[2025-02-27] MEDS: FAMOTIDINE 20 MG TABLET PO (09:28)
[2025-02-27] MEDS: busPIRone HCL 10 MG TABLET 30 MG PO (09:28)
[2025-02-27] MEDS: CYANOCOBALAMIN 1,000 MCG TABLET 1000 MCG PO (09:28)
[2025-02-27] MEDS: EZETIMIBE 10 MG TABLET PO (09:28)
[2025-02-27] MEDS: AMITRIPTYLINE HCL 25 MG TABLET 50 MG PO ×2 (09:28→13:10)
[2025-02-27] MEDS: LORazepam (*CRX) 1 MG TABLET PO (09:28)
[2025-02-27] MEDS: SENNA/DOCUSATE SODIUM TABLET 2 TAB PO (09:28)
[2025-02-27] MEDS: FENOFIBRATE,MICRONIZED 48 MG TABLET PO (09:28)
[2025-02-27] MEDS: VANCOMYCIN 1,000 MG/NS 250 ML 1,000 MG/250 ML BAG 250 MG IVPB (09:29)
[2025-02-27] MEDS: FLUTICASONE PROPIONATE 0.05% NA SPR 16 GM BTL (*BKC) 2 SPRAY NASAL (09:29)
[2025-02-27] MEDS: polyethylene glycoL 3350 17 GM POWD.PACK PO (09:30)
--- NOTE | 2025-02-27 11:53 | P.PNOP_ITS ---
Subjective Subjective Date/Time Seen: 02/27/25 11:53 Interval history: Postop day 1 patient is alert. She is afebrile vital signs are stable. Neurovascularly she is intact. She has been up to the restroom overnight multiple times. She has been urinating well. Morning labs are noted. Neurovascularly she is intact. Dressing is dry and intact. Overall pain is well controlled. Patient is eager to go home. She did have her right knee replaced 3 months ago is well aware of the recovery and is comfortable. We will plan have the patient work with therapy this morning and again this afternoon and once IV antibiotics been completed she will be discharged home. Objective Data Vital Signs Vital Signs: Vital Signs - 24 hr 02/26/25 14:58 02/26/25 15:10 02/26/25 15:25 Temperature 99.1 F Pulse Rate 124 H 122 H 123 H Respiratory Rate 20 20 18 Blood Pressure 178/89 H 171/84 H 168/90 H Pulse Oximetry 95 97 97 Oxygen Delivery Simple Face Mask Simple Face Mask Simple Face Mask Oxygen Flow Rate 6 6 6 02/26/25 15:40 02/26/25 15:40 02/26/25 15:55 Temperature 98.4 F Pulse Rate 124 H 124 H 101 H Respiratory Rate 18 18 Blood Pressure 164/85 H 146/83 H Pulse Oximetry 97 95 Oxygen Delivery Nasal Cannula Nasal Cannula Oxygen Flow Rate 2 2 02/26/25 16:10 02/26/25 16:30 02/26/25 16:45 Temperature 97.1 F L 96.6 F L Pulse Rate 100 102 H 99 Respiratory Rate 18 14 14 Blood Pressure 141/82 H 137/78 139/75 Pulse Oximetry 96 96 97 Oxygen Delivery Nasal Cannula Oxygen Flow Rate 2 02/26/25 17:15 02/26/25 18:15 02/26/25 21:58 Temperature 96.8 F L 97.1 F L 97.7 F Pulse Rate 102 H 105 H 99 Respiratory Rate 17 18 14 Blood Pressure 133/73 122/71 126/64 Pulse Oximetry 97 97 96 Oxygen Delivery Oxygen Flow Rate 02/27/25 01:00 02/27/25 05:11 02/27/25 07:57 Temperature 97.9 F 97.6 F Pulse Rate 90 97 Respiratory Rate 16 16 Blood Pressure 106/60 111/62 Pulse Oximetry 95 97 Oxygen Delivery Room Air Oxygen Flow Rate 02/27/25 08:40 02/27/25 10:22 Temperature Pulse Rate Respiratory Rate Blood Pressure Pulse Oximetry 97 Oxygen Delivery Room Air Room Air Oxygen Flow Rate Intake/Output Intake/Output: Intake & Output 02/24/25 02/25/25 02/26/25 02/27/25 23:59 23:59 23:59 23:59 Intake Total 700 960 Balance 700 960 Meds/Results Medications: Active Medications Generic Name Dose Route Start Last Admin Trade Name Freq PRN Reason Stop Dose Admin Acetaminophen 650 mg 02/26/25 19:00 02/27/25 06:11 Acetaminophen 325 Mg Tablet PO 650 mg Q4H OMAR Administration Amitriptyline HCl 50 mg 02/26/25 17:00 02/27/25 09:28 Amitriptyline Hcl 25 Mg Tablet PO 50 mg TID OMAR Administration Apixaban 2.5 mg 02/27/25 09:00 02/27/25 09:27 Apixaban 2.5 Mg Tablet PO 03/10/25 21:01 2.5 mg Q12HR OMAR Administration Buspirone HCl 30 mg 02/26/25 21:00 02/27/25 09:28 Buspirone Hcl 10 Mg Tablet PO 30 mg Q12HR OMAR Administration Calcium Carbonate 1,000 mg 02/26/25 17:10 02/27/25 09:27 Calcium/Vitamin D 500 Mg/5 Mcg (200 I.U.) Tablet PO 1,000 mg BID OMAR Administration Cefdinir 300 mg 02/27/25 21:00 Cefdinir 300 Mg Capsule PO Q12HR OMAR Cyanocobalamin 1,000 mcg 02/27/25 09:00 02/27/25 09:28 Cyanocobalamin 1,000 Mcg Tablet PO 1,000 mcg DAILY OMAR Administration Diphenhydramine HCl 25 mg 02/26/25 16:13 Diphenhydramine Hcl Inj 50 Mg/Ml Vial IV PUSH Q6H PRN Itching Doxepin HCl 50 mg 02/26/25 21:00 02/26/25 21:09 Doxepin Hcl 25 Mg Capsule PO 50 mg HS OMAR Administration Ezetimibe 10 mg 02/27/25 09:00 02/27/25 09:28 Ezetimibe 10 Mg Tablet PO 10 mg DAILY OMAR Administration Escitalopram Oxalate 30 mg 02/26/25 21:00 02/26/25 21:08 Escitalopram Oxalate 10 Mg Tablet PO 30 mg HS OMAR Administration Famotidine 20 mg 02/26/25 21:00 02/27/25 09:28 Famotidine 20 Mg Tablet PO 20 mg Q12HR OMAR Administration Fenofibrate 48 mg 02/27/25 09:00 02/27/25 09:28 Fenofibrate,Micronized 48 Mg Tablet PO 48 mg DAILY OMAR Administration Fluticasone Propionate 2 spray 02/27/25 09:00 02/27/25 09:29 Fluticasone Propionate 0.05% Na Spr 16 Gm Btl (*Bkc) NASAL 2 spray DAILY OMAR Administration Gabapentin 800 mg 02/26/25 17:00 02/27/25 09:27 Gabapentin 400 Mg Capsule PO 800 mg TID OMAR Administration Hydromorphone HCl 0.5 mg 02/26/25 17:16 Hydromorphone Hcl Inj (*Crx) 2 Mg/Ml Vial IV PUSH Q2H PRN Breakthrough Pain Rated 4-6 or NPO Cefazolin Sodium 2 gm in 50 mls @ 100 mls/hr 02/26/25 19:30 02/27/25 03:55 Ancef 2 Gm/D5w 50 Ml IVPB 02/27/25 11:59 Infused Q8H [facility] Infusion Linaclotide 145 mcg 02/27/25 09:00 02/27/25 09:28 Linaclotide 145 Mcg Capsule PO 145 mcg DAILY OMAR Administration Lorazepam 1 mg 02/26/25 21:00 02/27/25 09:28 Lorazepam (*Crx) 1 Mg Tablet PO 1 mg BID OMAR Administration Naloxone HCl 0.1 mg 02/26/25 16:13 Naloxone Hcl 0.4 Mg/Ml Vial IV PUSH Q2M PRN Opiate Reversal Ondansetron HCl 4 mg 02/26/25 16:13 Ondansetron Inj 4 Mg/2 Ml Vial IV PUSH Q4H PRN Nausea And Vomiting Oxycodone HCl 5 mg 02/26/25 17:00 02/27/25 09:26 Oxycodone Hcl (*Crx) 5 Mg Tab Ir PO 5 mg Q4H OMAR Administration Oxycodone HCl 5 mg 02/26/25 16:13 Oxycodone Hcl (*Crx) 5 Mg Tab Ir PO Q4H PRN Pain Rated 7-10 Polyethylene Glycol 17 gm 02/27/25 09:00 02/27/25 09:30 Polyethylene Glycol 3350 17 Gm Powd.Pack PO 17 gm QAM OMAR Administration Prazosin HCl 4 mg 02/26/25 21:00 02/26/25 21:09 Prazosin Hcl 1 Mg Capsule PO 4 mg QHS OMAR Administration Fluticasone/Salmeterol 2 puff 02/26/25 20:00 02/27/25 08:36 Fluticasone/Salmeterol 115-21 Mcg Inhaler 1 Puff INHALATION 2 puff Q12HRT OMAR Administration Senna/Docusate Sodium 2 tab 02/26/25 17:00 02/27/25 09:28 Senna/Docusate Sodium Tablet PO 2 tab BID OMAR Administration Vitamin D 50 mcg 02/27/25 09:00 02/27/25 09:27 Cholecalciferol (Vitamin D3) 25 Mcg (1,000 Units) Tablet PO 50 mcg DAILY OMAR Administration Radiology Results: ITS Impressions Knee X-Ray 02/26/25 15:05 IMPRESSION: 1. Right total knee arthroplasty, negative for postoperative purposes. Labs Labs: Laboratory Results - last 24 hr 02/27/25 02/27/25 06:09 06:10 WBC 17.5 H RBC 3.39 L Hgb 10.5 L Hct 33.0 L MCV 97.3 MCH 31.0 MCHC 31.8 L RDW 12.2 Plt Count 284 MPV 9.2 Immature Gran % (Auto) 0.6 H Neut % (Auto) 71.6 Lymph % (Auto) 18.3 Izard % (Auto) 8.9 H Eos % (Auto) 0.3 Baso % (Auto) 0.3 Lymph # (Auto) 3.20 Izard # (Auto) 1.6 H Eos # (Auto) 0.1 Baso # (Auto) 0.1 Abs Immat Gran (auto) 0.10 H Absolute Neuts (auto) 12.5 H Absolute Nucleated RBC 0.000 Nucleated RBC % 0.0 Sodium 138 Potassium 3.7 Chloride 106 Carbon Dioxide 25 Anion Gap 7 BUN 28 H Creatinine 0.70 Estim Creat Clear Calc 71 Estimated GFR > 60 Glucose 113 H Calcium 9.1
== END 2025-02-27 14:05 | disposition home or self-care (01) ==
LOC: ANHSURGERY 08:35 → ANH3MEDSUR 16:45
PROVIDERS: Physician Assistant Surgical; PCP Family Medicine; Visit Provider Orthopaedic Surgery
PROC: (CPT 27447; principal; 2025-02-26 11:30)
DX: M17.11 Unilateral primary osteoarthritis, right knee (principal); M25.761 Osteophyte, right knee; E78.00 Pure hypercholesterolemia, unspecified; G47.33 Obstructive sleep apnea (adult) (pediatric); G25.81 Restless legs syndrome; F41.9 Anxiety disorder, unspecified; F43.10 Post-traumatic stress disorder, unspecified; G62.9 Polyneuropathy, unspecified; J44.9 Chronic obstructive pulmonary disease, unspecified; G89.29 Other chronic pain; M54.9 Dorsalgia, unspecified; F31.9 Bipolar disorder, unspecified; R00.0 Tachycardia, unspecified; Z79.51 Long term (current) use of inhaled steroids; Z79.891 Long term (current) use of opiate analgesic; Z98.890 Other specified postprocedural states; Z98.1 Arthrodesis status; Z90.49 Acquired absence of other specified parts of digestive tract; Z96.652 Presence of left artificial knee joint; Z87.891 Personal history of nicotine dependence; Z85.3 Personal history of malignant neoplasm of breast; Z86.73 Personal history of transient ischemic attack (TIA), and cerebral infarction without residual deficits; Z82.49 Family history of ischemic heart disease and other diseases of the circulatory system
CPT/HCPCS: 27447; 36415; 73560; 80048; 85025; 94640; 97110; 97161; 97165; 97530; A9270; C1713; C1776; J0171; J0360; J0690; J1100; J1171; J1885; J2250; J2405; J2704; J2795; J3010; J3370; J7120

== ENCOUNTER 2025-05-25 07:30 | Outpatient (RCR) | payer OTHER, SELFPAY ==
--- NOTE | 2025-02-27 08:11 | WPDANESPN ---
Anes - Prog Note Post-Op Date/Time: 02/27/25 08:11 Cardiovascular status: normal Respiratory status: normal Airway patency: baseline Mental status: baseline Pain Score (VAS): 3 Patient Feedback: Patient satisfied with anesthetic care.
--- NOTE | 2025-03-02 17:12 | OPREHPOC ---
Outpatient Therapy Plan of Care This is a Multidisciplinary Plan of Care that may contain components documented by all disciplines (PT, OT, and ST.) PT Problem 1 PT Problem #1 Knowledge Deficit PT Goal 1 Goal / Goal Update Patient to demonstrate independence with HEP for improved self-reliance of symptom management. Target Visit 6 PT Problem 2 PT Problem #2 Pain PT Goal 1 Goal / Goal Update Patient to decrease subjective reports of pain to <5/10 for improved ADL tolerance. Target Visit 6 PT Problem 3 PT Problem #3 Impaired Gait PT Goal 1 Goal / Goal Update Patient to improve confidence and understanding of gait mechanics and stair negotiation with 2WW to improve community navigation. Target Visit 12 PT Problem 4 PT Problem #4 Impaired Strength PT Goal 1 Goal / Goal Update Patient to demonstrate R knee strength >=4+/5 for improved functional stability required for ADLs. Target Visit 12 PT Problem 5 PT Problem #5 Impaired Range of Motion PT Goal 1 Goal / Goal Update Patient to demonstrate an increase of R knee AROM of 0-120 deg to improve mobility required for gait /stair negotiation. Target Visit 12
--- NOTE | 2025-03-02 17:13 | PTOPEVAL1 ---
Assessment and note entered by Deborah Godwin, PT Evaluation Information Assessment Status Evaluation ICD-10 Condition Codes (PT) Pain in right knee M25.561,Aftercare following joint replacement surgery Z47.1 Onset 02/26/25 Subjective Information Pt presents s/p R TKA on 02/26/[address] Brunson. Pt reports no complications with surgery but the surgeon had to do more work than typical so she needs to use the walker for 6 weeks. Both pt and caregiver confirm this. Pt walked without device prior to surgery. Pt is currently using 2WW. Pt doing stairs one at a time. Pt needs to get back to ADLS and IADLS. Pt is currently sleeping in bed . Pt is having assist with lower body dressing. She reports doing her chair stretches at least 5x/ day. She only has 1 step to enter her home and then everything is on one floor. Reported Pain Level Pain Score 3: Self Report Assessment PT Clinical Summary Pt is a 54 year old woman who presents to physical therapy s/p R TKA on 02/26/25. Pt demonstrates weakness, pain, decreased mobility, gait deficit, and decreased flexibility consistent with post op status that limit their ability to perform ADLs. Pt will benefit from skilled physical therapy to address the above listed deficits and return to PLOF. No concerns at this time. HEP instructed and written handout provided, EX tolerated well with no adverse effects to note post-session. Pt was educated on importance of adherence to HEP. Pt was also educated on anatomy, prognosis, home modalities, and PT POC. Plan of Care Interventions Gait Training,Manual Therapy,Neuro Re-education, Therapeutic Activities,Therapeutic Exercise PT Services Indicated Yes Treatment Frequency and 2x/wk for 12 sessions Duration These treatments will address the objective and functional deficits as defined above. The patient will be advanced safely and appropriately in order for the patient to progress towards his/her prior level of function. Additional exercises will be introduced and as well as a comprehensive home exercise program upon discharge, if needed, ?to ensure carryover of functional gains achieved in the clinic. This treatment plan has been reviewed and agreement upon by the patient.
--- NOTE | 2025-04-24 10:56 | OPREHPOC ---
Outpatient Therapy Plan of Care This is a Multidisciplinary Plan of Care that may contain components documented by all disciplines (PT, OT, and ST.) PT Problem 1 PT Problem #1 Knowledge Deficit PT Goal 1 Goal / Goal Update Patient to demonstrate independence with HEP for improved self-reliance of symptom management. 04-24-25 progress goal met continue to progress HEP and gait training Target Visit 17 PT Problem 2 PT Problem #2 Pain PT Goal 1 Goal / Goal Update Patient to decrease subjective reports of pain to <5/10 for improved ADL tolerance. 04-24-25 progress goal not met, rating 0-10/10 continue towards goal Target Visit 17 PT Problem 3 PT Problem #3 Impaired Gait PT Goal 1 Goal / Goal Update Patient to improve confidence and understanding of gait mechanics and stair negotiation with 2WW to improve community navigation. 04-24-25 progress goal met Target Visit 12 Progress Met PT Goal 2 Goal / Goal Update 04-24-25 progress NEW GOAL: 1* pt ambulate with cane/ no longer use wheeled walker 2* 2 minute walking test distance with cane of 350 ' Target Visit 17 PT Problem 4 PT Problem #4 Impaired Strength PT Goal 1 Goal / Goal Update Patient to demonstrate R knee strength >=4+/5 for improved functional stability required for ADLs. 04-24-25 progress goal not met, 4/5 continue towards goal Target Visit 17 PT Problem 5 PT Problem #5 Impaired Range of Motion PT Goal 1 Goal / Goal Update Patient to demonstrate an increase of R knee AROM of 0-120 deg to improve mobility required for gait /stair negotiation. 04-24-25 progress goal met Target Visit 12 Progress Met
--- NOTE | 2025-04-24 10:56 | PTOPPROG ---
Assessment and note entered by Sophie Niño, PT Assessment Status Progress ICD-10 Condition Codes (PT) Pain in right knee M25.561,Aftercare following joint replacement surgery Z47.1 Onset 02/26/25 Subjective Information knee is doing well, still swollen some; R ankle hurts due to cat hitting it and wearing ankle brace; have history of problems with R ankle and it flares up; does get out some to the park with her niece, going to her family member's homes and do Ok getting around; PAIN: pain range in the past week 0-10/10; distal and medial patella also having pain in R ankle due to cat ran into the back of her leg and hit it, wearing an ankle support brace; reported walking tolerance 5-20 minutes with wheeled walker, due to ankle pain increase pain: walking, weather, when first wake up in AM decrease pain: taking prescription pain meds PRN 0-1x/day, take tylenol PRN report able to sleep through the night Assessment PT Clinical Summary [place] has received 11 PT sessions. With today's assessment: pain rating of 0-10/10 in knee; LE functional scale self rating of 66% limitation in activity level; active ROM of R knee in sitting 0-130'; strength of R knee 4/5; 2 minute walking test with cane, 270'; 4 steps with single step pattern and using cane independent; 5 reps sit/stand time of 16 seconds, without use of UE's; education for HEP and gait training with cane. She is wearing an ankle support brace on R due to cat running into her ankle; has a history of chronic issues with ankle pain. The goals were partially achieved. Continue PT for further strengthening and progression of gait and balance for cane use. Plan of Care Interventions Gait Training,Manual Therapy,Neuro Re-education, Therapeutic Activities,Therapeutic Exercise PT Services Indicated Yes Treatment Frequency and 1x/wk for 6 visits Duration These treatments will address the objective and functional deficits as defined above. The patient will be advanced safely and appropriately in order for the patient to progress towards his/her prior level of function. Additional exercises will be introduced and as well as a comprehensive home exercise program upon discharge, if needed, ?to ensure carryover of functional gains achieved in the clinic. This treatment plan has been reviewed and agreement upon by the patient.
--- NOTE | 2025-07-23 15:23 | PCPTNOTE ---
PHYSICAL THERAPY DISCHARGE 07-23-[address] Ilsa Quintanilla has received 14 PT sessions, from March 02 to May 25. Then she stopped attending therapy. Discharge PT due to pt not attending.
== END 2025-05-31 23:59 | disposition home or self-care (01) ==
LOC: ANHPT 07:30
PROVIDERS: PCP Family Medicine; Visit Provider Orthopaedic Surgery
DX: Z47.1 Aftercare following joint replacement surgery (principal); M17.11 Unilateral primary osteoarthritis, right knee; Z96.651 Presence of right artificial knee joint
CPT/HCPCS: 97110; 97116; 97140; 97161; 97530